=== PATIENT | male | born 1945 | race Caucasian/White ===

== ENCOUNTER 2016-11-29 13:32 | Inpatient (IN) | payer MEDICARE, MEDICAID ==
--- NOTE | 2016-11-29 14:10 | ED Physician Chart ---
Chief Complaint/HPI - Patient Information Date Seen:: 11/29/16 Time Seen:: 14:00 Chief Complaint:: increased agitation History of Present Illness:: Patient being sent here for increased agitation at his correction facility. If medically clear he is to be admitted to [facility] Allergies:: Allergies Allergy/AdvReac Type Severity Reaction Status Date / Time No Known Allergies Allergy Verified 06/18/16 16:29 Vitals:: Vital Signs - 8 hr 11/29/16 13:47 Temp 98.1 F HR 62 RR 16 O2 Sat % 99 Historian:: Patient, EMS Review:: Nurse's Note Reviewed Review of Systems - Review of Systems General/Constitutional: No fever, No chills Skin: No skin lesions Head: No headache Eyes: No loss of vision ENT: No earache Neck: No neck pain Cardio Vascular: No chest pain Pulmonary: No SOB GI: No nausea, No vomiting Musculoskeletal: No bone or joint pain Endocrine: No polyuria Psychiatric: Prior psych history Hematopoietic: No bruising Allergic/Immuno: No urticaria Neurological: No syncope Past Medical History - Past Medical History Past Medical History: PUD/GERD, Seizures, Dementia, Other (benign prostatic hypertrophy; schizoaffective disorder; Alzheimer's disease; status post deep vein thrombosis both legs leukocytosis) Family History: Other (unavailable) Social History: Non Smoker, No Alcohol, Care Facility Surgical History: other (unavailable) Psychiatricy History: Dementia Medication: Reviewed Family Medical History - Family Member Mother History Unknown: Yes Ethnicity: Unknown Living Status: Unknown Hx Family Cancer: (unknown) Hx Family Coronary Artery Disease: (unknown) Hx Family Congestive Heart Failure: (unknown) Hx Family Hypertension: (unknown) Hx Family Stroke: (unknown) Hx Family Diabetes: (unknown) Hx Family Seizures: (unknown) Hx Family Dementia: (unknown) Hx Family AIDS: (unknown) Hx Family HIV: No Hx Family COPD: (unknown) Hx Family Hepatitis: (unknown) Hx Family Psychiatric Problems: (unknown) Hx Family Tuberculosis: (unknown) Physical Exam - Physical Examination General/Constitutional: Well-developed, well-nourished, Alert, No distress Head: Atraumatic Eyes: Lids, conjuctiva normal, PERRL Skin: Nl inspection, No rash ENMT: External ears, nose nl, TM canals nl, Nasal exam nl Other ENMT comments:: Gums inflamed Neck: No nuchal rigidity Respiratory: Nl effort/Exclusion, Clear to Auscultation Cardio Vascular: RRR, No murmur, gallop, rubs GI: No tenderness/rebounding/guarding, No organomegaly, No hernia : No CVA tenderness Extremities: No tenderness or effusion, Full ROM Neuro/Psych: No focal deficits Other Neuro/Psych comments:: Patient does not know the correct year Misc: Normal back Labs/Radiology/EKG Results - Lab Results Results: Laboratory Results - last 24 hr 11/29/16 11/29/16 14:25 14:25 WBC 7.7 RBC 5.19 Hgb 15.6 Hct 46.8 MCV 90.3 MCH 30.1 MCHC Differential 33.4 RDW 13.8 Plt Count 267 MPV 6.8 Neutrophils % 66.4 Lymphocytes % 20.7 Monocytes % 10.3 H Eosinophils % 2.4 Basophils % 0.2 Sodium 139 Potassium 3.9 Chloride 105 Carbon Dioxide 27.1 Anion Gap 10.8 BUN 17 Creatinine 1.1 Est GFR ( Amer) TNP Est GFR (Non-Af Amer) TNP BUN/Creatinine Ratio 15.5 Glucose 79 Calcium 9.3 Total Bilirubin 0.3 AST 16 ALT 15 Alkaline Phosphatase 69 Total Protein 7.6 Albumin 4.0 L Globulin 3.6 Albumin/Globulin Ratio 1.1 - EKG Interpretations Rhythm: NSR [place]: normal Rate: 55 ED Septic Shock - . Is Septic Shock (SBP<90, OR Lactate>4 mmol\L) present?: No - <6hrs of presentation: Vital Signs: Vital Signs - 8 hr 11/29/16 13:47 Temp 98.1 F HR 62 RR 16 O2 Sat % 99 Reassessment (Disposition) - Reassessment Reassessment Condition:: Unchanged - Patient Disposition Admitted to:: [facility] Admitting Medical Physician:: Be Ward Admitting Psych Physician:: Jannet Perkins Condition at Disposition:: Stable, Unchanged
[2016-11-29 14:36] LABS: % BASOPHILS 0.2 % (0.0-2.0); % EOSINOPHILS 2.4 % (0.0-5.0); % LYMPHOCYTES 20.7 % (20.0-50.0); % MONOCYTES 10.3 % (2.0-10.0); % NEUTROPHILS 66.4 % (40.0-80.0); HEMATOCRIT 46.8 % (39.0-49.0); HEMOGLOBIN 15.6 gm/dL (12.6-17.4); MEAN CELL VOLUME 90.3 fl (80-99); MEAN CORPUSCULAR HEMOGLOBIN 30.1 pg (27.0-31.0); MEAN CORPUSCULAR HGB CONC 33.4 pg (28.0-36.0); MEAN PLATELET VOLUME 6.8 fl; NEUTROPHILE ABSOLUTE 5.1 Th/cmm (1.8-8.0); PLATELET COUNT 267 Th/cmm (150-400); RED BLOOD COUNT 5.19 Mil/cmm (3.80-5.80); RED CELL DISTRIBUTION WIDTH 13.8 % (11.5-20.0); WHITE BLOOD COUNT 7.7 Th/cmm (4.8-10.8)
[2016-11-29 14:50] LABS: ALB/GLOB RATIO 1.1 (1.0-1.8); ALKALINE PHOSPHATASE 69 U/L (34-104); ANION GAP 10.8 (7.0-16.0); BILIRUBIN,TOTAL 0.3 mg/dL (0.3-1.0); BUN - UREA NITROGEN 17 mg/dL (7-25); BUN/CREATININE RATIO 15.5; CALCIUM SERUM 9.3 mg/dL (8.6-10.3); CARBON DIOXIDE 27.1 mEq/L (21.0-31.0); CHLORIDE 105 mEq/L (98-107); CREATININE - SERUM 1.1 mg/dL (0.7-1.3); GLUCOSE 79 mg/dL (70-105); POTASSIUM SERUM 3.9 mEq/L (3.5-5.1); SGOT 16 U/L (13-39); SGPT/ALT 15 U/L (7-52); SODIUM SERUM 139 mEq/L (136-145)
[2016-11-29] MEDS ORDERED: Magnesium Hydroxide (MOM) 30 mL UDC PO PRN (16:26)
[2016-11-29] MEDS ORDERED: Maalox 30 mL Cup PO PRN (16:26)
[2016-11-29 18:14] VITALS: BP 136/76
[2016-11-29] MEDS ORDERED: QUETIAPINE FUMARATE 150 MG PO SCH (21:00)
[2016-11-29] MEDS ORDERED: Magnesium Hydroxide (MOM) 30 mL UDC PO SCH (23:15)
[2016-11-30] MEDS ORDERED: Multivitamin w/ Minerals Tab PO SCH (09:00)
[2016-11-30] MEDS: Theophylline 100 mg ER Tab PO SCH (09:55)
[2016-11-30] MEDS ORDERED: Magnesium Hydroxide (MOM) 30 mL UDC PO PRN (10:11)
[2016-11-30 11:51] LABS: INR 1.65 (0.5-1.4); PROTHROMBIN TIME (TEST) 17.6 SECONDS (9.5-11.5)
--- NOTE | 2016-11-30 13:03 | Psychosocial Evaluation ---
IDENTIFYING INFORMATION: The patient is a 71-year-old male. CHIEF COMPLAINT: No information. HISTORY OF PRESENT ILLNESS: The patient referred from [facility] because of agitation, psychosis, apparently has been aggressive, combative. The patient himself was a poor historian. I tried to talk to him, he was walking the hallway and I worked with him and asking questions, but he was whistling. He would not respond to any of my question. He has started to answer questions, then he keeps walking and whistled to himself. He seems to be responding to internal stimuli. The patient was restarted on his medications, Seroquel 150 mg twice a day and 150 mg at bedtime. He is also on Namenda 10 mg twice a day, Trileptal 150 mg twice a day and Aricept 10 mg at bedtime. PAST PSYCHIATRIC HISTORY: The patient has multiple prior admissions to this facility for similar reason with a history of aggressive behavior. MEDICAL HISTORY: He has no known drug allergies. Defer to the medical doctor. MEDICATIONS: The patient is on Pepcid, multivitamin, Flomax, theophylline. FAMILY AND SOCIAL HISTORY: The patient has been staying at [facility] for a long period of time. Unable to give any information. MENTAL STATUS EXAMINATION: The patient is appropriately dressed, not very groomed, looks disheveled, disorganized, internally preoccupied, whistling to himself, unable to participate in a meaningful conversation or tell me why he is here or what happened. He was combative, aggressive, responding to internal stimuli, ____ coming here. He was unable to participate in memory testing or IQ testing. He was ____ by suicide, homicide or hallucinations, but obviously he seems to be responding to internal stimuli. His insight and judgment impaired. IMPRESSION: AXIS I: Dementia with delusion and behavior disturbances. MEDICAL DIAGNOSES: Deferred to the medical doctors. His assets he is accepting treatment. Negative poor coping skills. INITIAL TREATMENT PLAN: The patient was started back on medication will adjust medications as needed. We will do group therapy, milieu therapy, individual therapy. ESTIMATED LENGTH OF STAY: 3-7 days. DISCHARGE CRITERIA: Decrease in psychosis, agitation. After discharge, outpatient. [facility]# [id number]
--- NOTE | 2016-11-30 15:26 | Internal Medicine Prog Note ---
Internal Medicine Subjective - Subjective Service Date: 11/30/16 ([id number]) Internal Medicine Objective - Results Result Diagrams: 11/29/16 14:25 11/29/16 14:25 Recent Labs: Laboratory Last Values WBC 7.7 Th/cmm (4.8-10.8) 11/29/16 14:25 RBC 5.19 Mil/cmm (3.80-5.80) 11/29/16 14:25 Hgb 15.6 gm/dL (12.6-17.4) 11/29/16 14:25 Hct 46.8 % (39.0-49.0) 11/29/16 14:25 MCV 90.3 fl (80-99) 11/29/16 14:25 MCH 30.1 pg (27.0-31.0) 11/29/16 14:25 MCHC Differential 33.4 pg (28.0-36.0) 11/29/16 14:25 RDW 13.8 % (11.5-20.0) 11/29/16 14:25 Plt Count 267 Th/cmm (150-400) 11/29/16 14:25 MPV 6.8 fl 11/29/16 14:25 Neutrophils % 66.4 % (40.0-80.0) 11/29/16 14:25 Lymphocytes % 20.7 % (20.0-50.0) 11/29/16 14:25 Monocytes % 10.3 % (2.0-10.0) H 11/29/16 14:25 Eosinophils % 2.4 % (0.0-5.0) 11/29/16 14:25 Basophils % 0.2 % (0.0-2.0) 11/29/16 14:25 PT 17.6 SECONDS (9.5-11.5) H 11/30/16 11:30 INR 1.65 (0.5-1.4) H 11/30/16 11:30 Sodium 139 mEq/L (136-145) 11/29/16 14:25 Potassium 3.9 mEq/L (3.5-5.1) 11/29/16 14:25 Chloride 105 mEq/L (98-107) 11/29/16 14:25 Carbon Dioxide 27.1 mEq/L (21.0-31.0) 11/29/16 14:25 Anion Gap 10.8 (7.0-16.0) 11/29/16 14:25 BUN 17 mg/dL (7-25) 11/29/16 14:25 Creatinine 1.1 mg/dL (0.7-1.3) 11/29/16 14:25 Est GFR ( Amer) TNP 11/29/16 14:25 Est GFR (Non-Af Amer) TNP 11/29/16 14:25 BUN/Creatinine Ratio 15.5 11/29/16 14:25 Glucose 79 mg/dL (70-105) 11/29/16 14:25 Calcium 9.3 mg/dL (8.6-10.3) 11/29/16 14:25 Total Bilirubin 0.3 mg/dL (0.3-1.0) 11/29/16 14:25 AST 16 U/L (13-39) 11/29/16 14:25 ALT 15 U/L (7-52) 11/29/16 14:25 Alkaline Phosphatase 69 U/L (34-104) 11/29/16 14:25 Total Protein 7.6 gm/dL (6.0-8.3) 11/29/16 14:25 Albumin 4.0 gm/dL (4.2-5.5) L 11/29/16 14:25 Globulin 3.6 gm/dL 11/29/16 14:25 Albumin/Globulin Ratio 1.1 (1.0-1.8) 11/29/16 14:25 TSH 1.04 uIU/ml (0.34-5.60) 11/29/16 14:25 RPR NONREACTIVE (NONREACTIVE) 11/29/16 14:25 - Physical Exam Vitals and I&O: Vital Signs Temp 97.4 F 11/30/16 06:23 Pulse 76 11/30/16 06:23 Resp 20 11/30/16 06:23 BP 143/66 11/30/16 06:23 Pulse Ox 98 11/30/16 06:23 Intake & Output 11/29/16 11/30/16 11/30/16 18:59 06:59 18:59 Intake Total 1400 120 Balance 1400 120 Intake: Oral 1400 120 Other: # Voids 1 2 # Bowel Movements 0 Active Medications: Current Medications Acetaminophen (Tylenol) 650 mg PO Q4HR PRN PRN Reason: Pain (Mild) Stop: 01/28/17 16:25 Al Hydrox/Mg Hydrox/Simethicone (Maalox) 30 ml PO Q4HR PRN PRN Reason: GI DISTRESS Stop: 01/28/17 16:25 Docusate Sodium (Colace) 100 mg PO BID ANA Stop: 01/29/17 08:59 Donepezil HCl (Aricept) 10 mg PO HS ANA Stop: 01/29/17 20:59 Famotidine (Pepcid) 20 mg PO DAILY ANA Stop: 01/29/17 08:59 Last Admin: 11/30/16 09:55 Dose: 20 mg Lorazepam (Ativan) 0.5 mg PO Q4HR PRN; Protocol PRN Reason: Anxiety Stop: 12/29/16 16:25 Magnesium Hydroxide (Milk Of Magnesia) 30 ml PO DAILY PRN PRN Reason: CONSTIPATION Stop: 01/28/17 23:14 Memantine (Namenda) 10 mg PO BID ANA Stop: 01/29/17 08:59 Last Admin: 11/30/16 09:55 Dose: 10 mg Multivitamins/Vitamin C (Theragran) 1 tab PO DAILY ANA Stop: 01/29/17 08:59 Oxcarbazepine (Trileptal) 150 mg PO BID ANA PRN Reason: Protocol Stop: 01/29/17 08:59 Quetiapine Fumarate (Seroquel) 150 mg PO BID ANA PRN Reason: Protocol Stop: 01/29/17 08:59 Quetiapine Fumarate (Seroquel) 150 mg PO HS ANA PRN Reason: Protocol Stop: 01/29/17 20:59 Tamsulosin HCl (Flomax) 0.8 mg PO HS [facility] Stop: 01/29/17 20:59 Theophylline (Fabien-Dur) 300 mg PO DAILY ANA Stop: 01/29/17 08:59 Last Admin: 11/30/16 09:55 Dose: 300 mg Warfarin Sodium (Coumadin) 6 mg PO C [facility] Stop: 01/29/17 13:59 Zolpidem Tartrate (Ambien) 5 mg PO HS PRN PRN Reason: Insomnia Stop: 01/28/17 16:25 - Procedures Procedures: Procedures Procedure Code Date EMERGENCY DEPT VISIT 93372 12/28/11 EMERGENCY DEPT VISIT 14629 12/12/11 GROUP PSYCHOTHERAPY 02773 02/14/16 GROUP PSYCHOTHERAPY GZHZZZZ 02/14/16 GROUP PSYCHOTHERAPY 14961 10/06/15 GROUP PSYCHOTHERAPY GZHZZZZ 10/06/15 GROUP PSYCHOTHERAPY 38118 06/21/15 GROUP PSYCHOTHERAPY GZHZZZZ 06/21/15 OTHER GROUP THERAPY 94.44 02/26/15 RECREATIONAL THERAPY 93.81 06/30/12 Internal Medicine Assmt/Plan - Assessment Assessment: pud/gerd alzheimer/dementia leukocytosis chronic dvt on anticoagulant
[2016-11-30] MEDS: Multivitamin Tab PO SCH (17:00)
--- NOTE | 2016-11-30 17:13 | History & Physical ---
CHIEF COMPLAINT: Agitation. HISTORY OF PRESENT ILLNESS: This is a 71-year-old male who is a resident of [facility] who is brought here to [facility] for increase of agitation. PAST MEDICAL HISTORY: CVA, GERD, Alzheimer dementia, DVT, ____, chronic, anticoagulation, BPH. PAST SURGICAL HISTORY: Unknown. SOCIAL HISTORY: The patient is a care home resident, requiring 24-hour nursing care. FAMILY HISTORY: Noncontributory. REVIEW OF SYSTEMS: Unable to obtain, the patient is very agitated. PHYSICAL EXAMINATION: GENERAL: The patient is awake, alert, in no acute distress. VITAL SIGNS: Temperature 97.4, heart rate 76, blood pressure 143/66, O2 98%. HEENT: Head normocephalic, atraumatic. NECK: Supple. No mass. LUNGS: Clear. CARDIOVASCULAR: Regular rhythm. ABDOMEN: Soft, nontender. LABORATORY DATA: WBC 7.7, H and H 15.2 and 46.8. Sodium 139, potassium 3.9, BUN ____ and creatinine 1.1. ASSESSMENT: 1. Agitation. 2. Gastroesophageal reflux disease . 3. Alzheimer dementia. 4. Benign prostatic hypertrophy. 5. Schizoaffective disorder. 6. Chronic obstructive pulmonary disease. PLAN: Psychiatrist to manage the patient's psychiatric issues. We will monitor the patient's PT and INR. Fall precautions. We will continue to monitor. JOB# [id number]
[2016-12-01 08:24] LABS: INR 1.29 (0.5-1.4); PROTHROMBIN TIME (TEST) 13.6 SECONDS (9.5-11.5)
[2016-12-01] MEDS: Theophylline 100 mg ER Tab PO SCH (09:16)
[2016-12-01] MEDS: Multivitamin Tab PO SCH (09:16)
--- NOTE | 2016-12-01 16:35 | Internal Medicine Prog Note ---
Internal Medicine Subjective - Subjective Patient seen and examined:: with staff, chart reviewed Patient is:: awake, verbal, interactive Per staff patient is:: no adverse event, confused Internal Medicine Objective - Results Result Diagrams: 11/29/16 14:25 11/29/16 14:25 Recent Labs: Laboratory Last Values WBC 7.7 Th/cmm (4.8-10.8) 11/29/16 14:25 RBC 5.19 Mil/cmm (3.80-5.80) 11/29/16 14:25 Hgb 15.6 gm/dL (12.6-17.4) 11/29/16 14:25 Hct 46.8 % (39.0-49.0) 11/29/16 14:25 MCV 90.3 fl (80-99) 11/29/16 14:25 MCH 30.1 pg (27.0-31.0) 11/29/16 14:25 MCHC Differential 33.4 pg (28.0-36.0) 11/29/16 14:25 RDW 13.8 % (11.5-20.0) 11/29/16 14:25 Plt Count 267 Th/cmm (150-400) 11/29/16 14:25 MPV 6.8 fl 11/29/16 14:25 Neutrophils % 66.4 % (40.0-80.0) 11/29/16 14:25 Lymphocytes % 20.7 % (20.0-50.0) 11/29/16 14:25 Monocytes % 10.3 % (2.0-10.0) H 11/29/16 14:25 Eosinophils % 2.4 % (0.0-5.0) 11/29/16 14:25 Basophils % 0.2 % (0.0-2.0) 11/29/16 14:25 PT 13.6 SECONDS (9.5-11.5) H 12/01/16 07:51 INR 1.29 (0.5-1.4) 12/01/16 07:51 PTT (Actin FS) 29.6 SECONDS (26.0-38.0) 12/01/16 07:51 Sodium 139 mEq/L (136-145) 11/29/16 14:25 Potassium 3.9 mEq/L (3.5-5.1) 11/29/16 14:25 Chloride 105 mEq/L (98-107) 11/29/16 14:25 Carbon Dioxide 27.1 mEq/L (21.0-31.0) 11/29/16 14:25 Anion Gap 10.8 (7.0-16.0) 11/29/16 14:25 BUN 17 mg/dL (7-25) 11/29/16 14:25 Creatinine 1.1 mg/dL (0.7-1.3) 11/29/16 14:25 Est GFR ( Amer) TNP 11/29/16 14:25 Est GFR (Non-Af Amer) TNP 11/29/16 14:25 BUN/Creatinine Ratio 15.5 11/29/16 14:25 Glucose 79 mg/dL (70-105) 11/29/16 14:25 Calcium 9.3 mg/dL (8.6-10.3) 11/29/16 14:25 Total Bilirubin 0.3 mg/dL (0.3-1.0) 11/29/16 14:25 AST 16 U/L (13-39) 11/29/16 14:25 ALT 15 U/L (7-52) 11/29/16 14:25 Alkaline Phosphatase 69 U/L (34-104) 11/29/16 14:25 Total Protein 7.6 gm/dL (6.0-8.3) 11/29/16 14:25 Albumin 4.0 gm/dL (4.2-5.5) L 11/29/16 14:25 Globulin 3.6 gm/dL 11/29/16 14:25 Albumin/Globulin Ratio 1.1 (1.0-1.8) 11/29/16 14:25 TSH 1.04 uIU/ml (0.34-5.60) 11/29/16 14:25 RPR NONREACTIVE (NONREACTIVE) 11/29/16 14:25 - Physical Exam Vitals and I&O: Vital Signs Temp 97.6 F 12/01/16 15:49 Pulse 60 12/01/16 15:49 Resp 22 12/01/16 15:49 BP 138/77 12/01/16 15:49 Pulse Ox 97 12/01/16 15:49 Intake & Output 11/30/16 12/01/16 12/01/16 18:59 06:59 18:59 Intake Total 850 Balance 850 Intake: Oral 850 Other: # Voids 3 2 # Bowel Movements 1 Active Medications: Current Medications Acetaminophen (Tylenol) 650 mg PO Q4HR PRN PRN Reason: Pain (Mild) Stop: 01/28/17 16:25 Al Hydrox/Mg Hydrox/Simethicone (Maalox) 30 ml PO Q4HR PRN PRN Reason: GI DISTRESS Stop: 01/28/17 16:25 Docusate Sodium (Colace) 100 mg PO BID [facility] Stop: 01/29/17 08:59 Last Admin: 12/01/16 16:19 Dose: 100 mg Donepezil HCl (Aricept) 10 mg PO HS [facility] Stop: 01/29/17 20:59 Last Admin: 11/30/16 20:49 Dose: 10 mg Famotidine (Pepcid) 20 mg PO DAILY [facility] Stop: 01/29/17 08:59 Last Admin: 12/01/16 09:16 Dose: 20 mg Lorazepam (Ativan) 0.5 mg PO Q4HR PRN; Protocol PRN Reason: Anxiety Stop: 12/29/16 16:25 Magnesium Hydroxide (Milk Of Magnesia) 30 ml PO DAILY PRN PRN Reason: CONSTIPATION Stop: 01/28/17 23:14 Memantine (Namenda) 10 mg PO BID [facility] Stop: 01/29/17 08:59 Last Admin: 12/01/16 16:19 Dose: 10 mg Multivitamins/Vitamin C (Theragran) 1 tab PO DAILY [facility] Stop: 01/29/17 08:59 Last Admin: 12/01/16 09:16 Dose: 1 tab Oxcarbazepine (Trileptal) 150 mg PO BID ANA PRN Reason: Protocol Stop: 01/29/17 08:59 Last Admin: 12/01/16 16:19 Dose: 150 mg Quetiapine Fumarate (Seroquel) 150 mg PO BID [facility] PRN Reason: Protocol Stop: 01/29/17 08:59 Last Admin: 12/01/16 16:19 Dose: 150 mg Quetiapine Fumarate (Seroquel) 150 mg PO HS [facility] PRN Reason: Protocol Stop: 01/29/17 20:59 Last Admin: 11/30/16 20:48 Dose: 150 mg Tamsulosin HCl (Flomax) 0.8 mg PO HS [facility] Stop: 01/29/17 20:59 Last Admin: 11/30/16 20:49 Dose: 0.8 mg Theophylline (Fabien-Dur) 300 mg PO DAILY ANA Stop: 01/29/17 08:59 Last Admin: 12/01/16 09:16 Dose: 300 mg Warfarin Sodium (Coumadin) 6 mg PO C [facility] Stop: 01/29/17 13:59 Last Admin: 12/01/16 13:23 Dose: 6 mg Zolpidem Tartrate (Ambien) 5 mg PO HS PRN PRN Reason: Insomnia Stop: 01/28/17 16:25 General: demented HEENT: NC/AT, PERRLA Neck: Supple, No JVD Lungs: CTAB Cardiovascular: RRR, Normal S1, Normal S2 Abdomen: soft non-tender, globular, positive bowel sound Extremities: clear, excoriation Neurological: no change - Procedures Procedures: Procedures Procedure Code Date EMERGENCY DEPT VISIT 21296 12/28/11 EMERGENCY DEPT VISIT 20488 12/12/11 GROUP PSYCHOTHERAPY 66613 02/14/16 GROUP PSYCHOTHERAPY GZHZZZZ 02/14/16 GROUP PSYCHOTHERAPY 35291 10/06/15 GROUP PSYCHOTHERAPY GZHZZZZ 10/06/15 GROUP PSYCHOTHERAPY 75074 06/21/15 GROUP PSYCHOTHERAPY GZHZZZZ 06/21/15 OTHER GROUP THERAPY 94.44 02/26/15 RECREATIONAL THERAPY 93.81 06/30/12 Internal Medicine Assmt/Plan - Assessment Assessment: pud/gerd alzheimer/dementia leukocytosis chronic dvt on anticoagulant - Plan Plan: cont on ppi cont on couumadin check inr richard jacobsen
--- NOTE | 2016-12-01 20:16 | Progress Notes ---
SUBJECTIVE: The patient seen, chart reviewed, discussed with staff. The patient is currently in the hospital, referred from [place], aggressive, combative, poor historian, nonsensical, for example, when I ask him questions, he responds "you are crushing my body" and then refusing any further interviews. The patient with history of advanced dementia, nonsensical, aggression. ASSESSMENT: The patient remains disorganized, internally preoccupied, making nonsensical statements, still resistant to care, poor impulse control, potential for dangerousness. PLAN: Continue to monitor, work on his coping and orientation, continue to make medication adjustments. JOB# [id number]
[2016-12-02] MEDS: Multivitamin Tab PO SCH (09:27)
[2016-12-02] MEDS: Theophylline 100 mg ER Tab PO SCH (09:28)
--- NOTE | 2016-12-02 15:32 | Internal Medicine Prog Note ---
Internal Medicine Subjective - Subjective Patient seen and examined:: with staff, chart reviewed Patient is:: awake, verbal Per staff patient is:: confused Internal Medicine Objective - Results Result Diagrams: 11/29/16 14:25 11/29/16 14:25 Recent Labs: Laboratory Last Values WBC 7.7 Th/cmm (4.8-10.8) 11/29/16 14:25 RBC 5.19 Mil/cmm (3.80-5.80) 11/29/16 14:25 Hgb 15.6 gm/dL (12.6-17.4) 11/29/16 14:25 Hct 46.8 % (39.0-49.0) 11/29/16 14:25 MCV 90.3 fl (80-99) 11/29/16 14:25 MCH 30.1 pg (27.0-31.0) 11/29/16 14:25 MCHC Differential 33.4 pg (28.0-36.0) 11/29/16 14:25 RDW 13.8 % (11.5-20.0) 11/29/16 14:25 Plt Count 267 Th/cmm (150-400) 11/29/16 14:25 MPV 6.8 fl 11/29/16 14:25 Neutrophils % 66.4 % (40.0-80.0) 11/29/16 14:25 Lymphocytes % 20.7 % (20.0-50.0) 11/29/16 14:25 Monocytes % 10.3 % (2.0-10.0) H 11/29/16 14:25 Eosinophils % 2.4 % (0.0-5.0) 11/29/16 14:25 Basophils % 0.2 % (0.0-2.0) 11/29/16 14:25 PT 13.6 SECONDS (9.5-11.5) H 12/01/16 07:51 INR 1.29 (0.5-1.4) 12/01/16 07:51 PTT (Actin FS) 29.6 SECONDS (26.0-38.0) 12/01/16 07:51 Sodium 139 mEq/L (136-145) 11/29/16 14:25 Potassium 3.9 mEq/L (3.5-5.1) 11/29/16 14:25 Chloride 105 mEq/L (98-107) 11/29/16 14:25 Carbon Dioxide 27.1 mEq/L (21.0-31.0) 11/29/16 14:25 Anion Gap 10.8 (7.0-16.0) 11/29/16 14:25 BUN 17 mg/dL (7-25) 11/29/16 14:25 Creatinine 1.1 mg/dL (0.7-1.3) 11/29/16 14:25 Est GFR ( Amer) TNP 11/29/16 14:25 Est GFR (Non-Af Amer) TNP 11/29/16 14:25 BUN/Creatinine Ratio 15.5 11/29/16 14:25 Glucose 79 mg/dL (70-105) 11/29/16 14:25 Calcium 9.3 mg/dL (8.6-10.3) 11/29/16 14:25 Total Bilirubin 0.3 mg/dL (0.3-1.0) 11/29/16 14:25 AST 16 U/L (13-39) 11/29/16 14:25 ALT 15 U/L (7-52) 11/29/16 14:25 Alkaline Phosphatase 69 U/L (34-104) 11/29/16 14:25 Total Protein 7.6 gm/dL (6.0-8.3) 11/29/16 14:25 Albumin 4.0 gm/dL (4.2-5.5) L 11/29/16 14:25 Globulin 3.6 gm/dL 11/29/16 14:25 Albumin/Globulin Ratio 1.1 (1.0-1.8) 11/29/16 14:25 TSH 1.04 uIU/ml (0.34-5.60) 11/29/16 14:25 RPR NONREACTIVE (NONREACTIVE) 11/29/16 14:25 - Physical Exam Vitals and I&O: Vital Signs Temp 97.8 F 12/01/16 19:58 Pulse 56 12/01/16 19:58 Resp 20 12/02/16 10:35 BP 106/62 12/01/16 19:58 Pulse Ox 97 12/01/16 19:58 Intake & Output 12/01/16 12/02/16 12/02/16 18:59 06:59 18:59 Intake Total 240 Balance 240 Intake: Oral 240 Other: # Voids 2 1 Active Medications: Current Medications Acetaminophen (Tylenol) 650 mg PO Q4HR PRN PRN Reason: Pain (Mild) Stop: 01/28/17 16:25 Al Hydrox/Mg Hydrox/Simethicone (Maalox) 30 ml PO Q4HR PRN PRN Reason: GI DISTRESS Stop: 01/28/17 16:25 Docusate Sodium (Colace) 100 mg PO BID [facility] Stop: 01/29/17 08:59 Last Admin: 12/02/16 09:29 Dose: 100 mg Donepezil HCl (Aricept) 10 mg PO HS [facility] Stop: 01/29/17 20:59 Last Admin: 12/01/16 20:51 Dose: 10 mg Famotidine (Pepcid) 20 mg PO DAILY [facility] Stop: 01/29/17 08:59 Last Admin: 12/02/16 09:27 Dose: 20 mg Lorazepam (Ativan) 0.5 mg PO Q4HR PRN; Protocol PRN Reason: Anxiety Stop: 12/29/16 16:25 Last Admin: 12/02/16 13:01 Dose: 0.5 mg Magnesium Hydroxide (Milk Of Magnesia) 30 ml PO DAILY PRN PRN Reason: CONSTIPATION Stop: 01/28/17 23:14 Memantine (Namenda) 10 mg PO BID [facility] Stop: 01/29/17 08:59 Last Admin: 12/02/16 09:24 Dose: 10 mg Multivitamins/Vitamin C (Theragran) 1 tab PO DAILY [facility] Stop: 01/29/17 08:59 Last Admin: 12/02/16 09:27 Dose: 1 tab Oxcarbazepine (Trileptal) 150 mg PO BID ANA PRN Reason: Protocol Stop: 01/29/17 08:59 Last Admin: 12/02/16 09:28 Dose: 150 mg Quetiapine Fumarate (Seroquel) 150 mg PO BID ANA PRN Reason: Protocol Stop: 01/29/17 08:59 Last Admin: 12/02/16 09:24 Dose: 150 mg Quetiapine Fumarate (Seroquel) 150 mg PO HS ANA PRN Reason: Protocol Stop: 01/29/17 20:59 Last Admin: 12/01/16 20:51 Dose: 150 mg Tamsulosin HCl (Flomax) 0.8 mg PO HS [facility] Stop: 01/29/17 20:59 Last Admin: 12/01/16 20:51 Dose: 0.8 mg Theophylline (Fabien-Dur) 300 mg PO DAILY ANA Stop: 01/29/17 08:59 Last Admin: 12/02/16 09:28 Dose: 300 mg Warfarin Sodium (Coumadin) 6 mg PO C [facility] Stop: 01/29/17 13:59 Last Admin: 12/02/16 13:01 Dose: 6 mg Zolpidem Tartrate (Ambien) 5 mg PO HS PRN PRN Reason: Insomnia Stop: 01/28/17 16:25 General: bilateral temporal wasting HEENT: NC/AT, PERRLA Neck: Supple, No JVD Lungs: CTAB Cardiovascular: RRR, Normal S1, Normal S2 Abdomen: soft non-tender, globular, positive bowel sound Extremities: excoriation Neurological: no change, disorganized - Procedures Procedures: Procedures Procedure Code Date EMERGENCY DEPT VISIT 56599 12/28/11 EMERGENCY DEPT VISIT 79334 12/12/11 GROUP PSYCHOTHERAPY 21539 02/14/16 GROUP PSYCHOTHERAPY GZHZZZZ 02/14/16 GROUP PSYCHOTHERAPY 30833 10/06/15 GROUP PSYCHOTHERAPY GZHZZZZ 10/06/15 GROUP PSYCHOTHERAPY 85665 06/21/15 GROUP PSYCHOTHERAPY GZHZZZZ 06/21/15 OTHER GROUP THERAPY 94.44 02/26/15 RECREATIONAL THERAPY 93.81 06/30/12 Internal Medicine Assmt/Plan - Assessment Assessment: pud/gerd alzheimer/dementia leukocytosis chronic dvt on anticoagulant - Plan Plan: cont on ppi cont on couumadin check inr richard jacobsen
--- NOTE | 2016-12-02 19:04 | Progress Notes ---
SUBJECTIVE: The patient seen, chart reviewed and discussed with staff. The patient wondering complaining that he is ____ aggressive, still combative, nonsensical, alert and oriented to name and has no idea where he is. He has no idea what is going on, nonsensical with advanced dementia, still with lashing up behaviors. ASSESSMENT: The patient is internally preoccupied, mumbling, wandering, poor impulse control, talking nonsense and disorganized. PLAN: Continue to monitor. The patient not safe for discharge. Still symptomatic. We will make medication adjustments appropriate to targeting his current symptoms. JOB# [id number]
[2016-12-03] MEDS: Theophylline 100 mg ER Tab PO SCH (08:18)
[2016-12-03] MEDS: Multivitamin Tab PO SCH (08:19)
--- NOTE | 2016-12-04 00:57 | Progress Notes ---
Case was discussed with staff of the patient, reviewed records. The patient continues to be agitated, continues to be confused, continues to be unable to make safe plan for self-care, continues to be unpredictable, impulsive, needing redirection, responding poorly to redirections. He is compliant with the medication with no side effects, no sedation, no nausea, no extrapyramidal symptoms ____. I will be increasing his Seroquel at bedtime ____ decrease his agitated behavior and so far, no side effects, no sedation, no nausea, no extrapyramidal symptoms. His lab work showed his chemistry panel within normal range. Sodium level within normal range. Low albumin level. His CBC showed high monocytes, the rest within normal range. We will continue to work with the patient in group therapy, milieu therapy, adjust the medication as needed. JOB# [id number]
[2016-12-04] MEDS: Theophylline 100 mg ER Tab PO SCH (09:28)
[2016-12-04] MEDS: Multivitamin Tab PO SCH (09:28)
--- NOTE | 2016-12-04 12:22 | Internal Medicine Prog Note ---
Internal Medicine Subjective - Subjective Service Date: 12/04/16 Patient seen and examined:: with staff Patient is:: awake Per staff patient is:: no adverse event Internal Medicine Objective - Results Result Diagrams: 11/29/16 14:25 11/29/16 14:25 Recent Labs: Laboratory Last Values WBC 7.7 Th/cmm (4.8-10.8) 11/29/16 14:25 RBC 5.19 Mil/cmm (3.80-5.80) 11/29/16 14:25 Hgb 15.6 gm/dL (12.6-17.4) 11/29/16 14:25 Hct 46.8 % (39.0-49.0) 11/29/16 14:25 MCV 90.3 fl (80-99) 11/29/16 14:25 MCH 30.1 pg (27.0-31.0) 11/29/16 14:25 MCHC Differential 33.4 pg (28.0-36.0) 11/29/16 14:25 RDW 13.8 % (11.5-20.0) 11/29/16 14:25 Plt Count 267 Th/cmm (150-400) 11/29/16 14:25 MPV 6.8 fl 11/29/16 14:25 Neutrophils % 66.4 % (40.0-80.0) 11/29/16 14:25 Lymphocytes % 20.7 % (20.0-50.0) 11/29/16 14:25 Monocytes % 10.3 % (2.0-10.0) H 11/29/16 14:25 Eosinophils % 2.4 % (0.0-5.0) 11/29/16 14:25 Basophils % 0.2 % (0.0-2.0) 11/29/16 14:25 PT 13.6 SECONDS (9.5-11.5) H 12/01/16 07:51 INR 1.29 (0.5-1.4) 12/01/16 07:51 PTT (Actin FS) 29.6 SECONDS (26.0-38.0) 12/01/16 07:51 Sodium 139 mEq/L (136-145) 11/29/16 14:25 Potassium 3.9 mEq/L (3.5-5.1) 11/29/16 14:25 Chloride 105 mEq/L (98-107) 11/29/16 14:25 Carbon Dioxide 27.1 mEq/L (21.0-31.0) 11/29/16 14:25 Anion Gap 10.8 (7.0-16.0) 11/29/16 14:25 BUN 17 mg/dL (7-25) 11/29/16 14:25 Creatinine 1.1 mg/dL (0.7-1.3) 11/29/16 14:25 Est GFR ( Amer) TNP 11/29/16 14:25 Est GFR (Non-Af Amer) TNP 11/29/16 14:25 BUN/Creatinine Ratio 15.5 11/29/16 14:25 Glucose 79 mg/dL (70-105) 11/29/16 14:25 Calcium 9.3 mg/dL (8.6-10.3) 11/29/16 14:25 Total Bilirubin 0.3 mg/dL (0.3-1.0) 11/29/16 14:25 AST 16 U/L (13-39) 11/29/16 14:25 ALT 15 U/L (7-52) 11/29/16 14:25 Alkaline Phosphatase 69 U/L (34-104) 11/29/16 14:25 Total Protein 7.6 gm/dL (6.0-8.3) 11/29/16 14:25 Albumin 4.0 gm/dL (4.2-5.5) L 11/29/16 14:25 Globulin 3.6 gm/dL 11/29/16 14:25 Albumin/Globulin Ratio 1.1 (1.0-1.8) 11/29/16 14:25 TSH 1.04 uIU/ml (0.34-5.60) 11/29/16 14:25 RPR NONREACTIVE (NONREACTIVE) 11/29/16 14:25 - Physical Exam Vitals and I&O: Vital Signs Temp 97.8 F 12/04/16 06:27 Pulse 61 12/04/16 06:27 Resp 20 12/04/16 06:27 BP 117/72 12/04/16 06:27 Pulse Ox 99 12/04/16 06:27 Intake & Output 12/03/16 12/04/16 12/04/16 18:59 06:59 18:59 Intake Total 2400 120 Balance 2400 120 Intake: Oral 2400 120 Other: # Voids 4 3 # Bowel Movements 0 Stool Characteristics Soft Soft Active Medications: Current Medications Acetaminophen (Tylenol) 650 mg PO Q4HR PRN PRN Reason: Pain (Mild) Stop: 01/28/17 16:25 Al Hydrox/Mg Hydrox/Simethicone (Maalox) 30 ml PO Q4HR PRN PRN Reason: GI DISTRESS Stop: 01/28/17 16:25 Docusate Sodium (Colace) 100 mg PO BID [facility] Stop: 01/29/17 08:59 Last Admin: 12/04/16 09:28 Dose: 100 mg Donepezil HCl (Aricept) 10 mg PO [facility] Stop: 01/29/17 20:59 Last Admin: 12/03/16 20:10 Dose: 10 mg Famotidine (Pepcid) 20 mg PO DAILY [facility] Stop: 01/29/17 08:59 Last Admin: 12/04/16 09:29 Dose: 20 mg Lorazepam (Ativan) 0.5 mg PO Q4HR PRN; Protocol PRN Reason: Anxiety Stop: 12/29/16 16:25 Last Admin: 12/02/16 13:01 Dose: 0.5 mg Magnesium Hydroxide (Milk Of Magnesia) 30 ml PO DAILY PRN PRN Reason: CONSTIPATION Stop: 01/28/17 23:14 Memantine (Namenda) 10 mg PO BID [facility] Stop: 01/29/17 08:59 Last Admin: 12/04/16 09:28 Dose: 10 mg Multivitamins/Vitamin C (Theragran) 1 tab PO DAILY [facility] Stop: 01/29/17 08:59 Last Admin: 12/04/16 09:28 Dose: 1 tab Oxcarbazepine (Trileptal) 150 mg PO BID [facility] PRN Reason: Protocol Stop: 01/29/17 08:59 Last Admin: 12/04/16 09:28 Dose: 150 mg Quetiapine Fumarate (Seroquel) 150 mg PO BID [facility] PRN Reason: Protocol Stop: 01/29/17 08:59 Last Admin: 12/04/16 09:29 Dose: 150 mg Quetiapine Fumarate 100 mg/Quetiapine Fumarate 50 mg/Quetiapine Fumarate 25 mg 175 mg PO [facility] Stop: 02/01/17 20:59 Last Admin: 12/03/16 20:09 Dose: 175 mg Tamsulosin HCl (Flomax) 0.8 mg PO HS [facility] Stop: 01/29/17 20:59 Last Admin: 12/03/16 20:09 Dose: 0.8 mg Theophylline (Fabien-Dur) 300 mg PO DAILY [facility] Stop: 01/29/17 08:59 Last Admin: 12/04/16 09:28 Dose: 300 mg Warfarin Sodium (Coumadin) 6 mg PO C [facility] Stop: 01/29/17 13:59 Last Admin: 12/03/16 16:14 Dose: 6 mg Zolpidem Tartrate (Ambien) 5 mg PO HS PRN PRN Reason: Insomnia Stop: 01/28/17 16:25 General: alert HEENT: NC/AT, PERRLA Neck: Supple Lungs: CTAB Cardiovascular: RRR, Normal S1, Normal S2, without murmur Abdomen: soft non-tender, non-distended Extremities: clear - Procedures Procedures: Procedures Procedure Code Date EMERGENCY DEPT VISIT 82186 12/28/11 EMERGENCY DEPT VISIT 73209 12/12/11 GROUP PSYCHOTHERAPY 15581 02/14/16 GROUP PSYCHOTHERAPY GZHZZZZ 02/14/16 GROUP PSYCHOTHERAPY 76700 10/06/15 GROUP PSYCHOTHERAPY GZHZZZZ 10/06/15 GROUP PSYCHOTHERAPY 88614 06/21/15 GROUP PSYCHOTHERAPY GZHZZZZ 06/21/15 OTHER GROUP THERAPY 94.44 02/26/15 RECREATIONAL THERAPY 93.81 06/30/12 Internal Medicine Assmt/Plan - Assessment Assessment: pud/gerd alzheimer/dementia leukocytosis chronic dvt on anticoagulant - Plan Plan: monitor pt/inr fall precautions cpm
--- NOTE | 2016-12-04 23:38 | Progress Notes ---
Case was discussed with staff of the patient, reviewed records. The patient continues to be delusional, irritable, having anger outbursts, continues to be unpredictable, impulsive, needing redirection. He is sleeping better, eating better. He is tolerating increase in Seroquel. No side effects, no extrapyramidal symptoms, no sedation. He is still not steady to be discharged, not safe, still unpredictable, impulsive, having anger outbursts, agitation, irritability, confusion. We will continue the patient in group therapy, milieu therapy, and adjust medications. JOB# [id number]
[2016-12-05] MEDS: Theophylline 100 mg ER Tab PO SCH (09:05)
[2016-12-05] MEDS: Multivitamin Tab PO SCH (09:06)
[2016-12-05 09:12] LABS: INR 1.75 (0.5-1.4); PROTHROMBIN TIME (TEST) 18.7 SECONDS (9.5-11.5)
--- NOTE | 2016-12-05 10:46 | Internal Medicine Prog Note ---
Internal Medicine Subjective - Subjective Service Date: 12/05/16 Patient seen and examined:: with staff Patient is:: awake Per staff patient is:: no adverse event Internal Medicine Objective - Results Result Diagrams: 11/29/16 14:25 11/29/16 14:25 Recent Labs: Laboratory Last Values WBC 7.7 Th/cmm (4.8-10.8) 11/29/16 14:25 RBC 5.19 Mil/cmm (3.80-5.80) 11/29/16 14:25 Hgb 15.6 gm/dL (12.6-17.4) 11/29/16 14:25 Hct 46.8 % (39.0-49.0) 11/29/16 14:25 MCV 90.3 fl (80-99) 11/29/16 14:25 MCH 30.1 pg (27.0-31.0) 11/29/16 14:25 MCHC Differential 33.4 pg (28.0-36.0) 11/29/16 14:25 RDW 13.8 % (11.5-20.0) 11/29/16 14:25 Plt Count 267 Th/cmm (150-400) 11/29/16 14:25 MPV 6.8 fl 11/29/16 14:25 Neutrophils % 66.4 % (40.0-80.0) 11/29/16 14:25 Lymphocytes % 20.7 % (20.0-50.0) 11/29/16 14:25 Monocytes % 10.3 % (2.0-10.0) H 11/29/16 14:25 Eosinophils % 2.4 % (0.0-5.0) 11/29/16 14:25 Basophils % 0.2 % (0.0-2.0) 11/29/16 14:25 PT 18.7 SECONDS (9.5-11.5) H 12/05/16 07:45 INR 1.75 (0.5-1.4) H 12/05/16 07:45 PTT (Actin FS) 33.0 SECONDS (26.0-38.0) 12/05/16 07:45 Sodium 139 mEq/L (136-145) 11/29/16 14:25 Potassium 3.9 mEq/L (3.5-5.1) 11/29/16 14:25 Chloride 105 mEq/L (98-107) 11/29/16 14:25 Carbon Dioxide 27.1 mEq/L (21.0-31.0) 11/29/16 14:25 Anion Gap 10.8 (7.0-16.0) 11/29/16 14:25 BUN 17 mg/dL (7-25) 11/29/16 14:25 Creatinine 1.1 mg/dL (0.7-1.3) 11/29/16 14:25 Est GFR ( Amer) TNP 11/29/16 14:25 Est GFR (Non-Af Amer) TNP 11/29/16 14:25 BUN/Creatinine Ratio 15.5 11/29/16 14:25 Glucose 79 mg/dL (70-105) 11/29/16 14:25 Calcium 9.3 mg/dL (8.6-10.3) 11/29/16 14:25 Total Bilirubin 0.3 mg/dL (0.3-1.0) 11/29/16 14:25 AST 16 U/L (13-39) 11/29/16 14:25 ALT 15 U/L (7-52) 11/29/16 14:25 Alkaline Phosphatase 69 U/L (34-104) 11/29/16 14:25 Total Protein 7.6 gm/dL (6.0-8.3) 11/29/16 14:25 Albumin 4.0 gm/dL (4.2-5.5) L 11/29/16 14:25 Globulin 3.6 gm/dL 11/29/16 14:25 Albumin/Globulin Ratio 1.1 (1.0-1.8) 11/29/16 14:25 TSH 1.04 uIU/ml (0.34-5.60) 11/29/16 14:25 RPR NONREACTIVE (NONREACTIVE) 11/29/16 14:25 - Physical Exam Vitals and I&O: Vital Signs Temp 98.3 F 12/05/16 06:22 Pulse 75 12/05/16 06:22 Resp 20 12/05/16 06:22 BP 150/96 12/05/16 06:22 Pulse Ox 97 12/05/16 06:22 Intake & Output 12/04/16 12/05/16 12/05/16 18:59 06:59 18:59 Intake Total 1400 Balance 1400 Intake: Oral 1400 Other: # Voids 4 1 # Bowel Movements 1 0 Stool Characteristics Soft Soft Active Medications: Current Medications Acetaminophen (Tylenol) 650 mg PO Q4HR PRN PRN Reason: Pain (Mild) Stop: 01/28/17 16:25 Al Hydrox/Mg Hydrox/Simethicone (Maalox) 30 ml PO Q4HR PRN PRN Reason: GI DISTRESS Stop: 01/28/17 16:25 Docusate Sodium (Colace) 100 mg PO BID [facility] Stop: 01/29/17 08:59 Last Admin: 12/05/16 09:06 Dose: 100 mg Donepezil HCl (Aricept) 10 mg PO HS [facility] Stop: 01/29/17 20:59 Last Admin: 12/04/16 20:35 Dose: 10 mg Famotidine (Pepcid) 20 mg PO DAILY [facility] Stop: 01/29/17 08:59 Last Admin: 12/05/16 09:06 Dose: 20 mg Lorazepam (Ativan) 0.5 mg PO Q4HR PRN; Protocol PRN Reason: Anxiety Stop: 12/29/16 16:25 Last Admin: 12/02/16 13:01 Dose: 0.5 mg Magnesium Hydroxide (Milk Of Magnesia) 30 ml PO DAILY PRN PRN Reason: CONSTIPATION Stop: 01/28/17 23:14 Memantine (Namenda) 10 mg PO BID [facility] Stop: 01/29/17 08:59 Last Admin: 12/05/16 09:10 Dose: 10 mg Multivitamins/Vitamin C (Theragran) 1 tab PO DAILY [facility] Stop: 01/29/17 08:59 Last Admin: 12/05/16 09:06 Dose: 1 tab Oxcarbazepine (Trileptal) 150 mg PO BID [facility] PRN Reason: Protocol Stop: 01/29/17 08:59 Last Admin: 12/05/16 09:05 Dose: 150 mg Quetiapine Fumarate (Seroquel) 150 mg PO BID [facility] PRN Reason: Protocol Stop: 01/29/17 08:59 Last Admin: 12/05/16 09:05 Dose: 150 mg Quetiapine Fumarate (Seroquel) 200 mg PO HS [facility] Stop: 02/03/17 08:38 Tamsulosin HCl (Flomax) 0.8 mg PO HS [facility] Stop: 01/29/17 20:59 Last Admin: 12/04/16 20:35 Dose: 0.8 mg Theophylline (Fabien-Dur) 300 mg PO DAILY [facility] Stop: 01/29/17 08:59 Last Admin: 12/05/16 09:05 Dose: 300 mg Warfarin Sodium (Coumadin) 6 mg PO C [facility] Stop: 01/29/17 13:59 Last Admin: 12/04/16 18:07 Dose: Not Given Zolpidem Tartrate (Ambien) 5 mg PO HS PRN PRN Reason: Insomnia Stop: 01/28/17 16:25 General: alert HEENT: NC/AT, PERRLA Neck: Supple Lungs: CTAB Cardiovascular: RRR, Normal S1, Normal S2, without murmur Abdomen: soft non-tender, non-distended, positive bowel sound Neurological: no change - Procedures Procedures: Procedures Procedure Code Date EMERGENCY DEPT VISIT 98283 12/28/11 EMERGENCY DEPT VISIT 30932 12/12/11 GROUP PSYCHOTHERAPY 28419 02/14/16 GROUP PSYCHOTHERAPY GZHZZZZ 02/14/16 GROUP PSYCHOTHERAPY 15636 10/06/15 GROUP PSYCHOTHERAPY GZHZZZZ 10/06/15 GROUP PSYCHOTHERAPY 65907 06/21/15 GROUP PSYCHOTHERAPY GZHZZZZ 06/21/15 OTHER GROUP THERAPY 94.44 02/26/15 RECREATIONAL THERAPY 93.81 06/30/12 Internal Medicine Assmt/Plan - Assessment Assessment: pud/gerd alzheimer/dementia leukocytosis chronic dvt on anticoagulant - Plan Plan: monitor pt/inr fall precautions cpm
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
[2016-12-06] MEDS: Theophylline 100 mg ER Tab PO SCH (09:03)
[2016-12-06] MEDS: Multivitamin Tab PO SCH (09:03)
--- NOTE | 2016-12-06 11:20 | Internal Medicine Prog Note ---
Internal Medicine Subjective - Subjective Service Date: 12/06/16 Patient seen and examined:: with staff Patient is:: awake Per staff patient is:: no adverse event Internal Medicine Objective - Results Result Diagrams: 11/29/16 14:25 11/29/16 14:25 Recent Labs: Laboratory Last Values WBC 7.7 Th/cmm (4.8-10.8) 11/29/16 14:25 RBC 5.19 Mil/cmm (3.80-5.80) 11/29/16 14:25 Hgb 15.6 gm/dL (12.6-17.4) 11/29/16 14:25 Hct 46.8 % (39.0-49.0) 11/29/16 14:25 MCV 90.3 fl (80-99) 11/29/16 14:25 MCH 30.1 pg (27.0-31.0) 11/29/16 14:25 MCHC Differential 33.4 pg (28.0-36.0) 11/29/16 14:25 RDW 13.8 % (11.5-20.0) 11/29/16 14:25 Plt Count 267 Th/cmm (150-400) 11/29/16 14:25 MPV 6.8 fl 11/29/16 14:25 Neutrophils % 66.4 % (40.0-80.0) 11/29/16 14:25 Lymphocytes % 20.7 % (20.0-50.0) 11/29/16 14:25 Monocytes % 10.3 % (2.0-10.0) H 11/29/16 14:25 Eosinophils % 2.4 % (0.0-5.0) 11/29/16 14:25 Basophils % 0.2 % (0.0-2.0) 11/29/16 14:25 PT 18.7 SECONDS (9.5-11.5) H 12/05/16 07:45 INR 1.75 (0.5-1.4) H 12/05/16 07:45 PTT (Actin FS) 33.0 SECONDS (26.0-38.0) 12/05/16 07:45 Sodium 139 mEq/L (136-145) 11/29/16 14:25 Potassium 3.9 mEq/L (3.5-5.1) 11/29/16 14:25 Chloride 105 mEq/L (98-107) 11/29/16 14:25 Carbon Dioxide 27.1 mEq/L (21.0-31.0) 11/29/16 14:25 Anion Gap 10.8 (7.0-16.0) 11/29/16 14:25 BUN 17 mg/dL (7-25) 11/29/16 14:25 Creatinine 1.1 mg/dL (0.7-1.3) 11/29/16 14:25 Est GFR ( Amer) TNP 11/29/16 14:25 Est GFR (Non-Af Amer) TNP 11/29/16 14:25 BUN/Creatinine Ratio 15.5 11/29/16 14:25 Glucose 79 mg/dL (70-105) 11/29/16 14:25 Calcium 9.3 mg/dL (8.6-10.3) 11/29/16 14:25 Total Bilirubin 0.3 mg/dL (0.3-1.0) 11/29/16 14:25 AST 16 U/L (13-39) 11/29/16 14:25 ALT 15 U/L (7-52) 11/29/16 14:25 Alkaline Phosphatase 69 U/L (34-104) 11/29/16 14:25 Total Protein 7.6 gm/dL (6.0-8.3) 11/29/16 14:25 Albumin 4.0 gm/dL (4.2-5.5) L 11/29/16 14:25 Globulin 3.6 gm/dL 11/29/16 14:25 Albumin/Globulin Ratio 1.1 (1.0-1.8) 11/29/16 14:25 TSH 1.04 uIU/ml (0.34-5.60) 11/29/16 14:25 RPR NONREACTIVE (NONREACTIVE) 11/29/16 14:25 - Physical Exam Vitals and I&O: Vital Signs Temp 98.6 F 12/05/16 14:00 Pulse 75 12/05/16 14:00 Resp 20 12/05/16 14:00 BP 113/66 12/05/16 14:00 Pulse Ox 97 12/05/16 14:00 Intake & Output 12/05/16 12/06/16 12/06/16 18:59 06:59 18:59 Intake Total 960 Balance 960 Intake: Oral 960 Other: # Voids 3 # Bowel Movements 0 Active Medications: Current Medications Acetaminophen (Tylenol) 650 mg PO Q4HR PRN PRN Reason: Pain (Mild) Stop: 01/28/17 16:25 Al Hydrox/Mg Hydrox/Simethicone (Maalox) 30 ml PO Q4HR PRN PRN Reason: GI DISTRESS Stop: 01/28/17 16:25 Docusate Sodium (Colace) 100 mg PO BID [facility] Stop: 01/29/17 08:59 Last Admin: 12/06/16 09:03 Dose: 100 mg Donepezil HCl (Aricept) 10 mg PO HS [facility] Stop: 01/29/17 20:59 Last Admin: 12/05/16 20:22 Dose: 10 mg Famotidine (Pepcid) 20 mg PO DAILY [facility] Stop: 01/29/17 08:59 Last Admin: 12/06/16 09:03 Dose: 20 mg Lorazepam (Ativan) 0.5 mg PO Q4HR PRN; Protocol PRN Reason: Anxiety Stop: 12/29/16 16:25 Last Admin: 12/06/16 00:08 Dose: 0.5 mg Magnesium Hydroxide (Milk Of Magnesia) 30 ml PO DAILY PRN PRN Reason: CONSTIPATION Stop: 01/28/17 23:14 Memantine (Namenda) 10 mg PO BID [facility] Stop: 01/29/17 08:59 Last Admin: 12/06/16 09:03 Dose: 10 mg Multivitamins/Vitamin C (Theragran) 1 tab PO DAILY [facility] Stop: 01/29/17 08:59 Last Admin: 12/06/16 09:03 Dose: 1 tab Oxcarbazepine (Trileptal) 150 mg PO BID [facility] PRN Reason: Protocol Stop: 01/29/17 08:59 Last Admin: 12/06/16 09:03 Dose: 150 mg Quetiapine Fumarate (Seroquel) 150 mg PO BID [facility] PRN Reason: Protocol Stop: 01/29/17 08:59 Last Admin: 12/06/16 09:03 Dose: 150 mg Quetiapine Fumarate (Seroquel) 200 mg PO HS [facility] Stop: 02/03/17 08:38 Last Admin: 12/05/16 20:22 Dose: 200 mg Tamsulosin HCl (Flomax) 0.8 mg PO HS [facility] Stop: 01/29/17 20:59 Last Admin: 12/05/16 20:22 Dose: 0.8 mg Theophylline (Fabien-Dur) 300 mg PO DAILY [facility] Stop: 01/29/17 08:59 Last Admin: 12/06/16 09:03 Dose: 300 mg Warfarin Sodium (Coumadin) 6 mg PO C [facility] Stop: 01/29/17 13:59 Last Admin: 12/05/16 12:33 Dose: 6 mg Zolpidem Tartrate (Ambien) 5 mg PO HS PRN PRN Reason: Insomnia Stop: 01/28/17 16:25 Last Admin: 12/06/16 00:08 Dose: 5 mg General: alert HEENT: NC/AT, PERRLA Neck: Supple Lungs: CTAB Cardiovascular: RRR, Normal S1, Normal S2, without murmur Abdomen: soft non-tender, non-distended, positive bowel sound - Procedures Procedures: Procedures Procedure Code Date EMERGENCY DEPT VISIT 27230 12/28/11 EMERGENCY DEPT VISIT 05533 12/12/11 GROUP PSYCHOTHERAPY 76524 02/14/16 GROUP PSYCHOTHERAPY GZHZZZZ 02/14/16 GROUP PSYCHOTHERAPY 95037 10/06/15 GROUP PSYCHOTHERAPY GZHZZZZ 10/06/15 GROUP PSYCHOTHERAPY 46544 06/21/15 GROUP PSYCHOTHERAPY GZHZZZZ 06/21/15 OTHER GROUP THERAPY 94.44 02/26/15 RECREATIONAL THERAPY 93.81 06/30/12 Internal Medicine Assmt/Plan - Assessment Assessment: pud/gerd alzheimer/dementia leukocytosis chronic dvt on anticoagulant - Plan Plan: coumadin per pharmacy to dose monitor pt/inr fall precautions cpm
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
[2016-12-07] MEDS: Theophylline 100 mg ER Tab PO SCH (08:09)
[2016-12-07] MEDS: Multivitamin Tab PO SCH (08:09)
--- NOTE | 2016-12-07 12:48 | Internal Medicine Prog Note ---
Internal Medicine Subjective - Subjective Patient seen and examined:: with staff, chart reviewed Patient is:: verbal, interactive Patient Complaints of:: congestion Per staff patient is:: eating well, confused Internal Medicine Objective - Results Result Diagrams: 11/29/16 14:25 11/29/16 14:25 Recent Labs: Laboratory Last Values WBC 7.7 Th/cmm (4.8-10.8) 11/29/16 14:25 RBC 5.19 Mil/cmm (3.80-5.80) 11/29/16 14:25 Hgb 15.6 gm/dL (12.6-17.4) 11/29/16 14:25 Hct 46.8 % (39.0-49.0) 11/29/16 14:25 MCV 90.3 fl (80-99) 11/29/16 14:25 MCH 30.1 pg (27.0-31.0) 11/29/16 14: MCHC Differential 33.4 pg (28.0-36.0) 11/29/16 14:25 RDW 13.8 % (11.5-20.0) 11/29/16 14:25 Plt Count 267 Th/cmm (150-400) 11/29/16 14:25 MPV 6.8 fl 11/29/16 14:25 Neutrophils % 66.4 % (40.0-80.0) 11/29/16 14:25 Lymphocytes % 20.7 % (20.0-50.0) 11/29/16 14:25 Monocytes % 10.3 % (2.0-10.0) H 11/29/16 14:25 Eosinophils % 2.4 % (0.0-5.0) 11/29/16 14:25 Basophils % 0.2 % (0.0-2.0) 11/29/16 14:25 PT 18.7 SECONDS (9.5-11.5) H 12/05/16 07:45 INR 1.75 (0.5-1.4) H 12/05/16 07:45 PTT (Actin FS) 33.0 SECONDS (26.0-38.0) 12/05/16 07:45 Sodium 139 mEq/L (136-145) 11/29/16 14:25 Potassium 3.9 mEq/L (3.5-5.1) 11/29/16 14:25 Chloride 105 mEq/L (98-107) 11/29/16 14:25 Carbon Dioxide 27.1 mEq/L (21.0-31.0) 11/29/16 14:25 Anion Gap 10.8 (7.0-16.0) 11/29/16 14:25 BUN 17 mg/dL (7-25) 11/29/16 14:25 Creatinine 1.1 mg/dL (0.7-1.3) 11/29/16 14:25 Est GFR ( Amer) TNP 11/29/16 14:25 Est GFR (Non-Af Amer) TNP 11/29/16 14:25 BUN/Creatinine Ratio 15.5 11/29/16 14:25 Glucose 79 mg/dL (70-105) 11/29/16 14:25 Calcium 9.3 mg/dL (8.6-10.3) 11/29/16 14:25 Total Bilirubin 0.3 mg/dL (0.3-1.0) 11/29/16 14:25 AST 16 U/L (13-39) 11/29/16 14:25 ALT 15 U/L (7-52) 11/29/16 14:25 Alkaline Phosphatase 69 U/L (34-104) 11/29/16 14:25 Total Protein 7.6 gm/dL (6.0-8.3) 11/29/16 14:25 Albumin 4.0 gm/dL (4.2-5.5) L 11/29/16 14:25 Globulin 3.6 gm/dL 11/29/16 14:25 Albumin/Globulin Ratio 1.1 (1.0-1.8) 11/29/16 14:25 TSH 1.04 uIU/ml (0.34-5.60) 11/29/16 14:25 RPR NONREACTIVE (NONREACTIVE) 11/29/16 14:25 - Physical Exam Vitals and I&O: Vital Signs Temp 98.1 F 12/07/16 06:34 Pulse 56 12/07/16 06:34 Resp 18 12/07/16 06:34 BP 132/76 12/07/16 06:34 Pulse Ox 97 12/07/16 06:34 Intake & Output 03/06/1612/07/16 12/07/16 18:59 06:59 18:59 Intake Total 1000 Balance 1000 Weight (lbs) 74.344 kg Intake: Oral 1000 Other: # Voids 3 2 # Bowel Movements 1 Active Medications: Current Medications Acetaminophen (Tylenol) 650 mg PO Q4HR PRN PRN Reason: Pain (Mild) Stop: 01/28/17 16:25 Al Hydrox/Mg Hydrox/Simethicone (Maalox) 30 ml PO Q4HR PRN PRN Reason: GI DISTRESS Stop: 01/28/17 16:25 Docusate Sodium (Colace) 100 mg PO BID [facility] Stop: 01/29/17 08:59 Last Admin: 12/07/16 08:09 Dose: 100 mg Donepezil HCl (Aricept) 10 mg PO HS [facility], [facility]1983 Stop: 01/29/17 20:59 Last Admin: 12/06/16 20:24 Dose: 10 mg Famotidine (Pepcid) 20 mg PO DAILY ANA Stop: 01/29/17 08:59 Last Admin: 12/07/16 08:09 Dose: 20 mg Lorazepam (Ativan) 0.5 mg PO Q4HR PRN; Protocol PRN Reason: Anxiety Stop: 12/29/16 16:25 Last Admin: 12/06/16 20:24 Dose: 0.5 mg Magnesium Hydroxide (Milk Of Magnesia) 30 ml PO DAILY PRN PRN Reason: CONSTIPATION Stop: 01/28/17 23:14 Memantine (Namenda) 10 mg PO BID [facility]LY [facility], [facility]1983 Stop: 01/29/17 08:59 Last Admin: 12/07/16 08:09 Dose: 10 mg Multivitamins/Vitamin C (Theragran) 1 tab PO DAILY [facility] Stop: 01/29/17 08:59 Last Admin: 12/07/16 08:09 Dose: 1 tab Oxcarbazepine (Trileptal) 300 mg PO BID ANA PRN Reason: Protocol Stop: 02/04/17 11:41 Last Admin: 12/07/16 08:08 Dose: 300 mg Quetiapine Fumarate (Seroquel) 150 mg PO BID ANA PRN Reason: Protocol Stop: 01/29/17 08:59 Last Admin: 12/07/16 08:08 Dose: 150 mg Quetiapine Fumarate (Seroquel) 200 mg PO HS [facility] Stop: 02/03/17 08:38 Last Admin: 12/06/16 20:24 Dose: 200 mg Tamsulosin HCl (Flomax) 0.8 mg PO HS [facility] Stop: 01/29/17 20:59 Last Admin: 12/06/16 20:24 Dose: 0.8 mg Theophylline (Fabien-Dur) 300 mg PO DAILY ANA Stop: 01/29/17 08:59 Last Admin: 12/07/16 08:09 Dose: 300 mg Warfarin Sodium (Coumadin) 6 mg PO C [facility]1983 Stop: 01/29/17 13:59 Last Admin: 12/07/16 12:38 Dose: 6 mg Zolpidem Tartrate (Ambien) 5 mg PO HS PRN PRN Reason: Insomnia Stop: 01/28/17 16:25 Last Admin: 12/06/16 22:15 Dose: 5 mg General: demented HEENT: NC/AT, PERRLA Neck: Supple, No JVD Lungs: CTAB Cardiovascular: RRR, Normal S1, Normal S2 Abdomen: soft non-tender, globular, positive bowel sound Extremities: excoriation Neurological: no change, disorganized - Procedures Procedures: Procedures Procedure Code Date EMERGENCY DEPT VISIT 90100 12/28/11 EMERGENCY DEPT VISIT 71115 12/12/11 GROUP PSYCHOTHERAPY 54687 02/14/16 GROUP PSYCHOTHERAPY GZHZZZZ 02/14/16 GROUP PSYCHOTHERAPY 86318 10/06/15 GROUP PSYCHOTHERAPY GZHZZZZ 10/06/15 GROUP PSYCHOTHERAPY 13140 06/21/15 GROUP PSYCHOTHERAPY GZHZZZZ 06/21/15 OTHER GROUP THERAPY 94.44 02/26/15 RECREATIONAL THERAPY 93.81 06/30/12 Internal Medicine Assmt/Plan - Assessment Assessment: pud/gerd alzheimer/dementia leukocytosis chronic dvt on anticoagulant - Plan Plan: cont on ppi cont on couumadin check inr dw rn Nutritional Asmnt/Malnutr-PDOC - Dietary Evaluation Malnutrition Findings (Please click <Entered> for more info): Nutritional Asmnt/Malnutrition Start: 12/06/16 16: 13 Text: Status: Complete Freq: Document 12/06/16 16:13 GSUN (Rec: 12/06/16 16:22 GSUN [email or web address]) Nutritional Asmnt/Malnutrition Patient General Information Nutritional Screening Diagnosis Diagnosis Agitation Pertinent Medical Hx/Surgical Hx CVA, GERD, Alzheimer dementia, DVT Subjective Information 71 year old male from SNF. Pt was resting, sat up in bed upon RD's call. Pt was pleasant, poor historian, was only able to answer the food is good. Per staff, no nutritional concerns. Avg PO intake 89% of meals x past 9 meals, meeting nutritional needs. Current Diet Order/ Nutrition Support Regular Pertinent Medications Maalox, Colace, MOM, Pepcid, Theragran, Seroquel, Coumadin Pertinent Labs /: Reviewed. Nutritional Hx/Data Height 1.7 m Height (Calculated Centimeters) 170.2 Current Weight (lbs) 74.344 kg Weight (Calculated Kilograms) 74.3 Weight (Calculated Grams) 04393.8 [place] Body Weight 148lb Weight Status Approriate GI Symptoms Food Allergies No Cultural/Ethnic/Hindu Belief Unknown. Usual diet at home Unknown. Skin Integrity/Comment: Vlad Deleon. Skin intact. Current %PO Good (75-100%) Estimated Nutritional Goals BEE in Kcals: Using Current wt Calories/Kcals/Kg 25-30kcal/kg Kcals Calculated 1858-2229kcal Protein: Using Current wt Protein g/kg/kg Protein Calculated 74g Fluid: ml 1858-2229ml (1ml/kcal) Nutritional Problem 1. Problem Problem No nutritional problems at this time. Intervention/Recommendation Comments 1. Continue with regular diet. Avg PO itnake is adequate. Expected Outcomes/Goals Expected Outcomes/Goals 1. PO intake continue to meet at least 75% of estimated nutritional needs.
--- NOTE | 2016-12-07 23:27 | Progress Notes ---
Case was discussed with staff of the patient, reviewed records. The patient continues to have episodes of agitation, irritability, continues to be unpredictable, impulsive, fighting with the staff. He still has poor insight, though he is a little bit better in the past day since increasing his medication. I did increase Trileptal yesterday to 300 mg twice a day. He is on Seroquel 200 mg at bedtime and 150 mg twice a day with no side effects, no sedation, no nausea. I expect more progress ____ he is on the medication. We will continue to work with the patient in group therapy, milieu therapy, adjust medication as needed. JOB# [id number]
[2016-12-08] MEDS: Theophylline 100 mg ER Tab PO SCH (08:36)
[2016-12-08] MEDS: Multivitamin Tab PO SCH (08:37)
--- NOTE | 2016-12-08 12:50 | Internal Medicine Prog Note ---
Internal Medicine Subjective - Subjective Service Date: 12/08/16 Patient seen and examined:: with staff Patient is:: awake Per staff patient is:: no adverse event Internal Medicine Objective - Results Result Diagrams: 11/29/16 14:25 11/29/16 14:25 Recent Labs: Laboratory Last Values WBC 7.7 Th/cmm (4.8-10.8) 11/29/16 14:25 RBC 5.19 Mil/cmm (3.80-5.80) 11/29/16 14:25 Hgb 15.6 gm/dL (12.6-17.4) 11/29/16 14:25 Hct 46.8 % (39.0-49.0) 11/29/16 14:25 MCV 90.3 fl (80-99) 11/29/16 14:25 MCH 30.1 pg (27.0-31.0) 11/29/16 14:25 MCHC Differential 33.4 pg (28.0-36.0) 11/29/16 14:25 RDW 13.8 % (11.5-20.0) 11/29/16 14:25 Plt Count 267 Th/cmm (150-400) 11/29/16 14:25 MPV 6.8 fl 11/29/16 14:25 Neutrophils % 66.4 % (40.0-80.0) 11/29/16 14:25 Lymphocytes % 20.7 % (20.0-50.0) 11/29/16 14:25 Monocytes % 10.3 % (2.0-10.0) H 11/29/16 14:25 Eosinophils % 2.4 % (0.0-5.0) 11/29/16 14:25 Basophils % 0.2 % (0.0-2.0) 11/29/16 14:25 PT 18.7 SECONDS (9.5-11.5) H 12/05/16 07:45 INR 1.75 (0.5-1.4) H 12/05/16 07:45 PTT (Actin FS) 33.0 SECONDS (26.0-38.0) 12/05/16 07:45 Sodium 139 mEq/L (136-145) 11/29/16 14:25 Potassium 3.9 mEq/L (3.5-5.1) 11/29/16 14:25 Chloride 105 mEq/L (98-107) 11/29/16 14:25 Carbon Dioxide 27.1 mEq/L (21.0-31.0) 11/29/16 14:25 Anion Gap 10.8 (7.0-16.0) 11/29/16 14:25 BUN 17 mg/dL (7-25) 11/29/16 14:25 Creatinine 1.1 mg/dL (0.7-1.3) 11/29/16 14:25 Est GFR ( Amer) TNP 11/29/16 14:25 Est GFR (Non-Af Amer) TNP 11/29/16 14:25 BUN/Creatinine Ratio 15.5 11/29/16 14:25 Glucose 79 mg/dL (70-105) 11/29/16 14:25 Calcium 9.3 mg/dL (8.6-10.3) 11/29/16 14:25 Total Bilirubin 0.3 mg/dL (0.3-1.0) 11/29/16 14:25 AST 16 U/L (13-39) 11/29/16 14:25 ALT 15 U/L (7-52) 11/29/16 14:25 Alkaline Phosphatase 69 U/L (34-104) 11/29/16 14:25 Total Protein 7.6 gm/dL (6.0-8.3) 11/29/16 14:25 Albumin 4.0 gm/dL (4.2-5.5) L 11/29/16 14:25 Globulin 3.6 gm/dL 11/29/16 14:25 Albumin/Globulin Ratio 1.1 (1.0-1.8) 11/29/16 14:25 TSH 1.04 uIU/ml (0.34-5.60) 11/29/16 14:25 RPR NONREACTIVE (NONREACTIVE) 11/29/16 14:25 - Physical Exam Vitals and I&O: Vital Signs Temp 97 F 12/08/16 08:00 Pulse 103 12/08/16 08:00 Resp 19 12/08/16 08:00 BP 147/89 12/08/16 08:00 Pulse Ox 98 12/08/16 08:00 Intake & Output 12/07/16 12/08/16 12/08/16 18:59 06:59 18:59 Intake Total 480 Output Total 1 Balance 479 Intake: Oral 480 Output: Stool 1 Other: # Voids 2 Active Medications: Current Medications Acetaminophen (Tylenol) 650 mg PO Q4HR PRN PRN Reason: Pain (Mild) Stop: 01/28/17 16:25 Al Hydrox/Mg Hydrox/Simethicone (Maalox) 30 ml PO Q4HR PRN PRN Reason: GI DISTRESS Stop: 01/28/17 16:25 Docusate Sodium (Colace) 100 mg PO BID [facility] Stop: 01/29/17 08:59 Last Admin: 12/08/16 08:36 Dose: 100 mg Donepezil HCl (Aricept) 10 mg PO HS [facility] Stop: 01/29/17 20:59 Last Admin: 12/07/16 20:59 Dose: 10 mg Famotidine (Pepcid) 20 mg PO DAILY [facility] Stop: 01/29/17 08:59 Last Admin: 12/08/16 08:37 Dose: 20 mg Lorazepam (Ativan) 0.5 mg PO Q4HR PRN; Protocol PRN Reason: Anxiety Stop: 12/29/16 16:25 Last Admin: 12/06/16 20:24 Dose: 0.5 mg Magnesium Hydroxide (Milk Of Magnesia) 30 ml PO DAILY PRN PRN Reason: CONSTIPATION Stop: 01/28/17 23:14 Memantine (Namenda) 10 mg PO BID [facility] Stop: 01/29/17 08:59 Last Admin: 12/08/16 08:36 Dose: 10 mg Multivitamins/Vitamin C (Theragran) 1 tab PO DAILY [facility] Stop: 01/29/17 08:59 Last Admin: 12/08/16 08:37 Dose: 1 tab Oxcarbazepine (Trileptal) 300 mg PO BID ANA PRN Reason: Protocol Stop: 02/04/17 11:41 Last Admin: 12/08/16 08:37 Dose: 300 mg Quetiapine Fumarate (Seroquel) 150 mg PO BID ANA PRN Reason: Protocol Stop: 01/29/17 08:59 Last Admin: 12/08/16 08:36 Dose: 150 mg Quetiapine Fumarate (Seroquel) 200 mg PO HS [facility] Stop: 02/03/17 08:38 Last Admin: 12/07/16 20:59 Dose: 200 mg Tamsulosin HCl (Flomax) 0.8 mg PO HS ANA Stop: 01/29/17 20:59 Last Admin: 12/07/16 20:59 Dose: 0.8 mg Theophylline (Fabien-Dur) 300 mg PO DAILY ANA Stop: 01/29/17 08:59 Last Admin: 12/08/16 08:36 Dose: 300 mg Warfarin Sodium (Coumadin) 6 mg PO C ANA Stop: 01/29/17 13:59 Last Admin: 12/07/16 12:38 Dose: 6 mg Zolpidem Tartrate (Ambien) 5 mg PO HS PRN PRN Reason: Insomnia Stop: 01/28/17 16:25 Last Admin: 12/07/16 20:59 Dose: 5 mg General: alert HEENT: NC/AT, PERRLA Neck: Supple Lungs: CTAB Cardiovascular: RRR, Normal S1, Normal S2, without murmur Abdomen: soft non-tender, non-distended Extremities: clear - Procedures Procedures: Procedures Procedure Code Date EMERGENCY DEPT VISIT 00485 12/28/11 EMERGENCY DEPT VISIT 87793 12/12/11 GROUP PSYCHOTHERAPY 03932 02/14/16 GROUP PSYCHOTHERAPY GZHZZZZ 02/14/16 GROUP PSYCHOTHERAPY 19408 10/06/15 GROUP PSYCHOTHERAPY GZHZZZZ 10/06/15 GROUP PSYCHOTHERAPY 27011 06/21/15 GROUP PSYCHOTHERAPY GZHZZZZ 06/21/15 OTHER GROUP THERAPY 94.44 02/26/15 RECREATIONAL THERAPY 93.81 06/30/12 Internal Medicine Assmt/Plan - Assessment Assessment: pud/gerd alzheimer/dementia leukocytosis chronic dvt on anticoagulant - Plan Plan: coumadin per pharmacy to dose monitor pt/inr fall precautions cpm Nutritional Asmnt/Malnutr-PDOC - Dietary Evaluation Malnutrition Findings (Please click <Entered> for more info): Nutritional Asmnt/Malnutrition Start: 12/06/16 16: 13 Text: Status: Complete Freq: Document 12/06/16 16:13 GSUN (Rec: 12/06/16 16:22 GSUN [email or web address]) Nutritional Asmnt/Malnutrition Patient General Information Nutritional Screening Diagnosis Diagnosis Agitation Pertinent Medical Hx/Surgical Hx CVA, GERD, Alzheimer dementia, DVT Subjective Information 71 year old male from SNF. Pt was resting, sat up in bed upon RD's call. Pt was pleasant, poor historian, was only able to answer the food is good. Per staff, no nutritional concerns. Avg PO intake 89% of meals x past 9 meals, meeting nutritional needs. Current Diet Order/ Nutrition Support Regular Pertinent Medications Maalox, Colace, MOM, Pepcid, Theragran, Seroquel, Coumadin Pertinent Labs /: Reviewed. Nutritional Hx/Data Height 5 ft 7 in Height (Calculated Centimeters) 170.2 Current Weight (lbs) 163 lb 14.4 oz Weight (Calculated Kilograms) 74.3 Weight (Calculated Grams) 74943.8 [place] Body Weight 148lb Weight Status Approriate GI Symptoms Food Allergies No Cultural/Ethnic/Yarsani Belief Unknown. Usual diet at home Unknown. Skin Integrity/Comment: Vlad Deleon. Skin intact. Current %PO Good (75-100%) Estimated Nutritional Goals BEE in Kcals: Using Current wt Calories/Kcals/Kg 25-30kcal/kg Kcals Calculated 1858-2229kcal Protein: Using Current wt Protein g/kg/kg Protein Calculated 74g Fluid: ml 1858-2229ml (1ml/kcal) Nutritional Problem 1. Problem Problem No nutritional problems at this time. Intervention/Recommendation Comments 1. Continue with regular diet. Avg PO itnake is adequate. Expected Outcomes/Goals Expected Outcomes/Goals 1. PO intake continue to meet at least 75% of estimated nutritional needs.
--- NOTE | 2016-12-09 00:41 | Progress Notes ---
SUBJECTIVE: Chart reviewed and the patient interviewed. Also discussed the patient's condition with the staff and reviewed records and labs. The patient still has episodes of agitation and still has periods of anger and impulsivity. The patient also still has unpredictable behavior and he is still easily agitated. The patient also is argumentative and fighting with the staff and with peers. The patient also still needs lots of redirections. Otherwise, the patient continued to comply with taking his medications with no side effects of medications. ASSESSMENT: The patient is still psychotic and still has poor impulse control. TREATMENT PLAN: We will continue monitoring his behavior and his condition closely. Also, Dr. Perkins increase his Trileptal and also continue to work on adjusting Seroquel dose. We will continue same dose and behavior and we will continue to monitor his condition closely. JOB# [id number]
[2016-12-09] MEDS: Multivitamin Tab PO SCH (09:08)
[2016-12-09] MEDS: Theophylline 100 mg ER Tab PO SCH (09:08)
--- NOTE | 2016-12-09 16:04 | Internal Medicine Prog Note ---
Internal Medicine Subjective - Subjective Service Date: 12/09/16 Patient seen and examined:: with staff Patient is:: awake Per staff patient is:: no adverse event Internal Medicine Objective - Results Result Diagrams: 11/29/16 14:25 11/29/16 14:25 Recent Labs: Laboratory Last Values WBC 7.7 Th/cmm (4.8-10.8) 11/29/16 14:25 RBC 5.19 Mil/cmm (3.80-5.80) 11/29/16 14:25 Hgb 15.6 gm/dL (12.6-17.4) 11/29/16 14:25 Hct 46.8 % (39.0-49.0) 11/29/16 14:25 MCV 90.3 fl (80-99) 11/29/16 14:25 MCH 30.1 pg (27.0-31.0) 11/29/16 14:25 MCHC Differential 33.4 pg (28.0-36.0) 11/29/16 14:25 RDW 13.8 % (11.5-20.0) 11/29/16 14:25 Plt Count 267 Th/cmm (150-400) 11/29/16 14:25 MPV 6.8 fl 11/29/16 14:25 Neutrophils % 66.4 % (40.0-80.0) 11/29/16 14:25 Lymphocytes % 20.7 % (20.0-50.0) 11/29/16 14:25 Monocytes % 10.3 % (2.0-10.0) H 11/29/16 14:25 Eosinophils % 2.4 % (0.0-5.0) 11/29/16 14:25 Basophils % 0.2 % (0.0-2.0) 11/29/16 14:25 PT 18.7 SECONDS (9.5-11.5) H 12/05/16 07:45 INR 1.75 (0.5-1.4) H 12/05/16 07:45 PTT (Actin FS) 33.0 SECONDS (26.0-38.0) 12/05/16 07:45 Sodium 139 mEq/L (136-145) 11/29/16 14:25 Potassium 3.9 mEq/L (3.5-5.1) 11/29/16 14:25 Chloride 105 mEq/L (98-107) 11/29/16 14:25 Carbon Dioxide 27.1 mEq/L (21.0-31.0) 11/29/16 14:25 Anion Gap 10.8 (7.0-16.0) 11/29/16 14:25 BUN 17 mg/dL (7-25) 11/29/16 14:25 Creatinine 1.1 mg/dL (0.7-1.3) 11/29/16 14:25 Est GFR ( Amer) TNP 11/29/16 14:25 Est GFR (Non-Af Amer) TNP 11/29/16 14:25 BUN/Creatinine Ratio 15.5 11/29/16 14:25 Glucose 79 mg/dL (70-105) 11/29/16 14:25 Calcium 9.3 mg/dL (8.6-10.3) 11/29/16 14:25 Total Bilirubin 0.3 mg/dL (0.3-1.0) 11/29/16 14:25 AST 16 U/L (13-39) 11/29/16 14:25 ALT 15 U/L (7-52) 11/29/16 14:25 Alkaline Phosphatase 69 U/L (34-104) 11/29/16 14:25 Total Protein 7.6 gm/dL (6.0-8.3) 11/29/16 14:25 Albumin 4.0 gm/dL (4.2-5.5) L 11/29/16 14:25 Globulin 3.6 gm/dL 11/29/16 14:25 Albumin/Globulin Ratio 1.1 (1.0-1.8) 11/29/16 14:25 TSH 1.04 uIU/ml (0.34-5.60) 11/29/16 14:25 RPR NONREACTIVE (NONREACTIVE) 11/29/16 14:25 - Physical Exam Vitals and I&O: Vital Signs Temp 97.9 F 12/09/16 15:34 Pulse 70 12/09/16 15:34 Resp 20 12/09/16 15:34 BP 137/84 12/09/16 15:34 Pulse Ox 95 12/09/16 15:34 Intake & Output 12/08/16 12/09/16 12/09/16 17:59 06:59 18:59 Intake Total Balance Intake: Oral Other: # Voids # Bowel Movements Stool Characteristics Soft Active Medications: Current Medications Acetaminophen (Tylenol) 650 mg PO Q4HR PRN PRN Reason: Pain (Mild) Stop: 01/28/17 16:25 Al Hydrox/Mg Hydrox/Simethicone (Maalox) 30 ml PO Q4HR PRN PRN Reason: GI DISTRESS Stop: 01/28/17 16:25 Docusate Sodium (Colace) 100 mg PO BID COUNT [facility]CLUD[facility] Stop: 01/29/17 08:59 Last Admin: 12/09/16 09:08 Dose: 100 mg Donepezil HCl (Aricept) 10 mg PO HS COUNT [facility]CLUDES [facility] Stop: 01/29/17 20:59 Last Admin: 12/08/16 20:40 Dose: 10 mg Famotidine (Pepcid) 20 mg PO DAILY COUNT [facility]CLUDES THE [facility] Stop: 01/29/17 08:59 Last Admin: 12/09/16 09:08 Dose: 20 mg Lorazepam (Ativan) 0.5 mg PO Q4HR PRN; Protocol PRN Reason: Anxiety Stop: 12/29/16 16:25 Last Admin: 12/06/16 20:24 Dose: 0.5 mg Magnesium Hydroxide (Milk Of Magnesia) 30 ml PO DAILY PRN PRN Reason: CONSTIPATION Stop: 01/28/17 23:14 Memantine (Namenda) 10 mg PO BID COUNT [facility]CLUDES [facility] Stop: 01/29/17 08:59 Last Admin: 12/09/16 09:08 Dose: 10 mg Multivitamins/Vitamin C (Theragran) 1 tab PO DAILY COUNT [facility]CLUDES [facility] Stop: 01/29/17 08:59 Last Admin: 12/09/16 09:08 Dose: 1 tab Oxcarbazepine (Trileptal) 300 mg PO BID ANA PRN Reason: Protocol Stop: 02/04/17 11:41 Last Admin: 12/09/16 09:08 Dose: 300 mg Quetiapine Fumarate (Seroquel) 150 mg PO BID ANA PRN Reason: Protocol Stop: 01/29/17 08:59 Last Admin: 12/09/16 09:08 Dose: 150 mg Quetiapine Fumarate (Seroquel) 200 mg PO HS COUNT [facility]CLUDES [facility] Stop: 02/03/17 08:38 Last Admin: 12/08/16 20:41 Dose: 200 mg Tamsulosin HCl (Flomax) 0.8 mg PO HS ANA Stop: 01/29/17 20:59 Last Admin: 12/08/16 20:40 Dose: 0.8 mg Theophylline (Fabien-Dur) 300 mg PO DAILY ANA Stop: 01/29/17 08:59 Last Admin: 12/09/16 09:08 Dose: 300 mg Warfarin Sodium (Coumadin) 6 mg PO C ANA Stop: 01/29/17 13:59 Last Admin: 12/09/16 13:38 Dose: 6 mg Zolpidem Tartrate (Ambien) 5 mg PO HS PRN PRN Reason: Insomnia Stop: 01/28/17 16:25 Last Admin: 12/08/16 22:57 Dose: 5 mg General: alert HEENT: NC/AT, PERRLA Neck: Supple Lungs: CTAB Cardiovascular: RRR, Normal S1, Normal S2, without murmur Abdomen: soft non-tender, non-distended Neurological: no change - Procedures Procedures: Procedures Procedure Code Date EMERGENCY DEPT VISIT 41579 12/28/11 EMERGENCY DEPT VISIT 66759 12/12/11 GROUP PSYCHOTHERAPY 43546 02/14/16 GROUP PSYCHOTHERAPY GZHZZZZ 02/14/16 GROUP PSYCHOTHERAPY 74350 10/06/15 GROUP PSYCHOTHERAPY GZHZZZZ 10/06/15 GROUP PSYCHOTHERAPY 21827 06/21/15 GROUP PSYCHOTHERAPY GZHZZZZ 06/21/15 OTHER GROUP THERAPY 94.44 02/26/15 RECREATIONAL THERAPY 93.81 06/30/12 Internal Medicine Assmt/Plan - Assessment Assessment: pud/gerd alzheimer/dementia leukocytosis chronic dvt on anticoagulant - Plan Plan: coumadin per pharmacy to dose monitor pt/inr fall precautions cpm Nutritional Asmnt/Malnutr-PDOC - Dietary Evaluation Malnutrition Findings (Please click <Entered> for more info): Nutritional Asmnt/Malnutrition Start: 12/06/16 16: 13 Text: Status: Complete Freq: Document 12/06/16 16:13 GSUN (Rec: 12/06/16 16:22 GSUN [email or web address]) Nutritional Asmnt/Malnutrition Patient General Information Nutritional Screening Diagnosis Diagnosis Agitation Pertinent Medical Hx/Surgical Hx CVA, GERD, Alzheimer dementia, DVT Subjective Information 71 year old male from SNF. Pt was resting, sat up in bed upon RD's call. Pt was pleasant, poor historian, was only able to answer the food is good. Per staff, no nutritional concerns. Avg PO intake 89% of meals x past 9 meals, meeting nutritional needs. Current Diet Order/ Nutrition Support Regular Pertinent Medications Maalox, Colace, MOM, Pepcid, Theragran, Seroquel, Coumadin Pertinent Labs 3/2: Reviewed. Nutritional Hx/Data Height 5 ft 7 in Height (Calculated Centimeters) 170.2 Current Weight (lbs) 163 lb 14.4 oz Weight (Calculated Kilograms) 74.3 Weight (Calculated Grams) 48483.8 [place] Body Weight 148lb Weight Status Approriate GI Symptoms Food Allergies No Cultural/Ethnic/[employer] Belief Unknown. Usual diet at home Unknown. Skin Integrity/Comment: Vlad Deleon. Skin intact. Current %PO Good (75-100%) Estimated Nutritional Goals BEE in Kcals: Using Current wt Calories/Kcals/Kg 25-30kcal/kg Kcals Calculated 1858-2229kcal Protein: Using Current wt Protein g/kg/kg Protein Calculated 74g Fluid: ml 1858-2229ml (1ml/kcal) Nutritional Problem 1. Problem Problem No nutritional problems at this time. Intervention/Recommendation Comments 1. Continue with regular diet. Avg PO itnake is adequate. Expected Outcomes/Goals Expected Outcomes/Goals 1. PO intake continue to meet at least 75% of estimated nutritional needs.
--- NOTE | 2016-12-09 20:30 | Progress Notes ---
SUBJECTIVE: Chart reviewed and the patient interviewed. Also discussed the patient's condition with the staff and reviewed records and labs. The patient still has episodes of aggressive behavior and still has episodes of anger. The patient also is still having episodes of trying to strike out at staff, but it seems to be slightly less than before. The patient also is still easily agitated and easily irritable, but easier to redirect him. Slight decrease in his mood swings. No side effects of medications. ASSESSMENT: The patient is still psychotic and aggressive and can be dangerous to others, but less than before. TREATMENT PLAN: We will continue to monitor his behavior and his condition closely. Also, continue to adjust psychotropic medications and working on his poor impulse control. [facility]# [id number]
[2016-12-10] MEDS: Theophylline 100 mg ER Tab PO SCH (08:31)
[2016-12-10] MEDS: Multivitamin Tab PO SCH (08:32)
--- NOTE | 2016-12-10 12:16 | Internal Medicine Prog Note ---
Internal Medicine Subjective - Subjective Service Date: 12/10/16 Patient seen and examined:: with staff Patient is:: awake Per staff patient is:: no adverse event Internal Medicine Objective - Results Result Diagrams: 11/29/16 14:25 11/29/16 14:25 Recent Labs: Laboratory Last Values WBC 7.7 Th/cmm (4.8-10.8) 11/29/16 14:25 RBC 5.19 Mil/cmm (3.80-5.80) 11/29/16 14:25 Hgb 15.6 gm/dL (12.6-17.4) 11/29/16 14:25 Hct 46.8 % (39.0-49.0) 11/29/16 14:25 MCV 90.3 fl (80-99) 11/29/16 14:25 MCH 30.1 pg (27.0-31.0) 11/29/16 14:25 MCHC Differential 33.4 pg (28.0-36.0) 11/29/16 14:25 RDW 13.8 % (11.5-20.0) 11/29/16 14:25 Plt Count 267 Th/cmm (150-400) 11/29/16 14:25 MPV 6.8 fl 11/29/16 14:25 Neutrophils % 66.4 % (40.0-80.0) 11/29/16 14:25 Lymphocytes % 20.7 % (20.0-50.0) 11/29/16 14:25 Monocytes % 10.3 % (2.0-10.0) H 11/29/16 14:25 Eosinophils % 2.4 % (0.0-5.0) 11/29/16 14:25 Basophils % 0.2 % (0.0-2.0) 11/29/16 14:25 PT 18.7 SECONDS (9.5-11.5) H 12/05/16 07:45 INR 1.75 (0.5-1.4) H 12/05/16 07:45 PTT (Actin FS) 33.0 SECONDS (26.0-38.0) 12/05/16 07:45 Sodium 139 mEq/L (136-145) 11/29/16 14:25 Potassium 3.9 mEq/L (3.5-5.1) 11/29/16 14:25 Chloride 105 mEq/L (98-107) 11/29/16 14:25 Carbon Dioxide 27.1 mEq/L (21.0-31.0) 11/29/16 14:25 Anion Gap 10.8 (7.0-16.0) 11/29/16 14:25 BUN 17 mg/dL (7-25) 11/29/16 14:25 Creatinine 1.1 mg/dL (0.7-1.3) 11/29/16 14:25 Est GFR ( Amer) TNP 11/29/16 14:25 Est GFR (Non-Af Amer) TNP 11/29/16 14:25 BUN/Creatinine Ratio 15.5 11/29/16 14:25 Glucose 79 mg/dL (70-105) 11/29/16 14:25 Calcium 9.3 mg/dL (8.6-10.3) 11/29/16 14:25 Total Bilirubin 0.3 mg/dL (0.3-1.0) 11/29/16 14:25 AST 16 U/L (13-39) 11/29/16 14:25 ALT 15 U/L (7-52) 11/29/16 14:25 Alkaline Phosphatase 69 U/L (34-104) 11/29/16 14:25 Total Protein 7.6 gm/dL (6.0-8.3) 11/29/16 14:25 Albumin 4.0 gm/dL (4.2-5.5) L 11/29/16 14:25 Globulin 3.6 gm/dL 11/29/16 14:25 Albumin/Globulin Ratio 1.1 (1.0-1.8) 11/29/16 14:25 TSH 1.04 uIU/ml (0.34-5.60) 11/29/16 14:25 RPR NONREACTIVE (NONREACTIVE) 11/29/16 14:25 - Physical Exam Vitals and I&O: Vital Signs Temp 97.8 F 12/10/16 05:53 Pulse 46 12/10/16 05:53 Resp 19 12/10/16 05:53 BP 110/65 12/10/16 05:53 Pulse Ox 95 12/10/16 05:53 Intake & Output 12/09/16 12/10/16 12/10/16 18:59 06:59 18:59 Intake Total 1800 0 Balance 1800 0 Intake: Oral 1800 0 Other: # Voids 4 3 # Bowel Movements 1 0 Stool Characteristics Soft Soft Active Medications: Current Medications Acetaminophen (Tylenol) 650 mg PO Q4HR PRN PRN Reason: Pain (Mild) Stop: 01/28/17 16:25 Al Hydrox/Mg Hydrox/Simethicone (Maalox) 30 ml PO Q4HR PRN PRN Reason: GI DISTRESS Stop: 01/28/17 16:25 Docusate Sodium (Colace) 100 mg PO BID [facility] Stop: 01/29/17 08:59 Last Admin: 12/10/16 08:31 Dose: 100 mg Donepezil HCl (Aricept) 10 mg PO HS [facility] Stop: 01/29/17 20:59 Last Admin: 12/09/16 20:52 Dose: 10 mg Famotidine (Pepcid) 20 mg PO DAILY [facility] Stop: 01/29/17 08:59 Last Admin: 12/10/16 08:31 Dose: 20 mg Lorazepam (Ativan) 0.5 mg PO Q4HR PRN; Protocol PRN Reason: Anxiety Stop: 12/29/16 16:25 Last Admin: 12/09/16 17:37 Dose: 0.5 mg Magnesium Hydroxide (Milk Of Magnesia) 30 ml PO DAILY PRN PRN Reason: CONSTIPATION Stop: 01/28/17 23:14 Memantine (Namenda) 10 mg PO BID [facility] Stop: 01/29/17 08:59 Last Admin: 12/10/16 08:31 Dose: 10 mg Multivitamins/Vitamin C (Theragran) 1 tab PO DAILY [facility] Stop: 01/29/17 08:59 Last Admin: 12/10/16 08:32 Dose: 1 tab Oxcarbazepine (Trileptal) 300 mg PO BID ANA PRN Reason: Protocol Stop: 02/04/17 11:41 Last Admin: 12/10/16 08:31 Dose: 300 mg Quetiapine Fumarate (Seroquel) 150 mg PO BID ANA PRN Reason: Protocol Stop: 01/29/17 08:59 Last Admin: 12/10/16 08:31 Dose: 150 mg Quetiapine Fumarate (Seroquel) 200 mg PO HS [facility] Stop: 02/03/17 08:38 Last Admin: 12/09/16 20:52 Dose: 200 mg Tamsulosin HCl (Flomax) 0.8 mg PO HS ANA Stop: 01/29/17 20:59 Last Admin: 12/09/16 20:52 Dose: 0.8 mg Theophylline (Fabien-Dur) 300 mg PO DAILY ANA Stop: 01/29/17 08:59 Last Admin: 12/10/16 08:31 Dose: 300 mg Warfarin Sodium (Coumadin) 6 mg PO C ANA Stop: 01/29/17 13:59 Last Admin: 12/09/16 13:38 Dose: 6 mg Zolpidem Tartrate (Ambien) 5 mg PO HS PRN PRN Reason: Insomnia Stop: 01/28/17 16:25 Last Admin: 12/09/16 23:55 Dose: 5 mg General: alert HEENT: NC/AT, PERRLA Neck: Supple Lungs: CTAB Cardiovascular: RRR, Normal S1, Normal S2, without murmur Abdomen: soft non-tender, non-distended Extremities: clear - Procedures Procedures: Procedures Procedure Code Date EMERGENCY DEPT VISIT 56338 12/28/11 EMERGENCY DEPT VISIT 97482 12/12/11 GROUP PSYCHOTHERAPY 03093 02/14/16 GROUP PSYCHOTHERAPY GZHZZZZ 02/14/16 GROUP PSYCHOTHERAPY 75551 10/06/15 GROUP PSYCHOTHERAPY GZHZZZZ 10/06/15 GROUP PSYCHOTHERAPY 86789 06/21/15 GROUP PSYCHOTHERAPY GZHZZZZ 06/21/15 OTHER GROUP THERAPY 94.44 02/26/15 RECREATIONAL THERAPY 93.81 06/30/12 Internal Medicine Assmt/Plan - Assessment Assessment: pud/gerd alzheimer/dementia leukocytosis chronic dvt on anticoagulant - Plan Plan: coumadin per pharmacy to dose monitor pt/inr fall precautions cpm Nutritional Asmnt/Malnutr-PDOC - Dietary Evaluation Malnutrition Findings (Please click <Entered> for more info): Nutritional Asmnt/Malnutrition Start: 12/06/16 16: 13 Text: Status: Complete Freq: Document 12/06/16 16:13 GSUN (Rec: 12/06/16 16:22 GSUN [email or web address]) Nutritional Asmnt/Malnutrition Patient General Information Nutritional Screening Diagnosis Diagnosis Agitation Pertinent Medical Hx/Surgical Hx CVA, GERD, Alzheimer dementia, DVT Subjective Information 71 year old male from SNF. Pt was resting, sat up in bed upon RD's call. Pt was pleasant, poor historian, was only able to answer the food is good. Per staff, no nutritional concerns. Avg PO intake 89% of meals x past 9 meals, meeting nutritional needs. Current Diet Order/ Nutrition Support Regular Pertinent Medications Maalox, Colace, MOM, Pepcid, Theragran, Seroquel, Coumadin Pertinent Labs /: Reviewed. Nutritional Hx/Data Height 5 ft 7 in Height (Calculated Centimeters) 170.2 Current Weight (lbs) 163 lb 14.4 oz Weight (Calculated Kilograms) 74.3 Weight (Calculated Grams) 54979.8 [place] Body Weight 148lb Weight Status Approriate GI Symptoms Food Allergies No Cultural/Ethnic/Yazidism Belief Unknown. Usual diet at home Unknown. Skin Integrity/Comment: Vlad Deleon. Skin intact. Current %PO Good (75-100%) Estimated Nutritional Goals BEE in Kcals: Using Current wt Calories/Kcals/Kg 25-30kcal/kg Kcals Calculated 1858-2229kcal Protein: Using Current wt Protein g/kg/kg Protein Calculated 74g Fluid: ml 1858-2229ml (1ml/kcal) Nutritional Problem 1. Problem Problem No nutritional problems at this time. Intervention/Recommendation Comments 1. Continue with regular diet. Avg PO itnake is adequate. Expected Outcomes/Goals Expected Outcomes/Goals 1. PO intake continue to meet at least 75% of estimated nutritional needs.
--- NOTE | 2016-12-11 00:22 | Progress Notes ---
Case was discussed with staff of the patient, reviewed records. The patient continues to have episodes of agitation, irritability, confused, tends to be aggressive. He is sleeping better, eating better, has been compliant with the medication with no side effects, no sedation, no nausea, no extrapyramidal symptoms, and he is showing slight improvement, and we will continue to work with the patient in group therapy, milieu therapy, and adjust medications as needed. [facility]# [id number]
[2016-12-11] MEDS: Theophylline 100 mg ER Tab PO SCH (08:50)
[2016-12-11] MEDS: Multivitamin Tab PO SCH (08:50)
--- NOTE | 2016-12-11 12:50 | Internal Medicine Prog Note ---
Internal Medicine Subjective - Subjective Service Date: 12/11/16 Patient seen and examined:: with staff Patient is:: awake Per staff patient is:: no adverse event Internal Medicine Objective - Results Result Diagrams: 11/29/16 14:25 11/29/16 14:25 Recent Labs: Laboratory Last Values WBC 7.7 Th/cmm (4.8-10.8) 11/29/16 14:25 RBC 5.19 Mil/cmm (3.80-5.80) 11/29/16 14:25 Hgb 15.6 gm/dL (12.6-17.4) 11/29/16 14:25 Hct 46.8 % (39.0-49.0) 11/29/16 14:25 MCV 90.3 fl (80-99) 11/29/16 14:25 MCH 30.1 pg (27.0-31.0) 11/29/16 14:25 MCHC Differential 33.4 pg (28.0-36.0) 11/29/16 14:25 RDW 13.8 % (11.5-20.0) 11/29/16 14:25 Plt Count 267 Th/cmm (150-400) 11/29/16 14:25 MPV 6.8 fl 11/29/16 14:25 Neutrophils % 66.4 % (40.0-80.0) 11/29/16 14:25 Lymphocytes % 20.7 % (20.0-50.0) 11/29/16 14:25 Monocytes % 10.3 % (2.0-10.0) H 11/29/16 14:25 Eosinophils % 2.4 % (0.0-5.0) 11/29/16 14:25 Basophils % 0.2 % (0.0-2.0) 11/29/16 14:25 PT 18.7 SECONDS (9.5-11.5) H 12/05/16 07:45 INR 1.75 (0.5-1.4) H 12/05/16 07:45 PTT (Actin FS) 33.0 SECONDS (26.0-38.0) 12/05/16 07:45 Sodium 139 mEq/L (136-145) 11/29/16 14:25 Potassium 3.9 mEq/L (3.5-5.1) 11/29/16 14:25 Chloride 105 mEq/L (98-107) 11/29/16 14:25 Carbon Dioxide 27.1 mEq/L (21.0-31.0) 11/29/16 14:25 Anion Gap 10.8 (7.0-16.0) 11/29/16 14:25 BUN 17 mg/dL (7-25) 11/29/16 14:25 Creatinine 1.1 mg/dL (0.7-1.3) 11/29/16 14:25 Est GFR ( Amer) TNP 11/29/16 14:25 Est GFR (Non-Af Amer) TNP 11/29/16 14:25 BUN/Creatinine Ratio 15.5 11/29/16 14:25 Glucose 79 mg/dL (70-105) 11/29/16 14:25 Calcium 9.3 mg/dL (8.6-10.3) 11/29/16 14:25 Total Bilirubin 0.3 mg/dL (0.3-1.0) 11/29/16 14:25 AST 16 U/L (13-39) 11/29/16 14:25 ALT 15 U/L (7-52) 11/29/16 14:25 Alkaline Phosphatase 69 U/L (34-104) 11/29/16 14:25 Total Protein 7.6 gm/dL (6.0-8.3) 11/29/16 14:25 Albumin 4.0 gm/dL (4.2-5.5) L 11/29/16 14:25 Globulin 3.6 gm/dL 11/29/16 14:25 Albumin/Globulin Ratio 1.1 (1.0-1.8) 11/29/16 14:25 TSH 1.04 uIU/ml (0.34-5.60) 11/29/16 14:25 RPR NONREACTIVE (NONREACTIVE) 11/29/16 14:25 - Physical Exam Vitals and I&O: Vital Signs Temp 98.1 F 12/11/16 06:21 Pulse 59 12/11/16 06:21 Resp 20 12/11/16 06:21 BP 117/79 12/11/16 06:21 Pulse Ox 94 12/11/16 06:21 Intake & Output 12/10/16 12/11/16 12/11/16 18:59 06:59 18:59 Intake Total 900 480 Balance 900 480 Intake: Oral 900 480 Other: # Voids 4 1 # Bowel Movements 1 0 Stool Characteristics Soft Soft Active Medications: Current Medications Acetaminophen (Tylenol) 650 mg PO Q4HR PRN PRN Reason: Pain (Mild) Stop: 01/28/17 16:25 Al Hydrox/Mg Hydrox/Simethicone (Maalox) 30 ml PO Q4HR PRN PRN Reason: GI DISTRESS Stop: 01/28/17 16:25 Docusate Sodium (Colace) 100 mg PO BID [facility] Stop: 01/29/17 08:59 Last Admin: 12/11/16 08:50 Dose: 100 mg Donepezil HCl (Aricept) 10 mg PO HS [facility] Stop: 01/29/17 20:59 Last Admin: 12/10/16 20:53 Dose: 10 mg Famotidine (Pepcid) 20 mg PO DAILY [facility] Stop: 01/29/17 08:59 Last Admin: 12/11/16 08:50 Dose: 20 mg Lorazepam (Ativan) 0.5 mg PO Q4HR PRN; Protocol PRN Reason: Anxiety Stop: 12/29/16 16:25 Last Admin: 12/10/16 21:47 Dose: 0.5 mg Magnesium Hydroxide (Milk Of Magnesia) 30 ml PO DAILY PRN PRN Reason: CONSTIPATION Stop: 01/28/17 23:14 Memantine (Namenda) 10 mg PO BID [facility] Stop: 01/29/17 08:59 Last Admin: 12/11/16 08:50 Dose: 10 mg Multivitamins/Vitamin C (Theragran) 1 tab PO DAILY [facility] Stop: 01/29/17 08:59 Last Admin: 12/11/16 08:50 Dose: 1 tab Oxcarbazepine (Trileptal) 300 mg PO BID ANA PRN Reason: Protocol Stop: 02/04/17 11:41 Last Admin: 12/11/16 08:50 Dose: 300 mg Quetiapine Fumarate (Seroquel) 150 mg PO BID ANA PRN Reason: Protocol Stop: 01/29/17 08:59 Last Admin: 12/11/16 08:51 Dose: 150 mg Quetiapine Fumarate (Seroquel) 200 mg PO HS [facility] Stop: 02/03/17 08:38 Last Admin: 12/10/16 20:53 Dose: 200 mg Tamsulosin HCl (Flomax) 0.8 mg PO HS ANA Stop: 01/29/17 20:59 Last Admin: 12/10/16 20:53 Dose: 0.8 mg Theophylline (Fabien-Dur) 300 mg PO DAILY [facility] Stop: 01/29/17 08:59 Last Admin: 12/11/16 08:50 Dose: 300 mg Warfarin Sodium (Coumadin) 6 mg PO C ANA Stop: 01/29/17 13:59 Last Admin: 12/10/16 13:01 Dose: 6 mg Zolpidem Tartrate (Ambien) 5 mg PO HS PRN PRN Reason: Insomnia Stop: 01/28/17 16:25 Last Admin: 12/10/16 20:53 Dose: 5 mg General: alert HEENT: NC/AT, PERRLA Neck: Supple Lungs: CTAB Cardiovascular: RRR, Normal S1, Normal S2, without murmur Abdomen: soft non-tender, non-distended Extremities: clear Neurological: no change - Procedures Procedures: Procedures Procedure Code Date EMERGENCY DEPT VISIT 66195 12/28/11 EMERGENCY DEPT VISIT 63953 12/12/11 GROUP PSYCHOTHERAPY 92571 02/14/16 GROUP PSYCHOTHERAPY GZHZZZZ 02/14/16 GROUP PSYCHOTHERAPY 91001 10/06/15 GROUP PSYCHOTHERAPY GZHZZZZ 10/06/15 GROUP PSYCHOTHERAPY 27896 06/21/15 GROUP PSYCHOTHERAPY GZHZZZZ 06/21/15 OTHER GROUP THERAPY 94.44 02/26/15 RECREATIONAL THERAPY 93.81 06/30/12 Internal Medicine Assmt/Plan - Assessment Assessment: pud/gerd alzheimer/dementia leukocytosis chronic dvt on anticoagulant - Plan Plan: coumadin per pharmacy to dose monitor pt/inr fall precautions cpm Nutritional Asmnt/Malnutr-PDOC - Dietary Evaluation Malnutrition Findings (Please click <Entered> for more info): Nutritional Asmnt/Malnutrition Start: 12/06/16 16: 13 Text: Status: Complete Freq: Document 12/06/16 16:13 GSUN (Rec: 12/06/16 16:22 GSUN [email or web address]) Nutritional Asmnt/Malnutrition Patient General Information Nutritional Screening Diagnosis Diagnosis Agitation Pertinent Medical Hx/Surgical Hx CVA, GERD, Alzheimer dementia, DVT Subjective Information 71 year old male from SNF. Pt was resting, sat up in bed upon RD's call. Pt was pleasant, poor historian, was only able to answer the food is good. Per staff, no nutritional concerns. Avg PO intake 89% of meals x past 9 meals, meeting nutritional needs. Current Diet Order/ Nutrition Support Regular Pertinent Medications Maalox, Colace, MOM, Pepcid, Theragran, Seroquel, Coumadin Pertinent Labs 3/2: Reviewed. Nutritional Hx/Data Height 5 ft 7 in Height (Calculated Centimeters) 170.2 Current Weight (lbs) 163 lb 14.4 oz Weight (Calculated Kilograms) 74.3 Weight (Calculated Grams) 77534.8 [place] Body Weight 148lb Weight Status Approriate GI Symptoms Food Allergies No Cultural/Ethnic/Lutheran Belief Unknown. Usual diet at home Unknown. Skin Integrity/Comment: Vlad Deleon. Skin intact. Current %PO Good (75-100%) Estimated Nutritional Goals BEE in Kcals: Using Current wt Calories/Kcals/Kg 25-30kcal/kg Kcals Calculated 1858-2229kcal Protein: Using Current wt Protein g/kg/kg Protein Calculated 74g Fluid: ml 1858-2229ml (1ml/kcal) Nutritional Problem 1. Problem Problem No nutritional problems at this time. Intervention/Recommendation Comments 1. Continue with regular diet. Avg PO itnake is adequate. Expected Outcomes/Goals Expected Outcomes/Goals 1. PO intake continue to meet at least 75% of estimated nutritional needs.
--- NOTE | 2016-12-11 19:23 | Progress Notes ---
Case was discussed with staff of the patient, reviewed records. The patient continues to have episodes of irritability, continues to have poor insight, continues to be unpredictable, impulsive, needing redirections. He is demented, confused. He is compliant for the medication with no side effects, no sedation, no nausea and we will continue to work with the patient in group therapy, milieu therapy, adjust the medication as needed. JOB# [id number]
[2016-12-12] MEDS: Theophylline 100 mg ER Tab PO SCH (09:51)
[2016-12-12] MEDS: Multivitamin Tab PO SCH (09:51)
--- NOTE | 2016-12-12 16:11 | Internal Medicine Prog Note ---
Internal Medicine Subjective - Subjective Service Date: 12/12/16 Patient seen and examined:: with staff Patient is:: awake Per staff patient is:: no adverse event Internal Medicine Objective - Results Result Diagrams: 11/29/16 14:25 11/29/16 14:25 Recent Labs: Laboratory Last Values WBC 7.7 Th/cmm (4.8-10.8) 11/29/16 14:25 RBC 5.19 Mil/cmm (3.80-5.80) 11/29/16 14:25 Hgb 15.6 gm/dL (12.6-17.4) 11/29/16 14:25 Hct 46.8 % (39.0-49.0) 11/29/16 14:25 MCV 90.3 fl (80-99) 11/29/16 14:25 MCH 30.1 pg (27.0-31.0) 11/29/16 14:25 MCHC Differential 33.4 pg (28.0-36.0) 11/29/16 14:25 RDW 13.8 % (11.5-20.0) 11/29/16 14:25 Plt Count 267 Th/cmm (150-400) 11/29/16 14:25 MPV 6.8 fl 11/29/16 14:25 Neutrophils % 66.4 % (40.0-80.0) 11/29/16 14:25 Lymphocytes % 20.7 % (20.0-50.0) 11/29/16 14:25 Monocytes % 10.3 % (2.0-10.0) H 11/29/16 14:25 Eosinophils % 2.4 % (0.0-5.0) 11/29/16 14:25 Basophils % 0.2 % (0.0-2.0) 11/29/16 14:25 PT 18.7 SECONDS (9.5-11.5) H 12/05/16 07:45 INR 1.75 (0.5-1.4) H 12/05/16 07:45 PTT (Actin FS) 33.0 SECONDS (26.0-38.0) 12/05/16 07:45 Sodium 139 mEq/L (136-145) 11/29/16 14:25 Potassium 3.9 mEq/L (3.5-5.1) 11/29/16 14:25 Chloride 105 mEq/L (98-107) 11/29/16 14:25 Carbon Dioxide 27.1 mEq/L (21.0-31.0) 11/29/16 14:25 Anion Gap 10.8 (7.0-16.0) 11/29/16 14:25 BUN 17 mg/dL (7-25) 11/29/16 14:25 Creatinine 1.1 mg/dL (0.7-1.3) 11/29/16 14:25 Est GFR ( Amer) TNP 11/29/16 14:25 Est GFR (Non-Af Amer) TNP 11/29/16 14:25 BUN/Creatinine Ratio 15.5 11/29/16 14:25 Glucose 79 mg/dL (70-105) 11/29/16 14:25 Calcium 9.3 mg/dL (8.6-10.3) 11/29/16 14:25 Total Bilirubin 0.3 mg/dL (0.3-1.0) 11/29/16 14:25 AST 16 U/L (13-39) 11/29/16 14:25 ALT 15 U/L (7-52) 11/29/16 14:25 Alkaline Phosphatase 69 U/L (34-104) 11/29/16 14:25 Total Protein 7.6 gm/dL (6.0-8.3) 11/29/16 14:25 Albumin 4.0 gm/dL (4.2-5.5) L 11/29/16 14:25 Globulin 3.6 gm/dL 11/29/16 14:25 Albumin/Globulin Ratio 1.1 (1.0-1.8) 11/29/16 14:25 TSH 1.04 uIU/ml (0.34-5.60) 11/29/16 14:25 RPR NONREACTIVE (NONREACTIVE) 11/29/16 14:25 - Physical Exam Vitals and I&O: Vital Signs Temp 97.6 F 12/12/16 06:07 Pulse 64 12/12/16 06:07 Resp 20 12/12/16 06:07 BP 125/75 12/12/16 06:07 Pulse Ox 97 12/12/16 06:07 Intake & Output 12/11/16 12/12/16 12/12/16 18:59 06:59 18:59 Intake Total 800 240 Balance 800 240 Intake: Oral 800 240 Other: # Voids 4 3 # Bowel Movements 1 0 Stool Characteristics Soft Active Medications: Current Medications Acetaminophen (Tylenol) 650 mg PO Q4HR PRN PRN Reason: Pain (Mild) Stop: 01/28/17 16:25 Al Hydrox/Mg Hydrox/Simethicone (Maalox) 30 ml PO Q4HR PRN PRN Reason: GI DISTRESS Stop: 01/28/17 16:25 Docusate Sodium (Colace) 100 mg PO BID [facility] Stop: 01/29/17 08:59 Last Admin: 12/12/16 09:51 Dose: Not Given Donepezil HCl (Aricept) 10 mg PO HS [facility] Stop: 01/29/17 20:59 Last Admin: 12/11/16 21:00 Dose: 10 mg Famotidine (Pepcid) 20 mg PO DAILY [facility] Stop: 01/29/17 08:59 Last Admin: 12/12/16 09:50 Dose: 20 mg Lorazepam (Ativan) 0.5 mg PO Q4HR PRN; Protocol PRN Reason: Anxiety Stop: 12/29/16 16:25 Last Admin: 12/11/16 21:00 Dose: 0.5 mg Magnesium Hydroxide (Milk Of Magnesia) 30 ml PO DAILY PRN PRN Reason: CONSTIPATION Stop: 01/28/17 23:14 Memantine (Namenda) 10 mg PO BID [facility] Stop: 01/29/17 08:59 Last Admin: 12/12/16 09:51 Dose: 10 mg Multivitamins/Vitamin C (Theragran) 1 tab PO DAILY [facility] Stop: 01/29/17 08:59 Last Admin: 12/12/16 09:51 Dose: 1 tab Oxcarbazepine (Trileptal) 300 mg PO BID ANA PRN Reason: Protocol Stop: 02/04/17 11:41 Last Admin: 12/12/16 09:51 Dose: 300 mg Quetiapine Fumarate (Seroquel) 150 mg PO BID ANA PRN Reason: Protocol Stop: 01/29/17 08:59 Last Admin: 12/12/16 09:50 Dose: 150 mg Quetiapine Fumarate (Seroquel) 200 mg PO HS [facility] Stop: 02/03/17 08:38 Last Admin: 12/11/16 21:00 Dose: 200 mg Tamsulosin HCl (Flomax) 0.8 mg PO HS [facility] Stop: 01/29/17 20:59 Last Admin: 12/11/16 21:00 Dose: 0.8 mg Theophylline (Fabien-Dur) 300 mg PO DAILY [facility] Stop: 01/29/17 08:59 Last Admin: 12/12/16 09:51 Dose: 300 mg Warfarin Sodium (Coumadin) 6 mg PO C [facility] Stop: 01/29/17 13:59 Last Admin: 12/11/16 15:44 Dose: 6 mg Zolpidem Tartrate (Ambien) 5 mg PO HS PRN PRN Reason: Insomnia Stop: 01/28/17 16:25 Last Admin: 12/11/16 23:10 Dose: 5 mg General: alert HEENT: NC/AT, PERRLA Neck: Supple Lungs: CTAB Cardiovascular: RRR, Normal S1, Normal S2, without murmur Abdomen: soft non-tender, non-distended Neurological: no change - Procedures Procedures: Procedures Procedure Code Date EMERGENCY DEPT VISIT 08380 12/28/11 EMERGENCY DEPT VISIT 53772 12/12/11 GROUP PSYCHOTHERAPY 56826 02/14/16 GROUP PSYCHOTHERAPY GZHZZZZ 02/14/16 GROUP PSYCHOTHERAPY 38199 10/06/15 GROUP PSYCHOTHERAPY GZHZZZZ 10/06/15 GROUP PSYCHOTHERAPY 58705 06/21/15 GROUP PSYCHOTHERAPY GZHZZZZ 06/21/15 OTHER GROUP THERAPY 94.44 02/26/15 RECREATIONAL THERAPY 93.81 06/30/12 Internal Medicine Assmt/Plan - Assessment Assessment: pud/gerd alzheimer/dementia leukocytosis chronic dvt on anticoagulant - Plan Plan: coumadin per pharmacy to dose monitor pt/inr fall precautions cpm Nutritional Asmnt/Malnutr-PDOC - Dietary Evaluation Malnutrition Findings (Please click <Entered> for more info): Nutritional Asmnt/Malnutrition Start: 12/06/16 16: 13 Text: Status: Complete Freq: Document 12/06/16 16:13 GSUN (Rec: 12/06/16 16:22 GSUN [email or web address]) Nutritional Asmnt/Malnutrition Patient General Information Nutritional Screening Diagnosis Diagnosis Agitation Pertinent Medical Hx/Surgical Hx CVA, GERD, Alzheimer dementia, DVT Subjective Information 71 year old male from SNF. Pt was resting, sat up in bed upon RD's call. Pt was pleasant, poor historian, was only able to answer the food is good. Per staff, no nutritional concerns. Avg PO intake 89% of meals x past 9 meals, meeting nutritional needs. Current Diet Order/ Nutrition Support Regular Pertinent Medications Maalox, Colace, MOM, Pepcid, Theragran, Seroquel, Coumadin Pertinent Labs /: Reviewed. Nutritional Hx/Data Height 5 ft 7 in Height (Calculated Centimeters) 170.2 Current Weight (lbs) 163 lb 14.4 oz Weight (Calculated Kilograms) 74.3 Weight (Calculated Grams) 44640.8 [place] Body Weight 148lb Weight Status Approriate GI Symptoms Food Allergies No Cultural/Ethnic/Latter-Day Belief Unknown. Usual diet at home Unknown. Skin Integrity/Comment: Vlad Deleon. Skin intact. Current %PO Good (75-100%) Estimated Nutritional Goals BEE in Kcals: Using Current wt Calories/Kcals/Kg 25-30kcal/kg Kcals Calculated 1858-2229kcal Protein: Using Current wt Protein g/kg/kg Protein Calculated 74g Fluid: ml 1858-2229ml (1ml/kcal) Nutritional Problem 1. Problem Problem No nutritional problems at this time. Intervention/Recommendation Comments 1. Continue with regular diet. Avg PO itnake is adequate. Expected Outcomes/Goals Expected Outcomes/Goals 1. PO intake continue to meet at least 75% of estimated nutritional needs.
[2016-12-12 21:57] LABS: % BASOPHILS 0.7 % (0.0-2.0); % EOSINOPHILS 2.4 % (0.0-5.0); % LYMPHOCYTES 24.7 % (20.0-50.0); % MONOCYTES 8.8 % (2.0-10.0); % NEUTROPHILS 63.4 % (40.0-80.0); HEMATOCRIT 43.4 % (39.0-49.0); HEMOGLOBIN 14.6 gm/dL (12.6-17.4); MEAN CELL VOLUME 90.2 fl (80-99); MEAN CORPUSCULAR HEMOGLOBIN 30.4 pg (27.0-31.0); MEAN CORPUSCULAR HGB CONC 33.7 pg (28.0-36.0); MEAN PLATELET VOLUME 6.8 fl; NEUTROPHILE ABSOLUTE 3.9 Th/cmm (1.8-8.0); PLATELET COUNT 255 Th/cmm (150-400); RED BLOOD COUNT 4.81 Mil/cmm (3.80-5.80); RED CELL DISTRIBUTION WIDTH 13.9 % (11.5-20.0); WHITE BLOOD COUNT 6.3 Th/cmm (4.8-10.8)
[2016-12-12 22:04] LABS: INR 1.48 (0.5-1.4); PROTHROMBIN TIME (TEST) 15.7 SECONDS (9.5-11.5)
--- NOTE | 2016-12-13 03:16 | Progress Notes ---
Case discussed with staff of the patient, reviewed records. The patient continues to be wandering in the unit; however, his aggressive behavior is not as prominent, he is sleeping better. He is easier to redirect; however, is still unpredictable and impulsive. He has not been hitting anyone lately. No side effects with the medication. No sedation. No nausea. No extrapyramidal symptoms. He tolerated the increase in Trileptal with no side effects. I will continue to work with the patient in group therapy, milieu therapy, adjust the medication as needed. JOB# [id number]
[2016-12-13] MEDS: Multivitamin Tab PO SCH (09:16)
[2016-12-13] MEDS: Theophylline 100 mg ER Tab PO SCH (09:17)
--- NOTE | 2016-12-13 21:00 | Internal Medicine Prog Note ---
Internal Medicine Subjective - Subjective Patient seen and examined:: with staff, chart reviewed Patient is:: awake, verbal, interactive Per staff patient is:: no adverse event, no episodes of fall Internal Medicine Objective - Results Result Diagrams: 12/12/16 21:50 11/29/16 14:25 Recent Labs: Laboratory Last Values WBC 6.3 Th/cmm (4.8-10.8) 12/12/16 21:50 RBC 4.81 Mil/cmm (3.80-5.80) 12/12/16 21:50 Hgb 14.6 gm/dL (12.6-17.4) 12/12/16 21:50 Hct 43.4 % (39.0-49.0) 12/12/16 21:50 MCV 90.2 fl (80-99) 12/12/16 21:50 MCH 30.4 pg (27.0-31.0) 12/12/16 21:50 MCHC Differential 33.7 pg (28.0-36.0) 12/12/16 21:50 RDW 13.9 % (11.5-20.0) 12/12/16 21:50 Plt Count 255 Th/cmm (150-400) 12/12/16 21:50 MPV 6.8 fl 12/12/16 21:50 Neutrophils % 63.4 % (40.0-80.0) 12/12/16 21:50 Lymphocytes % 24.7 % (20.0-50.0) 12/12/16 21:50 Monocytes % 8.8 % (2.0-10.0) 12/12/16 21:50 Eosinophils % 2.4 % (0.0-5.0) 12/12/16 21:50 Basophils % 0.7 % (0.0-2.0) 12/12/16 21:50 PT 15.7 SECONDS (9.5-11.5) H 12/12/16 21:50 INR 1.48 (0.5-1.4) H 12/12/16 21:50 PTT (Actin FS) 33.0 SECONDS (26.0-38.0) 12/05/16 07:45 Sodium 139 mEq/L (136-145) 11/29/16 14:25 Potassium 3.9 mEq/L (3.5-5.1) 11/29/16 14:25 Chloride 105 mEq/L (98-107) 11/29/16 14:25 Carbon Dioxide 27.1 mEq/L (21.0-31.0) 11/29/16 14:25 Anion Gap 10.8 (7.0-16.0) 11/29/16 14:25 BUN 17 mg/dL (7-25) 11/29/16 14:25 Creatinine 1.1 mg/dL (0.7-1.3) 11/29/16 14:25 Est GFR ( Amer) TNP 11/29/16 14:25 Est GFR (Non-Af Amer) TNP 11/29/16 14:25 BUN/Creatinine Ratio 15.5 11/29/16 14:25 Glucose 79 mg/dL (70-105) 11/29/16 14:25 Calcium 9.3 mg/dL (8.6-10.3) 11/29/16 14:25 Total Bilirubin 0.3 mg/dL (0.3-1.0) 11/29/16 14:25 AST 16 U/L (13-39) 11/29/16 14:25 ALT 15 U/L (7-52) 11/29/16 14:25 Alkaline Phosphatase 69 U/L (34-104) 11/29/16 14:25 Total Protein 7.6 gm/dL (6.0-8.3) 11/29/16 14:25 Albumin 4.0 gm/dL (4.2-5.5) L 11/29/16 14:25 Globulin 3.6 gm/dL 11/29/16 14:25 Albumin/Globulin Ratio 1.1 (1.0-1.8) 11/29/16 14:25 TSH 1.04 uIU/ml (0.34-5.60) 11/29/16 14:25 RPR NONREACTIVE (NONREACTIVE) 11/29/16 14:25 - Physical Exam Vitals and I&O: Vital Signs Temp 97 F 12/13/16 15:07 Pulse 56 12/13/16 15:07 Resp 18 12/13/16 15:07 BP 131/70 12/13/16 15:07 Pulse Ox 99 12/13/16 15:07 Intake & Output 12/13/16 12/13/16 12/14/16 06:59 18:59 06:59 Intake Total 2019 Balance 2019 Intake: Oral 2020 Other: # Voids 8 # Bowel Movements 1 Active Medications: Current Medications Acetaminophen (Tylenol) 650 mg PO Q4HR PRN PRN Reason: Pain (Mild) Stop: 01/28/17 16:25 Al Hydrox/Mg Hydrox/Simethicone (Maalox) 30 ml PO Q4HR PRN PRN Reason: GI DISTRESS Stop: 01/28/17 16:25 Docusate Sodium (Colace) 100 mg PO BID [facility] Stop: 01/29/17 08:59 Last Admin: 12/13/16 18:58 Dose: Not Given Donepezil HCl (Aricept) 10 mg PO HS [facility] Stop: 01/29/17 20:59 Last Admin: 12/12/16 21:49 Dose: 10 mg Famotidine (Pepcid) 20 mg PO DAILY [facility] Stop: 01/29/17 08:59 Last Admin: 12/13/16 09:16 Dose: 20 mg Lorazepam (Ativan) 0.5 mg PO Q4HR PRN; Protocol PRN Reason: Anxiety Stop: 12/29/16 16:25 Last Admin: 12/11/16 21:00 Dose: 0.5 mg Magnesium Hydroxide (Milk Of Magnesia) 30 ml PO DAILY PRN PRN Reason: CONSTIPATION Stop: 01/28/17 23:14 Memantine (Namenda) 10 mg PO BID [facility] Stop: 01/29/17 08:59 Last Admin: 12/13/16 18:58 Dose: Not Given Multivitamins/Vitamin C (Theragran) 1 tab PO DAILY [facility] Stop: 01/29/17 08:59 Last Admin: 12/13/16 09:16 Dose: 1 tab Oxcarbazepine (Trileptal) 300 mg PO BID ANA PRN Reason: Protocol Stop: 02/04/17 11:41 Last Admin: 12/13/16 18:58 Dose: Not Given Quetiapine Fumarate (Seroquel) 150 mg PO BID [facility] PRN Reason: Protocol Stop: 01/29/17 08:59 Last Admin: 12/13/16 18:58 Dose: Not Given Quetiapine Fumarate 200 mg/ (Quetiapine Fumarate 25 mg) 225 mg PO HS [facility] Stop: 02/11/17 20:59 Tamsulosin HCl (Flomax) 0.8 mg PO HS ANA Stop: 01/29/17 20:59 Last Admin: 12/12/16 21:49 Dose: 0.8 mg Theophylline (Fabien-Dur) 300 mg PO DAILY ANA Stop: 01/29/17 08:59 Last Admin: 12/13/16 09:17 Dose: 300 mg Warfarin Sodium (Coumadin) 6 mg PO C ANA Stop: 01/29/17 13:59 Last Admin: 12/13/16 13:54 Dose: 6 mg Zolpidem Tartrate (Ambien) 5 mg PO HS PRN PRN Reason: Insomnia Stop: 01/28/17 16:25 Last Admin: 12/12/16 23:47 Dose: 5 mg General: demented HEENT: NC/AT, PERRLA Neck: Supple, No JVD Lungs: CTAB Cardiovascular: RRR, Normal S1, Normal S2 Abdomen: soft non-tender, globular, positive bowel sound Extremities: excoriation Neurological: no change - Procedures Procedures: Procedures Procedure Code Date EMERGENCY DEPT VISIT 26216 12/28/11 EMERGENCY DEPT VISIT 18972 12/12/11 GROUP PSYCHOTHERAPY 17286 02/14/16 GROUP PSYCHOTHERAPY GZHZZZZ 02/14/16 GROUP PSYCHOTHERAPY 64816 10/06/15 GROUP PSYCHOTHERAPY GZHZZZZ 10/06/15 GROUP PSYCHOTHERAPY 86642 06/21/15 GROUP PSYCHOTHERAPY GZHZZZZ 06/21/15 OTHER GROUP THERAPY 94.44 02/26/15 RECREATIONAL THERAPY 93.81 06/30/12 Internal Medicine Assmt/Plan - Assessment Assessment: pud/gerd alzheimer/dementia leukocytosis chronic dvt on anticoagulant - Plan Plan: cont on ppi cont on couumadin check inr dw rn Nutritional Asmnt/Malnutr-PDOC - Dietary Evaluation Malnutrition Findings (Please click <Entered> for more info): Nutritional Asmnt/Malnutrition Start: 12/06/16 16: 13 Text: Status: Complete Freq: Document 12/06/16 16:13 GSUN (Rec: 12/06/16 16:22 GSUN [email or web address]) Nutritional Asmnt/Malnutrition Patient General Information Nutritional Screening Diagnosis Diagnosis Agitation Pertinent Medical Hx/Surgical Hx CVA, GERD, Alzheimer dementia, DVT Subjective Information 71 year old male from SNF. Pt was resting, sat up in bed upon RD's call. Pt was pleasant, poor historian, was only able to answer the food is good. Per staff, no nutritional concerns. Avg PO intake 89% of meals x past 9 meals, meeting nutritional needs. Current Diet Order/ Nutrition Support Regular Pertinent Medications Maalox, Colace, MOM, Pepcid, Theragran, Seroquel, Coumadin Pertinent Labs 3/2: Reviewed. Nutritional Hx/Data Height 1.7 m Height (Calculated Centimeters) 170.2 Current Weight (lbs) 74.344 kg Weight (Calculated Kilograms) 74.3 Weight (Calculated Grams) 11401.8 [place] Body Weight 148lb Weight Status Approriate GI Symptoms Food Allergies No Cultural/Ethnic/[employer]eterian Belief Unknown. Usual diet at home Unknown. Skin Integrity/Comment: Vlad Deleon. Skin intact. Current %PO Good (75-100%) Estimated Nutritional Goals BEE in Kcals: Using Current wt Calories/Kcals/Kg 25-30kcal/kg Kcals Calculated 1858-2229kcal Protein: Using Current wt Protein g/kg/kg Protein Calculated 74g Fluid: ml 1858-2229ml (1ml/kcal) Nutritional Problem 1. Problem Problem No nutritional problems at this time. Intervention/Recommendation Comments 1. Continue with regular diet. Avg PO itnake is adequate. Expected Outcomes/Goals Expected Outcomes/Goals 1. PO intake continue to meet at least 75% of estimated nutritional needs.
--- NOTE | 2016-12-14 01:39 | Progress Notes ---
Case was discussed with staff of the patient, reviewed records. The patient continues to be reported to get agitated especially in the evening, continues to be unpredictable, impulsive, needing redirection. His Trileptal dose was increased to 300 mg twice a day few days ago. He is already on Aricept, Namenda full dose, and he is on Seroquel 150 mg twice a day and 200 mg at bedtime. I will be increasing his Seroquel at bedtime to 225, and we will continue to work with the patient in group therapy, milieu therapy, adjust medication as needed. JOB# [id number]
[2016-12-14] MEDS: Theophylline 100 mg ER Tab PO SCH (09:08)
[2016-12-14] MEDS: Multivitamin Tab PO SCH (09:09)
--- NOTE | 2016-12-14 14:21 | Internal Medicine Prog Note ---
Internal Medicine Subjective - Subjective Service Date: 12/14/16 Patient seen and examined:: with staff Patient is:: awake Per staff patient is:: no adverse event Internal Medicine Objective - Results Result Diagrams: 12/12/16 21:50 11/29/16 14:25 Recent Labs: Laboratory Last Values WBC 6.3 Th/cmm (4.8-10.8) 12/12/16 21:50 RBC 4.81 Mil/cmm (3.80-5.80) 12/12/16 21:50 Hgb 14.6 gm/dL (12.6-17.4) 12/12/16 21:50 Hct 43.4 % (39.0-49.0) 12/12/16 21:50 MCV 90.2 fl (80-99) 12/12/16 21:50 MCH 30.4 pg (27.0-31.0) 12/12/16 21:50 MCHC Differential 33.7 pg (28.0-36.0) 12/12/16 21:50 RDW 13.9 % (11.5-20.0) 12/12/16 21:50 Plt Count 255 Th/cmm (150-400) 12/12/16 21:50 MPV 6.8 fl 12/12/16 21:50 Neutrophils % 63.4 % (40.0-80.0) 12/12/16 21:50 Lymphocytes % 24.7 % (20.0-50.0) 12/12/16 21:50 Monocytes % 8.8 % (2.0-10.0) 12/12/16 21:50 Eosinophils % 2.4 % (0.0-5.0) 12/12/16 21:50 Basophils % 0.7 % (0.0-2.0) 12/12/16 21:50 PT 15.7 SECONDS (9.5-11.5) H 12/12/16 21:50 INR 1.48 (0.5-1.4) H 12/12/16 21:50 PTT (Actin FS) 33.0 SECONDS (26.0-38.0) 12/05/16 07:45 Sodium 139 mEq/L (136-145) 11/29/16 14:25 Potassium 3.9 mEq/L (3.5-5.1) 11/29/16 14:25 Chloride 105 mEq/L (98-107) 11/29/16 14:25 Carbon Dioxide 27.1 mEq/L (21.0-31.0) 11/29/16 14:25 Anion Gap 10.8 (7.0-16.0) 11/29/16 14:25 BUN 17 mg/dL (7-25) 11/29/16 14:25 Creatinine 1.1 mg/dL (0.7-1.3) 11/29/16 14:25 Est GFR ( Amer) TNP 11/29/16 14:25 Est GFR (Non-Af Amer) TNP 11/29/16 14:25 BUN/Creatinine Ratio 15.5 11/29/16 14:25 Glucose 79 mg/dL (70-105) 11/29/16 14:25 Calcium 9.3 mg/dL (8.6-10.3) 11/29/16 14:25 Total Bilirubin 0.3 mg/dL (0.3-1.0) 11/29/16 14:25 AST 16 U/L (13-39) 11/29/16 14:25 ALT 15 U/L (7-52) 11/29/16 14:25 Alkaline Phosphatase 69 U/L (34-104) 11/29/16 14:25 Total Protein 7.6 gm/dL (6.0-8.3) 11/29/16 14:25 Albumin 4.0 gm/dL (4.2-5.5) L 11/29/16 14:25 Globulin 3.6 gm/dL 11/29/16 14:25 Albumin/Globulin Ratio 1.1 (1.0-1.8) 11/29/16 14:25 TSH 1.04 uIU/ml (0.34-5.60) 11/29/16 14:25 RPR NONREACTIVE (NONREACTIVE) 11/29/16 14:25 - Physical Exam Vitals and I&O: Vital Signs Temp 97.3 F 12/14/16 06:44 Pulse 78 12/14/16 06:44 Resp 20 12/14/16 06:44 BP 110/65 12/14/16 06:44 Pulse Ox 98 12/14/16 06:44 Intake & Output 12/13/16 12/14/16 12/14/16 18:59 06:59 18:59 Intake Total 2019 120 Balance 2019 120 Intake: Oral 2019 120 Other: # Voids 8 3 # Bowel Movements 1 Active Medications: Current Medications Acetaminophen (Tylenol) 650 mg PO Q4HR PRN PRN Reason: Pain (Mild) Stop: 01/28/17 16:25 Al Hydrox/Mg Hydrox/Simethicone (Maalox) 30 ml PO Q4HR PRN PRN Reason: GI DISTRESS Stop: 01/28/17 16:25 Docusate Sodium (Colace) 100 mg PO BID [facility] Stop: 01/29/17 08:59 Last Admin: 12/14/16 09:09 Dose: 100 mg Donepezil HCl (Aricept) 10 mg PO HS [facility] Stop: 01/29/17 20:59 Last Admin: 12/13/16 21:04 Dose: 10 mg Famotidine (Pepcid) 20 mg PO DAILY [facility] Stop: 01/29/17 08:59 Last Admin: 12/14/16 09:09 Dose: 20 mg Lorazepam (Ativan) 0.5 mg PO Q4HR PRN; Protocol PRN Reason: Anxiety Stop: 12/29/16 16:25 Last Admin: 12/11/16 21:00 Dose: 0.5 mg Magnesium Hydroxide (Milk Of Magnesia) 30 ml PO DAILY PRN PRN Reason: CONSTIPATION Stop: 01/28/17 23:14 Memantine (Namenda) 10 mg PO BID [facility] Stop: 01/29/17 08:59 Last Admin: 12/14/16 09:09 Dose: 10 mg Multivitamins/Vitamin C (Theragran) 1 tab PO DAILY [facility] Stop: 01/29/17 08:59 Last Admin: 12/14/16 09:09 Dose: 1 tab Oxcarbazepine (Trileptal) 300 mg PO BID ANA PRN Reason: Protocol Stop: 02/04/17 11:41 Last Admin: 12/14/16 09:09 Dose: 300 mg Quetiapine Fumarate (Seroquel) 150 mg PO BID ANA PRN Reason: Protocol Stop: 01/29/17 08:59 Last Admin: 12/14/16 09:09 Dose: 150 mg Quetiapine Fumarate 200 mg/ (Quetiapine Fumarate 25 mg) 225 mg PO HS [facility] Stop: 02/11/17 20:59 Last Admin: 12/13/16 21:04 Dose: 225 mg Tamsulosin HCl (Flomax) 0.8 mg PO HS ANA Stop: 01/29/17 20:59 Last Admin: 12/13/16 21:03 Dose: 0.8 mg Theophylline (Fabien-Dur) 300 mg PO DAILY [facility] Stop: 01/29/17 08:59 Last Admin: 12/14/16 09:08 Dose: 300 mg Warfarin Sodium (Coumadin) 6 mg PO C ANA Stop: 01/29/17 13:59 Last Admin: 12/13/16 13:54 Dose: 6 mg Zolpidem Tartrate (Ambien) 5 mg PO HS PRN PRN Reason: Insomnia Stop: 01/28/17 16:25 Last Admin: 12/13/16 21:04 Dose: 5 mg General: alert HEENT: NC/AT, PERRLA Neck: Supple Lungs: CTAB Cardiovascular: RRR, Normal S1, Normal S2, without murmur Abdomen: soft non-tender Neurological: no change - Procedures Procedures: Procedures Procedure Code Date EMERGENCY DEPT VISIT 12548 12/28/11 EMERGENCY DEPT VISIT 17416 12/12/11 GROUP PSYCHOTHERAPY 43145 02/14/16 GROUP PSYCHOTHERAPY GZHZZZZ 02/14/16 GROUP PSYCHOTHERAPY 75550 10/06/15 GROUP PSYCHOTHERAPY GZHZZZZ 10/06/15 GROUP PSYCHOTHERAPY 57828 06/21/15 GROUP PSYCHOTHERAPY GZHZZZZ 06/21/15 OTHER GROUP THERAPY 94.44 02/26/15 RECREATIONAL THERAPY 93.81 06/30/12 Internal Medicine Assmt/Plan - Assessment Assessment: pud/gerd alzheimer/dementia leukocytosis chronic dvt on anticoagulant - Plan Plan: coumadin per pharmacy to dose monitor pt/inr fall precautions cpm Nutritional Asmnt/Malnutr-PDOC - Dietary Evaluation Malnutrition Findings (Please click <Entered> for more info): Nutritional Asmnt/Malnutrition Start: 12/06/16 16: 13 Text: Status: Complete Freq: Document 12/06/16 16:13 GSUN (Rec: 12/06/16 16:22 GSUN [email or web address]) Nutritional Asmnt/Malnutrition Patient General Information Nutritional Screening Diagnosis Diagnosis Agitation Pertinent Medical Hx/Surgical Hx CVA, GERD, Alzheimer dementia, DVT Subjective Information 71 year old male from SNF. Pt was resting, sat up in bed upon RD's call. Pt was pleasant, poor historian, was only able to answer the food is good. Per staff, no nutritional concerns. Avg PO intake 89% of meals x past 9 meals, meeting nutritional needs. Current Diet Order/ Nutrition Support Regular Pertinent Medications Maalox, Colace, MOM, Pepcid, Theragran, Seroquel, Coumadin Pertinent Labs 3/2: Reviewed. Nutritional Hx/Data Height 5 ft 7 in Height (Calculated Centimeters) 170.2 Current Weight (lbs) 163 lb 14.4 oz Weight (Calculated Kilograms) 74.3 Weight (Calculated Grams) 47669.8 [place] Body Weight 148lb Weight Status Approriate GI Symptoms Food Allergies No Cultural/Ethnic/Orthodoxy Belief Unknown. Usual diet at home Unknown. Skin Integrity/Comment: Vlad Deleon. Skin intact. Current %PO Good (75-100%) Estimated Nutritional Goals BEE in Kcals: Using Current wt Calories/Kcals/Kg 25-30kcal/kg Kcals Calculated 1858-2229kcal Protein: Using Current wt Protein g/kg/kg Protein Calculated 74g Fluid: ml 1858-2229ml (1ml/kcal) Nutritional Problem 1. Problem Problem No nutritional problems at this time. Intervention/Recommendation Comments 1. Continue with regular diet. Avg PO itnake is adequate. Expected Outcomes/Goals Expected Outcomes/Goals 1. PO intake continue to meet at least 75% of estimated nutritional needs.
--- NOTE | 2016-12-14 19:08 | Progress Notes ---
Case was discussed with staff of the patient, reviewed records. The patient is reported by the staff to be showing progress. However, they do not think he is ready to go because he just started showing progress and wants to have more medication on him since I have increased his Seroquel dose yesterday, and he is on a high dose of Trileptal with no side effects, no sedation, no nausea, and no extrapyramidal symptoms. He continues to have poor insight, , confused, unable to make safe plan for self-care, will continue to work with the patient in group therapy, milieu therapy, and adjust medication as needed. JOB# [id number]
[2016-12-15] MEDS: Multivitamin Tab PO SCH (08:24)
[2016-12-15] MEDS: Theophylline 100 mg ER Tab PO SCH (08:25)
--- NOTE | 2016-12-15 12:34 | Internal Medicine Prog Note ---
Internal Medicine Subjective - Subjective Patient seen and examined:: with staff, chart reviewed Patient is:: awake, verbal, interactive Per staff patient is:: no adverse event, confused Internal Medicine Objective - Results Result Diagrams: 12/12/16 21:50 11/29/16 14:25 Recent Labs: Laboratory Last Values WBC 6.3 Th/cmm (4.8-10.8) 12/12/16 21:50 RBC 4.81 Mil/cmm (3.80-5.80) 12/12/16 21:50 Hgb 14.6 gm/dL (12.6-17.4) 12/12/16 21:50 Hct 43.4 % (39.0-49.0) 12/12/16 21:50 MCV 90.2 fl (80-99) 12/12/16 21:50 MCH 30.4 pg (27.0-31.0) 12/12/16 21:50 MCHC Differential 33.7 pg (28.0-36.0) 12/12/16 21:50 RDW 13.9 % (11.5-20.0) 12/12/16 21:50 Plt Count 255 Th/cmm (150-400) 12/12/16 21:50 MPV 6.8 fl 12/12/16 21:50 Neutrophils % 63.4 % (40.0-80.0) 12/12/16 21:50 Lymphocytes % 24.7 % (20.0-50.0) 12/12/16 21:50 Monocytes % 8.8 % (2.0-10.0) 12/12/16 21:50 Eosinophils % 2.4 % (0.0-5.0) 12/12/16 21:50 Basophils % 0.7 % (0.0-2.0) 12/12/16 21:50 PT 15.7 SECONDS (9.5-11.5) H 12/12/16 21:50 INR 1.48 (0.5-1.4) H 12/12/16 21:50 PTT (Actin FS) 33.0 SECONDS (26.0-38.0) 12/05/16 07:45 Sodium 139 mEq/L (136-145) 11/29/16 14:25 Potassium 3.9 mEq/L (3.5-5.1) 11/29/16 14:25 Chloride 105 mEq/L (98-107) 11/29/16 14:25 Carbon Dioxide 27.1 mEq/L (21.0-31.0) 11/29/16 14:25 Anion Gap 10.8 (7.0-16.0) 11/29/16 14:25 BUN 17 mg/dL (7-25) 11/29/16 14:25 Creatinine 1.1 mg/dL (0.7-1.3) 11/29/16 14:25 Est GFR ( Amer) TNP 11/29/16 14:25 Est GFR (Non-Af Amer) TNP 11/29/16 14:25 BUN/Creatinine Ratio 15.5 11/29/16 14:25 Glucose 79 mg/dL (70-105) 11/29/16 14:25 Calcium 9.3 mg/dL (8.6-10.3) 11/29/16 14:25 Total Bilirubin 0.3 mg/dL (0.3-1.0) 11/29/16 14:25 AST 16 U/L (13-39) 11/29/16 14:25 ALT 15 U/L (7-52) 11/29/16 14:25 Alkaline Phosphatase 69 U/L (34-104) 11/29/16 14:25 Total Protein 7.6 gm/dL (6.0-8.3) 11/29/16 14:25 Albumin 4.0 gm/dL (4.2-5.5) L 11/29/16 14:25 Globulin 3.6 gm/dL 11/29/16 14:25 Albumin/Globulin Ratio 1.1 (1.0-1.8) 11/29/16 14:25 TSH 1.04 uIU/ml (0.34-5.60) 11/29/16 14:25 RPR NONREACTIVE (NONREACTIVE) 11/29/16 14:25 - Physical Exam Vitals and I&O: Vital Signs Temp 97.6 F 12/14/16 14:39 Pulse 76 12/14/16 14:39 Resp 71 12/15/16 10:34 BP 124/68 12/14/16 14:39 Pulse Ox 97 12/14/16 14:39 Intake & Output 12/14/16 12/15/16 12/15/16 18:59 06:59 18:59 Intake Total 1200 Balance 1200 Intake: Oral 1200 Other: # Bowel Movements 1 Active Medications: Current Medications Acetaminophen (Tylenol) 650 mg PO Q4HR PRN PRN Reason: Pain (Mild) Stop: 01/28/17 16:25 Al Hydrox/Mg Hydrox/Simethicone (Maalox) 30 ml PO Q4HR PRN PRN Reason: GI DISTRESS Stop: 01/28/17 16:25 Docusate Sodium (Colace) 100 mg PO BID [facility] Stop: 01/29/17 08:59 Last Admin: 12/15/16 08:23 Dose: 100 mg Donepezil HCl (Aricept) 10 mg PO HS [facility] Stop: 01/29/17 20:59 Last Admin: 12/14/16 20:47 Dose: 10 mg Famotidine (Pepcid) 20 mg PO DAILY [facility] Stop: 01/29/17 08:59 Last Admin: 12/15/16 08:24 Dose: 20 mg Lorazepam (Ativan) 0.5 mg PO Q4HR PRN; Protocol PRN Reason: Anxiety Stop: 12/29/16 16:25 Last Admin: 12/11/16 21:00 Dose: 0.5 mg Magnesium Hydroxide (Milk Of Magnesia) 30 ml PO DAILY PRN PRN Reason: CONSTIPATION Stop: 01/28/17 23:14 Memantine (Namenda) 10 mg PO BID [facility] Stop: 01/29/17 08:59 Last Admin: 12/15/16 08:24 Dose: 10 mg Multivitamins/Vitamin C (Theragran) 1 tab PO DAILY [facility] Stop: 01/29/17 08:59 Last Admin: 12/15/16 08:24 Dose: 1 tab Oxcarbazepine (Trileptal) 300 mg PO BID [facility] PRN Reason: Protocol Stop: 02/04/17 11:41 Last Admin: 12/15/16 08:25 Dose: 300 mg Quetiapine Fumarate (Seroquel) 150 mg PO BID ANA PRN Reason: Protocol Stop: 01/29/17 08:59 Last Admin: 12/15/16 08:24 Dose: 150 mg Quetiapine Fumarate 200 mg/ (Quetiapine Fumarate 25 mg) 225 mg PO HS [facility] Stop: 02/11/17 20:59 Last Admin: 12/14/16 20:46 Dose: 225 mg Tamsulosin HCl (Flomax) 0.8 mg PO HS [facility]NA Stop: 01/29/17 20:59 Last Admin: 12/14/16 20:47 Dose: 0.8 mg Theophylline (Fabien-Dur) 300 mg PO DAILY [facility] Stop: 01/29/17 08:59 Last Admin: 12/15/16 08:25 Dose: 300 mg Warfarin Sodium (Coumadin) 6 mg PO C ANA Stop: 01/29/17 13:59 Last Admin: 12/14/16 14:41 Dose: 6 mg Zolpidem Tartrate (Ambien) 5 mg PO HS PRN PRN Reason: Insomnia Stop: 01/28/17 16:25 Last Admin: 12/13/16 21:04 Dose: 5 mg General: demented HEENT: NC/AT, PERRLA Neck: Supple, No JVD Lungs: CTAB Cardiovascular: RRR, Normal S1, Normal S2 Abdomen: soft non-tender, non-distended, positive bowel sound Extremities: excoriation - Procedures Procedures: Procedures Procedure Code Date EMERGENCY DEPT VISIT 70457 12/28/11 EMERGENCY DEPT VISIT 69535 12/12/11 GROUP PSYCHOTHERAPY 91217 02/14/16 GROUP PSYCHOTHERAPY GZHZZZZ 02/14/16 GROUP PSYCHOTHERAPY 84773 10/06/15 GROUP PSYCHOTHERAPY GZHZZZZ 10/06/15 GROUP PSYCHOTHERAPY 34409 06/21/15 GROUP PSYCHOTHERAPY GZHZZZZ 06/21/15 OTHER GROUP THERAPY 94.44 02/26/15 RECREATIONAL THERAPY 93.81 06/30/12 Internal Medicine Assmt/Plan - Assessment Assessment: pud/gerd alzheimer/dementia leukocytosis chronic dvt on anticoagulant - Plan Plan: cont on ppi cont on couumadin check inr dw rn Nutritional Asmnt/Malnutr-PDOC - Dietary Evaluation Malnutrition Findings (Please click <Entered> for more info): Nutritional Asmnt/Malnutrition Start: 12/06/16 16: 13 Text: Status: Complete Freq: Document 12/06/16 16:13 GSUN (Rec: 12/06/16 16:22 GSUN [email or web address]) Nutritional Asmnt/Malnutrition Patient General Information Nutritional Screening Diagnosis Diagnosis Agitation Pertinent Medical Hx/Surgical Hx CVA, GERD, Alzheimer dementia, DVT Subjective Information 71 year old male from SNF. Pt was resting, sat up in bed upon RD's call. Pt was pleasant, poor historian, was only able to answer the food is good. Per staff, no nutritional concerns. Avg PO intake 89% of meals x past 9 meals, meeting nutritional needs. Current Diet Order/ Nutrition Support Regular Pertinent Medications Maalox, Colace, MOM, Pepcid, Theragran, Seroquel, Coumadin Pertinent Labs 3/2: Reviewed. Nutritional Hx/Data Height 1.7 m Height (Calculated Centimeters) 170.2 Current Weight (lbs) 74.344 kg Weight (Calculated Kilograms) 74.3 Weight (Calculated Grams) 08979.8 [place] Body Weight 148lb Weight Status Approriate GI Symptoms Food Allergies No Cultural/Ethnic/Quaker Belief Unknown. Usual diet at home Unknown. Skin Integrity/Comment: Vlad Deleon. Skin intact. Current %PO Good (75-100%) Estimated Nutritional Goals BEE in Kcals: Using Current wt Calories/Kcals/Kg 25-30kcal/kg Kcals Calculated 1858-2229kcal Protein: Using Current wt Protein g/kg/kg Protein Calculated 74g Fluid: ml 1858-2229ml (1ml/kcal) Nutritional Problem 1. Problem Problem No nutritional problems at this time. Intervention/Recommendation Comments 1. Continue with regular diet. Avg PO itnake is adequate. Expected Outcomes/Goals Expected Outcomes/Goals 1. PO intake continue to meet at least 75% of estimated nutritional needs.
--- NOTE | 2016-12-15 23:11 | Progress Notes ---
SUBJECTIVE: The patient seen, chart reviewed, discussed with staff. The patient is under the care of Dr. Perkins. She is noting that he has been improving albeit slowly and she had continued concerns about ability to be cared for at a lower level of care. The patient is currently in the hospital, aggressive, combative, from [place], poor historian, not really answering any questions. Medications were reviewed. No overt side effects noted. Per staff, still with some behavioral disturbances, still impulsive, unpredictable. ASSESSMENT: The patient remains symptomatic, not safe for a lower level of care. Concerns for safety of others. Concerns for lashing out behaviors. Medications were reviewed. No EPS. No over sedation. PLAN: We will continue to monitor and titrate medications as tolerated. [facility]# [id number]
[2016-12-16] MEDS: Multivitamin Tab PO SCH (08:07)
[2016-12-16] MEDS: Theophylline 100 mg ER Tab PO SCH (08:07)
--- NOTE | 2016-12-16 20:16 | Internal Medicine Prog Note ---
Internal Medicine Subjective - Subjective Patient seen and examined:: with staff, chart reviewed Patient is:: awake, verbal, interactive Per staff patient is:: no adverse event, noncompliant Internal Medicine Objective - Results Result Diagrams: 12/12/16 21:50 11/29/16 14:25 Recent Labs: Laboratory Last Values WBC 6.3 Th/cmm (4.8-10.8) 12/12/16 21:50 RBC 4.81 Mil/cmm (3.80-5.80) 12/12/16 21:50 Hgb 14.6 gm/dL (12.6-17.4) 12/12/16 21:50 Hct 43.4 % (39.0-49.0) 12/12/16 21:50 MCV 90.2 fl (80-99) 12/12/16 21:50 MCH 30.4 pg (27.0-31.0) 12/12/16 21:50 MCHC Differential 33.7 pg (28.0-36.0) 12/12/16 21:50 RDW 13.9 % (11.5-20.0) 12/12/16 21:50 Plt Count 255 Th/cmm (150-400) 12/12/16 21:50 MPV 6.8 fl 12/12/16 21:50 Neutrophils % 63.4 % (40.0-80.0) 12/12/16 21:50 Lymphocytes % 24.7 % (20.0-50.0) 12/12/16 21:50 Monocytes % 8.8 % (2.0-10.0) 12/12/16 21:50 Eosinophils % 2.4 % (0.0-5.0) 12/12/16 21:50 Basophils % 0.7 % (0.0-2.0) 12/12/16 21:50 PT 15.7 SECONDS (9.5-11.5) H 12/12/16 21:50 INR 1.48 (0.5-1.4) H 12/12/16 21:50 PTT (Actin FS) 33.0 SECONDS (26.0-38.0) 12/05/16 07:45 Sodium 139 mEq/L (136-145) 11/29/16 14:25 Potassium 3.9 mEq/L (3.5-5.1) 11/29/16 14:25 Chloride 105 mEq/L (98-107) 11/29/16 14:25 Carbon Dioxide 27.1 mEq/L (21.0-31.0) 11/29/16 14:25 Anion Gap 10.8 (7.0-16.0) 11/29/16 14:25 BUN 17 mg/dL (7-25) 11/29/16 14:25 Creatinine 1.1 mg/dL (0.7-1.3) 11/29/16 14:25 Est GFR ( Amer) TNP 11/29/16 14:25 Est GFR (Non-Af Amer) TNP 11/29/16 14:25 BUN/Creatinine Ratio 15.5 11/29/16 14:25 Glucose 79 mg/dL (70-105) 11/29/16 14:25 Calcium 9.3 mg/dL (8.6-10.3) 11/29/16 14:25 Total Bilirubin 0.3 mg/dL (0.3-1.0) 11/29/16 14:25 AST 16 U/L (13-39) 11/29/16 14:25 ALT 15 U/L (7-52) 11/29/16 14:25 Alkaline Phosphatase 69 U/L (34-104) 11/29/16 14:25 Total Protein 7.6 gm/dL (6.0-8.3) 11/29/16 14:25 Albumin 4.0 gm/dL (4.2-5.5) L 11/29/16 14:25 Globulin 3.6 gm/dL 11/29/16 14:25 Albumin/Globulin Ratio 1.1 (1.0-1.8) 11/29/16 14:25 TSH 1.04 uIU/ml (0.34-5.60) 11/29/16 14:25 RPR NONREACTIVE (NONREACTIVE) 11/29/16 14:25 - Physical Exam Vitals and I&O: Vital Signs Temp 97.7 F 12/16/16 19:52 Pulse 76 12/16/16 19:52 Resp 20 12/16/16 19:52 BP 129/81 12/16/16 19:52 Pulse Ox 98 12/16/16 19:52 Intake & Output 12/16/16 12/16/1617 06:59 18:59 06:59 Intake Total 800 240 Balance 800 240 Intake: Oral 800 240 Other: # Voids 4 2 # Bowel Movements 1 Active Medications: Current Medications Acetaminophen (Tylenol) 650 mg PO Q4HR PRN PRN Reason: Pain (Mild) Stop: 01/28/17 16:25 Al Hydrox/Mg Hydrox/Simethicone (Maalox) 30 ml PO Q4HR PRN PRN Reason: GI DISTRESS Stop: 01/28/17 16:25 Docusate Sodium (Colace) 100 mg PO BID ANA Stop: 01/29/17 08:59 Last Admin: 12/16/16 16:11 Dose: 100 mg Donepezil HCl (Aricept) 10 mg PO HS [facility] Stop: 01/29/17 20:59 Last Admin: 12/15/16 20:25 Dose: 10 mg Famotidine (Pepcid) 20 mg PO DAILY ANA Stop: 01/29/17 08:59 Last Admin: 12/16/16 08:07 Dose: 20 mg Lorazepam (Ativan) 0.5 mg PO Q4HR PRN; Protocol PRN Reason: Anxiety Stop: 12/29/16 16:25 Last Admin: 12/16/16 13:02 Dose: 0.5 mg Magnesium Hydroxide (Milk Of Magnesia) 30 ml PO DAILY PRN PRN Reason: CONSTIPATION Stop: 01/28/17 23:14 Memantine (Namenda) 10 mg PO BID [facility] Stop: 01/29/17 08:59 Last Admin: 12/16/16 16:11 Dose: 10 mg Multivitamins/Vitamin C (Theragran) 1 tab PO DAILY [facility] Stop: 01/29/17 08:59 Last Admin: 12/16/16 08:07 Dose: 1 tab Oxcarbazepine (Trileptal) 300 mg PO BID ANA PRN Reason: Protocol Stop: 02/04/17 11:41 Last Admin: 12/16/16 16:11 Dose: 300 mg Quetiapine Fumarate (Seroquel) 150 mg PO BID ANA PRN Reason: Protocol Stop: 01/29/17 08:59 Last Admin: 12/16/16 16:11 Dose: 150 mg Quetiapine Fumarate 200 mg/ (Quetiapine Fumarate 25 mg) 225 mg PO HS ANA Stop: 02/11/17 20:59 Last Admin: 12/15/16 20:25 Dose: 225 mg Tamsulosin HCl (Flomax) 0.8 mg PO HS ANA Stop: 01/29/17 20:59 Last Admin: 12/15/16 20:26 Dose: 0.8 mg Theophylline (Fabien-Dur) 300 mg PO DAILY ANA Stop: 01/29/17 08:59 Last Admin: 12/16/16 08:07 Dose: 300 mg Warfarin Sodium (Coumadin) 6 mg PO C ANA Stop: 01/29/17 13:59 Last Admin: 12/16/16 13:14 Dose: 6 mg Zolpidem Tartrate (Ambien) 5 mg PO HS PRN PRN Reason: Insomnia Stop: 01/28/17 16:25 Last Admin: 12/13/16 21:04 Dose: 5 mg General: demented HEENT: NC/AT, PERRLA, EOMI Neck: Supple, No JVD, No thyromegaly Lungs: CTAB Cardiovascular: RRR, Normal S1, Normal S2 Abdomen: soft non-tender, globular, non-distended, positive bowel sound Extremities: excoriation Neurological: no change - Procedures Procedures: Procedures Procedure Code Date EMERGENCY DEPT VISIT 90639 12/28/11 EMERGENCY DEPT VISIT 01176 12/12/11 GROUP PSYCHOTHERAPY 22137 02/14/16 GROUP PSYCHOTHERAPY GZHZZZZ 02/14/16 GROUP PSYCHOTHERAPY 38832 10/06/15 GROUP PSYCHOTHERAPY GZHZZZZ 10/06/15 GROUP PSYCHOTHERAPY 98789 06/21/15 GROUP PSYCHOTHERAPY GZHZZZZ 06/21/15 OTHER GROUP THERAPY 94.44 02/26/15 RECREATIONAL THERAPY 93.81 06/30/12 Internal Medicine Assmt/Plan - Assessment Assessment: pud/gerd alzheimer/dementia leukocytosis chronic dvt on anticoagulant - Plan Plan: cont on ppi cont on couumadin check inr dw rn Nutritional Asmnt/Malnutr-PDOC - Dietary Evaluation Malnutrition Findings (Please click <Entered> for more info): Nutritional Asmnt/Malnutrition Start: 12/06/16 16: 13 Text: Status: Complete Freq: Document 12/06/16 16:13 GSUN (Rec: 12/06/16 16:22 GSUN [email or web address]) Nutritional Asmnt/Malnutrition Patient General Information Nutritional Screening Diagnosis Diagnosis Agitation Pertinent Medical Hx/Surgical Hx CVA, GERD, Alzheimer dementia, DVT Subjective Information 71 year old male from SNF. Pt was resting, sat up in bed upon RD's call. Pt was pleasant, poor historian, was only able to answer the food is good. Per staff, no nutritional concerns. Avg PO intake 89% of meals x past 9 meals, meeting nutritional needs. Current Diet Order/ Nutrition Support Regular Pertinent Medications Maalox, Colace, MOM, Pepcid, Theragran, Seroquel, Coumadin Pertinent Labs /: Reviewed. Nutritional Hx/Data Height 1.7 m Height (Calculated Centimeters) 170.2 Current Weight (lbs) 74.344 kg Weight (Calculated Kilograms) 74.3 Weight (Calculated Grams) 72231.8 [place] Body Weight 148lb Weight Status Approriate GI Symptoms Food Allergies No Cultural/Ethnic/Adventism Belief Unknown. Usual diet at home Unknown. Skin Integrity/Comment: Vlad 19. Skin intact. Current %PO Good (75-100%) Estimated Nutritional Goals BEE in Kcals: Using Current wt Calories/Kcals/Kg 25-30kcal/kg Kcals Calculated 1858-2229kcal Protein: Using Current wt Protein g/kg/kg Protein Calculated 74g Fluid: ml 1858-2229ml (1ml/kcal) Nutritional Problem 1. Problem Problem No nutritional problems at this time. Intervention/Recommendation Comments 1. Continue with regular diet. Avg PO itnake is adequate. Expected Outcomes/Goals Expected Outcomes/Goals 1. PO intake continue to meet at least 75% of estimated nutritional needs.
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
[2016-12-17] MEDS: Multivitamin Tab PO SCH (08:59)
[2016-12-17] MEDS: Theophylline 100 mg ER Tab PO SCH (09:00)
--- NOTE | 2016-12-17 13:14 | Internal Medicine Prog Note ---
Internal Medicine Subjective - Subjective Service Date: 12/17/16 Patient seen and examined:: with staff Patient is:: awake Per staff patient is:: no adverse event Internal Medicine Objective - Results Result Diagrams: 12/12/16 21:50 11/29/16 14:25 Recent Labs: Laboratory Last Values WBC 6.3 Th/cmm (4.8-10.8) 12/12/16 21:50 RBC 4.81 Mil/cmm (3.80-5.80) 12/12/16 21:50 Hgb 14.6 gm/dL (12.6-17.4) 12/12/16 21:50 Hct 43.4 % (39.0-49.0) 12/12/16 21:50 MCV 90.2 fl (80-99) 12/12/16 21:50 MCH 30.4 pg (27.0-31.0) 12/12/16 21:50 MCHC Differential 33.7 pg (28.0-36.0) 12/12/16 21:50 RDW 13.9 % (11.5-20.0) 12/12/16 21:50 Plt Count 255 Th/cmm (150-400) 12/12/16 21:50 MPV 6.8 fl 12/12/16 21:50 Neutrophils % 63.4 % (40.0-80.0) 12/12/16 21:50 Lymphocytes % 24.7 % (20.0-50.0) 12/12/16 21:50 Monocytes % 8.8 % (2.0-10.0) 12/12/16 21:50 Eosinophils % 2.4 % (0.0-5.0) 12/12/16 21:50 Basophils % 0.7 % (0.0-2.0) 12/12/16 21:50 PT 15.7 SECONDS (9.5-11.5) H 12/12/16 21:50 INR 1.48 (0.5-1.4) H 12/12/16 21:50 PTT (Actin FS) 33.0 SECONDS (26.0-38.0) 12/05/16 07:45 Sodium 139 mEq/L (136-145) 11/29/16 14:25 Potassium 3.9 mEq/L (3.5-5.1) 11/29/16 14:25 Chloride 105 mEq/L (98-107) 11/29/16 14:25 Carbon Dioxide 27.1 mEq/L (21.0-31.0) 11/29/16 14:25 Anion Gap 10.8 (7.0-16.0) 11/29/16 14:25 BUN 17 mg/dL (7-25) 11/29/16 14:25 Creatinine 1.1 mg/dL (0.7-1.3) 11/29/16 14:25 Est GFR ( Amer) TNP 11/29/16 14:25 Est GFR (Non-Af Amer) TNP 11/29/16 14:25 BUN/Creatinine Ratio 15.5 11/29/16 14:25 Glucose 79 mg/dL (70-105) 11/29/16 14:25 Calcium 9.3 mg/dL (8.6-10.3) 11/29/16 14:25 Total Bilirubin 0.3 mg/dL (0.3-1.0) 11/29/16 14:25 AST 16 U/L (13-39) 11/29/16 14:25 ALT 15 U/L (7-52) 11/29/16 14:25 Alkaline Phosphatase 69 U/L (34-104) 11/29/16 14:25 Total Protein 7.6 gm/dL (6.0-8.3) 11/29/16 14:25 Albumin 4.0 gm/dL (4.2-5.5) L 11/29/16 14:25 Globulin 3.6 gm/dL 11/29/16 14:25 Albumin/Globulin Ratio 1.1 (1.0-1.8) 11/29/16 14:25 TSH 1.04 uIU/ml (0.34-5.60) 11/29/16 14:25 RPR NONREACTIVE (NONREACTIVE) 11/29/16 14:25 - Physical Exam Vitals and I&O: Vital Signs Temp 0 F 12/17/16 05:28 Pulse 76 12/16/16 19:52 Resp 20 12/16/16 19:52 BP 129/81 12/16/16 19:52 Pulse Ox 98 12/16/16 19:52 Intake & Output 12/16/16 12/17/16 12/17/16 18:59 06:59 18:59 Intake Total 800 240 Balance 800 240 Intake: Oral 800 240 Other: # Voids 4 3 # Bowel Movements 1 0 Active Medications: Current Medications Acetaminophen (Tylenol) 650 mg PO Q4HR PRN PRN Reason: Pain (Mild) Stop: 01/28/17 16:25 Al Hydrox/Mg Hydrox/Simethicone (Maalox) 30 ml PO Q4HR PRN PRN Reason: GI DISTRESS Stop: 01/28/17 16:25 Docusate Sodium (Colace) 100 mg PO BID [facility] Stop: 01/29/17 08:59 Last Admin: 12/17/16 08:58 Dose: 100 mg Donepezil HCl (Aricept) 10 mg PO HS [facility] Stop: 01/29/17 20:59 Last Admin: 12/16/16 20:18 Dose: 10 mg Famotidine (Pepcid) 20 mg PO DAILY [facility] Stop: 01/29/17 08:59 Last Admin: 12/17/16 08:58 Dose: 20 mg Lorazepam (Ativan) 0.5 mg PO Q4HR PRN; Protocol PRN Reason: Anxiety Stop: 12/29/16 16:25 Last Admin: 12/16/16 20:58 Dose: 0.5 mg Magnesium Hydroxide (Milk Of Magnesia) 30 ml PO DAILY PRN PRN Reason: CONSTIPATION Stop: 01/28/17 23:14 Memantine (Namenda) 10 mg PO BID [facility] Stop: 01/29/17 08:59 Last Admin: 12/17/16 08:58 Dose: 10 mg Multivitamins/Vitamin C (Theragran) 1 tab PO DAILY [facility] Stop: 01/29/17 08:59 Last Admin: 12/17/16 08:59 Dose: 1 tab Oxcarbazepine (Trileptal) 300 mg PO BID ANA PRN Reason: Protocol Stop: 02/04/17 11:41 Last Admin: 12/17/16 08:59 Dose: 300 mg Quetiapine Fumarate (Seroquel) 150 mg PO BID ANA PRN Reason: Protocol Stop: 01/29/17 08:59 Last Admin: 12/17/16 08:59 Dose: 150 mg Quetiapine Fumarate 200 mg/ (Quetiapine Fumarate 25 mg) 225 mg PO HS [facility] Stop: 02/11/17 20:59 Last Admin: 12/16/16 20:18 Dose: 225 mg Tamsulosin HCl (Flomax) 0.8 mg PO HS [facility] Stop: 01/29/17 20:59 Last Admin: 12/16/16 20:18 Dose: 0.8 mg Theophylline (Fabien-Dur) 300 mg PO DAILY ANA Stop: 01/29/17 08:59 Last Admin: 12/17/16 09:00 Dose: 300 mg Warfarin Sodium (Coumadin) 6 mg PO C ANA Stop: 01/29/17 13:59 Last Admin: 12/16/16 13:14 Dose: 6 mg Zolpidem Tartrate (Ambien) 5 mg PO HS PRN PRN Reason: Insomnia Stop: 01/28/17 16:25 Last Admin: 12/13/16 21:04 Dose: 5 mg General: alert HEENT: NC/AT, PERRLA Neck: Supple Lungs: CTAB Cardiovascular: RRR Abdomen: soft non-tender, non-distended Extremities: clear - Procedures Procedures: Procedures Procedure Code Date EMERGENCY DEPT VISIT 05701 12/28/11 EMERGENCY DEPT VISIT 55215 12/12/11 GROUP PSYCHOTHERAPY 06301 02/14/16 GROUP PSYCHOTHERAPY GZHZZZZ 02/14/16 GROUP PSYCHOTHERAPY 42230 10/06/15 GROUP PSYCHOTHERAPY GZHZZZZ 10/06/15 GROUP PSYCHOTHERAPY 71527 06/21/15 GROUP PSYCHOTHERAPY GZHZZZZ 06/21/15 OTHER GROUP THERAPY 94.44 02/26/15 RECREATIONAL THERAPY 93.81 06/30/12 Internal Medicine Assmt/Plan - Assessment Assessment: pud/gerd alzheimer/dementia leukocytosis chronic dvt on anticoagulant - Plan Plan: coumadin per pharmacy to dose monitor pt/inr fall precautions cpm Nutritional Asmnt/Malnutr-PDOC - Dietary Evaluation Malnutrition Findings (Please click <Entered> for more info): Nutritional Asmnt/Malnutrition Start: 12/06/16 16: 13 Text: Status: Complete Freq: Document 12/06/16 16:13 GSUN (Rec: 12/06/16 16:22 GSUN [email or web address]) Nutritional Asmnt/Malnutrition Patient General Information Nutritional Screening Diagnosis Diagnosis Agitation Pertinent Medical Hx/Surgical Hx CVA, GERD, Alzheimer dementia, DVT Subjective Information 71 year old male from SNF. Pt was resting, sat up in bed upon RD's call. Pt was pleasant, poor historian, was only able to answer the food is good. Per staff, no nutritional concerns. Avg PO intake 89% of meals x past 9 meals, meeting nutritional needs. Current Diet Order/ Nutrition Support Regular Pertinent Medications Maalox, Colace, MOM, Pepcid, Theragran, Seroquel, Coumadin Pertinent Labs 3/2: Reviewed. Nutritional Hx/Data Height 5 ft 7 in Height (Calculated Centimeters) 170.2 Current Weight (lbs) 163 lb 14.4 oz Weight (Calculated Kilograms) 74.3 Weight (Calculated Grams) 56621.8 [place] Body Weight 148lb Weight Status Approriate GI Symptoms Food Allergies No Cultural/Ethnic/Lutheran Belief Unknown. Usual diet at home Unknown. Skin Integrity/Comment: Vlad [place]. Skin intact. Current %PO Good (75-100%) Estimated Nutritional Goals BEE in Kcals: Using Current wt Calories/Kcals/Kg 25-30kcal/kg Kcals Calculated 1858-2229kcal Protein: Using Current wt Protein g/kg/kg Protein Calculated 74g Fluid: ml 1858-2229ml (1ml/kcal) Nutritional Problem 1. Problem Problem No nutritional problems at this time. Intervention/Recommendation Comments 1. Continue with regular diet. Avg PO itnake is adequate. Expected Outcomes/Goals Expected Outcomes/Goals 1. PO intake continue to meet at least 75% of estimated nutritional needs.
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
== END 2016-12-17 17:35 | DRG 57 ==
LOC: ER 13:32 → GERO 15:20
PROVIDERS: ADMIT Psychiatry & Neurology Psychiatry; ATTEND Psychiatry & Neurology Psychiatry
DX: G30.9 Alzheimer's disease, unspecified (principal); F02.81 Dementia in other diseases classified elsewhere, unspecified severity, with behavioral disturbance; I82.509 Chronic embolism and thrombosis of unspecified deep veins of unspecified lower extremity; F31.60 Bipolar disorder, current episode mixed, unspecified; K21.9 Gastro-esophageal reflux disease without esophagitis; N40.0 Benign prostatic hyperplasia without lower urinary tract symptoms; F25.9 Schizoaffective disorder, unspecified; J44.9 Chronic obstructive pulmonary disease, unspecified; R56.9 Unspecified convulsions; Z79.01 Long term (current) use of anticoagulants; Z86.73 Personal history of transient ischemic attack (TIA), and cerebral infarction without residual deficits; Z91.14 Patient's other noncompliance with medication regimen
CPT/HCPCS: 36415-UA; 80053-TC; 84443-TC; 85025-TC; 85610-TC; 86592-TC; 90899; 93005; Z7610

== ENCOUNTER 2017-05-17 16:38 | Inpatient (IN) | payer MEDICARE, MEDICAID ==
[2017-05-17 17:06] LABS: % BASOPHILS 0.8 % (0.0-2.0); % EOSINOPHILS 4.3 % (0.0-5.0); % LYMPHOCYTES 26.1 % (20.0-50.0); % MONOCYTES 10.1 % (2.0-10.0); % NEUTROPHILS 58.7 % (40.0-80.0); HEMATOCRIT 43.1 % (39.0-49.0); HEMOGLOBIN 14.4 gm/dL (12.6-17.4); MEAN CELL VOLUME 92.5 fl (80-99); MEAN CORPUSCULAR HEMOGLOBIN 30.8 pg (27.0-31.0); MEAN CORPUSCULAR HGB CONC 33.3 pg (28.0-36.0); MEAN PLATELET VOLUME 6.7 fl; NEUTROPHILE ABSOLUTE 4.8 Th/cmm (1.8-8.0); PLATELET COUNT 281 Th/cmm (150-400); RED BLOOD COUNT 4.66 Mil/cmm (3.80-5.80); RED CELL DISTRIBUTION WIDTH 13.8 % (11.5-20.0)
[2017-05-17 17:08] LABS: WHITE BLOOD COUNT 8.1 Th/cmm (4.8-10.8)
[2017-05-17 17:15] LABS: INR 2.02 (0.5-1.4); PROTHROMBIN TIME (TEST) 21.8 SECONDS (9.5-11.5)
[2017-05-17 17:18] LABS: ALB/GLOB RATIO 1.2 (1.0-1.8); ALKALINE PHOSPHATASE 58 U/L (34-104); ANION GAP 12.4 (7.0-16.0); BILIRUBIN,TOTAL 0.3 mg/dL (0.3-1.0); BUN - UREA NITROGEN 19 mg/dL (7-25); BUN/CREATININE RATIO 17.3; CALCIUM SERUM 9.5 mg/dL (8.6-10.3); CARBON DIOXIDE 21.4 mEq/L (21.0-31.0); CHLORIDE 106 mEq/L (98-107); CHOLESTEROL 198 mg/dL (<200); CREATININE - SERUM 1.1 mg/dL (0.7-1.3); GLUCOSE 117 mg/dL (70-105); POTASSIUM SERUM 3.8 mEq/L (3.5-5.1); SGOT 13 U/L (13-39); SGPT/ALT 9 U/L (7-52); SODIUM SERUM 136 mEq/L (136-145); TRIGLYCERIDES 212 mg/dL (<150)
--- NOTE | 2017-05-17 17:31 | ED Physician Chart ---
Chief Complaint/HPI - Patient Information Date Seen:: 05/17/17 Time Seen:: 16:50 Chief Complaint:: psychosis History of Present Illness:: THIS IS A 72 YO [facility] PATIENT WHO WAS SENT HERE FOR EVALUATION AND TREATMENT FOR HIS OUTBURST AND PSYCHOTIC BEHAVIOR. HE HAS AN EXTENSIVE PSYCH AND MEDICAL HISTORY OF COPD, GERD, ALZHEIMER'S AND THROMBOSIS. Allergies:: Allergies Allergy/AdvReac Type Severity Reaction Status Date / Time No Known Allergies Allergy Verified 06/18/16 16:29 Vitals:: Vital Signs - 8 hr 05/17/17 16:47 Temp 98.3 F HR 58 RR 23 BP 123/63 O2 Sat % 94 Historian:: Medical Records Review:: Nurse's Note Reviewed, Old Chart Reviewed, Transfer documents Reviewed Review of Systems - Review of Systems General/Constitutional: No fever, No chills, No weight loss, No weakness, No diaphoresis, No edema, No loss of appetite, Other (THIS PATIENT IS UNABLE TO GIVE A REVIEW OF SYSTEMS.) Skin: No skin lesions, No rash, No bruising Head: No headache, No light-headedness Eyes: No loss of vision, No pain, No diplopia ENT: No earache, No nasal drainage, No sore throat, No tinnitus Neck: No neck pain, No swelling, No thyromegaly, No stiffness, No mass noted Cardio Vascular: No chest pain, No palpitations, No PND, No orthopnea, No edema Pulmonary: No SOB, No cough, No sputum, No wheezing GI: No nausea, No vomiting, No diarrhea, No pain, No melena, No hematochezia, No constipation, No hematemesis G/U: No dysuria, No frequency, No hematuria Musculoskeletal: No bone or joint pain, No back pain, No muscle pain Endocrine: No polyuria, No polydipsia Psychiatric: No prior psych history, No depression, No anxiety, No suicidal ideation Hematopoietic: No bruising, No lymphadenopathy Allergic/Immuno: No urticaria, No angioedema Neurological: No syncope, No focal symptoms, No weakness, No paresthesia, No headache, No seizure, No dizziness, No confusion, No vertigo Past Medical History - Past Medical History Obtainable: Yes Past Medical History: HTN, CAD, DVT/PE, PUD/GERD, Seizures, Dementia Family History: None Social History: Non Smoker, No Alcohol, No Drug Use, Care Facility Surgical History: None Psychiatricy History: Schizophrenia, Bipolar Medication: Reviewed Family Medical History - Family Member Mother History Unknown: Yes Ethnicity: Unknown Living Status: Unknown Hx Family Cancer: (unknown) Hx Family Coronary Artery Disease: (unknown) Hx Family Congestive Heart Failure: (unknown) Hx Family Hypertension: (unknown) Hx Family Stroke: (unknown) Hx Family Diabetes: (unknown) Hx Family Seizures: (unknown) Hx Family Dementia: (unknown) Hx Family AIDS: (unknown) Hx Family HIV: No Hx Family COPD: (unknown) Hx Family Hepatitis: (unknown) Hx Family Psychiatric Problems: (unknown) Hx Family Tuberculosis: (unknown) Physical Exam - Physical Examination General/Constitutional: Awake, Well-developed, well-nourished, Alert, No distress, GCS 15, Non-toxic appearing, Ambulatory Other Gen/Cons comments:: DISORGANIZE BEHAVIOR AND RESTLESS Head: Atraumatic Eyes: Lids, conjuctiva normal, PERRL, EOMI Skin: Nl inspection, No rash, No skin lesions, No ecchymosis, Well hydrated, No lymphadenopathy ENMT: External ears, nose nl, Nasal exam nl, Lips, teeth, gums nl Neck: Nontender, Full ROM w/o pain, No JVD, No nuchal rigidity, No bruit, No mass, No stridor Respiratory: Nl effort/Exclusion, Clear to Auscultation, No Wheeze/Rhonchi/Rales Cardio Vascular: RRR, No murmur, gallop, rubs, NL S1 S2 GI: No tenderness/rebounding/guarding, No organomegaly, No hernia, Normal BS's, Nondistended, No mass/bruits, No McBurney tenderness : No CVA tenderness Extremities: No tenderness or effusion, Full ROM, normal strength in all extremities, No edema, Normal digits & nails Neuro/Psych: Alert/oriented, DTR's symmetric, Normal sensory exam, Normal motor strength, Judgement/insight normal, Mood normal, Normal gait, No focal deficits Misc: normal gait, Normal back, No paraspinal tenderness Labs/Radiology/EKG Results - Lab Results Results: Laboratory Tests 05/17/17 05/17/17 05/17/17 16:52 16:52 16:52 WBC 8.1 D RBC 4.66 Hgb 14.4 Hct 43.1 MCV 92.5 MCH 30.8 MCHC Differential 33.3 RDW 13.8 Plt Count 281 MPV 6.7 Neutrophils % 58.7 Lymphocytes % 26.1 Monocytes % 10.1 H Eosinophils % 4.3 Basophils % 0.8 PT 21.8 H INR 2.02 H PTT (Actin FS) 31.0 Sodium Potassium Chloride Carbon Dioxide Anion Gap BUN Creatinine Est GFR ( Amer) Est GFR (Non-Af Amer) BUN/Creatinine Ratio Glucose Calcium Total Bilirubin AST ALT Alkaline Phosphatase Troponin I Total Protein Albumin Globulin Albumin/Globulin Ratio Triglycerides 212 H Cholesterol 198 LDL Cholesterol Direct 123 HDL Cholesterol 46 05/17/17 05/17/17 16:52 16:52 WBC RBC Hgb Hct MCV MCH MCHC Differential RDW Plt Count MPV Neutrophils % Lymphocytes % Monocytes % Eosinophils % Basophils % PT INR PTT (Actin FS) Sodium 136 Potassium 3.8 Chloride 106 Carbon Dioxide 21.4 Anion Gap 12.4 BUN 19 Creatinine 1.1 Est GFR ( Amer) TNP Est GFR (Non-Af Amer) TNP BUN/Creatinine Ratio 17.3 Glucose 117 H Calcium 9.5 Total Bilirubin 0.3 AST 13 ALT 9 Alkaline Phosphatase 58 Troponin I < 0.01 L Total Protein 7.2 Albumin 3.9 L Globulin 3.3 Albumin/Globulin Ratio 1.2 Triglycerides Cholesterol LDL Cholesterol Direct HDL Cholesterol - Radiology Results Results: CHEST X-RAY= NAD - EKG Interpretations EKG Time:: 16:44 Rate & Rhythm: RATE = 58, SINUS [place]: RIGHT AXIS Assessment - Assessment General Assessment: PSYCHOSIS HE IS CLEARED FOR [facility] PSYCH ED Septic Shock - . Is Septic Shock (SBP<90, OR Lactate>4 mmol\L) present?: No - <6hrs of presentation: Vital Signs: Vital Signs - 8 hr 05/17/17 16:47 Temp 98.3 F HR 58 RR 23 BP 123/63 O2 Sat % 94 Reassessment (Disposition) - Reassessment Reassessment Condition:: Unchanged - Diagnosis Diagnosis:: PSYCHOSIS - Patient Disposition Discharge/Transfer:: Acute Care w/in this hosp Admitting Medical Physician:: Be Ward Admitting Psych Physician:: Jannet Perkins Condition at Disposition:: Unchanged ED Discharge Plan - Patient Disposition Admit/Discharge/Transfer: Acute Care w/in this hosp Condition at Disposition: Unchanged Instructions: Psychosis
[2017-05-17 17:47] LABS: URINE BILIRUBIN NEGATIVE (NEGATIVE); URINE BLOOD SMALL (NEGATIVE); URINE GLUCOSE (UA) NEGATIVE (NEGATIVE); URINE KETONE NEGATIVE (NEGATIVE); URINE PH 6.5 (4.6 - 8.0); URINE PROTEIN TRACE mg/dL (NEGATIVE); URINE UROBILINOGEN 0.2 E.U./dL (0.2 - 1.0)
[2017-05-17 17:51] LABS: URINE BACTERIA FEW /hpf (NONE SEEN); URINE COLOR YELLOW; URINE EPITHELIAL CELLS OCCASIONAL /lpf (FEW)
[2017-05-17] MEDS ORDERED: Maalox 30 mL Cup PO PRN (22:32)
[2017-05-17] MEDS ORDERED: Magnesium Hydroxide (MOM) 30 mL UDC PO PRN (22:32)
[2017-05-18 00:06] VITALS: BP 140/64
[2017-05-18] MEDS: Multivitamin Tab PO SCH (08:54)
--- NOTE | 2017-05-18 08:54 | Diagnostic Imaging Report ---
Portable chest x-ray Time: 1648 History: Shortness of breath Allowing for portable technique the heart size is normal. No focal pulmonary parenchymal processes. No hilar or mediastinal abnormalities. Impression: No acute abnormalities.
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
[2017-05-18] MEDS ORDERED: Magnesium Hydroxide (MOM) 30 mL UDC PO PRN (14:43)
--- NOTE | 2017-05-18 16:15 | History & Physical ---
ADMIT DATE: 05/17/2017 CHIEF COMPLAINT: Medical evaluation and clearance on inpatient unit. HISTORY OF PRESENT ILLNESS: This is a 72-year-old male with history of stroke, Alzheimer dementia, curtis DVT left lower extremity, BPH, COPD, was admitted from nursing facility secondary to agitation. The patient has a left black eye. The patient denies change ____. The patient has been agitated. PAST MEDICAL HISTORY: As mentioned in history present illness. PAST SURGICAL HISTORY: Unable to obtain from the patient. ALLERGIES: No known drug allergies. MEDICATIONS: Tylenol, Aricept, Pepcid, Coumadin, Trileptal, Seroquel, theophylline, Ambien. FAMILY HISTORY: Noncontributory. SOCIAL HISTORY: The patient is a fdc patient requiring 24-hour total care. REVIEW OF SYSTEMS: This is limited secondary to the patient's current mental state. We will try to obtain more detailed review of systems at a later date by talking to family members, none listed on pay sheet. We will get information from nursing staff at [facility] [phone]. PHYSICAL EXAMINATION: VITAL SIGNS: Blood pressure 101/49, respirations 18, pulse 61, temperature is ____. GENERAL: Elderly male, appears stated age. HEENT: Positive ecchymosis on the left eye. NECK: Supple. No mass. LUNGS: Equal breath sounds without any rales or rhonchi. HEART: Regular rate and rhythm without appreciable murmurs. ABDOMEN: Soft, nontender, positive bowel sounds and generalized ____ diffuse. EXTREMITIES: No clubbing, cyanosis. LABORATORY DATA: WBC 8, hemoglobin 14, platelets 281. INR 2.02. Sodium 136, potassium 3.8, BUN 19, creatinine 1.1, blood sugar 117. Troponin negative. Triglyceride 212. UA: Six wbc's. ____ RPR nonreactive. ASSESSMENT AND PLAN: Stroke; gastroesophageal reflux disease; Alzheimer dementia; chronic DVT, left lower extremity; benign prostatic hyperplasia, chronic obstructive pulmonary disease, left eye ecchymosis. We will continue the patient on ____. We will monitor hemoglobin and hematocrit as well as INR. We will place the patient on fall precaution. We will review the patient's medications. We may consider switching the patient ____ begin anticoagulation at a later date. JOB# [id number]
[2017-05-18] MEDS ORDERED: WARFARIN SODIUM 6 MG PO SCH (21:00)
--- NOTE | 2017-05-18 22:28 | Admit Criteria Form ---
Admit Criteria Forms - Admit Criteria Procedure: PSYCHIATRIC DISORDERS (Place 'X' for any and all applicable criteria): Ongoing inpatient care may be needed for 1 or more of the following(1)(2)(3)(4)( 6)(7)(8): [ ]I. Danger to self or others not manageable at lower level of care. [ ]II. Grave disability (eg, inability to perform self care necessary at lower level of care) [ ]III. Agitation or inappropriate behavior interfering with care for primary condition (eg, attempting to discontinue lines or drains prematurely, unable to cooperate with respiratory care) [X ]IV. Severe disability or disorder indicated by ALL of the following: [ X]a) Severe behavioral health disorder-related symptoms or condition indicated by 1 or more of the following: [ ]i) Severe problem with cognition, memory, judgment, or impulse control [X]ii) Severe clinical manifestations (eg, hallucinations, delusions, other acute psychotic symptoms, tiburcio, extreme agitation or anxiety) [ X]b) Patient management at lower level of care is not feasible until acute intervention or modification is initiated. Extended stay beyond goal length of stay for the primary condition may be needed until ALLof the following are present(1)(2)(3)(4)(7)30)(23): [ ]a) Danger to self or others is absent or manageable at lower level of care [ ]b) Behavior crisis management, including physical or chemical restraints, is required and is not available at a lower level of care. [ ]c) Behavioral symptoms (e.g., agitation, somnolence, inappropriate behavior) are present, and are not manageable at a lower level of care. [ ]d) Patient cannot understand follow-up treatment and crisis plan. [ ]e) Provider and supports are sufficiently available at lower level of care. [ ]f) Patient can participate (e.g., verify absence of plan for harm) and is in needed of monitoring. The original [facility] content created by [facility] has been revised. The portions of the content which have been revised are identified through the use of italic text or in bold, and [facility] has neither reviewed nor approved the modified material. All other unmodified content is copyright [facility]. Please see references footnoted in the original [facility] edition 2017 Admit Criteria Met?: Yes
[2017-05-19] MEDS: Theophylline 100 mg ER Tab PO SCH (09:21)
[2017-05-19] MEDS: Multivitamin w/ Minerals Tab PO SCH (09:22)
[2017-05-19] MEDS: Multivitamin Tab PO SCH (09:22)
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
[2017-05-20] MEDS: Theophylline 100 mg ER Tab PO SCH (09:00)
[2017-05-20] MEDS: Multivitamin w/ Minerals Tab PO SCH (09:00)
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
[2017-05-21] MEDS: Theophylline 100 mg ER Tab PO SCH (09:46)
[2017-05-21] MEDS: Multivitamin w/ Minerals Tab PO SCH (09:46)
--- NOTE | 2017-05-21 11:55 | Internal Medicine Prog Note ---
Internal Medicine Subjective - Subjective Service Date: 05/21/17 Patient is:: awake, verbal, interactive, alexa chair Per staff patient has:: no adverse event, no episodes of fall, poor appetite, agitated, confused, tolerating meds Internal Medicine Objective - Results Result Diagrams: 05/17/17 16:52 05/17/17 16:52 Recent Labs: Laboratory Last Values WBC 8.1 Th/cmm (4.8-10.8) D 05/17/17 16:52 RBC 4.66 Mil/cmm (3.80-5.80) 05/17/17 16:52 Hgb 14.4 gm/dL (12.6-17.4) 05/17/17 16:52 Hct 43.1 % (39.0-49.0) 05/17/17 16:52 MCV 92.5 fl (80-99) 05/17/17 16:52 MCH 30.8 pg (27.0-31.0) 05/17/17 16:52 MCHC Differential 33.3 pg (28.0-36.0) 05/17/17 16:52 RDW 13.8 % (11.5-20.0) 05/17/17 16:52 Plt Count 281 Th/cmm (150-400) 05/17/17 16:52 MPV 6.7 fl 05/17/17 16:52 Neutrophils % 58.7 % (40.0-80.0) 05/17/17 16:52 Lymphocytes % 26.1 % (20.0-50.0) 05/17/17 16:52 Monocytes % 10.1 % (2.0-10.0) H 05/17/17 16:52 Eosinophils % 4.3 % (0.0-5.0) 05/17/17 16:52 Basophils % 0.8 % (0.0-2.0) 05/17/17 16:52 PT 21.8 SECONDS (9.5-11.5) H 05/17/17 16:52 INR 2.02 (0.5-1.4) H 05/17/17 16:52 PTT (Actin FS) 31.0 SECONDS (26.0-38.0) 05/17/17 16:52 Sodium 136 mEq/L (136-145) 05/17/17 16:52 Potassium 3.8 mEq/L (3.5-5.1) 05/17/17 16:52 Chloride 106 mEq/L (98-107) 05/17/17 16:52 Carbon Dioxide 21.4 mEq/L (21.0-31.0) 05/17/17 16:52 Anion Gap 12.4 (7.0-16.0) 05/17/17 16:52 BUN 19 mg/dL (7-25) 05/17/17 16:52 Creatinine 1.1 mg/dL (0.7-1.3) 05/17/17 16:52 Est GFR ( Amer) TNP 05/17/17 16:52 Est GFR (Non-Af Amer) TNP 05/17/17 16:52 BUN/Creatinine Ratio 17.3 05/17/17 16:52 Glucose 117 mg/dL (70-105) H 05/17/17 16:52 Calcium 9.5 mg/dL (8.6-10.3) 05/17/17 16:52 Total Bilirubin 0.3 mg/dL (0.3-1.0) 05/17/17 16:52 AST 13 U/L (13-39) 05/17/17 16:52 ALT 9 U/L (7-52) 05/17/17 16:52 Alkaline Phosphatase 58 U/L (34-104) 05/17/17 16:52 Troponin I < 0.01 ng/mL (0.01-0.05) L 05/17/17 16:52 Total Protein 7.2 gm/dL (6.0-8.3) 05/17/17 16:52 Albumin 3.9 gm/dL (4.2-5.5) L 05/17/17 16:52 Globulin 3.3 gm/dL 05/17/17 16:52 Albumin/Globulin Ratio 1.2 (1.0-1.8) 05/17/17 16:52 Triglycerides 212 mg/dL (<150) H 05/17/17 16:52 Cholesterol 198 mg/dL (<200) 05/17/17 16:52 LDL Cholesterol Direct 123 mg/dL (75-193) 05/17/17 16:52 HDL Cholesterol 46 mg/dL (23-92) 05/17/17 16:52 TSH 0.60 uIU/ml (0.34-5.60) 05/17/17 16:52 Urine Source CLEAN C 05/17/17 17:30 Urine Color YELLOW 05/17/17 17:30 Urine Clarity CLEAR (CLEAR) 05/17/17 17:30 Urine pH 6.5 (4.6 - 8.0) 05/17/17 17:30 Ur Specific [place] 1.025 (1.005-1.030) 05/17/17 17:30 Urine Protein TRACE mg/dL (NEGATIVE) 05/17/17 17:30 Urine Glucose (UA) NEGATIVE mg/dL (NEGATIVE) 05/17/17 17:30 Urine Ketones NEGATIVE mg/dL (NEGATIVE) 05/17/17 17:30 Urine Blood SMALL (NEGATIVE) H 05/17/17 17:30 Urine Nitrate NEGATIVE (NEGATIVE) 05/17/17 17:30 Urine Bilirubin NEGATIVE (NEGATIVE) 05/17/17 17:30 Urine Urobilinogen 0.2 E.U./dL (0.2 - 1.0) 05/17/17 17:30 Ur Leukocyte Esterase TRACE (NEGATIVE) H 05/17/17 17:30 Urine RBC 2-5 /hpf (0-5) H 05/17/17 17:30 Urine WBC 6-10 /hpf (0-5) H 05/17/17 17:30 Ur Epithelial Cells OCCASIONAL /lpf (FEW) 05/17/17 17:30 Urine Bacteria FEW /hpf (NONE SEEN) 05/17/17 17:30 Urine Mucus FEW /lpf (FEW) 05/17/17 17:30 RPR NONREACTIVE (NONREACTIVE) 05/17/17 16:52 - Physical Exam Vitals and I&O: Vital Signs Temp 98.1 F 05/21/17 07:02 Pulse 76 05/21/17 07:02 Resp 20 05/21/17 08:00 BP 148/62 05/21/17 07:02 Pulse Ox 97 05/21/17 07:02 Intake & Output 05/20/17 05/21/17 05/21/17 18:59 06:59 18:59 Intake Total 1800 240 0 Balance 1800 240 0 Weight (lbs) 163 lb Intake: Oral 1800 240 0 Other: # Voids 4 1 3 # Bowel Movements 1 0 Active Medications: Current Medications Acetaminophen (Tylenol) 650 mg PO Q4HR PRN PRN Reason: Mild Pain / Temp above 100 Stop: 07/16/17 22:31 Al Hydrox/Mg Hydrox/Simethicone (Maalox) 30 ml PO Q4HR PRN PRN Reason: GI DISTRESS Stop: 07/16/17 22:31 Docusate Sodium (Colace) 100 mg PO DAILY ANA Stop: 07/18/17 08:59 Last Admin: 05/21/17 09:46 Dose: 100 mg Donepezil HCl (Aricept) 10 mg PO HS ANA Stop: 07/17/17 20:59 Last Admin: 05/20/17 20:34 Dose: 10 mg Famotidine (Pepcid) 20 mg PO DAILY ANA Stop: 07/18/17 08:59 Last Admin: 05/21/17 09:46 Dose: 20 mg Lorazepam (Ativan) 0.5 mg PO Q4HR PRN; Protocol PRN Reason: Anxiety Stop: 06/16/17 22:31 Last Admin: 05/20/17 20:36 Dose: 0.5 mg Magnesium Hydroxide (Milk Of Magnesia) 30 ml PO HS PRN PRN Reason: Constipation Memantine (Namenda) 10 mg PO BID [facility] Stop: 07/17/17 16:59 Last Admin: 05/21/17 09:46 Dose: 10 mg Oxcarbazepine (Trileptal) 300 mg PO BID ANA PRN Reason: Protocol Stop: 07/17/17 16:59 Last Admin: 05/21/17 09:46 Dose: 300 mg Quetiapine Fumarate (Seroquel) 150 mg PO BID ANA PRN Reason: Protocol Stop: 07/17/17 16:59 Last Admin: 05/21/17 09:46 Dose: 150 mg Quetiapine Fumarate 200 mg/ (Quetiapine Fumarate 25 mg) 225 mg PO HS ANA Stop: 07/17/17 20:59 Last Admin: 05/20/17 20:35 Dose: 225 mg Tamsulosin HCl (Flomax) 0.8 mg PO HS ANA Stop: 07/17/17 20:59 Last Admin: 05/20/17 20:34 Dose: 0.8 mg Theophylline (Fabien-Dur) 300 mg PO DAILY ANA Stop: 07/18/17 08:59 Last Admin: 05/21/17 09:46 Dose: 300 mg Warfarin Sodium (Coumadin) 6 mg PO C ANA Stop: 07/18/17 12:59 Last Admin: 05/20/17 13:07 Dose: 6 mg Zolpidem Tartrate (Ambien) 5 mg PO HS PRN PRN Reason: Insomnia Stop: 07/16/17 22:31 General: demented, appears older HEENT: NC/AT Neck: Supple, No JVD Lungs: CTAB Cardiovascular: RRR, Normal S1, Normal S2 Abdomen: soft, non-tender, globular Extremities: excoriation Neurological: no change, lethargic, disorganized - Procedures Procedures: Procedures Procedure Code Date EMERGENCY DEPT VISIT 43261 12/28/11 EMERGENCY DEPT VISIT 78513 12/12/11 GROUP PSYCHOTHERAPY 27977 02/14/16 GROUP PSYCHOTHERAPY GZHZZZZ 02/14/16 GROUP PSYCHOTHERAPY 79003 10/06/15 GROUP PSYCHOTHERAPY GZHZZZZ 10/06/15 GROUP PSYCHOTHERAPY 80744 06/21/15 GROUP PSYCHOTHERAPY GZHZZZZ 06/21/15 OTHER GROUP THERAPY 94.44 02/26/15 RECREATIONAL THERAPY 93.81 06/30/12 Internal Medicine Assmt/Plan - Assessment Assessment: hx Stroke gastroesophageal reflux disease Alzheimer dementia chronic DVT left lower extremity benign prostatic hyperplasia chronic obstructive pulmonary disease left eye ecchymosis. - Plan Plan: fall precautions monitor bp monitor pt/ptt continue coumadin
--- NOTE | 2017-05-21 15:00 | Progress Notes ---
DATE: 05/21/2017 Case was discussed with staff of the patient with treatment plans and goals. The patient has been acting out. He made a big poop on the floor. He continues to be very easily agitated and irritable, needing redirection. He continues to have poor insight. Continues to be internally preoccupied. Looking disheveled, disorganized and demented. He is compliant with the medication with no side effects. He is on Aricept 10 mg at bedtime, Namenda 10 mg twice a day, Trileptal 300 mg twice a day and Seroquel that was increased by Dr. Cardoso to 150 twice a day and 225 at bedtime and no side effects with the medication, no sedation, no nausea, no extrapyramidal symptoms. I will continue the patient in group therapy, milieu therapy, adjust medications as needed. JOB# [id number]
[2017-05-21] MEDS: Benztropine 1 MG TAB PO PRN (19:20)
[2017-05-22] MEDS: Multivitamin w/ Minerals Tab PO SCH (08:17)
[2017-05-22] MEDS: Theophylline 100 mg ER Tab PO SCH (08:18)
[2017-05-22 08:22] LABS: INR 1.71 (0.5-1.4); PROTHROMBIN TIME (TEST) 18.3 SECONDS (9.5-11.5)
[2017-05-22 09:22] LABS: HEMATOCRIT 44.7 % (39.0-49.0); HEMOGLOBIN 14.5 gm/dL (12.6-17.4)
--- NOTE | 2017-05-22 10:01 | Progress Notes ---
DATE: 05/22/2017 Case was discussed with staff of the patient, reviewed records. The patient yesterday developed what looked like EPS. I decrease his Seroquel dose, ____ 50 mg twice a day and discontinued the 225 mg of Seroquel at bedtime. I added Cogentin 1 mg twice a day. So symptoms improved. He is still unpredictable, impulsive, needing redirection. He has been compliant with the medication with no side effects. No other side effects since yesterday. No sedation, no nausea and we will continue to work with the patient in group therapy, milieu therapy, and adjust medication as needed. JOB# [id number]
--- NOTE | 2017-05-22 12:55 | Internal Medicine Prog Note ---
Internal Medicine Subjective - Subjective Patient seen and examined:: with staff, chart reviewed Patient is:: awake, verbal, interactive, alexa chair Per staff patient has:: no adverse event, no episodes of fall, poor appetite, agitated, confused, tolerating meds Internal Medicine Objective - Results Result Diagrams: 05/22/17 07:37 05/17/17 16:52 Recent Labs: Laboratory Last Values WBC 8.1 Th/cmm (4.8-10.8) D 05/17/17 16:52 RBC 4.66 Mil/cmm (3.80-5.80) 05/17/17 16:52 Hgb 14.5 gm/dL (12.6-17.4) 05/22/17 07:37 Hct 44.7 % (39.0-49.0) 05/22/17 07:37 MCV 92.5 fl (80-99) 05/17/17 16:52 MCH 30.8 pg (27.0-31.0) 05/17/17 16:52 MCHC Differential 33.3 pg (28.0-36.0) 05/17/17 16:52 RDW 13.8 % (11.5-20.0) 05/17/17 16:52 Plt Count 269 Th/cmm (150-400) 05/22/17 07:37 MPV 6.7 fl 05/17/17 16:52 Neutrophils % 58.7 % (40.0-80.0) 05/17/17 16:52 Lymphocytes % 26.1 % (20.0-50.0) 05/17/17 16:52 Monocytes % 10.1 % (2.0-10.0) H 05/17/17 16:52 Eosinophils % 4.3 % (0.0-5.0) 05/17/17 16:52 Basophils % 0.8 % (0.0-2.0) 05/17/17 16:52 PT 18.3 SECONDS (9.5-11.5) H 05/22/17 07:37 INR 1.71 (0.5-1.4) H 05/22/17 07:37 PTT (Actin FS) 31.2 SECONDS (26.0-38.0) 05/22/17 07:37 Sodium 136 mEq/L (136-145) 05/17/17 16:52 Potassium 3.8 mEq/L (3.5-5.1) 05/17/17 16:52 Chloride 106 mEq/L (98-107) 05/17/17 16:52 Carbon Dioxide 21.4 mEq/L (21.0-31.0) 05/17/17 16:52 Anion Gap 12.4 (7.0-16.0) 05/17/17 16:52 BUN 19 mg/dL (7-25) 05/17/17 16:52 Creatinine 1.1 mg/dL (0.7-1.3) 05/17/17 16:52 Est GFR ( Amer) TNP 05/17/17 16:52 Est GFR (Non-Af Amer) TNP 05/17/17 16:52 BUN/Creatinine Ratio 17.3 05/17/17 16:52 Glucose 117 mg/dL (70-105) H 05/17/17 16:52 Calcium 9.5 mg/dL (8.6-10.3) 05/17/17 16:52 Total Bilirubin 0.3 mg/dL (0.3-1.0) 05/17/17 16:52 AST 13 U/L (13-39) 05/17/17 16:52 ALT 9 U/L (7-52) 05/17/17 16:52 Alkaline Phosphatase 58 U/L (34-104) 05/17/17 16:52 Troponin I < 0.01 ng/mL (0.01-0.05) L 05/17/17 16:52 Total Protein 7.2 gm/dL (6.0-8.3) 05/17/17 16:52 Albumin 3.9 gm/dL (4.2-5.5) L 05/17/17 16:52 Globulin 3.3 gm/dL 05/17/17 16:52 Albumin/Globulin Ratio 1.2 (1.0-1.8) 05/17/17 16:52 Triglycerides 212 mg/dL (<150) H 05/17/17 16:52 Cholesterol 198 mg/dL (<200) 05/17/17 16:52 LDL Cholesterol Direct 123 mg/dL (75-193) 05/17/17 16:52 HDL Cholesterol 46 mg/dL (23-92) 05/17/17 16:52 TSH 0.60 uIU/ml (0.34-5.60) 05/17/17 16:52 Urine Source CLEAN C 05/17/17 17:30 Urine Color YELLOW 05/17/17 17:30 Urine Clarity CLEAR (CLEAR) 05/17/17 17:30 Urine pH 6.5 (4.6 - 8.0) 05/17/17 17:30 Ur Specific [place] 1.025 (1.005-1.030) 05/17/17 17:30 Urine Protein TRACE mg/dL (NEGATIVE) 05/17/17 17:30 Urine Glucose (UA) NEGATIVE mg/dL (NEGATIVE) 05/17/17 17:30 Urine Ketones NEGATIVE mg/dL (NEGATIVE) 05/17/17 17:30 Urine Blood SMALL (NEGATIVE) H 05/17/17 17:30 Urine Nitrate NEGATIVE (NEGATIVE) 05/17/17 17:30 Urine Bilirubin NEGATIVE (NEGATIVE) 05/17/17 17:30 Urine Urobilinogen 0.2 E.U./dL (0.2 - 1.0) 05/17/17 17:30 Ur Leukocyte Esterase TRACE (NEGATIVE) H 05/17/17 17:30 Urine RBC 2-5 /hpf (0-5) H 05/17/17 17:30 Urine WBC 6-10 /hpf (0-5) H 05/17/17 17:30 Ur Epithelial Cells OCCASIONAL /lpf (FEW) 05/17/17 17:30 Urine Bacteria FEW /hpf (NONE SEEN) 05/17/17 17:30 Urine Mucus FEW /lpf (FEW) 05/17/17 17:30 RPR NONREACTIVE (NONREACTIVE) 05/17/17 16:52 - Physical Exam Vitals and I&O: Vital Signs Temp 98.2 F 05/22/17 05:17 Pulse 52 05/22/17 05:17 Resp 20 05/22/17 05:17 BP 107/62 05/22/17 05:17 Pulse Ox 96 05/22/17 05:17 Intake & Output 05/21/17 05/22/17 05/22/17 18:59 06:59 18:59 Intake Total 1800 240 Balance 1800 240 Weight (lbs) 73.936 kg 73.936 kg 69.899 kg Intake: Oral 1800 240 Other: # Voids 4 1 # Bowel Movements 1 1 Active Medications: Current Medications Acetaminophen (Tylenol) 650 mg PO Q4HR PRN PRN Reason: Mild Pain / Temp above 100 Stop: 07/16/17 22:31 Al Hydrox/Mg Hydrox/Simethicone (Maalox) 30 ml PO Q4HR PRN PRN Reason: GI DISTRESS Stop: 07/16/17 22:31 Benztropine Mesylate (Cogentin) 1 mg PO BID PRN PRN Reason: EPS Stop: 07/21/17 19:12 Last Admin: 05/21/17 19:20 Dose: 1 mg Docusate Sodium (Colace) 100 mg PO DAILY ANA Stop: 07/18/17 08:59 Last Admin: 05/22/17 08:17 Dose: 100 mg Donepezil HCl (Aricept) 10 mg PO HS ANA Stop: 07/17/17 20:59 Last Admin: 05/21/17 21:05 Dose: 10 mg Famotidine (Pepcid) 20 mg PO DAILY ANA Stop: 07/18/17 08:59 Last Admin: 05/22/17 08:18 Dose: 20 mg Lorazepam (Ativan) 0.5 mg PO Q4HR PRN; Protocol PRN Reason: Anxiety Stop: 06/16/17 22:31 Last Admin: 05/22/17 08:19 Dose: 0.5 mg Magnesium Hydroxide (Milk Of Magnesia) 30 ml PO HS PRN PRN Reason: Constipation Memantine (Namenda) 10 mg PO BID ANA Stop: 07/17/17 16:59 Last Admin: 05/22/17 08:19 Dose: 10 mg Oxcarbazepine (Trileptal) 300 mg PO BID ANA PRN Reason: Protocol Stop: 07/17/17 16:59 Last Admin: 05/22/17 08:18 Dose: 300 mg Quetiapine Fumarate (Seroquel) 150 mg PO BID ANA PRN Reason: Protocol Stop: 07/17/17 16:59 Last Admin: 05/22/17 08:17 Dose: 150 mg Tamsulosin HCl (Flomax) 0.8 mg PO HS ANA Stop: 07/17/17 20:59 Last Admin: 05/21/17 21:05 Dose: 0.8 mg Theophylline (Fabien-Dur) 300 mg PO DAILY ANA Stop: 07/18/17 08:59 Last Admin: 05/22/17 08:18 Dose: 300 mg Warfarin Sodium (Coumadin) 6 mg PO C ANA Stop: 07/18/17 12:59 Last Admin: 05/22/17 12:12 Dose: 6 mg Zolpidem Tartrate (Ambien) 5 mg PO HS PRN PRN Reason: Insomnia Stop: 07/16/17 22:31 General: demented, appears older HEENT: NC/AT Neck: Supple, No JVD Lungs: CTAB Cardiovascular: RRR, Normal S1, Normal S2 Abdomen: soft, non-tender, globular Extremities: excoriation Neurological: no change, lethargic, disorganized - Procedures Procedures: Procedures Procedure Code Date EMERGENCY DEPT VISIT 66850 12/28/11 EMERGENCY DEPT VISIT 02871 12/12/11 GROUP PSYCHOTHERAPY 60138 02/14/16 GROUP PSYCHOTHERAPY GZHZZZZ 02/14/16 GROUP PSYCHOTHERAPY 78223 10/06/15 GROUP PSYCHOTHERAPY GZHZZZZ 10/06/15 GROUP PSYCHOTHERAPY 89807 06/21/15 GROUP PSYCHOTHERAPY GZHZZZZ 06/21/15 OTHER GROUP THERAPY 94.44 02/26/15 RECREATIONAL THERAPY 93.81 06/30/12 Internal Medicine Assmt/Plan - Assessment Assessment: ASSESSMENT AND PLAN: Stroke; gastroesophageal reflux disease; Alzheimer dementia; chronic DVT, left lower extremity; benign prostatic hyperplasia, chronic obstructive pulmonary disease, left eye ecchymosis. - Plan Plan: cont on bp meds monitor pt and inr monitor for bleeding fall precaution see orders Nutritional Asmnt/Malnutr-PDOC - Dietary Evaluation Malnutrition Findings (Please click <Entered> for more info): Nutritional Asmnt/Malnutrition Start: 05/22/17 12: 05 Text: Status: Complete Freq: Document 05/22/17 12:05 GSUN (Rec: 05/22/17 12:27 GSUN [email or web address]) Nutritional Asmnt/Malnutrition Patient General Information Nutritional Screening Diagnosis Diagnosis Unspecified psychosis Pertinent Medical Hx/Surgical Hx Stroke, Alzheimer dementia, DVT left lower extremity, BPH, COPD, GERD, benign prostatic hyperplasia, left eye ecchymosis Subjective Information 72 year old male from SNF. Pt was soundly asleep during visit, unable to be woken up. Per RN notes, pt is confused. Spoek to SYSTEM ARCHITECT at bedside, SYSTEM ARCHITECT stated pt with good appetite, usualyl eats 100% of meals, no nutritional concerns at this time. Avg PO intake 79% of meals since adm, meeting nutritional needs. Limited physical assessment, no severe muscle fat wasting to temporals and shoudlers noted. CBW 154.1lb via bedscale, 163 .9lb during 12/06/16 adm at [facility]. Current Diet Order/ Nutrition Support Regular Pertinent Medications Colace, Pepcid, MOM, Seroquel, Coumadin Pertinent Labs 05/17: reviewed. Nutritional Hx/Data Height 1.7 m Height (Calculated Centimeters) 170.2 Current Weight (lbs) 69.899 kg Weight (Calculated Kilograms) 69.9 Weight (Calculated Grams) 64671.6 Circle Body Weight 148 Recent Weight Change Yes Weight Status Approriate GI Symptoms Usual diet at home [facility]: regular, 4oz HPN Skin Integrity/Comment: Vlad 21. LEft eye discoloration. Current %PO Good (75-100%) Estimated Nutritional Goals BEE in Kcals: Using Current wt Calories/Kcals/Kg CBW 154.1lb/70kg Kcals Calculated 1750-2100kcal (25-30kcal/kg) Protein: Using Current wt Protein Calculated 70g (1g/kg) Fluid: ml 1750-2100ml (1ml/kcal) Nutritional Problem 1. Problem Problem (possible) involuntary weight loss related to Etiology unknown aeb Signs/Symptoms: CBW 154.1lb via bedscale 05/22, 163.9lb during 12/06/16 [facility] adm, 6% weight loss in 6 months (non-significant) Intervention/Recommendation Comments 1. Conitnue with current diet order. Avg PO intake is adequate. 2. Monitor weight closely, obtain weight with bedscale properly calibrated if able. CBW 154.1lb on 05/22, 163.9lb on 12/06/16 at [facility], non- significant. Promote weight mainteanance. Expected Outcomes/Goals Expected Outcomes/Goals 1. PO intake continue to meet at least 75% of estimated nutritional needs.
[2017-05-22] MEDS: Benztropine 1 MG TAB PO PRN (13:25)
[2017-05-23] MEDS: Theophylline 100 mg ER Tab PO SCH (08:22)
[2017-05-23] MEDS: Multivitamin w/ Minerals Tab PO SCH (08:22)
--- NOTE | 2017-05-23 12:10 | Internal Medicine Prog Note ---
Internal Medicine Subjective - Subjective Patient seen and examined:: with staff, chart reviewed Patient is:: awake, verbal, interactive, alexa chair Per staff patient has:: no adverse event, no episodes of fall, poor appetite, agitated, confused, tolerating meds Internal Medicine Objective - Results Result Diagrams: 05/22/17 07:37 05/17/17 16:52 Recent Labs: Laboratory Last Values WBC 8.1 Th/cmm (4.8-10.8) D 05/17/17 16:52 RBC 4.66 Mil/cmm (3.80-5.80) 05/17/17 16:52 Hgb 14.5 gm/dL (12.6-17.4) 05/22/17 07:37 Hct 44.7 % (39.0-49.0) 05/22/17 07:37 MCV 92.5 fl (80-99) 05/17/17 16:52 MCH 30.8 pg (27.0-31.0) 05/17/17 16:52 MCHC Differential 33.3 pg (28.0-36.0) 05/17/17 16:52 RDW 13.8 % (11.5-20.0) 05/17/17 16:52 Plt Count 269 Th/cmm (150-400) 05/22/17 07:37 MPV 6.7 fl 05/17/17 16:52 Neutrophils % 58.7 % (40.0-80.0) 05/17/17 16:52 Lymphocytes % 26.1 % (20.0-50.0) 05/17/17 16:52 Monocytes % 10.1 % (2.0-10.0) H 05/17/17 16:52 Eosinophils % 4.3 % (0.0-5.0) 05/17/17 16:52 Basophils % 0.8 % (0.0-2.0) 05/17/17 16:52 PT 18.3 SECONDS (9.5-11.5) H 05/22/17 07:37 INR 1.71 (0.5-1.4) H 05/22/17 07:37 PTT (Actin FS) 31.2 SECONDS (26.0-38.0) 05/22/17 07:37 Sodium 136 mEq/L (136-145) 05/17/17 16:52 Potassium 3.8 mEq/L (3.5-5.1) 05/17/17 16:52 Chloride 106 mEq/L (98-107) 05/17/17 16:52 Carbon Dioxide 21.4 mEq/L (21.0-31.0) 05/17/17 16:52 Anion Gap 12.4 (7.0-16.0) 05/17/17 16:52 BUN 19 mg/dL (7-25) 05/17/17 16:52 Creatinine 1.1 mg/dL (0.7-1.3) 05/17/17 16:52 Est GFR ( Amer) TNP 05/17/17 16:52 Est GFR (Non-Af Amer) TNP 05/17/17 16:52 BUN/Creatinine Ratio 17.3 05/17/17 16:52 Glucose 117 mg/dL (70-105) H 05/17/17 16:52 Calcium 9.5 mg/dL (8.6-10.3) 05/17/17 16:52 Total Bilirubin 0.3 mg/dL (0.3-1.0) 05/17/17 16:52 AST 13 U/L (13-39) 05/17/17 16:52 ALT 9 U/L (7-52) 05/17/17 16:52 Alkaline Phosphatase 58 U/L (34-104) 05/17/17 16:52 Troponin I < 0.01 ng/mL (0.01-0.05) L 05/17/17 16:52 Total Protein 7.2 gm/dL (6.0-8.3) 05/17/17 16:52 Albumin 3.9 gm/dL (4.2-5.5) L 05/17/17 16:52 Globulin 3.3 gm/dL 05/17/17 16:52 Albumin/Globulin Ratio 1.2 (1.0-1.8) 05/17/17 16:52 Triglycerides 212 mg/dL (<150) H 05/17/17 16:52 Cholesterol 198 mg/dL (<200) 05/17/17 16:52 LDL Cholesterol Direct 123 mg/dL (75-193) 05/17/17 16:52 HDL Cholesterol 46 mg/dL (23-92) 05/17/17 16:52 TSH 0.60 uIU/ml (0.34-5.60) 05/17/17 16:52 Urine Source CLEAN C 05/17/17 17:30 Urine Color YELLOW 05/17/17 17:30 Urine Clarity CLEAR (CLEAR) 05/17/17 17:30 Urine pH 6.5 (4.6 - 8.0) 05/17/17 17:30 Ur Specific [place] 1.025 (1.005-1.030) 05/17/17 17:30 Urine Protein TRACE mg/dL (NEGATIVE) 05/17/17 17:30 Urine Glucose (UA) NEGATIVE mg/dL (NEGATIVE) 05/17/17 17:30 Urine Ketones NEGATIVE mg/dL (NEGATIVE) 05/17/17 17:30 Urine Blood SMALL (NEGATIVE) H 05/17/17 17:30 Urine Nitrate NEGATIVE (NEGATIVE) 05/17/17 17:30 Urine Bilirubin NEGATIVE (NEGATIVE) 05/17/17 17:30 Urine Urobilinogen 0.2 E.U./dL (0.2 - 1.0) 05/17/17 17:30 Ur Leukocyte Esterase TRACE (NEGATIVE) H 05/17/17 17:30 Urine RBC 2-5 /hpf (0-5) H 05/17/17 17:30 Urine WBC 6-10 /hpf (0-5) H 05/17/17 17:30 Ur Epithelial Cells OCCASIONAL /lpf (FEW) 05/17/17 17:30 Urine Bacteria FEW /hpf (NONE SEEN) 05/17/17 17:30 Urine Mucus FEW /lpf (FEW) 05/17/17 17:30 RPR NONREACTIVE (NONREACTIVE) 05/17/17 16:52 - Physical Exam Vitals and I&O: Vital Signs Temp 97.1 F 05/23/17 06:59 Pulse 71 05/23/17 06:59 Resp 20 05/23/17 06:59 BP 110/67 05/23/17 06:59 Pulse Ox 98 05/23/17 06:59 Intake & Output 05/22/17 05/23/17 05/23/17 18:59 06:59 18:59 Intake Total 1200 120 Balance 1200 120 Weight (lbs) 69.899 kg Intake: Oral 1200 120 Other: # Voids 3 # Bowel Movements 2 Active Medications: Current Medications Acetaminophen (Tylenol) 650 mg PO Q4HR PRN PRN Reason: Mild Pain / Temp above 100 Stop: 07/16/17 22:31 Al Hydrox/Mg Hydrox/Simethicone (Maalox) 30 ml PO Q4HR PRN PRN Reason: GI DISTRESS Stop: 07/16/17 22:31 Benztropine Mesylate (Cogentin) 1 mg PO BID PRN PRN Reason: EPS Stop: 07/21/17 19:12 Last Admin: 05/22/17 13:25 Dose: 1 mg Docusate Sodium (Colace) 100 mg PO DAILY [facility] Stop: 07/18/17 08:59 Last Admin: 05/23/17 08:22 Dose: 100 mg Donepezil HCl (Aricept) 10 mg PO HS [facility] Stop: 07/17/17 20:59 Last Admin: 05/22/17 20:25 Dose: 10 mg Famotidine (Pepcid) 20 mg PO DAILY [facility] Stop: 07/18/17 08:59 Last Admin: 05/23/17 08:22 Dose: 20 mg Lorazepam (Ativan) 0.5 mg PO Q4HR PRN; Protocol PRN Reason: Anxiety Stop: 06/16/17 22:31 Last Admin: 05/22/17 20:24 Dose: 0.5 mg Magnesium Hydroxide (Milk Of Magnesia) 30 ml PO HS PRN PRN Reason: Constipation Memantine (Namenda) 10 mg PO BID [facility] Stop: 07/17/17 16:59 Last Admin: 05/23/17 08:22 Dose: 10 mg Oxcarbazepine (Trileptal) 300 mg PO BID [facility] PRN Reason: Protocol Stop: 07/17/17 16:59 Last Admin: 05/23/17 08:22 Dose: 300 mg Quetiapine Fumarate (Seroquel) 50 mg PO BID ANA PRN Reason: Protocol Stop: 07/22/17 11:45 Tamsulosin HCl (Flomax) 0.8 mg PO HS [facility] Stop: 07/17/17 20:59 Last Admin: 05/22/17 20:24 Dose: 0.8 mg Theophylline (Fabien-Dur) 300 mg PO DAILY [facility] Stop: 07/18/17 08:59 Last Admin: 05/23/17 08:22 Dose: 300 mg Warfarin Sodium (Coumadin) 6 mg PO C [facility] Stop: 07/18/17 12:59 Last Admin: 05/22/17 12:12 Dose: 6 mg Zolpidem Tartrate (Ambien) 5 mg PO HS PRN PRN Reason: Insomnia Stop: 07/16/17 22:31 General: demented, appears older HEENT: NC/AT Neck: Supple, No JVD Lungs: CTAB Cardiovascular: RRR, Normal S1, Normal S2 Abdomen: soft, non-tender, globular Extremities: excoriation Neurological: no change, lethargic, disorganized - Procedures Procedures: Procedures Procedure Code Date EMERGENCY DEPT VISIT 97590 12/28/11 EMERGENCY DEPT VISIT 34475 12/12/11 GROUP PSYCHOTHERAPY 79702 02/14/16 GROUP PSYCHOTHERAPY GZHZZZZ 02/14/16 GROUP PSYCHOTHERAPY 44536 10/06/15 GROUP PSYCHOTHERAPY GZHZZZZ 10/06/15 GROUP PSYCHOTHERAPY 12978 06/21/15 GROUP PSYCHOTHERAPY GZHZZZZ 06/21/15 OTHER GROUP THERAPY 94.44 02/26/15 RECREATIONAL THERAPY 93.81 06/30/12 Internal Medicine Assmt/Plan - Assessment Assessment: ASSESSMENT AND PLAN: Stroke; gastroesophageal reflux disease; Alzheimer dementia; chronic DVT, left lower extremity; benign prostatic hyperplasia, chronic obstructive pulmonary disease, left eye ecchymosis. - Plan Plan: cont on bp meds monitor pt and inr monitor for bleeding fall precaution see orders Nutritional Asmnt/Malnutr-PDOC - Dietary Evaluation Malnutrition Findings (Please click <Entered> for more info): Nutritional Asmnt/Malnutrition Start: 05/22/17 12: 05 Text: Status: Complete Freq: Document 05/22/17 12:05 ELISABETH (Rec: 05/22/17 12:27 [email or web address]) Nutritional Asmnt/Malnutrition Patient General Information Nutritional Screening Diagnosis Diagnosis Unspecified psychosis Pertinent Medical Hx/Surgical Hx Stroke, Alzheimer dementia, DVT left lower extremity, BPH, COPD, GERD, benign prostatic hyperplasia, left eye ecchymosis Subjective Information 72 year old male from SNF. Pt was soundly asleep during visit, unable to be woken up. Per RN notes, pt is confused. Spoek to RETORT FIREMAN at bedside, RETORT FIREMAN stated pt with good appetite, usualyl eats 100% of meals, no nutritional concerns at this time. Avg PO intake 79% of meals since adm, meeting nutritional needs. Limited physical assessment, no severe muscle fat wasting to temporals and shoudlers noted. CBW 154.1lb via bedscale, 163 .9lb during 12/06/[address] [facility]. Current Diet Order/ Nutrition Support Regular Pertinent Medications Colace, Pepcid, MOM, Seroquel, Coumadin Pertinent Labs 05/17: reviewed. Nutritional Hx/Data Height 1.7 m Height (Calculated Centimeters) 170.2 Current Weight (lbs) 69.899 kg Weight (Calculated Kilograms) 69.9 Weight (Calculated Grams) 23357.6 [place] Body Weight 148 Recent Weight Change Yes Weight Status Approriate GI Symptoms Usual diet at home [place] [facility]: regular, 4oz HPN Skin Integrity/Comment: Vlad Gold. LEft eye discoloration. Current %PO Good (75-100%) Estimated Nutritional Goals BEE in Kcals: Using Current wt Calories/Kcals/Kg CBW 154.1lb/70kg Kcals Calculated 1750-2100kcal (25-30kcal/kg) Protein: Using Current wt Protein Calculated 70g (1g/kg) Fluid: ml 1750-2100ml (1ml/kcal) Nutritional Problem 1. Problem Problem (possible) involuntary weight loss related to Etiology unknown aeb Signs/Symptoms: CBW 154.1lb via bedscale 05/22, 163.9lb during 12/06/16 [facility] adm, 6% weight loss in 6 months (non-significant) Intervention/Recommendation Comments 1. Conitnue with current diet order. Avg PO intake is adequate. 2. Monitor weight closely, obtain weight with bedscale properly calibrated if able. CBW 154.1lb on 05/22, 163.9lb on 12/06/[address] [facility], non- significant. Promote weight mainteanance. Expected Outcomes/Goals Expected Outcomes/Goals 1. PO intake continue to meet at least 75% of estimated nutritional needs.
--- NOTE | 2017-05-24 04:15 | Progress Notes ---
DATE: 05/23/2017 Case discussed with staff of the patient, reviewed records. The patient continues to be somewhat labile, unpredictable, impulsive, continues to have poor insight. Unable to make safe plan for self-care. I did initiate Seroquel on him yesterday; however, has not started yet and no side effects with the medications so far, no sedation, no nausea. He was on Risperdal, discontinued that and we will continue to work with the patient in group therapy, milieu therapy, adjust the medication as needed. JOB# [id number]
--- NOTE | 2017-05-24 04:42 | Progress Notes ---
DATE: 05/23/2017 Case was discussed with staff of the patient, reviewed records. The patient has been sedated, pooping on himself. They have him on a Pamela chair because of his behavior. I did decrease his Seroquel dose and cut down the 225 mg that he was taking at bedtime and actually when looking at his medications, it seemed like they did not discontinue and they kept him on 200, which is not what I have recommended 2 days ago to the chart nurse. I asked her to get rid of the evening dose. Apparently, they went down on the Seroquel during the day 150 mg twice to 100 mg twice a day, so at this point, I will be discontinuing the 200 mg at bedtime and we may have to decrease it even further, but we will see how he reacts to the current dose and I did initiate him on Cogentin because of his EPS symptoms and that was 2 days ago and he is on carbidopa/levodopa, which is Sinemet 4 times a day, which helped with EPS. We will continue to work with the patient in group therapy, milieu therapy, adjust medication as needed. JOB# [id number]
[2017-05-24] MEDS: Theophylline 100 mg ER Tab PO SCH (08:39)
[2017-05-24] MEDS: Multivitamin w/ Minerals Tab PO SCH (08:40)
--- NOTE | 2017-05-24 14:59 | Internal Medicine Prog Note ---
Internal Medicine Subjective - Subjective Patient seen and examined:: with staff, chart reviewed Patient is:: awake, verbal, interactive, alexa chair Per staff patient has:: no adverse event, no episodes of fall, poor appetite, agitated, confused, tolerating meds Internal Medicine Objective - Results Result Diagrams: 05/22/17 07:37 05/17/17 16:52 Recent Labs: Laboratory Last Values WBC 8.1 Th/cmm (4.8-10.8) D 05/17/17 16:52 RBC 4.66 Mil/cmm (3.80-5.80) 05/17/17 16:52 Hgb 14.5 gm/dL (12.6-17.4) 05/22/17 07:37 Hct 44.7 % (39.0-49.0) 05/22/17 07:37 MCV 92.5 fl (80-99) 05/17/17 16:52 MCH 30.8 pg (27.0-31.0) 05/17/17 16:52 MCHC Differential 33.3 pg (28.0-36.0) 05/17/17 16:52 RDW 13.8 % (11.5-20.0) 05/17/17 16:52 Plt Count 269 Th/cmm (150-400) 05/22/17 07:37 MPV 6.7 fl 05/17/17 16:52 Neutrophils % 58.7 % (40.0-80.0) 05/17/17 16:52 Lymphocytes % 26.1 % (20.0-50.0) 05/17/17 16:52 Monocytes % 10.1 % (2.0-10.0) H 05/17/17 16:52 Eosinophils % 4.3 % (0.0-5.0) 05/17/17 16:52 Basophils % 0.8 % (0.0-2.0) 05/17/17 16:52 PT 18.3 SECONDS (9.5-11.5) H 05/22/17 07:37 INR 1.71 (0.5-1.4) H 05/22/17 07:37 PTT (Actin FS) 31.2 SECONDS (26.0-38.0) 05/22/17 07:37 Sodium 136 mEq/L (136-145) 05/17/17 16:52 Potassium 3.8 mEq/L (3.5-5.1) 05/17/17 16:52 Chloride 106 mEq/L (98-107) 05/17/17 16:52 Carbon Dioxide 21.4 mEq/L (21.0-31.0) 05/17/17 16:52 Anion Gap 12.4 (7.0-16.0) 05/17/17 16:52 BUN 19 mg/dL (7-25) 05/17/17 16:52 Creatinine 1.1 mg/dL (0.7-1.3) 05/17/17 16:52 Est GFR ( Amer) TNP 05/17/17 16:52 Est GFR (Non-Af Amer) TNP 05/17/17 16:52 BUN/Creatinine Ratio 17.3 05/17/17 16:52 Glucose 117 mg/dL (70-105) H 05/17/17 16:52 Calcium 9.5 mg/dL (8.6-10.3) 05/17/17 16:52 Total Bilirubin 0.3 mg/dL (0.3-1.0) 05/17/17 16:52 AST 13 U/L (13-39) 05/17/17 16:52 ALT 9 U/L (7-52) 05/17/17 16:52 Alkaline Phosphatase 58 U/L (34-104) 05/17/17 16:52 Troponin I < 0.01 ng/mL (0.01-0.05) L 05/17/17 16:52 Total Protein 7.2 gm/dL (6.0-8.3) 05/17/17 16:52 Albumin 3.9 gm/dL (4.2-5.5) L 05/17/17 16:52 Globulin 3.3 gm/dL 05/17/17 16:52 Albumin/Globulin Ratio 1.2 (1.0-1.8) 05/17/17 16:52 Triglycerides 212 mg/dL (<150) H 05/17/17 16:52 Cholesterol 198 mg/dL (<200) 05/17/17 16:52 LDL Cholesterol Direct 123 mg/dL (75-193) 05/17/17 16:52 HDL Cholesterol 46 mg/dL (23-92) 05/17/17 16:52 TSH 0.60 uIU/ml (0.34-5.60) 05/17/17 16:52 Urine Source CLEAN C 05/17/17 17:30 Urine Color YELLOW 05/17/17 17:30 Urine Clarity CLEAR (CLEAR) 05/17/17 17:30 Urine pH 6.5 (4.6 - 8.0) 05/17/17 17:30 Ur Specific [place] 1.025 (1.005-1.030) 05/17/17 17:30 Urine Protein TRACE mg/dL (NEGATIVE) 05/17/17 17:30 Urine Glucose (UA) NEGATIVE mg/dL (NEGATIVE) 05/17/17 17:30 Urine Ketones NEGATIVE mg/dL (NEGATIVE) 05/17/17 17:30 Urine Blood SMALL (NEGATIVE) H 05/17/17 17:30 Urine Nitrate NEGATIVE (NEGATIVE) 05/17/17 17:30 Urine Bilirubin NEGATIVE (NEGATIVE) 05/17/17 17:30 Urine Urobilinogen 0.2 E.U./dL (0.2 - 1.0) 05/17/17 17:30 Ur Leukocyte Esterase TRACE (NEGATIVE) H 05/17/17 17:30 Urine RBC 2-5 /hpf (0-5) H 05/17/17 17:30 Urine WBC 6-10 /hpf (0-5) H 05/17/17 17:30 Ur Epithelial Cells OCCASIONAL /lpf (FEW) 05/17/17 17:30 Urine Bacteria FEW /hpf (NONE SEEN) 05/17/17 17:30 Urine Mucus FEW /lpf (FEW) 05/17/17 17:30 RPR NONREACTIVE (NONREACTIVE) 05/17/17 16:52 - Physical Exam Vitals and I&O: Vital Signs Temp 97.6 F 05/23/17 18:36 Pulse 82 05/23/17 18:36 Resp 18 05/23/17 18:36 BP 124/95 05/23/17 18:36 Pulse Ox 97 05/23/17 18:36 Intake & Output 05/23/17 05/24/17 05/24/17 18:59 06:59 18:59 Intake Total 800 Balance 800 Intake: Oral 800 Other: # Voids 2 # Bowel Movements 1 Active Medications: Current Medications Acetaminophen (Tylenol) 650 mg PO Q4HR PRN PRN Reason: Mild Pain / Temp above 100 Stop: 07/16/17 22:31 Al Hydrox/Mg Hydrox/Simethicone (Maalox) 30 ml PO Q4HR PRN PRN Reason: GI DISTRESS Stop: 07/16/17 22:31 Benztropine Mesylate (Cogentin) 1 mg PO BID PRN PRN Reason: EPS Stop: 07/21/17 19:12 Last Admin: 05/22/17 13:25 Dose: 1 mg Docusate Sodium (Colace) 100 mg PO DAILY [facility] Stop: 07/18/17 08:59 Last Admin: 05/24/17 08:40 Dose: 100 mg Donepezil HCl (Aricept) 10 mg PO HS [facility] Stop: 07/17/17 20:59 Last Admin: 05/23/17 21:07 Dose: 10 mg Famotidine (Pepcid) 20 mg PO DAILY [facility] Stop: 07/18/17 08:59 Last Admin: 05/24/17 08:40 Dose: 20 mg Lorazepam (Ativan) 0.5 mg PO Q4HR PRN; Protocol PRN Reason: Anxiety Stop: 06/16/17 22:31 Last Admin: 05/22/17 20:24 Dose: 0.5 mg Magnesium Hydroxide (Milk Of Magnesia) 30 ml PO HS PRN PRN Reason: Constipation Memantine (Namenda) 10 mg PO BID [facility] Stop: 07/17/17 16:59 Last Admin: 05/24/17 08:40 Dose: 10 mg Oxcarbazepine (Trileptal) 300 mg PO BID [facility]NA PRN Reason: Protocol Stop: 07/17/17 16:59 Last Admin: 05/24/17 08:40 Dose: 300 mg Quetiapine Fumarate (Seroquel) 50 mg PO BID [facility]NA PRN Reason: Protocol Stop: 07/22/17 11:45 Last Admin: 05/24/17 08:39 Dose: 50 mg Tamsulosin HCl (Flomax) 0.8 mg PO HS [facility] Stop: 07/17/17 20:59 Last Admin: 05/23/17 21:06 Dose: 0.8 mg Theophylline (Fabien-Dur) 300 mg PO DAILY [facility] Stop: 07/18/17 08:59 Last Admin: 05/24/17 08:39 Dose: 300 mg Warfarin Sodium (Coumadin) 6 mg PO C [facility] Stop: 07/18/17 12:59 Last Admin: 05/24/17 14:33 Dose: 6 mg Zolpidem Tartrate (Ambien) 5 mg PO HS PRN PRN Reason: Insomnia Stop: 07/16/17 22:31 Last Admin: 05/23/17 21:07 Dose: 5 mg General: demented, appears older HEENT: NC/AT Neck: Supple, No JVD Lungs: CTAB Cardiovascular: RRR, Normal S1, Normal S2 Abdomen: soft, non-tender, globular Extremities: excoriation Neurological: no change, lethargic, disorganized - Procedures Procedures: Procedures Procedure Code Date EMERGENCY DEPT VISIT 86569 12/28/11 EMERGENCY DEPT VISIT 11252 12/12/11 GROUP PSYCHOTHERAPY 53009 02/14/16 GROUP PSYCHOTHERAPY GZHZZZZ 02/14/16 GROUP PSYCHOTHERAPY 62191 10/06/15 GROUP PSYCHOTHERAPY GZHZZZZ 10/06/15 GROUP PSYCHOTHERAPY 72306 06/21/15 GROUP PSYCHOTHERAPY GZHZZZZ 06/21/15 OTHER GROUP THERAPY 94.44 02/26/15 RECREATIONAL THERAPY 93.81 06/30/12 Internal Medicine Assmt/Plan - Assessment Assessment: ASSESSMENT AND PLAN: Stroke; gastroesophageal reflux disease; Alzheimer dementia; chronic DVT, left lower extremity; benign prostatic hyperplasia, chronic obstructive pulmonary disease, left eye ecchymosis. - Plan Plan: cont on bp meds monitor pt and inr monitor for bleeding fall precaution see orders Nutritional Asmnt/Malnutr-PDOC - Dietary Evaluation Malnutrition Findings (Please click <Entered> for more info): Nutritional Asmnt/Malnutrition Start: 05/22/17 12: 05 Text: Status: Complete Freq: Document 05/22/17 12:05 GSUN (Rec: 05/22/17 12:27 [email or web address] [email or web address]) Nutritional Asmnt/Malnutrition Patient General Information Nutritional Screening Diagnosis Diagnosis Unspecified psychosis Pertinent Medical Hx/Surgical Hx Stroke, Alzheimer dementia, DVT left lower extremity, BPH, COPD, GERD, benign prostatic hyperplasia, left eye ecchymosis Subjective Information 72 year old male from SNF. Pt was soundly asleep during visit, unable to be woken up. Per RN notes, pt is confused. Spoek to MEDICAL RECORDS AUDITOR at bedside, MEDICAL RECORDS AUDITOR stated pt with good appetite, usualyl eats 100% of meals, no nutritional concerns at this time. Avg PO intake 79% of meals since adm, meeting nutritional needs. Limited physical assessment, no severe muscle fat wasting to temporals and shoudlers noted. CBW 154.1lb via bedscale, 163 .9lb during 12/06/16 adm at [facility]. Current Diet Order/ Nutrition Support Regular Pertinent Medications Colace, Pepcid, MOM, Seroquel, Coumadin Pertinent Labs 05/17: reviewed. Nutritional Hx/Data Height 1.7 m Height (Calculated Centimeters) 170.2 Current Weight (lbs) 69.899 kg Weight (Calculated Kilograms) 69.9 Weight (Calculated Grams) 77471.6 [place] Body Weight 148 Recent Weight Change Yes Weight Status Approriate GI Symptoms Usual diet at home [place] [facility]: regular, 4oz HPN Skin Integrity/Comment: Vlad Gold. LEft eye discoloration. Current %PO Good (75-100%) Estimated Nutritional Goals BEE in Kcals: Using Current wt Calories/Kcals/Kg CBW 154.1lb/70kg Kcals Calculated 1750-2100kcal (25-30kcal/kg) Protein: Using Current wt Protein Calculated 70g (1g/kg) Fluid: ml 1750-2100ml (1ml/kcal) Nutritional Problem 1. Problem Problem (possible) involuntary weight loss related to Etiology unknown aeb Signs/Symptoms: CBW 154.1lb via bedscale 05/22, 163.9lb during 12/06/16 [facility] adm, 6% weight loss in 6 months (non-significant) Intervention/Recommendation Comments 1. Conitnue with current diet order. Avg PO intake is adequate. 2. Monitor weight closely, obtain weight with bedscale properly calibrated if able. CBW 154.1lb on 05/22, 163.9lb on 12/06/16 at [facility], non- significant. Promote weight mainteanance. Expected Outcomes/Goals Expected Outcomes/Goals 1. PO intake continue to meet at least 75% of estimated nutritional needs.
--- NOTE | 2017-05-25 05:23 | Progress Notes ---
DATE: 05/24/2017 The patient continues to be sleepy, continues to be unpredictable and impulsive. He is sitting up in his chair, sleepy. He continues to have poor insight. Unable to make safe plan for self-care. Very sedated still, so I will be further decreasing the Seroquel dose. I made it yesterday 50 mg twice a day and we will continue to work with the patient in group therapy, milieu therapy, adjust medications as needed. JOB# [id number]
[2017-05-25] MEDS: Multivitamin w/ Minerals Tab PO SCH (09:21)
[2017-05-25] MEDS: Theophylline 100 mg ER Tab PO SCH (09:21)
--- NOTE | 2017-05-25 14:18 | Internal Medicine Prog Note ---
Internal Medicine Subjective - Subjective Patient seen and examined:: with staff, chart reviewed Patient is:: awake, verbal, interactive, alexa chair Per staff patient has:: no adverse event, no episodes of fall, poor appetite, agitated, confused, tolerating meds Internal Medicine Objective - Results Result Diagrams: 05/22/17 07:37 05/17/17 16:52 Recent Labs: Laboratory Last Values WBC 8.1 Th/cmm (4.8-10.8) D 05/17/17 16:52 RBC 4.66 Mil/cmm (3.80-5.80) 05/17/17 16:52 Hgb 14.5 gm/dL (12.6-17.4) 05/22/17 07:37 Hct 44.7 % (39.0-49.0) 05/22/17 07:37 MCV 92.5 fl (80-99) 05/17/17 16:52 MCH 30.8 pg (27.0-31.0) 05/17/17 16:52 MCHC Differential 33.3 pg (28.0-36.0) 05/17/17 16:52 RDW 13.8 % (11.5-20.0) 05/17/17 16:52 Plt Count 269 Th/cmm (150-400) 05/22/17 07:37 MPV 6.7 fl 05/17/17 16:52 Neutrophils % 58.7 % (40.0-80.0) 05/17/17 16:52 Lymphocytes % 26.1 % (20.0-50.0) 05/17/17 16:52 Monocytes % 10.1 % (2.0-10.0) H 05/17/17 16:52 Eosinophils % 4.3 % (0.0-5.0) 05/17/17 16:52 Basophils % 0.8 % (0.0-2.0) 05/17/17 16:52 PT 18.3 SECONDS (9.5-11.5) H 05/22/17 07:37 INR 1.71 (0.5-1.4) H 05/22/17 07:37 PTT (Actin FS) 31.2 SECONDS (26.0-38.0) 05/22/17 07:37 Sodium 136 mEq/L (136-145) 05/17/17 16:52 Potassium 3.8 mEq/L (3.5-5.1) 05/17/17 16:52 Chloride 106 mEq/L (98-107) 05/17/17 16:52 Carbon Dioxide 21.4 mEq/L (21.0-31.0) 05/17/17 16:52 Anion Gap 12.4 (7.0-16.0) 05/17/17 16:52 BUN 19 mg/dL (7-25) 05/17/17 16:52 Creatinine 1.1 mg/dL (0.7-1.3) 05/17/17 16:52 Est GFR ( Amer) TNP 05/17/17 16:52 Est GFR (Non-Af Amer) TNP 05/17/17 16:52 BUN/Creatinine Ratio 17.3 05/17/17 16:52 Glucose 117 mg/dL (70-105) H 05/17/17 16:52 Calcium 9.5 mg/dL (8.6-10.3) 05/17/17 16:52 Total Bilirubin 0.3 mg/dL (0.3-1.0) 05/17/17 16:52 AST 13 U/L (13-39) 05/17/17 16:52 ALT 9 U/L (7-52) 05/17/17 16:52 Alkaline Phosphatase 58 U/L (34-104) 05/17/17 16:52 Troponin I < 0.01 ng/mL (0.01-0.05) L 05/17/17 16:52 Total Protein 7.2 gm/dL (6.0-8.3) 05/17/17 16:52 Albumin 3.9 gm/dL (4.2-5.5) L 05/17/17 16:52 Globulin 3.3 gm/dL 05/17/17 16:52 Albumin/Globulin Ratio 1.2 (1.0-1.8) 05/17/17 16:52 Triglycerides 212 mg/dL (<150) H 05/17/17 16:52 Cholesterol 198 mg/dL (<200) 05/17/17 16:52 LDL Cholesterol Direct 123 mg/dL (75-193) 05/17/17 16:52 HDL Cholesterol 46 mg/dL (23-92) 05/17/17 16:52 TSH 0.60 uIU/ml (0.34-5.60) 05/17/17 16:52 Urine Source CLEAN C 05/17/17 17:30 Urine Color YELLOW 05/17/17 17:30 Urine Clarity CLEAR (CLEAR) 05/17/17 17:30 Urine pH 6.5 (4.6 - 8.0) 05/17/17 17:30 Ur Specific [place] 1.025 (1.005-1.030) 05/17/17 17:30 Urine Protein TRACE mg/dL (NEGATIVE) 05/17/17 17:30 Urine Glucose (UA) NEGATIVE mg/dL (NEGATIVE) 05/17/17 17:30 Urine Ketones NEGATIVE mg/dL (NEGATIVE) 05/17/17 17:30 Urine Blood SMALL (NEGATIVE) H 05/17/17 17:30 Urine Nitrate NEGATIVE (NEGATIVE) 05/17/17 17:30 Urine Bilirubin NEGATIVE (NEGATIVE) 05/17/17 17:30 Urine Urobilinogen 0.2 E.U./dL (0.2 - 1.0) 05/17/17 17:30 Ur Leukocyte Esterase TRACE (NEGATIVE) H 05/17/17 17:30 Urine RBC 2-5 /hpf (0-5) H 05/17/17 17:30 Urine WBC 6-10 /hpf (0-5) H 05/17/17 17:30 Ur Epithelial Cells OCCASIONAL /lpf (FEW) 05/17/17 17:30 Urine Bacteria FEW /hpf (NONE SEEN) 05/17/17 17:30 Urine Mucus FEW /lpf (FEW) 05/17/17 17:30 RPR NONREACTIVE (NONREACTIVE) 05/17/17 16:52 - Physical Exam Vitals and I&O: Vital Signs Temp 98.3 F 05/24/17 20:45 Pulse 99 05/24/17 20:45 Resp 19 05/24/17 20:45 BP 130/77 05/24/17 20:45 Pulse Ox 97 05/24/17 20:45 Intake & Output 05/24/17 05/25/17 05/25/17 18:59 06:59 18:59 Intake Total 800 240 Balance 800 240 Intake: Oral 800 240 Other: # Voids 4 1 # Bowel Movements 0 Active Medications: Current Medications Acetaminophen (Tylenol) 650 mg PO Q4HR PRN PRN Reason: Mild Pain / Temp above 100 Stop: 07/16/17 22:31 Al Hydrox/Mg Hydrox/Simethicone (Maalox) 30 ml PO Q4HR PRN PRN Reason: GI DISTRESS Stop: 07/16/17 22:31 Benztropine Mesylate (Cogentin) 1 mg PO BID PRN PRN Reason: EPS Stop: 07/21/17 19:12 Last Admin: 05/22/17 13:25 Dose: 1 mg Docusate Sodium (Colace) 100 mg PO DAILY ANA Stop: 07/18/17 08:59 Last Admin: 05/25/17 09:21 Dose: 100 mg Donepezil HCl (Aricept) 10 mg PO HS ANA Stop: 07/17/17 20:59 Last Admin: 05/24/17 20:20 Dose: 10 mg Famotidine (Pepcid) 20 mg PO DAILY ANA Stop: 07/18/17 08:59 Last Admin: 05/25/17 09:21 Dose: 20 mg Lorazepam (Ativan) 0.5 mg PO Q4HR PRN; Protocol PRN Reason: Anxiety Stop: 06/16/17 22:31 Last Admin: 05/22/17 20:24 Dose: 0.5 mg Magnesium Hydroxide (Milk Of Magnesia) 30 ml PO HS PRN PRN Reason: Constipation Memantine (Namenda) 10 mg PO BID [facility] Stop: 07/17/17 16:59 Last Admin: 05/25/17 09:21 Dose: 10 mg Oxcarbazepine (Trileptal) 300 mg PO BID ANA PRN Reason: Protocol Stop: 07/17/17 16:59 Last Admin: 05/25/17 09:21 Dose: 300 mg Quetiapine Fumarate (Seroquel) 25 mg PO BID ANA PRN Reason: Protocol Stop: 07/24/17 16:59 Tamsulosin HCl (Flomax) 0.8 mg PO HS ANA Stop: 07/17/17 20:59 Last Admin: 05/24/17 20:20 Dose: 0.8 mg Theophylline (Fabien-Dur) 300 mg PO DAILY ANA Stop: 07/18/17 08:59 Last Admin: 05/25/17 09:21 Dose: 300 mg Warfarin Sodium (Coumadin) 6 mg PO C ANA Stop: 07/18/17 12:59 Last Admin: 05/25/17 14:01 Dose: 6 mg Zolpidem Tartrate (Ambien) 5 mg PO HS PRN PRN Reason: Insomnia Stop: 07/16/17 22:31 Last Admin: 05/23/17 21:07 Dose: 5 mg General: demented, appears older HEENT: NC/AT Neck: Supple, No JVD Lungs: CTAB Cardiovascular: RRR, Normal S1, Normal S2 Abdomen: soft, non-tender, globular Extremities: excoriation Neurological: no change, lethargic, disorganized - Procedures Procedures: Procedures Procedure Code Date EMERGENCY DEPT VISIT 74646 12/28/11 EMERGENCY DEPT VISIT 24578 12/12/11 GROUP PSYCHOTHERAPY 59372 02/14/16 GROUP PSYCHOTHERAPY GZHZZZZ 02/14/16 GROUP PSYCHOTHERAPY 79656 10/06/15 GROUP PSYCHOTHERAPY GZHZZZZ 10/06/15 GROUP PSYCHOTHERAPY 69570 06/21/15 GROUP PSYCHOTHERAPY GZHZZZZ 06/21/15 OTHER GROUP THERAPY 94.44 02/26/15 RECREATIONAL THERAPY 93.81 06/30/12 Internal Medicine Assmt/Plan - Assessment Assessment: ASSESSMENT AND PLAN: Stroke; gastroesophageal reflux disease; Alzheimer dementia; chronic DVT, left lower extremity; benign prostatic hyperplasia, chronic obstructive pulmonary disease, left eye ecchymosis. - Plan Plan: cont on bp meds monitor pt and inr monitor for bleeding fall precaution see orders Nutritional Asmnt/Malnutr-PDOC - Dietary Evaluation Malnutrition Findings (Please click <Entered> for more info): Nutritional Asmnt/Malnutrition Start: 05/22/17 12: 05 Text: Status: Complete Freq: Document 05/22/17 12:05 GSUN (Rec: 05/22/17 12:27 [email or web address]) Nutritional Asmnt/Malnutrition Patient General Information Nutritional Screening Diagnosis Diagnosis Unspecified psychosis Pertinent Medical Hx/Surgical Hx Stroke, Alzheimer dementia, DVT left lower extremity, BPH, COPD, GERD, benign prostatic hyperplasia, left eye ecchymosis Subjective Information 72 year old male from SNF. Pt was soundly asleep during visit, unable to be woken up. Per RN notes, pt is confused. Spoek to MEDICAL RADIATION TECH at bedside, MEDICAL RADIATION TECH stated pt with good appetite, usualyl eats 100% of meals, no nutritional concerns at this time. Avg PO intake 79% of meals since adm, meeting nutritional needs. Limited physical assessment, no severe muscle fat wasting to temporals and shoudlers noted. CBW 154.1lb via bedscale, 163 .9lb during 12/06/16 adm at [facility]. Current Diet Order/ Nutrition Support Regular Pertinent Medications Colace, Pepcid, MOM, Seroquel, Coumadin Pertinent Labs 05/17: reviewed. Nutritional Hx/Data Height 1.7 m Height (Calculated Centimeters) 170.2 Current Weight (lbs) 69.899 kg Weight (Calculated Kilograms) 69.9 Weight (Calculated Grams) 21386.6 [place] Body Weight 148 Recent Weight Change Yes Weight Status Approriate GI Symptoms Usual diet at home [facility]: regular, 4oz HPN Skin Integrity/Comment: Vlad 21. LEft eye discoloration. Current %PO Good (75-100%) Estimated Nutritional Goals BEE in Kcals: Using Current wt Calories/Kcals/Kg CBW 154.1lb/70kg Kcals Calculated 1750-2100kcal (25-30kcal/kg) Protein: Using Current wt Protein Calculated 70g (1g/kg) Fluid: ml 1750-2100ml (1ml/kcal) Nutritional Problem 1. Problem Problem (possible) involuntary weight loss related to Etiology unknown aeb Signs/Symptoms: CBW 154.1lb via bedscale 05/22, 163.9lb during 12/06/16 [facility] adm, 6% weight loss in 6 months (non-significant) Intervention/Recommendation Comments 1. Conitnue with current diet order. Avg PO intake is adequate. 2. Monitor weight closely, obtain weight with bedscale properly calibrated if able. CBW 154.1lb on 05/22, 163.9lb on 12/06/16 at [facility], non- significant. Promote weight mainteanance. Expected Outcomes/Goals Expected Outcomes/Goals 1. PO intake continue to meet at least 75% of estimated nutritional needs.
--- NOTE | 2017-05-26 02:13 | Progress Notes ---
DATE: 05/25/2017 Case was discussed with staff of the patient, reviewed records. The patient continues to be sleepy. Continues to need redirection. Continues to help with his ADLs. He is unpredictable, impulsive, but he is not acting out the way he was. He is compliant with the medication. I will be decreasing the dose further to 25 mg twice a day to help improve his mental status and will continue to work with the patient in group therapy, milieu therapy, adjust the medication as needed. His lab work showed his PT/PTT is high. His hemoglobin and hematocrit is normal. His chest x-ray showed no acute abnormality. CBC was high. Monocytes that was within normal range. RPR nonreactive. Urinalysis with small blood, trace of few ____ and some red cells. TSH was within normal range. Lipid profile was high. Triglycerides were 112. Chemistry panel with high blood sugar and low albumin. The rest within normal range. I will continue outpatient group therapy, milieu therapy, adjust medications as needed. JOB# [id number]
[2017-05-26] MEDS: Multivitamin w/ Minerals Tab PO SCH (09:08)
[2017-05-26] MEDS: Theophylline 100 mg ER Tab PO SCH (09:09)
--- NOTE | 2017-05-26 12:25 | Internal Medicine Prog Note ---
Internal Medicine Subjective - Subjective Patient seen and examined:: with staff, chart reviewed Patient is:: awake, verbal, interactive, alexa chair Per staff patient has:: no adverse event, no episodes of fall, poor appetite, agitated, confused, tolerating meds Internal Medicine Objective - Results Result Diagrams: 05/22/17 07:37 05/17/17 16:52 Recent Labs: Laboratory Last Values WBC 8.1 Th/cmm (4.8-10.8) D 05/17/17 16:52 RBC 4.66 Mil/cmm (3.80-5.80) 05/17/17 16:52 Hgb 14.5 gm/dL (12.6-17.4) 05/22/17 07:37 Hct 44.7 % (39.0-49.0) 05/22/17 07:37 MCV 92.5 fl (80-99) 05/17/17 16:52 MCH 30.8 pg (27.0-31.0) 05/17/17 16:52 MCHC Differential 33.3 pg (28.0-36.0) 05/17/17 16:52 RDW 13.8 % (11.5-20.0) 05/17/17 16:52 Plt Count 269 Th/cmm (150-400) 05/22/17 07:37 MPV 6.7 fl 05/17/17 16:52 Neutrophils % 58.7 % (40.0-80.0) 05/17/17 16:52 Lymphocytes % 26.1 % (20.0-50.0) 05/17/17 16:52 Monocytes % 10.1 % (2.0-10.0) H 05/17/17 16:52 Eosinophils % 4.3 % (0.0-5.0) 05/17/17 16:52 Basophils % 0.8 % (0.0-2.0) 05/17/17 16:52 PT 18.3 SECONDS (9.5-11.5) H 05/22/17 07:37 INR 1.71 (0.5-1.4) H 05/22/17 07:37 PTT (Actin FS) 31.2 SECONDS (26.0-38.0) 05/22/17 07:37 Sodium 136 mEq/L (136-145) 05/17/17 16:52 Potassium 3.8 mEq/L (3.5-5.1) 05/17/17 16:52 Chloride 106 mEq/L (98-107) 05/17/17 16:52 Carbon Dioxide 21.4 mEq/L (21.0-31.0) 05/17/17 16:52 Anion Gap 12.4 (7.0-16.0) 05/17/17 16:52 BUN 19 mg/dL (7-25) 05/17/17 16:52 Creatinine 1.1 mg/dL (0.7-1.3) 05/17/17 16:52 Est GFR ( Amer) TNP 05/17/17 16:52 Est GFR (Non-Af Amer) TNP 05/17/17 16:52 BUN/Creatinine Ratio 17.3 05/17/17 16:52 Glucose 117 mg/dL (70-105) H 05/17/17 16:52 Calcium 9.5 mg/dL (8.6-10.3) 05/17/17 16:52 Total Bilirubin 0.3 mg/dL (0.3-1.0) 05/17/17 16:52 AST 13 U/L (13-39) 05/17/17 16:52 ALT 9 U/L (7-52) 05/17/17 16:52 Alkaline Phosphatase 58 U/L (34-104) 05/17/17 16:52 Troponin I < 0.01 ng/mL (0.01-0.05) L 05/17/17 16:52 Total Protein 7.2 gm/dL (6.0-8.3) 05/17/17 16:52 Albumin 3.9 gm/dL (4.2-5.5) L 05/17/17 16:52 Globulin 3.3 gm/dL 05/17/17 16:52 Albumin/Globulin Ratio 1.2 (1.0-1.8) 05/17/17 16:52 Triglycerides 212 mg/dL (<150) H 05/17/17 16:52 Cholesterol 198 mg/dL (<200) 05/17/17 16:52 LDL Cholesterol Direct 123 mg/dL (75-193) 05/17/17 16:52 HDL Cholesterol 46 mg/dL (23-92) 05/17/17 16:52 TSH 0.60 uIU/ml (0.34-5.60) 05/17/17 16:52 Urine Source CLEAN C 05/17/17 17:30 Urine Color YELLOW 05/17/17 17:30 Urine Clarity CLEAR (CLEAR) 05/17/17 17:30 Urine pH 6.5 (4.6 - 8.0) 05/17/17 17:30 Ur Specific [place] 1.025 (1.005-1.030) 05/17/17 17:30 Urine Protein TRACE mg/dL (NEGATIVE) 05/17/17 17:30 Urine Glucose (UA) NEGATIVE mg/dL (NEGATIVE) 05/17/17 17:30 Urine Ketones NEGATIVE mg/dL (NEGATIVE) 05/17/17 17:30 Urine Blood SMALL (NEGATIVE) H 05/17/17 17:30 Urine Nitrate NEGATIVE (NEGATIVE) 05/17/17 17:30 Urine Bilirubin NEGATIVE (NEGATIVE) 05/17/17 17:30 Urine Urobilinogen 0.2 E.U./dL (0.2 - 1.0) 05/17/17 17:30 Ur Leukocyte Esterase TRACE (NEGATIVE) H 05/17/17 17:30 Urine RBC 2-5 /hpf (0-5) H 05/17/17 17:30 Urine WBC 6-10 /hpf (0-5) H 05/17/17 17:30 Ur Epithelial Cells OCCASIONAL /lpf (FEW) 05/17/17 17:30 Urine Bacteria FEW /hpf (NONE SEEN) 05/17/17 17:30 Urine Mucus FEW /lpf (FEW) 05/17/17 17:30 RPR NONREACTIVE (NONREACTIVE) 05/17/17 16:52 - Physical Exam Vitals and I&O: Vital Signs Temp 98 F 05/26/17 06:40 Pulse 74 05/26/17 06:40 Resp 20 05/26/17 06:40 BP 112/80 05/26/17 06:40 Pulse Ox 98 05/26/17 06:40 Intake & Output 05/25/17 05/26/17 05/26/17 18:59 06:59 18:59 Intake Total 780 120 Balance 780 120 Intake: Oral 780 120 Other: # Voids 2 3 # Bowel Movements 1 Active Medications: Current Medications Acetaminophen (Tylenol) 650 mg PO Q4HR PRN PRN Reason: Mild Pain / Temp above 100 Stop: 07/16/17 22:31 Al Hydrox/Mg Hydrox/Simethicone (Maalox) 30 ml PO Q4HR PRN PRN Reason: GI DISTRESS Stop: 07/16/17 22:31 Benztropine Mesylate (Cogentin) 1 mg PO BID PRN PRN Reason: EPS Stop: 07/21/17 19:12 Last Admin: 05/22/17 13:25 Dose: 1 mg Docusate Sodium (Colace) 100 mg PO DAILY [facility] Stop: 07/18/17 08:59 Last Admin: 05/26/17 09:08 Dose: 100 mg Donepezil HCl (Aricept) 10 mg PO HS [facility] Stop: 07/17/17 20:59 Last Admin: 05/25/17 20:31 Dose: 10 mg Famotidine (Pepcid) 20 mg PO DAILY [facility] Stop: 07/18/17 08:59 Last Admin: 05/26/17 09:08 Dose: 20 mg Lorazepam (Ativan) 0.5 mg PO Q4HR PRN; Protocol PRN Reason: Anxiety Stop: 06/16/17 22:31 Last Admin: 05/26/17 09:08 Dose: 0.5 mg Magnesium Hydroxide (Milk Of Magnesia) 30 ml PO HS PRN PRN Reason: Constipation Memantine (Namenda) 10 mg PO BID [facility] Stop: 07/17/17 16:59 Last Admin: 05/26/17 09:08 Dose: 10 mg Oxcarbazepine (Trileptal) 300 mg PO BID [facility] PRN Reason: Protocol Stop: 07/17/17 16:59 Last Admin: 05/26/17 09:08 Dose: 300 mg Quetiapine Fumarate (Seroquel) 25 mg PO BID ANA PRN Reason: Protocol Stop: 07/24/17 16:59 Last Admin: 05/26/17 09:08 Dose: 25 mg Tamsulosin HCl (Flomax) 0.8 mg PO HS [facility] Stop: 07/17/17 20:59 Last Admin: 05/25/17 20:31 Dose: 0.8 mg Theophylline (Fabien-Dur) 300 mg PO DAILY [facility] Stop: 07/18/17 08:59 Last Admin: 05/26/17 09:09 Dose: 300 mg Warfarin Sodium (Coumadin) 6 mg PO C [facility] Stop: 07/18/17 12:59 Last Admin: 05/25/17 14:01 Dose: 6 mg Zolpidem Tartrate (Ambien) 5 mg PO HS PRN PRN Reason: Insomnia Stop: 07/16/17 22:31 Last Admin: 05/25/17 20:31 Dose: 5 mg General: demented, appears older HEENT: NC/AT Neck: Supple, No JVD Lungs: CTAB Cardiovascular: RRR, Normal S1, Normal S2 Abdomen: soft, non-tender, globular Extremities: excoriation Neurological: no change, lethargic, disorganized - Procedures Procedures: Procedures Procedure Code Date EMERGENCY DEPT VISIT 83353 12/28/11 EMERGENCY DEPT VISIT 00997 12/12/11 GROUP PSYCHOTHERAPY 08904 02/14/16 GROUP PSYCHOTHERAPY GZHZZZZ 02/14/16 GROUP PSYCHOTHERAPY 74118 10/06/15 GROUP PSYCHOTHERAPY GZHZZZZ 10/06/15 GROUP PSYCHOTHERAPY 94718 06/21/15 GROUP PSYCHOTHERAPY GZHZZZZ 06/21/15 OTHER GROUP THERAPY 94.44 02/26/15 RECREATIONAL THERAPY 93.81 06/30/12 Internal Medicine Assmt/Plan - Assessment Assessment: ASSESSMENT AND PLAN: Stroke; gastroesophageal reflux disease; Alzheimer dementia; chronic DVT, left lower extremity; benign prostatic hyperplasia, chronic obstructive pulmonary disease, left eye ecchymosis. - Plan Plan: cont on bp meds monitor pt and inr monitor for bleeding fall precaution see orders Nutritional Asmnt/Malnutr-PDOC - Dietary Evaluation Malnutrition Findings (Please click <Entered> for more info): Nutritional Asmnt/Malnutrition Start: 05/22/17 12: 05 Text: Status: Complete Freq: Document 05/22/17 12:05 GSUN (Rec: 05/22/17 12:27 [email or web address] [email or web address]) Nutritional Asmnt/Malnutrition Patient General Information Nutritional Screening Diagnosis Diagnosis Unspecified psychosis Pertinent Medical Hx/Surgical Hx Stroke, Alzheimer dementia, DVT left lower extremity, BPH, COPD, GERD, benign prostatic hyperplasia, left eye ecchymosis Subjective Information 72 year old male from SNF. Pt was soundly asleep during visit, unable to be woken up. Per RN notes, pt is confused. Spoek to SNOW PLOW TRACTOR OPERATOR at bedside, SNOW PLOW TRACTOR OPERATOR stated pt with good appetite, usualyl eats 100% of meals, no nutritional concerns at this time. Avg PO intake 79% of meals since adm, meeting nutritional needs. Limited physical assessment, no severe muscle fat wasting to temporals and shoudlers noted. CBW 154.1lb via bedscale, 163 .9lb during 12/06/16 adm at [facility]. Current Diet Order/ Nutrition Support Regular Pertinent Medications Colace, Pepcid, MOM, Seroquel, Coumadin Pertinent Labs 05/17: reviewed. Nutritional Hx/Data Height 1.7 m Height (Calculated Centimeters) 170.2 Current Weight (lbs) 69.899 kg Weight (Calculated Kilograms) 69.9 Weight (Calculated Grams) 27566.6 [place] Body Weight 148 Recent Weight Change Yes Weight Status Approriate GI Symptoms Usual diet at home [place] [facility]: regular, 4oz HPN Skin Integrity/Comment: Vlad Gold. LEft eye discoloration. Current %PO Good (75-100%) Estimated Nutritional Goals BEE in Kcals: Using Current wt Calories/Kcals/Kg CBW 154.1lb/70kg Kcals Calculated 1750-2100kcal (25-30kcal/kg) Protein: Using Current wt Protein Calculated 70g (1g/kg) Fluid: ml 1750-2100ml (1ml/kcal) Nutritional Problem 1. Problem Problem (possible) involuntary weight loss related to Etiology unknown aeb Signs/Symptoms: CBW 154.1lb via bedscale 05/22, 163.9lb during 12/06/16 [facility] adm, 6% weight loss in 6 months (non-significant) Intervention/Recommendation Comments 1. Conitnue with current diet order. Avg PO intake is adequate. 2. Monitor weight closely, obtain weight with bedscale properly calibrated if able. CBW 154.1lb on 05/22, 163.9lb on 12/06/16 at [facility], non- significant. Promote weight mainteanance. Expected Outcomes/Goals Expected Outcomes/Goals 1. PO intake continue to meet at least 75% of estimated nutritional needs.
--- NOTE | 2017-05-26 23:24 | Progress Notes ---
DATE: 05/26/2017 Case was discussed with staff of the patient, reviewed records. The patient today, he is more alert. He is able to carry on conversation. He is not acting out in any way dangerous, but he is still unpredictable, impulsive. Considering his behavior before I will adjust his medication, no side effects with the medication, no sedation now. No nausea, no extrapyramidal symptoms. Continue to watch the patient and adjust medication as needed. We will continue to work with the patient in group therapy, milieu therapy and adjust medication as needed. JOB# [id number]
[2017-05-27] MEDS: Multivitamin w/ Minerals Tab PO SCH (09:43)
[2017-05-27] MEDS: Theophylline 100 mg ER Tab PO SCH (09:43)
--- NOTE | 2017-05-27 13:25 | Internal Medicine Prog Note ---
Internal Medicine Subjective - Subjective Patient seen and examined:: with staff, chart reviewed Patient is:: awake, verbal, interactive, alexa chair Per staff patient has:: no adverse event, no episodes of fall, poor appetite, agitated, confused, tolerating meds Internal Medicine Objective - Results Result Diagrams: 05/22/17 07:37 05/17/17 16:52 Recent Labs: Laboratory Last Values WBC 8.1 Th/cmm (4.8-10.8) D 05/17/17 16:52 RBC 4.66 Mil/cmm (3.80-5.80) 05/17/17 16:52 Hgb 14.5 gm/dL (12.6-17.4) 05/22/17 07:37 Hct 44.7 % (39.0-49.0) 05/22/17 07:37 MCV 92.5 fl (80-99) 05/17/17 16:52 MCH 30.8 pg (27.0-31.0) 05/17/17 16:52 MCHC Differential 33.3 pg (28.0-36.0) 05/17/17 16:52 RDW 13.8 % (11.5-20.0) 05/17/17 16:52 Plt Count 269 Th/cmm (150-400) 05/22/17 07:37 MPV 6.7 fl 05/17/17 16:52 Neutrophils % 58.7 % (40.0-80.0) 05/17/17 16:52 Lymphocytes % 26.1 % (20.0-50.0) 05/17/17 16:52 Monocytes % 10.1 % (2.0-10.0) H 05/17/17 16:52 Eosinophils % 4.3 % (0.0-5.0) 05/17/17 16:52 Basophils % 0.8 % (0.0-2.0) 05/17/17 16:52 PT 18.3 SECONDS (9.5-11.5) H 05/22/17 07:37 INR 1.71 (0.5-1.4) H 05/22/17 07:37 PTT (Actin FS) 31.2 SECONDS (26.0-38.0) 05/22/17 07:37 Sodium 136 mEq/L (136-145) 05/17/17 16:52 Potassium 3.8 mEq/L (3.5-5.1) 05/17/17 16:52 Chloride 106 mEq/L (98-107) 05/17/17 16:52 Carbon Dioxide 21.4 mEq/L (21.0-31.0) 05/17/17 16:52 Anion Gap 12.4 (7.0-16.0) 05/17/17 16:52 BUN 19 mg/dL (7-25) 05/17/17 16:52 Creatinine 1.1 mg/dL (0.7-1.3) 05/17/17 16:52 Est GFR ( Amer) TNP 05/17/17 16:52 Est GFR (Non-Af Amer) TNP 05/17/17 16:52 BUN/Creatinine Ratio 17.3 05/17/17 16:52 Glucose 117 mg/dL (70-105) H 05/17/17 16:52 Calcium 9.5 mg/dL (8.6-10.3) 05/17/17 16:52 Total Bilirubin 0.3 mg/dL (0.3-1.0) 05/17/17 16:52 AST 13 U/L (13-39) 05/17/17 16:52 ALT 9 U/L (7-52) 05/17/17 16:52 Alkaline Phosphatase 58 U/L (34-104) 05/17/17 16:52 Troponin I < 0.01 ng/mL (0.01-0.05) L 05/17/17 16:52 Total Protein 7.2 gm/dL (6.0-8.3) 05/17/17 16:52 Albumin 3.9 gm/dL (4.2-5.5) L 05/17/17 16:52 Globulin 3.3 gm/dL 05/17/17 16:52 Albumin/Globulin Ratio 1.2 (1.0-1.8) 05/17/17 16:52 Triglycerides 212 mg/dL (<150) H 05/17/17 16:52 Cholesterol 198 mg/dL (<200) 05/17/17 16:52 LDL Cholesterol Direct 123 mg/dL (75-193) 05/17/17 16:52 HDL Cholesterol 46 mg/dL (23-92) 05/17/17 16:52 TSH 0.60 uIU/ml (0.34-5.60) 05/17/17 16:52 Urine Source CLEAN C 05/17/17 17:30 Urine Color YELLOW 05/17/17 17:30 Urine Clarity CLEAR (CLEAR) 05/17/17 17:30 Urine pH 6.5 (4.6 - 8.0) 05/17/17 17:30 Ur Specific [place] 1.025 (1.005-1.030) 05/17/17 17:30 Urine Protein TRACE mg/dL (NEGATIVE) 05/17/17 17:30 Urine Glucose (UA) NEGATIVE mg/dL (NEGATIVE) 05/17/17 17:30 Urine Ketones NEGATIVE mg/dL (NEGATIVE) 05/17/17 17:30 Urine Blood SMALL (NEGATIVE) H 05/17/17 17:30 Urine Nitrate NEGATIVE (NEGATIVE) 05/17/17 17:30 Urine Bilirubin NEGATIVE (NEGATIVE) 05/17/17 17:30 Urine Urobilinogen 0.2 E.U./dL (0.2 - 1.0) 05/17/17 17:30 Ur Leukocyte Esterase TRACE (NEGATIVE) H 05/17/17 17:30 Urine RBC 2-5 /hpf (0-5) H 05/17/17 17:30 Urine WBC 6-10 /hpf (0-5) H 05/17/17 17:30 Ur Epithelial Cells OCCASIONAL /lpf (FEW) 05/17/17 17:30 Urine Bacteria FEW /hpf (NONE SEEN) 05/17/17 17:30 Urine Mucus FEW /lpf (FEW) 05/17/17 17:30 RPR NONREACTIVE (NONREACTIVE) 05/17/17 16:52 - Physical Exam Vitals and I&O: Vital Signs Temp 98.2 F 05/27/17 07:02 Pulse 57 05/27/17 07:02 Resp 18 05/27/17 07:02 BP 148/70 05/27/17 07:02 Pulse Ox 98 05/27/17 07:02 Intake & Output 05/26/17 05/27/17 05/27/17 18:59 06:59 18:59 Intake Total 60 Balance 60 Weight (lbs) 725.748 g Intake: Oral 60 Other: # Voids 1 3 # Bowel Movements 0 0 Active Medications: Current Medications Acetaminophen (Tylenol) 650 mg PO Q4HR PRN PRN Reason: Mild Pain / Temp above 100 Stop: 07/16/17 22:31 Al Hydrox/Mg Hydrox/Simethicone (Maalox) 30 ml PO Q4HR PRN PRN Reason: GI DISTRESS Stop: 07/16/17 22:31 Benztropine Mesylate (Cogentin) 1 mg PO BID PRN PRN Reason: EPS Stop: 07/21/17 19:12 Last Admin: 05/22/17 13:25 Dose: 1 mg Docusate Sodium (Colace) 100 mg PO DAILY [facility] Stop: 07/18/17 08:59 Last Admin: 05/27/17 09:42 Dose: 100 mg Donepezil HCl (Aricept) 10 mg PO HS [facility] Stop: 07/17/17 20:59 Last Admin: 05/26/17 20:38 Dose: 10 mg Famotidine (Pepcid) 20 mg PO DAILY [facility] Stop: 07/18/17 08:59 Last Admin: 05/27/17 09:43 Dose: 20 mg Lorazepam (Ativan) 0.5 mg PO Q4HR PRN; Protocol PRN Reason: Anxiety Stop: 06/16/17 22:31 Last Admin: 05/26/17 13:42 Dose: 0.5 mg Magnesium Hydroxide (Milk Of Magnesia) 30 ml PO HS PRN PRN Reason: Constipation Memantine (Namenda) 10 mg PO BID [facility] Stop: 07/17/17 16:59 Last Admin: 05/27/17 09:43 Dose: 10 mg Oxcarbazepine (Trileptal) 300 mg PO BID [facility] PRN Reason: Protocol Stop: 07/17/17 16:59 Last Admin: 05/27/17 09:42 Dose: 300 mg Quetiapine Fumarate (Seroquel) 25 mg PO BID ANA PRN Reason: Protocol Stop: 07/24/17 16:59 Last Admin: 05/27/17 09:43 Dose: 25 mg Tamsulosin HCl (Flomax) 0.8 mg PO HS [facility] Stop: 07/17/17 20:59 Last Admin: 05/26/17 20:38 Dose: 0.8 mg Theophylline (Fabien-Dur) 300 mg PO DAILY [facility] Stop: 07/18/17 08:59 Last Admin: 05/27/17 09:43 Dose: 300 mg Warfarin Sodium (Coumadin) 6 mg PO C ANA Stop: 07/18/17 12:59 Last Admin: 05/26/17 13:41 Dose: 6 mg Zolpidem Tartrate (Ambien) 5 mg PO HS PRN PRN Reason: Insomnia Stop: 07/16/17 22:31 Last Admin: 05/26/17 20:38 Dose: 5 mg General: demented, appears older HEENT: NC/AT Neck: Supple, No JVD Lungs: CTAB Cardiovascular: RRR, Normal S1, Normal S2 Abdomen: soft, non-tender, globular Extremities: excoriation Neurological: no change, lethargic, disorganized - Procedures Procedures: Procedures Procedure Code Date EMERGENCY DEPT VISIT 51507 12/28/11 EMERGENCY DEPT VISIT 56532 12/12/11 GROUP PSYCHOTHERAPY 03028 02/14/16 GROUP PSYCHOTHERAPY GZHZZZZ 02/14/16 GROUP PSYCHOTHERAPY 48612 10/06/15 GROUP PSYCHOTHERAPY GZHZZZZ 10/06/15 GROUP PSYCHOTHERAPY 01502 06/21/15 GROUP PSYCHOTHERAPY GZHZZZZ 06/21/15 OTHER GROUP THERAPY 94.44 02/26/15 RECREATIONAL THERAPY 93.81 06/30/12 Internal Medicine Assmt/Plan - Assessment Assessment: ASSESSMENT AND PLAN: Stroke; gastroesophageal reflux disease; Alzheimer dementia; chronic DVT, left lower extremity; benign prostatic hyperplasia, chronic obstructive pulmonary disease, left eye ecchymosis. - Plan Plan: cont on bp meds monitor pt and inr monitor for bleeding fall precaution see orders Nutritional Asmnt/Malnutr-PDOC - Dietary Evaluation Malnutrition Findings (Please click <Entered> for more info): Nutritional Asmnt/Malnutrition Start: 05/22/17 12: 05 Text: Status: Complete Freq: Document 05/22/17 12:05 GSUN (Rec: 05/22/17 12:27 [email or web address]) Nutritional Asmnt/Malnutrition Patient General Information Nutritional Screening Diagnosis Diagnosis Unspecified psychosis Pertinent Medical Hx/Surgical Hx Stroke, Alzheimer dementia, DVT left lower extremity, BPH, COPD, GERD, benign prostatic hyperplasia, left eye ecchymosis Subjective Information 72 year old male from SNF. Pt was soundly asleep during visit, unable to be woken up. Per RN notes, pt is confused. Spoek to RIP/MOULD OPERATOR at bedside, RIP/MOULD OPERATOR stated pt with good appetite, usualyl eats 100% of meals, no nutritional concerns at this time. Avg PO intake 79% of meals since adm, meeting nutritional needs. Limited physical assessment, no severe muscle fat wasting to temporals and shoudlers noted. CBW 154.1lb via bedscale, 163 .9lb during 12/06/16 adm at [facility]. Current Diet Order/ Nutrition Support Regular Pertinent Medications Colace, Pepcid, MOM, Seroquel, Coumadin Pertinent Labs 05/17: reviewed. Nutritional Hx/Data Height 1.7 m Height (Calculated Centimeters) 170.2 Current Weight (lbs) 69.899 kg Weight (Calculated Kilograms) 69.9 Weight (Calculated Grams) 53889.6 [place] Body Weight 148 Recent Weight Change Yes Weight Status Approriate GI Symptoms Usual diet at home [place] [facility]: regular, 4oz HPN Skin Integrity/Comment: Vlad 21. LEft eye discoloration. Current %PO Good (75-100%) Estimated Nutritional Goals BEE in Kcals: Using Current wt Calories/Kcals/Kg CBW 154.1lb/70kg Kcals Calculated 1750-2100kcal (25-30kcal/kg) Protein: Using Current wt Protein Calculated 70g (1g/kg) Fluid: ml 1750-2100ml (1ml/kcal) Nutritional Problem 1. Problem Problem (possible) involuntary weight loss related to Etiology unknown aeb Signs/Symptoms: CBW 154.1lb via bedscale 05/22, 163.9lb during 12/06/16 [facility] adm, 6% weight loss in 6 months (non-significant) Intervention/Recommendation Comments 1. Conitnue with current diet order. Avg PO intake is adequate. 2. Monitor weight closely, obtain weight with bedscale properly calibrated if able. CBW 154.1lb on 05/22, 163.9lb on 12/06/16 at [facility], non- significant. Promote weight mainteanance. Expected Outcomes/Goals Expected Outcomes/Goals 1. PO intake continue to meet at least 75% of estimated nutritional needs.
--- NOTE | 2017-05-28 02:48 | Progress Notes ---
DATE: 05/27/2017 Case was discussed with staff of the patient, reviewed records. The patient is more alert today. He is able to feed himself, sleeping better, eating better. He is compliant with the medication with no side effects. Still unpredictable and impulsive, needing redirection. I decreased his Seroquel dose to 25 mg twice a day and so far no side effects, no sedation, no nausea, no extrapyramidal symptoms. We will continue to work with the patient in group therapy, milieu therapy, adjust medication as needed. JOB# [id number]
[2017-05-28] MEDS: Theophylline 100 mg ER Tab PO SCH (09:20)
[2017-05-28] MEDS: Multivitamin w/ Minerals Tab PO SCH (09:21)
--- NOTE | 2017-05-28 12:38 | Internal Medicine Prog Note ---
Internal Medicine Subjective - Subjective Patient seen and examined:: with staff, chart reviewed Patient is:: awake, verbal, interactive, alexa chair Per staff patient has:: no adverse event, no episodes of fall, poor appetite, agitated, confused, tolerating meds Internal Medicine Objective - Results Result Diagrams: 05/22/17 07:37 05/17/17 16:52 Recent Labs: Laboratory Last Values WBC 8.1 Th/cmm (4.8-10.8) D 05/17/17 16:52 RBC 4.66 Mil/cmm (3.80-5.80) 05/17/17 16:52 Hgb 14.5 gm/dL (12.6-17.4) 05/22/17 07:37 Hct 44.7 % (39.0-49.0) 05/22/17 07:37 MCV 92.5 fl (80-99) 05/17/17 16:52 MCH 30.8 pg (27.0-31.0) 05/17/17 16:52 MCHC Differential 33.3 pg (28.0-36.0) 05/17/17 16:52 RDW 13.8 % (11.5-20.0) 05/17/17 16:52 Plt Count 269 Th/cmm (150-400) 05/22/17 07:37 MPV 6.7 fl 05/17/17 16:52 Neutrophils % 58.7 % (40.0-80.0) 05/17/17 16:52 Lymphocytes % 26.1 % (20.0-50.0) 05/17/17 16:52 Monocytes % 10.1 % (2.0-10.0) H 05/17/17 16:52 Eosinophils % 4.3 % (0.0-5.0) 05/17/17 16:52 Basophils % 0.8 % (0.0-2.0) 05/17/17 16:52 PT 18.3 SECONDS (9.5-11.5) H 05/22/17 07:37 INR 1.71 (0.5-1.4) H 05/22/17 07:37 PTT (Actin FS) 31.2 SECONDS (26.0-38.0) 05/22/17 07:37 Sodium 136 mEq/L (136-145) 05/17/17 16:52 Potassium 3.8 mEq/L (3.5-5.1) 05/17/17 16:52 Chloride 106 mEq/L (98-107) 05/17/17 16:52 Carbon Dioxide 21.4 mEq/L (21.0-31.0) 05/17/17 16:52 Anion Gap 12.4 (7.0-16.0) 05/17/17 16:52 BUN 19 mg/dL (7-25) 05/17/17 16:52 Creatinine 1.1 mg/dL (0.7-1.3) 05/17/17 16:52 Est GFR ( Amer) TNP 05/17/17 16:52 Est GFR (Non-Af Amer) TNP 05/17/17 16:52 BUN/Creatinine Ratio 17.3 05/17/17 16:52 Glucose 117 mg/dL (70-105) H 05/17/17 16:52 Calcium 9.5 mg/dL (8.6-10.3) 05/17/17 16:52 Total Bilirubin 0.3 mg/dL (0.3-1.0) 05/17/17 16:52 AST 13 U/L (13-39) 05/17/17 16:52 ALT 9 U/L (7-52) 05/17/17 16:52 Alkaline Phosphatase 58 U/L (34-104) 05/17/17 16:52 Troponin I < 0.01 ng/mL (0.01-0.05) L 05/17/17 16:52 Total Protein 7.2 gm/dL (6.0-8.3) 05/17/17 16:52 Albumin 3.9 gm/dL (4.2-5.5) L 05/17/17 16:52 Globulin 3.3 gm/dL 05/17/17 16:52 Albumin/Globulin Ratio 1.2 (1.0-1.8) 05/17/17 16:52 Triglycerides 212 mg/dL (<150) H 05/17/17 16:52 Cholesterol 198 mg/dL (<200) 05/17/17 16:52 LDL Cholesterol Direct 123 mg/dL (75-193) 05/17/17 16:52 HDL Cholesterol 46 mg/dL (23-92) 05/17/17 16:52 TSH 0.60 uIU/ml (0.34-5.60) 05/17/17 16:52 Urine Source CLEAN C 05/17/17 17:30 Urine Color YELLOW 05/17/17 17:30 Urine Clarity CLEAR (CLEAR) 05/17/17 17:30 Urine pH 6.5 (4.6 - 8.0) 05/17/17 17:30 Ur Specific [place] 1.025 (1.005-1.030) 05/17/17 17:30 Urine Protein TRACE mg/dL (NEGATIVE) 05/17/17 17:30 Urine Glucose (UA) NEGATIVE mg/dL (NEGATIVE) 05/17/17 17:30 Urine Ketones NEGATIVE mg/dL (NEGATIVE) 05/17/17 17:30 Urine Blood SMALL (NEGATIVE) H 05/17/17 17:30 Urine Nitrate NEGATIVE (NEGATIVE) 05/17/17 17:30 Urine Bilirubin NEGATIVE (NEGATIVE) 05/17/17 17:30 Urine Urobilinogen 0.2 E.U./dL (0.2 - 1.0) 05/17/17 17:30 Ur Leukocyte Esterase TRACE (NEGATIVE) H 05/17/17 17:30 Urine RBC 2-5 /hpf (0-5) H 05/17/17 17:30 Urine WBC 6-10 /hpf (0-5) H 05/17/17 17:30 Ur Epithelial Cells OCCASIONAL /lpf (FEW) 05/17/17 17:30 Urine Bacteria FEW /hpf (NONE SEEN) 05/17/17 17:30 Urine Mucus FEW /lpf (FEW) 05/17/17 17:30 RPR NONREACTIVE (NONREACTIVE) 05/17/17 16:52 - Physical Exam Vitals and I&O: Vital Signs Temp 97.8 F 05/28/17 06:45 Pulse 75 05/28/17 06:45 Resp 20 05/28/17 06:45 BP 149/72 05/28/17 06:45 Pulse Ox 97 05/28/17 06:45 Intake & Output 05/27/17 05/28/17 05/28/17 18:59 06:59 18:59 Intake Total 900 160 Balance 900 160 Weight (lbs) 725.748 g Intake: Oral 900 160 Other: # Voids 3 1 # Bowel Movements 0 0 Active Medications: Current Medications Acetaminophen (Tylenol) 650 mg PO Q4HR PRN PRN Reason: Mild Pain / Temp above 100 Stop: 07/16/17 22:31 Al Hydrox/Mg Hydrox/Simethicone (Maalox) 30 ml PO Q4HR PRN PRN Reason: GI DISTRESS Stop: 07/16/17 22:31 Benztropine Mesylate (Cogentin) 1 mg PO BID PRN PRN Reason: EPS Stop: 07/21/17 19:12 Last Admin: 05/22/17 13:25 Dose: 1 mg Docusate Sodium (Colace) 100 mg PO DAILY [facility] Stop: 07/18/17 08:59 Last Admin: 05/28/17 09:21 Dose: 100 mg Donepezil HCl (Aricept) 10 mg PO HS [facility] Stop: 07/17/17 20:59 Last Admin: 05/27/17 20:32 Dose: 10 mg Famotidine (Pepcid) 20 mg PO DAILY [facility] Stop: 07/18/17 08:59 Last Admin: 05/28/17 09:20 Dose: 20 mg Lorazepam (Ativan) 0.5 mg PO Q4HR PRN; Protocol PRN Reason: Anxiety Stop: 06/16/17 22:31 Last Admin: 05/26/17 13:42 Dose: 0.5 mg Magnesium Hydroxide (Milk Of Magnesia) 30 ml PO HS PRN PRN Reason: Constipation Memantine (Namenda) 10 mg PO BID [facility] Stop: 07/17/17 16:59 Last Admin: 05/28/17 09:21 Dose: 10 mg Oxcarbazepine (Trileptal) 300 mg PO BID ANA PRN Reason: Protocol Stop: 07/17/17 16:59 Last Admin: 05/28/17 09:21 Dose: 300 mg Quetiapine Fumarate (Seroquel) 25 mg PO BID ANA PRN Reason: Protocol Stop: 07/24/17 16:59 Last Admin: 05/28/17 09:21 Dose: 25 mg Tamsulosin HCl (Flomax) 0.8 mg PO HS [facility] Stop: 07/17/17 20:59 Last Admin: 05/27/17 20:31 Dose: 0.8 mg Theophylline (Fabien-Dur) 300 mg PO DAILY [facility] Stop: 07/18/17 08:59 Last Admin: 05/28/17 09:20 Dose: 100 mg Warfarin Sodium (Coumadin) 6 mg PO C ANA Stop: 07/18/17 12:59 Last Admin: 05/27/17 14:50 Dose: 6 mg Zolpidem Tartrate (Ambien) 5 mg PO HS PRN PRN Reason: Insomnia Stop: 07/16/17 22:31 Last Admin: 05/26/17 20:38 Dose: 5 mg General: demented, appears older HEENT: NC/AT Neck: Supple, No JVD Lungs: CTAB Cardiovascular: RRR, Normal S1, Normal S2 Abdomen: soft, non-tender, globular Extremities: excoriation Neurological: no change, lethargic, disorganized - Procedures Procedures: Procedures Procedure Code Date EMERGENCY DEPT VISIT 13829 12/28/11 EMERGENCY DEPT VISIT 78990 12/12/11 GROUP PSYCHOTHERAPY 29806 02/14/16 GROUP PSYCHOTHERAPY GZHZZZZ 02/14/16 GROUP PSYCHOTHERAPY 23931 10/06/15 GROUP PSYCHOTHERAPY GZHZZZZ 10/06/15 GROUP PSYCHOTHERAPY 76357 06/21/15 GROUP PSYCHOTHERAPY GZHZZZZ 06/21/15 OTHER GROUP THERAPY 94.44 02/26/15 RECREATIONAL THERAPY 93.81 06/30/12 Internal Medicine Assmt/Plan - Assessment Assessment: ASSESSMENT AND PLAN: Stroke; gastroesophageal reflux disease; Alzheimer dementia; chronic DVT, left lower extremity; benign prostatic hyperplasia, chronic obstructive pulmonary disease, left eye ecchymosis. - Plan Plan: cont on bp meds monitor pt and inr monitor for bleeding fall precaution see orders Nutritional Asmnt/Malnutr-PDOC - Dietary Evaluation Malnutrition Findings (Please click <Entered> for more info): Nutritional Asmnt/Malnutrition Start: 05/22/17 12: 05 Text: Status: Complete Freq: Document 05/22/17 12:05 GSUN (Rec: 05/22/17 12:27 GSUN [email or web address]) Nutritional Asmnt/Malnutrition Patient General Information Nutritional Screening Diagnosis Diagnosis Unspecified psychosis Pertinent Medical Hx/Surgical Hx Stroke, Alzheimer dementia, DVT left lower extremity, BPH, COPD, GERD, benign prostatic hyperplasia, left eye ecchymosis Subjective Information 72 year old male from SNF. Pt was soundly asleep during visit, unable to be woken up. Per RN notes, pt is confused. Spoek to AESTHETICS INSTRUCTOR at bedside, AESTHETICS INSTRUCTOR stated pt with good appetite, usualyl eats 100% of meals, no nutritional concerns at this time. Avg PO intake 79% of meals since adm, meeting nutritional needs. Limited physical assessment, no severe muscle fat wasting to temporals and shoudlers noted. CBW 154.1lb via bedscale, 163 .9lb during 12/06/16 adm at [facility]. Current Diet Order/ Nutrition Support Regular Pertinent Medications Colace, Pepcid, MOM, Seroquel, Coumadin Pertinent Labs 05/17: reviewed. Nutritional Hx/Data Height 1.7 m Height (Calculated Centimeters) 170.2 Current Weight (lbs) 69.899 kg Weight (Calculated Kilograms) 69.9 Weight (Calculated Grams) 82468.6 [place] Body Weight 148 Recent Weight Change Yes Weight Status Approriate GI Symptoms Usual diet at home [facility]: regular, 4oz HPN Skin Integrity/Comment: Vlad 21. LEft eye discoloration. Current %PO Good (75-100%) Estimated Nutritional Goals BEE in Kcals: Using Current wt Calories/Kcals/Kg CBW 154.1lb/70kg Kcals Calculated 1750-2100kcal (25-30kcal/kg) Protein: Using Current wt Protein Calculated 70g (1g/kg) Fluid: ml 1750-2100ml (1ml/kcal) Nutritional Problem 1. Problem Problem (possible) involuntary weight loss related to Etiology unknown aeb Signs/Symptoms: CBW 154.1lb via bedscale 05/22, 163.9lb during 12/06/16 [facility] adm, 6% weight loss in 6 months (non-significant) Intervention/Recommendation Comments 1. Conitnue with current diet order. Avg PO intake is adequate. 2. Monitor weight closely, obtain weight with bedscale properly calibrated if able. CBW 154.1lb on 05/22, 163.9lb on 12/06/16 at [facility], non- significant. Promote weight mainteanance. Expected Outcomes/Goals Expected Outcomes/Goals 1. PO intake continue to meet at least 75% of estimated nutritional needs.
--- NOTE | 2017-05-29 00:32 | Progress Notes ---
DATE: 05/28/2017 Case was discussed with staff of the patient, reviewed records. The patient in general is not acting out. He is sleeping better, eating better. He is compliant with the medication with no side effects, no sedation, no nausea, no extrapyramidal symptoms and we may have to decrease the dose further. However, given more time, he used to be on huge dose of Seroquel went down to 25 mg twice a day. I will continue to work with the patient in group therapy, milieu therapy, adjust medication as needed. JOB# [id number]
[2017-05-29] MEDS: Multivitamin w/ Minerals Tab PO SCH (08:03)
[2017-05-29] MEDS: Theophylline 100 mg ER Tab PO SCH (08:03)
--- NOTE | 2017-05-29 13:22 | Internal Medicine Prog Note ---
Internal Medicine Subjective - Subjective Patient seen and examined:: with staff, chart reviewed Patient is:: awake, verbal, interactive, alexa chair Per staff patient has:: no adverse event, no episodes of fall, poor appetite, agitated, confused, tolerating meds Internal Medicine Objective - Results Result Diagrams: 05/22/17 07:37 05/17/17 16:52 Recent Labs: Laboratory Last Values WBC 8.1 Th/cmm (4.8-10.8) D 05/17/17 16:52 RBC 4.66 Mil/cmm (3.80-5.80) 05/17/17 16:52 Hgb 14.5 gm/dL (12.6-17.4) 05/22/17 07:37 Hct 44.7 % (39.0-49.0) 05/22/17 07:37 MCV 92.5 fl (80-99) 05/17/17 16:52 MCH 30.8 pg (27.0-31.0) 05/17/17 16:52 MCHC Differential 33.3 pg (28.0-36.0) 05/17/17 16:52 RDW 13.8 % (11.5-20.0) 05/17/17 16:52 Plt Count 269 Th/cmm (150-400) 05/22/17 07:37 MPV 6.7 fl 05/17/17 16:52 Neutrophils % 58.7 % (40.0-80.0) 05/17/17 16:52 Lymphocytes % 26.1 % (20.0-50.0) 05/17/17 16:52 Monocytes % 10.1 % (2.0-10.0) H 05/17/17 16:52 Eosinophils % 4.3 % (0.0-5.0) 05/17/17 16:52 Basophils % 0.8 % (0.0-2.0) 05/17/17 16:52 PT 18.3 SECONDS (9.5-11.5) H 05/22/17 07:37 INR 1.71 (0.5-1.4) H 05/22/17 07:37 PTT (Actin FS) 31.2 SECONDS (26.0-38.0) 05/22/17 07:37 Sodium 136 mEq/L (136-145) 05/17/17 16:52 Potassium 3.8 mEq/L (3.5-5.1) 05/17/17 16:52 Chloride 106 mEq/L (98-107) 05/17/17 16:52 Carbon Dioxide 21.4 mEq/L (21.0-31.0) 05/17/17 16:52 Anion Gap 12.4 (7.0-16.0) 05/17/17 16:52 BUN 19 mg/dL (7-25) 05/17/17 16:52 Creatinine 1.1 mg/dL (0.7-1.3) 05/17/17 16:52 Est GFR ( Amer) TNP 05/17/17 16:52 Est GFR (Non-Af Amer) TNP 05/17/17 16:52 BUN/Creatinine Ratio 17.3 05/17/17 16:52 Glucose 117 mg/dL (70-105) H 05/17/17 16:52 Calcium 9.5 mg/dL (8.6-10.3) 05/17/17 16:52 Total Bilirubin 0.3 mg/dL (0.3-1.0) 05/17/17 16:52 AST 13 U/L (13-39) 05/17/17 16:52 ALT 9 U/L (7-52) 05/17/17 16:52 Alkaline Phosphatase 58 U/L (34-104) 05/17/17 16:52 Troponin I < 0.01 ng/mL (0.01-0.05) L 05/17/17 16:52 Total Protein 7.2 gm/dL (6.0-8.3) 05/17/17 16:52 Albumin 3.9 gm/dL (4.2-5.5) L 05/17/17 16:52 Globulin 3.3 gm/dL 05/17/17 16:52 Albumin/Globulin Ratio 1.2 (1.0-1.8) 05/17/17 16:52 Triglycerides 212 mg/dL (<150) H 05/17/17 16:52 Cholesterol 198 mg/dL (<200) 05/17/17 16:52 LDL Cholesterol Direct 123 mg/dL (75-193) 05/17/17 16:52 HDL Cholesterol 46 mg/dL (23-92) 05/17/17 16:52 TSH 0.60 uIU/ml (0.34-5.60) 05/17/17 16:52 Urine Source CLEAN C 05/17/17 17:30 Urine Color YELLOW 05/17/17 17:30 Urine Clarity CLEAR (CLEAR) 05/17/17 17:30 Urine pH 6.5 (4.6 - 8.0) 05/17/17 17:30 Ur Specific [place] 1.025 (1.005-1.030) 05/17/17 17:30 Urine Protein TRACE mg/dL (NEGATIVE) 05/17/17 17:30 Urine Glucose (UA) NEGATIVE mg/dL (NEGATIVE) 05/17/17 17:30 Urine Ketones NEGATIVE mg/dL (NEGATIVE) 05/17/17 17:30 Urine Blood SMALL (NEGATIVE) H 05/17/17 17:30 Urine Nitrate NEGATIVE (NEGATIVE) 05/17/17 17:30 Urine Bilirubin NEGATIVE (NEGATIVE) 05/17/17 17:30 Urine Urobilinogen 0.2 E.U./dL (0.2 - 1.0) 05/17/17 17:30 Ur Leukocyte Esterase TRACE (NEGATIVE) H 05/17/17 17:30 Urine RBC 2-5 /hpf (0-5) H 05/17/17 17:30 Urine WBC 6-10 /hpf (0-5) H 05/17/17 17:30 Ur Epithelial Cells OCCASIONAL /lpf (FEW) 05/17/17 17:30 Urine Bacteria FEW /hpf (NONE SEEN) 05/17/17 17:30 Urine Mucus FEW /lpf (FEW) 05/17/17 17:30 RPR NONREACTIVE (NONREACTIVE) 05/17/17 16:52 - Physical Exam Vitals and I&O: Vital Signs Temp 98.1 F 05/28/17 21:20 Pulse 79 05/28/17 21:20 Resp 20 05/28/17 21:20 BP 100/59 05/28/17 21:20 Pulse Ox 96 05/28/17 21:20 Intake & Output 05/28/17 05/29/17 05/29/17 18:59 06:59 18:59 Intake Total 800 240 Balance 800 240 Intake: Oral 800 240 Other: # Voids 4 1 # Bowel Movements 1 Stool Characteristics Formed Formed Active Medications: Current Medications Acetaminophen (Tylenol) 650 mg PO Q4HR PRN PRN Reason: Mild Pain / Temp above 100 Stop: 07/16/17 22:31 Al Hydrox/Mg Hydrox/Simethicone (Maalox) 30 ml PO Q4HR PRN PRN Reason: GI DISTRESS Stop: 07/16/17 22:31 Benztropine Mesylate (Cogentin) 1 mg PO BID PRN PRN Reason: EPS Stop: 07/21/17 19:12 Last Admin: 05/22/17 13:25 Dose: 1 mg Docusate Sodium (Colace) 100 mg PO DAILY ANA Stop: 07/18/17 08:59 Last Admin: 05/29/17 08:03 Dose: 100 mg Donepezil HCl (Aricept) 10 mg PO HS ANA Stop: 07/17/17 20:59 Last Admin: 05/28/17 20:30 Dose: 10 mg Famotidine (Pepcid) 20 mg PO DAILY ANA Stop: 07/18/17 08:59 Last Admin: 05/29/17 08:03 Dose: 20 mg Lorazepam (Ativan) 0.5 mg PO Q4HR PRN; Protocol PRN Reason: Anxiety Stop: 06/16/17 22:31 Last Admin: 05/26/17 13:42 Dose: 0.5 mg Magnesium Hydroxide (Milk Of Magnesia) 30 ml PO HS PRN PRN Reason: Constipation Memantine (Namenda) 10 mg PO BID [facility] Stop: 07/17/17 16:59 Last Admin: 05/29/17 08:03 Dose: 10 mg Oxcarbazepine (Trileptal) 300 mg PO BID ANA PRN Reason: Protocol Stop: 07/17/17 16:59 Last Admin: 05/29/17 08:03 Dose: 300 mg Quetiapine Fumarate (Seroquel) 25 mg PO BID ANA PRN Reason: Protocol Stop: 07/24/17 16:59 Last Admin: 05/29/17 08:03 Dose: 25 mg Tamsulosin HCl (Flomax) 0.8 mg PO HS [facility] Stop: 07/17/17 20:59 Last Admin: 05/28/17 20:30 Dose: 0.8 mg Theophylline (Fabien-Dur) 300 mg PO DAILY ANA Stop: 07/18/17 08:59 Last Admin: 05/29/17 08:03 Dose: 300 mg Warfarin Sodium (Coumadin) 6 mg PO C ANA Stop: 07/18/17 12:59 Last Admin: 05/28/17 13:36 Dose: 6 mg Zolpidem Tartrate (Ambien) 5 mg PO HS PRN PRN Reason: Insomnia Stop: 07/16/17 22:31 Last Admin: 05/26/17 20:38 Dose: 5 mg General: demented, appears older HEENT: NC/AT Neck: Supple, No JVD Lungs: CTAB Cardiovascular: RRR, Normal S1, Normal S2 Abdomen: soft, non-tender, globular Extremities: excoriation Neurological: no change, lethargic, disorganized - Procedures Procedures: Procedures Procedure Code Date EMERGENCY DEPT VISIT 87903 12/28/11 EMERGENCY DEPT VISIT 48692 12/12/11 GROUP PSYCHOTHERAPY 27523 02/14/16 GROUP PSYCHOTHERAPY GZHZZZZ 02/14/16 GROUP PSYCHOTHERAPY 98788 10/06/15 GROUP PSYCHOTHERAPY GZHZZZZ 10/06/15 GROUP PSYCHOTHERAPY 57737 06/21/15 GROUP PSYCHOTHERAPY GZHZZZZ 06/21/15 OTHER GROUP THERAPY 94.44 02/26/15 RECREATIONAL THERAPY 93.81 06/30/12 Internal Medicine Assmt/Plan - Assessment Assessment: ASSESSMENT AND PLAN: Stroke; gastroesophageal reflux disease; Alzheimer dementia; chronic DVT, left lower extremity; benign prostatic hyperplasia, chronic obstructive pulmonary disease, left eye ecchymosis. - Plan Plan: cont on bp meds monitor pt and inr monitor for bleeding fall precaution see orders Nutritional Asmnt/Malnutr-PDOC - Dietary Evaluation Malnutrition Findings (Please click <Entered> for more info): Nutritional Asmnt/Malnutrition Start: 05/22/17 12: 05 Text: Status: Complete Freq: Document 05/22/17 12:05 GSUN (Rec: 05/22/17 12:27 [email or web address]) Nutritional Asmnt/Malnutrition Patient General Information Nutritional Screening Diagnosis Diagnosis Unspecified psychosis Pertinent Medical Hx/Surgical Hx Stroke, Alzheimer dementia, DVT left lower extremity, BPH, COPD, GERD, benign prostatic hyperplasia, left eye ecchymosis Subjective Information 72 year old male from SNF. Pt was soundly asleep during visit, unable to be woken up. Per RN notes, pt is confused. Spoek to CHARGER at bedside, CHARGER stated pt with good appetite, usualyl eats 100% of meals, no nutritional concerns at this time. Avg PO intake 79% of meals since adm, meeting nutritional needs. Limited physical assessment, no severe muscle fat wasting to temporals and shoudlers noted. CBW 154.1lb via bedscale, 163 .9lb during 12/06/16 adm at [facility]. Current Diet Order/ Nutrition Support Regular Pertinent Medications Colace, Pepcid, MOM, Seroquel, Coumadin Pertinent Labs 05/17: reviewed. Nutritional Hx/Data Height 1.7 m Height (Calculated Centimeters) 170.2 Current Weight (lbs) 69.899 kg Weight (Calculated Kilograms) 69.9 Weight (Calculated Grams) 87738.6 [place] Body Weight 148 Recent Weight Change Yes Weight Status Approriate GI Symptoms Usual diet at home [facility]: regular, 4oz HPN Skin Integrity/Comment: Vlad 21. LEft eye discoloration. Current %PO Good (75-100%) Estimated Nutritional Goals BEE in Kcals: Using Current wt Calories/Kcals/Kg CBW 154.1lb/70kg Kcals Calculated 1750-2100kcal (25-30kcal/kg) Protein: Using Current wt Protein Calculated 70g (1g/kg) Fluid: ml 1750-2100ml (1ml/kcal) Nutritional Problem 1. Problem Problem (possible) involuntary weight loss related to Etiology unknown aeb Signs/Symptoms: CBW 154.1lb via bedscale 05/22, 163.9lb during 12/06/16 [facility] adm, 6% weight loss in 6 months (non-significant) Intervention/Recommendation Comments 1. Conitnue with current diet order. Avg PO intake is adequate. 2. Monitor weight closely, obtain weight with bedscale properly calibrated if able. CBW 154.1lb on 05/22, 163.9lb on 12/06/16 at [facility], non- significant. Promote weight mainteanance. Expected Outcomes/Goals Expected Outcomes/Goals 1. PO intake continue to meet at least 75% of estimated nutritional needs.
--- NOTE | 2017-05-29 21:14 | Progress Notes ---
DATE: 05/29/2017 Case was discussed with staff of the patient, reviewed records. The patient continues to have poor insight although he is more alert. He is able to smile. He is in general showing progress. He is sleeping better, eating better. He is gradually getting less sedated and more alert, following the direction easily, though he still gets agitated at times, and so far, no side effects with the medication, no sedation, no nausea, no extrapyramidal symptoms. We will continue to work with the patient in group therapy, milieu therapy, adjust the medication as needed. JOB# [id number]
[2017-05-30] MEDS: Theophylline 100 mg ER Tab PO SCH (09:37)
[2017-05-30] MEDS: Multivitamin w/ Minerals Tab PO SCH (09:37)
--- NOTE | 2017-05-30 12:14 | Internal Medicine Prog Note ---
Internal Medicine Subjective - Subjective Patient seen and examined:: with staff, chart reviewed Patient is:: awake, verbal, interactive, alexa chair Per staff patient has:: no adverse event, no episodes of fall, poor appetite, agitated, confused, tolerating meds Internal Medicine Objective - Results Result Diagrams: 05/22/17 07:37 05/17/17 16:52 Recent Labs: Laboratory Last Values WBC 8.1 Th/cmm (4.8-10.8) D 05/17/17 16:52 RBC 4.66 Mil/cmm (3.80-5.80) 05/17/17 16:52 Hgb 14.5 gm/dL (12.6-17.4) 05/22/17 07:37 Hct 44.7 % (39.0-49.0) 05/22/17 07:37 MCV 92.5 fl (80-99) 05/17/17 16:52 MCH 30.8 pg (27.0-31.0) 05/17/17 16:52 MCHC Differential 33.3 pg (28.0-36.0) 05/17/17 16:52 RDW 13.8 % (11.5-20.0) 05/17/17 16:52 Plt Count 269 Th/cmm (150-400) 05/22/17 07:37 MPV 6.7 fl 05/17/17 16:52 Neutrophils % 58.7 % (40.0-80.0) 05/17/17 16:52 Lymphocytes % 26.1 % (20.0-50.0) 05/17/17 16:52 Monocytes % 10.1 % (2.0-10.0) H 05/17/17 16:52 Eosinophils % 4.3 % (0.0-5.0) 05/17/17 16:52 Basophils % 0.8 % (0.0-2.0) 05/17/17 16:52 PT 18.3 SECONDS (9.5-11.5) H 05/22/17 07:37 INR 1.71 (0.5-1.4) H 05/22/17 07:37 PTT (Actin FS) 31.2 SECONDS (26.0-38.0) 05/22/17 07:37 Sodium 136 mEq/L (136-145) 05/17/17 16:52 Potassium 3.8 mEq/L (3.5-5.1) 05/17/17 16:52 Chloride 106 mEq/L (98-107) 05/17/17 16:52 Carbon Dioxide 21.4 mEq/L (21.0-31.0) 05/17/17 16:52 Anion Gap 12.4 (7.0-16.0) 05/17/17 16:52 BUN 19 mg/dL (7-25) 05/17/17 16:52 Creatinine 1.1 mg/dL (0.7-1.3) 05/17/17 16:52 Est GFR ( Amer) TNP 05/17/17 16:52 Est GFR (Non-Af Amer) TNP 05/17/17 16:52 BUN/Creatinine Ratio 17.3 05/17/17 16:52 Glucose 117 mg/dL (70-105) H 05/17/17 16:52 Calcium 9.5 mg/dL (8.6-10.3) 05/17/17 16:52 Total Bilirubin 0.3 mg/dL (0.3-1.0) 05/17/17 16:52 AST 13 U/L (13-39) 05/17/17 16:52 ALT 9 U/L (7-52) 05/17/17 16:52 Alkaline Phosphatase 58 U/L (34-104) 05/17/17 16:52 Troponin I < 0.01 ng/mL (0.01-0.05) L 05/17/17 16:52 Total Protein 7.2 gm/dL (6.0-8.3) 05/17/17 16:52 Albumin 3.9 gm/dL (4.2-5.5) L 05/17/17 16:52 Globulin 3.3 gm/dL 05/17/17 16:52 Albumin/Globulin Ratio 1.2 (1.0-1.8) 05/17/17 16:52 Triglycerides 212 mg/dL (<150) H 05/17/17 16:52 Cholesterol 198 mg/dL (<200) 05/17/17 16:52 LDL Cholesterol Direct 123 mg/dL (75-193) 05/17/17 16:52 HDL Cholesterol 46 mg/dL (23-92) 05/17/17 16:52 TSH 0.60 uIU/ml (0.34-5.60) 05/17/17 16:52 Urine Source CLEAN C 05/17/17 17:30 Urine Color YELLOW 05/17/17 17:30 Urine Clarity CLEAR (CLEAR) 05/17/17 17:30 Urine pH 6.5 (4.6 - 8.0) 05/17/17 17:30 Ur Specific [place] 1.025 (1.005-1.030) 05/17/17 17:30 Urine Protein TRACE mg/dL (NEGATIVE) 05/17/17 17:30 Urine Glucose (UA) NEGATIVE mg/dL (NEGATIVE) 05/17/17 17:30 Urine Ketones NEGATIVE mg/dL (NEGATIVE) 05/17/17 17:30 Urine Blood SMALL (NEGATIVE) H 05/17/17 17:30 Urine Nitrate NEGATIVE (NEGATIVE) 05/17/17 17:30 Urine Bilirubin NEGATIVE (NEGATIVE) 05/17/17 17:30 Urine Urobilinogen 0.2 E.U./dL (0.2 - 1.0) 05/17/17 17:30 Ur Leukocyte Esterase TRACE (NEGATIVE) H 05/17/17 17:30 Urine RBC 2-5 /hpf (0-5) H 05/17/17 17:30 Urine WBC 6-10 /hpf (0-5) H 05/17/17 17:30 Ur Epithelial Cells OCCASIONAL /lpf (FEW) 05/17/17 17:30 Urine Bacteria FEW /hpf (NONE SEEN) 05/17/17 17:30 Urine Mucus FEW /lpf (FEW) 05/17/17 17:30 RPR NONREACTIVE (NONREACTIVE) 05/17/17 16:52 - Physical Exam Vitals and I&O: Vital Signs Temp 98.1 F 05/30/17 06:36 Pulse 85 05/30/17 06:36 Resp 20 05/30/17 06:36 BP 152/95 05/30/17 06:36 Pulse Ox 98 05/30/17 06:36 Intake & Output 05/29/17 05/30/17 05/30/17 18:59 06:59 18:59 Intake Total 1800 Balance 1800 Weight (lbs) 71.214 kg Intake: Oral 1800 Other: # Voids 4 3 # Bowel Movements 0 0 Active Medications: Current Medications Acetaminophen (Tylenol) 650 mg PO Q4HR PRN PRN Reason: Mild Pain / Temp above 100 Stop: 07/16/17 22:31 Al Hydrox/Mg Hydrox/Simethicone (Maalox) 30 ml PO Q4HR PRN PRN Reason: GI DISTRESS Stop: 07/16/17 22:31 Benztropine Mesylate (Cogentin) 1 mg PO BID PRN PRN Reason: EPS Stop: 07/21/17 19:12 Last Admin: 05/22/17 13:25 Dose: 1 mg Docusate Sodium (Colace) 100 mg PO DAILY [facility] Stop: 07/18/17 08:59 Last Admin: 05/30/17 09:37 Dose: 100 mg Donepezil HCl (Aricept) 10 mg PO HS [facility] Stop: 07/17/17 20:59 Last Admin: 05/29/17 21:12 Dose: 10 mg Famotidine (Pepcid) 20 mg PO DAILY [facility] Stop: 07/18/17 08:59 Last Admin: 05/30/17 09:37 Dose: 20 mg Lorazepam (Ativan) 0.5 mg PO Q4HR PRN; Protocol PRN Reason: Anxiety Stop: 06/16/17 22:31 Last Admin: 05/26/17 13:42 Dose: 0.5 mg Magnesium Hydroxide (Milk Of Magnesia) 30 ml PO HS PRN PRN Reason: Constipation Memantine (Namenda) 10 mg PO BID [facility] Stop: 07/17/17 16:59 Last Admin: 05/30/17 09:37 Dose: 10 mg Oxcarbazepine (Trileptal) 300 mg PO BID [facility] PRN Reason: Protocol Stop: 07/17/17 16:59 Last Admin: 05/30/17 09:37 Dose: 300 mg Quetiapine Fumarate (Seroquel) 25 mg PO BID ANA PRN Reason: Protocol Stop: 07/24/17 16:59 Last Admin: 05/30/17 09:37 Dose: 25 mg Tamsulosin HCl (Flomax) 0.8 mg PO HS [facility] Stop: 07/17/17 20:59 Last Admin: 05/29/17 21:00 Dose: 0.8 mg Theophylline (Fabien-Dur) 300 mg PO DAILY [facility] Stop: 07/18/17 08:59 Last Admin: 05/30/17 09:37 Dose: 300 mg Warfarin Sodium (Coumadin) 6 mg PO C ANA Stop: 07/18/17 12:59 Last Admin: 05/29/17 13:44 Dose: 6 mg Zolpidem Tartrate (Ambien) 5 mg PO HS PRN PRN Reason: Insomnia Stop: 07/16/17 22:31 Last Admin: 05/29/17 21:12 Dose: 5 mg General: demented, appears older HEENT: NC/AT Neck: Supple, No JVD Lungs: CTAB Cardiovascular: RRR, Normal S1, Normal S2 Abdomen: soft, non-tender, globular Extremities: excoriation Neurological: no change, lethargic, disorganized - Procedures Procedures: Procedures Procedure Code Date EMERGENCY DEPT VISIT 99974 12/28/11 EMERGENCY DEPT VISIT 06851 12/12/11 GROUP PSYCHOTHERAPY 46325 02/14/16 GROUP PSYCHOTHERAPY GZHZZZZ 02/14/16 GROUP PSYCHOTHERAPY 11732 10/06/15 GROUP PSYCHOTHERAPY GZHZZZZ 10/06/15 GROUP PSYCHOTHERAPY 87724 06/21/15 GROUP PSYCHOTHERAPY GZHZZZZ 06/21/15 OTHER GROUP THERAPY 94.44 02/26/15 RECREATIONAL THERAPY 93.81 06/30/12 Internal Medicine Assmt/Plan - Assessment Assessment: ASSESSMENT AND PLAN: Stroke; gastroesophageal reflux disease; Alzheimer dementia; chronic DVT, left lower extremity; benign prostatic hyperplasia, chronic obstructive pulmonary disease, left eye ecchymosis. - Plan Plan: cont on bp meds monitor pt and inr monitor for bleeding fall precaution see orders Nutritional Asmnt/Malnutr-PDOC - Dietary Evaluation Malnutrition Findings (Please click <Entered> for more info): Nutritional Asmnt/Malnutrition Start: 05/22/17 12: 05 Text: Status: Complete Freq: Document 05/22/17 12:05 GSUN (Rec: 05/22/17 12:27 [email or web address] [email or web address]) Nutritional Asmnt/Malnutrition Patient General Information Nutritional Screening Diagnosis Diagnosis Unspecified psychosis Pertinent Medical Hx/Surgical Hx Stroke, Alzheimer dementia, DVT left lower extremity, BPH, COPD, GERD, benign prostatic hyperplasia, left eye ecchymosis Subjective Information 72 year old male from SNF. Pt was soundly asleep during visit, unable to be woken up. Per RN notes, pt is confused. Spoek to FIBER TECHNICIAN at bedside, FIBER TECHNICIAN stated pt with good appetite, usualyl eats 100% of meals, no nutritional concerns at this time. Avg PO intake 79% of meals since adm, meeting nutritional needs. Limited physical assessment, no severe muscle fat wasting to temporals and shoudlers noted. CBW 154.1lb via bedscale, 163 .9lb during 12/06/16 adm at [facility]. Current Diet Order/ Nutrition Support Regular Pertinent Medications Colace, Pepcid, MOM, Seroquel, Coumadin Pertinent Labs 05/17: reviewed. Nutritional Hx/Data Height 1.7 m Height (Calculated Centimeters) 170.2 Current Weight (lbs) 69.899 kg Weight (Calculated Kilograms) 69.9 Weight (Calculated Grams) 44678.6 [place] Body Weight 148 Recent Weight Change Yes Weight Status Approriate GI Symptoms Usual diet at home [facility]: regular, 4oz HPN Skin Integrity/Comment: Vlad 21. LEft eye discoloration. Current %PO Good (75-100%) Estimated Nutritional Goals BEE in Kcals: Using Current wt Calories/Kcals/Kg CBW 154.1lb/70kg Kcals Calculated 1750-2100kcal (25-30kcal/kg) Protein: Using Current wt Protein Calculated 70g (1g/kg) Fluid: ml 1750-2100ml (1ml/kcal) Nutritional Problem 1. Problem Problem (possible) involuntary weight loss related to Etiology unknown aeb Signs/Symptoms: CBW 154.1lb via bedscale 05/22, 163.9lb during 12/06/16 [facility] adm, 6% weight loss in 6 months (non-significant) Intervention/Recommendation Comments 1. Conitnue with current diet order. Avg PO intake is adequate. 2. Monitor weight closely, obtain weight with bedscale properly calibrated if able. CBW 154.1lb on 05/22, 163.9lb on 12/06/16 at [facility], non- significant. Promote weight mainteanance. Expected Outcomes/Goals Expected Outcomes/Goals 1. PO intake continue to meet at least 75% of estimated nutritional needs.
--- NOTE | 2017-05-31 02:40 | Progress Notes ---
DATE: 05/30/2017 Case was discussed with staff of the patient, reviewed records. The patient has been not acting out, sleeping better, eating better, compliant with the medication, no side effects, no sedation, no nausea, no extrapyramidal symptoms and at this point, he seems to be approaching his basic level of function. Hopefully, if he continues to do well, I do have plan to discharge him tomorrow. I will continue the patient in group therapy, milieu therapy, and adjust medications as needed. JOB# [id number]
[2017-05-31] MEDS: Theophylline 100 mg ER Tab PO SCH (09:32)
[2017-05-31] MEDS: Multivitamin w/ Minerals Tab PO SCH (09:32)
--- NOTE | 2017-05-31 11:15 | Internal Medicine Prog Note ---
Internal Medicine Subjective - Subjective Patient seen and examined:: with staff, chart reviewed Patient is:: awake, verbal, interactive, alexa chair Per staff patient has:: no adverse event, no episodes of fall, poor appetite, agitated, confused, tolerating meds Internal Medicine Objective - Results Result Diagrams: 05/22/17 07:37 05/17/17 16:52 Recent Labs: Laboratory Last Values WBC 8.1 Th/cmm (4.8-10.8) D 05/17/17 16:52 RBC 4.66 Mil/cmm (3.80-5.80) 05/17/17 16:52 Hgb 14.5 gm/dL (12.6-17.4) 05/22/17 07:37 Hct 44.7 % (39.0-49.0) 05/22/17 07:37 MCV 92.5 fl (80-99) 05/17/17 16:52 MCH 30.8 pg (27.0-31.0) 05/17/17 16:52 MCHC Differential 33.3 pg (28.0-36.0) 05/17/17 16:52 RDW 13.8 % (11.5-20.0) 05/17/17 16:52 Plt Count 269 Th/cmm (150-400) 05/22/17 07:37 MPV 6.7 fl 05/17/17 16:52 Neutrophils % 58.7 % (40.0-80.0) 05/17/17 16:52 Lymphocytes % 26.1 % (20.0-50.0) 05/17/17 16:52 Monocytes % 10.1 % (2.0-10.0) H 05/17/17 16:52 Eosinophils % 4.3 % (0.0-5.0) 05/17/17 16:52 Basophils % 0.8 % (0.0-2.0) 05/17/17 16:52 PT 18.3 SECONDS (9.5-11.5) H 05/22/17 07:37 INR 1.71 (0.5-1.4) H 05/22/17 07:37 PTT (Actin FS) 31.2 SECONDS (26.0-38.0) 05/22/17 07:37 Sodium 136 mEq/L (136-145) 05/17/17 16:52 Potassium 3.8 mEq/L (3.5-5.1) 05/17/17 16:52 Chloride 106 mEq/L (98-107) 05/17/17 16:52 Carbon Dioxide 21.4 mEq/L (21.0-31.0) 05/17/17 16:52 Anion Gap 12.4 (7.0-16.0) 05/17/17 16:52 BUN 19 mg/dL (7-25) 05/17/17 16:52 Creatinine 1.1 mg/dL (0.7-1.3) 05/17/17 16:52 Est GFR ( Amer) TNP 05/17/17 16:52 Est GFR (Non-Af Amer) TNP 05/17/17 16:52 BUN/Creatinine Ratio 17.3 05/17/17 16:52 Glucose 117 mg/dL (70-105) H 05/17/17 16:52 Calcium 9.5 mg/dL (8.6-10.3) 05/17/17 16:52 Total Bilirubin 0.3 mg/dL (0.3-1.0) 05/17/17 16:52 AST 13 U/L (13-39) 05/17/17 16:52 ALT 9 U/L (7-52) 05/17/17 16:52 Alkaline Phosphatase 58 U/L (34-104) 05/17/17 16:52 Troponin I < 0.01 ng/mL (0.01-0.05) L 05/17/17 16:52 Total Protein 7.2 gm/dL (6.0-8.3) 05/17/17 16:52 Albumin 3.9 gm/dL (4.2-5.5) L 05/17/17 16:52 Globulin 3.3 gm/dL 05/17/17 16:52 Albumin/Globulin Ratio 1.2 (1.0-1.8) 05/17/17 16:52 Triglycerides 212 mg/dL (<150) H 05/17/17 16:52 Cholesterol 198 mg/dL (<200) 05/17/17 16:52 LDL Cholesterol Direct 123 mg/dL (75-193) 05/17/17 16:52 HDL Cholesterol 46 mg/dL (23-92) 05/17/17 16:52 TSH 0.60 uIU/ml (0.34-5.60) 05/17/17 16:52 Urine Source CLEAN C 05/17/17 17:30 Urine Color YELLOW 05/17/17 17:30 Urine Clarity CLEAR (CLEAR) 05/17/17 17:30 Urine pH 6.5 (4.6 - 8.0) 05/17/17 17:30 Ur Specific [place] 1.025 (1.005-1.030) 05/17/17 17:30 Urine Protein TRACE mg/dL (NEGATIVE) 05/17/17 17:30 Urine Glucose (UA) NEGATIVE mg/dL (NEGATIVE) 05/17/17 17:30 Urine Ketones NEGATIVE mg/dL (NEGATIVE) 05/17/17 17:30 Urine Blood SMALL (NEGATIVE) H 05/17/17 17:30 Urine Nitrate NEGATIVE (NEGATIVE) 05/17/17 17:30 Urine Bilirubin NEGATIVE (NEGATIVE) 05/17/17 17:30 Urine Urobilinogen 0.2 E.U./dL (0.2 - 1.0) 05/17/17 17:30 Ur Leukocyte Esterase TRACE (NEGATIVE) H 05/17/17 17:30 Urine RBC 2-5 /hpf (0-5) H 05/17/17 17:30 Urine WBC 6-10 /hpf (0-5) H 05/17/17 17:30 Ur Epithelial Cells OCCASIONAL /lpf (FEW) 05/17/17 17:30 Urine Bacteria FEW /hpf (NONE SEEN) 05/17/17 17:30 Urine Mucus FEW /lpf (FEW) 05/17/17 17:30 RPR NONREACTIVE (NONREACTIVE) 05/17/17 16:52 - Physical Exam Vitals and I&O: Vital Signs Temp 98 F 05/31/17 06:35 Pulse 61 05/31/17 08:00 Resp 20 05/31/17 06:35 BP 108/77 05/31/17 06:35 Pulse Ox 99 05/31/17 06:35 Intake & Output 05/30/17 05/31/17 05/31/17 18:59 06:59 18:59 Intake Total 600 120 Balance 600 120 Intake: Oral 600 120 Other: # Voids 2 3 # Bowel Movements 1 Active Medications: Current Medications Acetaminophen (Tylenol) 650 mg PO Q4HR PRN PRN Reason: Mild Pain / Temp above 100 Stop: 07/16/17 22:31 Al Hydrox/Mg Hydrox/Simethicone (Maalox) 30 ml PO Q4HR PRN PRN Reason: GI DISTRESS Stop: 07/16/17 22:31 Benztropine Mesylate (Cogentin) 1 mg PO BID PRN PRN Reason: EPS Stop: 07/21/17 19:12 Last Admin: 05/22/17 13:25 Dose: 1 mg Docusate Sodium (Colace) 100 mg PO DAILY [facility] Stop: 07/18/17 08:59 Last Admin: 05/31/17 09:32 Dose: 100 mg Donepezil HCl (Aricept) 10 mg PO HS [facility] Stop: 07/17/17 20:59 Last Admin: 05/30/17 20:34 Dose: 10 mg Famotidine (Pepcid) 20 mg PO DAILY [facility] Stop: 07/18/17 08:59 Last Admin: 05/31/17 09:32 Dose: 20 mg Lorazepam (Ativan) 0.5 mg PO Q4HR PRN; Protocol PRN Reason: Anxiety Stop: 06/16/17 22:31 Last Admin: 05/26/17 13:42 Dose: 0.5 mg Magnesium Hydroxide (Milk Of Magnesia) 30 ml PO HS PRN PRN Reason: Constipation Memantine (Namenda) 10 mg PO BID [facility] Stop: 07/17/17 16:59 Last Admin: 05/31/17 09:32 Dose: 10 mg Oxcarbazepine (Trileptal) 300 mg PO BID [facility] PRN Reason: Protocol Stop: 07/17/17 16:59 Last Admin: 05/31/17 09:32 Dose: 300 mg Quetiapine Fumarate (Seroquel) 25 mg PO BID ANA PRN Reason: Protocol Stop: 07/24/17 16:59 Last Admin: 05/31/17 09:32 Dose: 25 mg Tamsulosin HCl (Flomax) 0.8 mg PO HS [facility] Stop: 07/17/17 20:59 Last Admin: 05/30/17 20:34 Dose: 0.8 mg Theophylline (Fabien-Dur) 300 mg PO DAILY [facility] Stop: 07/18/17 08:59 Last Admin: 05/31/17 09:32 Dose: 300 mg Warfarin Sodium (Coumadin) 6 mg PO C [facility] Stop: 07/18/17 12:59 Last Admin: 05/30/17 13:55 Dose: 6 mg Zolpidem Tartrate (Ambien) 5 mg PO HS PRN PRN Reason: Insomnia Stop: 07/16/17 22:31 Last Admin: 05/30/17 20:34 Dose: 5 mg General: demented, appears older HEENT: NC/AT Neck: Supple, No JVD Lungs: CTAB Cardiovascular: RRR, Normal S1, Normal S2 Abdomen: soft, non-tender, globular Extremities: excoriation Neurological: no change, lethargic, disorganized - Procedures Procedures: Procedures Procedure Code Date EMERGENCY DEPT VISIT 17810 12/28/11 EMERGENCY DEPT VISIT 56105 12/12/11 GROUP PSYCHOTHERAPY 87736 02/14/16 GROUP PSYCHOTHERAPY GZHZZZZ 02/14/16 GROUP PSYCHOTHERAPY 06561 10/06/15 GROUP PSYCHOTHERAPY GZHZZZZ 10/06/15 GROUP PSYCHOTHERAPY 34155 06/21/15 GROUP PSYCHOTHERAPY GZHZZZZ 06/21/15 OTHER GROUP THERAPY 94.44 02/26/15 RECREATIONAL THERAPY 93.81 06/30/12 Internal Medicine Assmt/Plan - Assessment Assessment: ASSESSMENT AND PLAN: Stroke; gastroesophageal reflux disease; Alzheimer dementia; chronic DVT, left lower extremity; benign prostatic hyperplasia, chronic obstructive pulmonary disease, left eye ecchymosis. - Plan Plan: cont on bp meds monitor pt and inr monitor for bleeding fall precaution see orders Nutritional Asmnt/Malnutr-PDOC - Dietary Evaluation Malnutrition Findings (Please click <Entered> for more info): Nutritional Asmnt/Malnutrition Start: 05/22/17 12: 05 Text: Status: Complete Freq: Document 05/22/17 12:05 GSUN (Rec: 05/22/17 12:27 GSUN [email or web address]) Nutritional Asmnt/Malnutrition Patient General Information Nutritional Screening Diagnosis Diagnosis Unspecified psychosis Pertinent Medical Hx/Surgical Hx Stroke, Alzheimer dementia, DVT left lower extremity, BPH, COPD, GERD, benign prostatic hyperplasia, left eye ecchymosis Subjective Information 72 year old male from SNF. Pt was soundly asleep during visit, unable to be woken up. Per RN notes, pt is confused. Spoek to ANODIC TREATER at bedside, ANODIC TREATER stated pt with good appetite, usualyl eats 100% of meals, no nutritional concerns at this time. Avg PO intake 79% of meals since adm, meeting nutritional needs. Limited physical assessment, no severe muscle fat wasting to temporals and shoudlers noted. CBW 154.1lb via bedscale, 163 .9lb during 12/06/16 adm at [facility]. Current Diet Order/ Nutrition Support Regular Pertinent Medications Colace, Pepcid, MOM, Seroquel, Coumadin Pertinent Labs 05/17: reviewed. Nutritional Hx/Data Height 1.7 m Height (Calculated Centimeters) 170.2 Current Weight (lbs) 69.899 kg Weight (Calculated Kilograms) 69.9 Weight (Calculated Grams) 12948.6 [place] Body Weight 148 Recent Weight Change Yes Weight Status Approriate GI Symptoms Usual diet at home [facility]: regular, 4oz HPN Skin Integrity/Comment: Vlad Gold. LEft eye discoloration. Current %PO Good (75-100%) Estimated Nutritional Goals BEE in Kcals: Using Current wt Calories/Kcals/Kg CBW 154.1lb/70kg Kcals Calculated 1750-2100kcal (25-30kcal/kg) Protein: Using Current wt Protein Calculated 70g (1g/kg) Fluid: ml 1750-2100ml (1ml/kcal) Nutritional Problem 1. Problem Problem (possible) involuntary weight loss related to Etiology unknown aeb Signs/Symptoms: CBW 154.1lb via bedscale 05/22, 163.9lb during 12/06/16 [facility] adm, 6% weight loss in 6 months (non-significant) Intervention/Recommendation Comments 1. Conitnue with current diet order. Avg PO intake is adequate. 2. Monitor weight closely, obtain weight with bedscale properly calibrated if able. CBW 154.1lb on 05/22, 163.9lb on 12/06/16 at [facility], non- significant. Promote weight mainteanance. Expected Outcomes/Goals Expected Outcomes/Goals 1. PO intake continue to meet at least 75% of estimated nutritional needs.
--- NOTE | 2017-05-31 11:48 | Discharge Summary ---
DATE OF DISCHARGE: 05/30/2017 IDENTIFYING INFORMATION: The patient is a 72-year-old male. HISTORY OF PRESENT ILLNESS: The patient was referred from [facility] because of agitated behavior. The patient is a well-known case to me as I have seen him many times with multiple prior admissions to this facility for similar reasons. COURSE IN THE HOSPITAL: The patient at the beginning on a high dose of Seroquel. Dr. Cardoso had him on Haldol 50 mg twice a day and he got too sedated on this, so I went down on the dose to 25 mg twice a day slowly. The patient progressively got better. He was no longer acting in any way dangerous or aggressive, is sleeping well and eating well. He was also on Cogentin 1 mg twice a day as needed, Aricept 10 mg at bedtime, Pepcid, Namenda 10 mg twice a day, multivitamin, Trileptal 300 mg twice a day. He was also on Flomax, theophylline and Warfarin. The patient as he improved, he was no longer not acting out in any way dangerous. He was sleeping well, eating well. We felt he is no longer met criteria and ready to go to a lesser level of care. FINAL DIAGNOSES: Psychosis, not otherwise specified and dementia. MEDICAL DIAGNOSES: As per medical doctor. The patient will be going back to [facility]. He will follow up with the psychiatrist and me there. EXPECTED OUTCOME: Stable if the patient complies with above. [facility]# [id number]
== END 2017-05-31 16:40 | disposition home or self-care (01) | DRG 885 ==
LOC: ER 16:38 → GERO 17:38
PROVIDERS: ADMIT Psychiatry & Neurology Psychiatry; ATTEND Psychiatry & Neurology Psychiatry
DX: F29 Unspecified psychosis not due to a substance or known physiological condition (principal); I82.502 Chronic embolism and thrombosis of unspecified deep veins of left lower extremity; G30.9 Alzheimer's disease, unspecified; F02.80 Dementia in other diseases classified elsewhere, unspecified severity, without behavioral disturbance, psychotic disturbance, mood disturbance, and anxiety; J44.9 Chronic obstructive pulmonary disease, unspecified; K21.9 Gastro-esophageal reflux disease without esophagitis; N40.0 Benign prostatic hyperplasia without lower urinary tract symptoms; S05.12XA Contusion of eyeball and orbital tissues, left eye, initial encounter; I25.10 Atherosclerotic heart disease of native coronary artery without angina pectoris; F20.9 Schizophrenia, unspecified; F31.9 Bipolar disorder, unspecified; Z86.73 Personal history of transient ischemic attack (TIA), and cerebral infarction without residual deficits
CPT/HCPCS: 36415-UA; 71010-TC; 80053-TC; 80061-TC; 81001-TC; 84443-TC; 84484-TC; 85014-TC; 85018-TC; 85025-TC; 85049-TC; 85610-TC; 85730-TC; 86592-TC; 90899; 93005; G0410; Z7610

== ENCOUNTER 2017-06-28 10:46 | Inpatient (IN) | payer MEDICARE, MEDICAID ==
[2017-06-28 11:25] LABS: % BASOPHILS 0.5 % (0.0-2.0); % EOSINOPHILS 1.1 % (0.0-5.0); % LYMPHOCYTES 23.9 % (20.0-50.0); % MONOCYTES 9.7 % (2.0-10.0); % NEUTROPHILS 64.8 % (40.0-80.0); HEMATOCRIT 46.9 % (41.0-60); HEMOGLOBIN 15.6 gm/dL (12-16); MEAN CELL VOLUME 92.8 fl (80-99); MEAN CORPUSCULAR HEMOGLOBIN 30.8 pg (27.0-31.0); MEAN CORPUSCULAR HGB CONC 33.2 pg (28.0-36.0); MEAN PLATELET VOLUME 7.5 fl; NEUTROPHILE ABSOLUTE 7.3 Th/cmm (1.8-8.0); RED BLOOD COUNT 5.06 Mil/cmm (3.80-5.80); RED CELL DISTRIBUTION WIDTH 15.3 % (11.5-20.0)
[2017-06-28 11:27] LABS: PLATELET COUNT 441 Th/cmm (150-400); WHITE BLOOD COUNT 11.3 Th/cmm (4.8-10.8)
[2017-06-28 11:29] LABS: URINE BILIRUBIN SMALL (NEGATIVE); URINE BLOOD LARGE (NEGATIVE); URINE GLUCOSE (UA) NEGATIVE (NEGATIVE); URINE KETONE 15 mg/dL (NEGATIVE); URINE PH 5.5 (4.6 - 8.0); URINE PROTEIN 100 mg/dL (NEGATIVE); URINE UROBILINOGEN 0.2 E.U./dL (0.2 - 1.0)
[2017-06-28] MEDS ORDERED: Sodium Chloride 0.45% 1,000 ML IV ONE ×2 (11:34→12:43)
--- NOTE | 2017-06-28 11:34 | ED Physician Chart ---
ED Chief Complaint/HPI - Patient Information Date Seen:: 06/28/17 Time Seen:: 11:05 Chief Complaint:: weakness History of Present Illness:: THIS IS A 72 YO MALE SENT FROM THE [facility] TO GIVE AN EVALUATION AND TREATMENT FOR INCREASE WEAKNESS, POOR FEEDING AND CAN NO LONGER WALK. HE HAS A LONG HISTORY OF PSYCHOSIS. Allergies:: Allergies Allergy/AdvReac Type Severity Reaction Status Date / Time No Known Allergies Allergy Verified 06/18/16 16:29 Vitals:: Vital Signs - 8 hr 06/28/17 10:56 Temp 97.7 F HR 74 BP 142/104 O2 Sat % 97 Historian:: Medical Records Review:: Nurse's Note Reviewed, Old Chart Reviewed, Transfer documents Reviewed , Patient unable to respond ED Review of Systems - Review of Systems General/Constitutional: Other (THIS PATIENT IS UNABLE TO GIVE A REVIEW OF SYSTEMS.) Skin: No skin lesions, No rash, No bruising Head: No headache, No light-headedness Eyes: No loss of vision, No pain, No diplopia ENT: No earache, No nasal drainage, No sore throat, No tinnitus Neck: No neck pain, No swelling, No thyromegaly, No stiffness, No mass noted Cardio Vascular: No chest pain, No palpitations, No PND, No orthopnea, No edema Pulmonary: No SOB, No cough, No sputum, No wheezing GI: No nausea, No vomiting, No diarrhea, No pain, No melena, No hematochezia, No constipation, No hematemesis G/U: No dysuria, No frequency, No hematuria Musculoskeletal: No bone or joint pain, No back pain, No muscle pain Endocrine: No polyuria, No polydipsia Psychiatric: No prior psych history, No depression, No anxiety, No suicidal ideation Hematopoietic: No bruising, No lymphadenopathy Allergic/Immuno: No urticaria, No angioedema Neurological: No syncope, No focal symptoms, No weakness, No paresthesia, No headache, No seizure, No dizziness, No confusion, No vertigo ED Past Medical History - Past Medical History Obtainable: Yes Past Medical History: HTN, CAD, Asthma/COPD, DVT/PE, Dyslipidemia, PUD/GERD, Dementia Family History: None Social History: Non Smoker, No Alcohol, No Drug Use, Care Facility Surgical History: None Psychiatricy History: Schizophrenia, Bipolar, Dementia Medication: Reviewed Family Medical History - Family Member Mother History Unknown: Yes Ethnicity: Unknown Living Status: Unknown Hx Family Cancer: (unknown) Hx Family Coronary Artery Disease: (unknown) Hx Family Congestive Heart Failure: (unknown) Hx Family Hypertension: (unknown) Hx Family Stroke: (unknown) Hx Family Diabetes: (unknown) Hx Family Seizures: (unknown) Hx Family Dementia: (unknown) Hx Family AIDS: (unknown) Hx Family HIV: No Hx Family COPD: (unknown) Hx Family Hepatitis: (unknown) Hx Family Psychiatric Problems: (unknown) Hx Family Tuberculosis: (unknown) ED Physical Exam - Physical Examination General/Constitutional: Awake, Well-developed, well-nourished, Alert, No distress, GCS 15, Non-toxic appearing, Ambulatory Other Gen/Cons comments:: PATIENT IS UNRESPONSIVE TO VERBAL COMMANDS AND HAS CHOREA WITH CACHEXIA. Head: Atraumatic Eyes: Lids, conjuctiva normal, PERRL, EOMI Skin: Nl inspection, No rash, No skin lesions, No ecchymosis, Well hydrated, No lymphadenopathy ENMT: External ears, nose nl, Nasal exam nl, Lips, teeth, gums nl Neck: Nontender, Full ROM w/o pain, No JVD, No nuchal rigidity, No bruit, No mass, No stridor Respiratory: Nl effort/Exclusion, Clear to Auscultation, No Wheeze/Rhonchi/Rales Cardio Vascular: No murmur, gallop, rubs, NL S1 S2 Other Cardio Vascular comments:: HE HAS TACHYCARDIA GI: No tenderness/rebounding/guarding, No organomegaly, No hernia, Normal BS's, Nondistended, No mass/bruits, No McBurney tenderness : No CVA tenderness Extremities: No tenderness or effusion, Full ROM, normal strength in all extremities, No edema, Normal digits & nails Other Extremities comments:: SEVERE MUSCLE WASTING OF ALL FOUR EXTREMITIES Neuro/Psych: DTR's symmetric, Normal sensory exam, Normal motor strength, Normal gait, No focal deficits Other Neuro/Psych comments:: THE PATIENT IS DISORIENTED TIMES FOUR. Misc: Normal back, No paraspinal tenderness ED Labs/Radiology/EKG Results - Lab Results Results: Abnormal Lab Results 06/28/17 11:00 WBC 11.3 H D RBC 5.06 Hgb 15.6 Hct 46.9 MCV 92.8 MCH 30.8 MCHC Differential 33.2 RDW 15.3 Plt Count 441 H D MPV 7.5 Neutrophils % 64.8 Lymphocytes % 23.9 Monocytes % 9.7 Eosinophils % 1.1 Basophils % 0.5 Abnormal Lab Results 06/28/17 06/28/17 06/28/17 11:00 11:00 11:00 WBC 11.3 H D RBC 5.06 Hgb 15.6 Hct 46.9 MCV 92.8 MCH 30.8 MCHC Differential 33.2 RDW 15.3 Plt Count 441 H D MPV 7.5 Neutrophils % 64.8 Lymphocytes % 23.9 Monocytes % 9.7 Eosinophils % 1.1 Basophils % 0.5 Sodium 149 H Potassium 3.9 Chloride 115 H Carbon Dioxide 23.0 Anion Gap 14.9 BUN 29 H Creatinine 1.0 Est GFR ( Amer) TNP Est GFR (Non-Af Amer) TNP BUN/Creatinine Ratio 29.0 Glucose 116 H Calcium 10.4 H Total Bilirubin 0.5 AST 22 ALT 37 Alkaline Phosphatase 78 Total Protein 8.3 Albumin 3.8 L Globulin 4.5 Albumin/Globulin Ratio 0.8 L Urine Source [place] Urine Color YELLOW Urine Clarity HAZY Urine pH 5.5 Ur Specific [place] >= 1.030 Urine Protein 100 H Urine Glucose (UA) NEGATIVE Urine Ketones 15 H Urine Blood LARGE H Urine Nitrate NEGATIVE Urine Bilirubin SMALL H Urine Urobilinogen 0.2 Ur Leukocyte Esterase MODERATE H Urine RBC 10-25 H Urine WBC >100 H Ur Epithelial Cells FEW Urine Bacteria 2+ H - EKG Interpretations EKG Time:: 11:19 Rate & Rhythm: 105 TACHYCARIA [place]: RIGHT AXIS ED Assessment - Assessment General Assessment: MALNUTRITION URINARY TRACT INFECTION PSYCHOSIS ED Septic Shock - . Is Septic Shock (SBP<90, OR Lactate>4 mmol\L) present?: No - <6hrs of presentation: Vital Signs: Vital Signs - 8 hr 06/28/17 10:56 Temp 97.7 F HR 74 BP 142/104 O2 Sat % 97 ED Reassessment (Disposition) - Reassessment Reassessment Condition:: Unchanged - Diagnosis Diagnosis:: CACHEXIA URINARY TRACT INFECTION PSYCHOSIS - Patient Disposition Discharge/Transfer:: Acute Care w/in this hosp Admitting Medical Physician:: Be Ward Condition at Disposition:: Unchanged ED Discharge Plan - Patient Disposition Admit/Discharge/Transfer: Acute Care w/in this hosp Condition at Disposition: Unchanged
[2017-06-28 11:44] LABS: ALB/GLOB RATIO 0.8 (1.0-1.8); ALKALINE PHOSPHATASE 78 U/L (34-104); ANION GAP 14.9 (7.0-16.0); BILIRUBIN,TOTAL 0.5 mg/dL (0.3-1.0); BUN - UREA NITROGEN 29 mg/dL (7-25); CALCIUM SERUM 10.4 mg/dL (8.6-10.3); CHLORIDE 115 mEq/L (98-107); GLUCOSE 116 mg/dL (70-105); POTASSIUM SERUM 3.9 mEq/L (3.5-5.1); SGOT 22 U/L (13-39); SGPT/ALT 37 U/L (7-52); SODIUM SERUM 149 mEq/L (136-145)
[2017-06-28 12:31] LABS: URINE COLOR YELLOW
[2017-06-28 12:33] LABS: URINE BACTERIA 2+ /hpf (NONE SEEN); URINE EPITHELIAL CELLS FEW /lpf (FEW); URINE WBC >100 /hpf (0-5)
[2017-06-28 13:08] LABS: INR 1.14 (0.5-1.4)
[2017-06-28] MEDS ORDERED: Maalox 30 mL Cup PO PRN (14:49)
[2017-06-28] MEDS ORDERED: guaiFENesin 200 MG/10 ML UDC PO PRN (14:51)
--- NOTE | 2017-06-28 14:55 | Internal Medicine Prog Note ---
Internal Medicine Subjective - Subjective Patient seen and examined:: other (h and p dictated) Internal Medicine Objective - Results Result Diagrams: 06/28/17 11:00 06/28/17 11:00 Recent Labs: Laboratory Last Values WBC 11.3 Th/cmm (4.8-10.8) H D 06/28/17 11:00 RBC 5.06 Mil/cmm (3.80-5.80) 06/28/17 11:00 Hgb 15.6 gm/dL (12-16) 06/28/17 11:00 Hct 46.9 % (41.0-60) 06/28/17 11:00 MCV 92.8 fl (80-99) 06/28/17 11:00 MCH 30.8 pg (27.0-31.0) 06/28/17 11:00 MCHC Differential 33.2 pg (28.0-36.0) 06/28/17 11:00 RDW 15.3 % (11.5-20.0) 06/28/17 11:00 Plt Count 441 Th/cmm (150-400) H D 06/28/17 11:00 MPV 7.5 fl 06/28/17 11:00 Neutrophils % 64.8 % (40.0-80.0) 06/28/17 11:00 Lymphocytes % 23.9 % (20.0-50.0) 06/28/17 11:00 Monocytes % 9.7 % (2.0-10.0) 06/28/17 11:00 Eosinophils % 1.1 % (0.0-5.0) 06/28/17 11:00 Basophils % 0.5 % (0.0-2.0) 06/28/17 11:00 PT 12.0 SECONDS (9.5-11.5) H 06/28/17 11:00 INR 1.14 (0.5-1.4) 06/28/17 11:00 Sodium 149 mEq/L (136-145) H 06/28/17 11:00 Potassium 3.9 mEq/L (3.5-5.1) 06/28/17 11:00 Chloride 115 mEq/L (98-107) H 06/28/17 11:00 Carbon Dioxide 23.0 mEq/L (21.0-31.0) 06/28/17 11:00 Anion Gap 14.9 (7.0-16.0) 06/28/17 11:00 BUN 29 mg/dL (7-25) H 06/28/17 11:00 Creatinine 1.0 mg/dL (0.7-1.3) 06/28/17 11:00 Est GFR ( Amer) TNP 06/28/17 11:00 Est GFR (Non-Af Amer) TNP 06/28/17 11:00 BUN/Creatinine Ratio 29.0 06/28/17 11:00 Glucose 116 mg/dL (70-105) H 06/28/17 11:00 Calcium 10.4 mg/dL (8.6-10.3) H 06/28/17 11:00 Total Bilirubin 0.5 mg/dL (0.3-1.0) 06/28/17 11:00 AST 22 U/L (13-39) 06/28/17 11:00 ALT 37 U/L (7-52) 06/28/17 11:00 Alkaline Phosphatase 78 U/L (34-104) 06/28/17 11:00 Ammonia 32 umol/L (16-53) 06/28/17 13:00 Troponin I 0.02 ng/mL (0.01-0.05) 06/28/17 11:00 Total Protein 8.3 gm/dL (6.0-8.3) 06/28/17 11:00 Albumin 3.8 gm/dL (4.2-5.5) L 06/28/17 11:00 Globulin 4.5 gm/dL 06/28/17 11:00 Albumin/Globulin Ratio 0.8 (1.0-1.8) L 06/28/17 11:00 TSH 0.30 uIU/ml (0.34-5.60) L 06/28/17 11:00 Urine Source [place] 06/28/17 11:00 Urine Color YELLOW 06/28/17 11:00 Urine Clarity HAZY (CLEAR) 06/28/17 11:00 Urine pH 5.5 (4.6 - 8.0) 06/28/17 11:00 Ur Specific [place] >= 1.030 (1.005-1.030) 06/28/17 11:00 Urine Protein 100 mg/dL (NEGATIVE) H 06/28/17 11:00 Urine Glucose (UA) NEGATIVE mg/dL (NEGATIVE) 06/28/17 11:00 Urine Ketones 15 mg/dL (NEGATIVE) H 06/28/17 11:00 Urine Blood LARGE (NEGATIVE) H 06/28/17 11:00 Urine Nitrate NEGATIVE (NEGATIVE) 06/28/17 11:00 Urine Bilirubin SMALL (NEGATIVE) H 06/28/17 11:00 Urine Urobilinogen 0.2 E.U./dL (0.2 - 1.0) 06/28/17 11:00 Ur Leukocyte Esterase MODERATE (NEGATIVE) H 06/28/17 11:00 Urine RBC 10-25 /hpf (0-5) H 06/28/17 11:00 Urine WBC >100 /hpf (0-5) H 06/28/17 11:00 Ur Epithelial Cells FEW /lpf (FEW) 06/28/17 11:00 Urine Bacteria 2+ /hpf (NONE SEEN) H 06/28/17 11:00 - Physical Exam Vitals and I&O: Vital Signs Temp 98 F 06/28/17 12:00 Pulse 100 06/28/17 11:56 Resp 16 06/28/17 12:00 BP 123/98 06/28/17 12:00 Pulse Ox 96 06/28/17 11:56 Active Medications: Current Medications Acetaminophen (Tylenol) 650 mg PO Q4HR PRN PRN Reason: Mild Pain / Temp above 100 Stop: 08/27/17 14:48 Al Hydrox/Mg Hydrox/Simethicone (Maalox) 30 ml PO Q4HR PRN PRN Reason: GI DISTRESS Stop: 08/27/17 14:48 Albuterol Sulfate (Albuterol 2.5mg/3ml Neb Ud) 2.5 mg HHN QIDRT ANA Stop: 08/27/17 14:59 Budesonide (Pulmicort) 0.5 mg HHN BID ANA Stop: 08/27/17 16:59 Ceftriaxone Sodium (Rocephin) 1 gm IM X1 ONE Stop: 06/28/17 12:42 Last Admin: 06/28/17 13:00 Dose: 1 gm Donepezil HCl (Aricept) 10 mg PO HS ANA Stop: 08/27/17 20:59 Famotidine (Pepcid) 20 mg PO DAILY ANA Stop: 08/28/17 08:59 Guaifenesin (Robitussin) 200 mg PO Q4HR PRN PRN Reason: Cough or Congestion Stop: 08/27/17 14:50 Heparin Sodium (Porcine) (Heparin) 5,000 units SUBQ Q12HR ANA Stop: 08/27/17 20:59 Sodium Chloride (Nacl 0.45%) 1,000 mls @ 0 mls/hr IV .Q0M ONE PRN Reason: Wide Open Stop: 06/28/17 11:35 Last Admin: 06/28/17 11:36 Dose: 1,000 mls/hr Sodium Chloride (Nacl 0.45%) 1,000 mls @ 0 mls/hr IV .Q0M ONE PRN Reason: Wide Open Stop: 06/28/17 12:44 Last Admin: 06/28/17 12:59 Dose: 1,000 mls/hr Cefepime HCl 1 gm/ Dextrose 50 mls @ 100 mls/hr IV Q12H ANA Stop: 08/27/17 14:59 Dextrose/Sodium Chloride (D5-0.9%Ns) 1,000 mls @ 100 mls/hr IV .Q10H ANA Stop: 08/27/17 14:59 Ipratropium [place] (Atrovent Neb 0.5mg/2.5ml) 0.5 mg IH QIDRT ANA Stop: 08/27/17 14:59 Levetiracetam (Keppra) 500 mg PO BID ANA Stop: 08/27/17 16:59 Lorazepam (Ativan) 1 mg IV Q4H PRN; Protocol PRN Reason: Seizure Stop: 08/27/17 14:50 Ondansetron HCl (Zofran) 4 mg IV Q8H PRN PRN Reason: Nausea / Vomiting Stop: 08/27/17 14:50 - Procedures Procedures: Procedures Procedure Code Date EMERGENCY DEPT VISIT 10831 12/28/11 EMERGENCY DEPT VISIT 41094 12/12/11 GROUP PSYCHOTHERAPY 63405 02/14/16 GROUP PSYCHOTHERAPY GZHZZZZ 02/14/16 GROUP PSYCHOTHERAPY 55235 10/06/15 GROUP PSYCHOTHERAPY GZHZZZZ 10/06/15 GROUP PSYCHOTHERAPY 71576 06/21/15 GROUP PSYCHOTHERAPY GZHZZZZ 06/21/15 OTHER GROUP THERAPY 94.44 02/26/15 RECREATIONAL THERAPY 93.81 06/30/12
--- NOTE | 2017-06-28 15:33 | Diagnostic Imaging Report ---
Portable chest x-ray History: Shortness of breath Allowing for portable technique the heart size is normal. No focal pulmonary parenchymal processes. No hilar or mediastinal abnormalities. Impression: No acute abnormalities.
[2017-06-28] MEDS: Ipratropium Neb 0.5 mg/2.5 mL UD IH SCH ×2 (15:55→19:31)
[2017-06-28] MEDS: Albuterol Nebulizer 2.5mg/3mL HHN SCH ×2 (15:55→19:31)
--- NOTE | 2017-06-28 15:56 | History & Physical ---
ADMIT DATE: 06/28/2017 CHIEF COMPLAINT: Generalized weakness, failure to thrive, and low blood pressure. HISTORY OF PRESENT ILLNESS: This is a 72-year-old male with history of BPH, COPD, history of DVT, previously was on anticoagulation, was admitted from nursing facility secondary to not eating, not drinking, not taking his medication. Apparently, the patient was just discharged recently from ___ [place]. The patient was seen by palliative. Apparently the patient does not have any family. The patient is still full code. The patient transferred for further management. The patient is severely dehydrated and seemed to have lost quite a bit of weight. The patient is nonverbal, unable to provide any information at this time. PAST MEDICAL HISTORY: As mentioned in history of present illness. PAST SURGICAL HISTORY: Unable to obtain from the patient. ALLERGIES: No known drug allergies. MEDICATIONS: The patient was on Keppra, albuterol, Pepcid, previously was on Coumadin, but this was discontinued recently. FAMILY HISTORY: Noncontributory. SOCIAL HISTORY: The patient is a detention; patient requiring 24-hour total care. REVIEW OF SYSTEMS: This is limited secondary to the patient's current mental state. We will try to obtain more detailed review of system at a later date by talking to family members not listed as the patient will try to get information from nursing staff at [facility] as well as from Dr. Beck who the patient from previous. PHYSICAL EXAMINATION: VITAL SIGNS: Blood pressure 123/98, respirations 16, pulse 100, temperature 98.0. GENERAL: Elderly male, appears chronically ill. Bitemporal wasting. The patient stated may ____. LUNGS: Equal breath sounds, otherwise clear to auscultation. HEART: Regular rate and rhythm without appreciable murmurs. ABDOMEN: Soft, nontender, thin. EXTREMITIES: Positive excoriation and atrophy. NEUROLOGIC: Limited. LABORATORY DATA: WBC 11.3, hemoglobin 15, platelets 441. INR 1.1. Sodium 149, potassium 3.9, BUN 29, creatinine 1.0. Glucose 116, calcium 10.5, albumin is 3.8. TSH 0.3. UA greater than; 100 WBC, 2+ bacteria. ASSESSMENT: Urinary tract infection, sepsis, leukocytosis, ____ dehydration, schizoaffective disorder, ____, acute renal failure, malnutrition, thrombocytosis, BPH, COPD disease. PLAN: We will continue the patient on aggressive IV hydration and IV antibiotic. We will place NG tube for medication as well as from his nutrition. He may consider a G-tube placement. Continue antiepileptic medications. Continue seizure precaution. Continue with current management and we will admit the patient to telemetry. JOB# [id number]
[2017-06-28] MEDS: D5-0.9%NS 1,000 ML IV SCH (16:30)
[2017-06-28] MEDS: Levetiracetam 500 mg/5mL 5mL UDC NG SCH (16:53)
[2017-06-28] MEDS ORDERED: Levetiracetam 500 mg/5mL 5mL UDC PO SCH (17:00)
[2017-06-28] MEDS ORDERED: Pneumococcal Vaccine 0.5 mL Vial IM ONE (18:13)
[2017-06-28] MEDS: Budesonide 0.5 Mg/2 mL Ud HHN SCH (19:31)
[2017-06-29] MEDS: D5-0.9%NS 1,000 ML IV SCH (02:53)
[2017-06-29 06:21] LABS: % BASOPHILS 0.9 % (0.0-2.0); % EOSINOPHILS 4.1 % (0.0-5.0); % LYMPHOCYTES 33.9 % (20.0-50.0); % MONOCYTES 10.4 % (2.0-10.0); % NEUTROPHILS 50.7 % (40.0-80.0); MEAN CORPUSCULAR HEMOGLOBIN 31.3 pg (27.0-31.0); MEAN CORPUSCULAR HGB CONC 33.7 pg (28.0-36.0); MEAN PLATELET VOLUME 6.8 fl; NEUTROPHILE ABSOLUTE 3.1 Th/cmm (1.8-8.0); PLATELET COUNT 362 Th/cmm (150-400); RED BLOOD COUNT 4.24 Mil/cmm (3.80-5.80); RED CELL DISTRIBUTION WIDTH 14.9 % (11.5-20.0)
[2017-06-29 06:37] LABS: WHITE BLOOD COUNT 6.3 Th/cmm (4.8-10.8)
[2017-06-29 06:38] LABS: HEMATOCRIT 39.5 % (41.0-60); HEMOGLOBIN 13.3 gm/dL (12-16)
[2017-06-29 06:44] LABS: ANION GAP 9.8 (7.0-16.0); BUN - UREA NITROGEN 19 mg/dL (7-25); BUN/CREATININE RATIO 21.1; CARBON DIOXIDE 26.9 mEq/L (21.0-31.0); CHLORIDE 120 mEq/L (98-107); CREATININE - SERUM 0.9 mg/dL (0.7-1.3); GLUCOSE 145 mg/dL (70-105); POTASSIUM SERUM 4.7 mEq/L (3.5-5.1); SODIUM SERUM 152 mEq/L (136-145)
[2017-06-29] MEDS: Ipratropium Neb 0.5 mg/2.5 mL UD IH SCH ×4 (07:11→18:36)
[2017-06-29] MEDS: Albuterol Nebulizer 2.5mg/3mL HHN SCH ×4 (07:11→18:36)
[2017-06-29] MEDS: Budesonide 0.5 Mg/2 mL Ud HHN SCH ×2 (07:23→18:36)
[2017-06-29] MEDS: Levetiracetam 500 mg/5mL 5mL UDC NG SCH ×2 (09:27→17:01)
--- NOTE | 2017-06-29 10:15 | Diagnostic Imaging Report ---
Exam: NG tube placement Findings: Frontal examination of chest demonstrates NG tube in the stomach.
--- NOTE | 2017-06-29 10:59 | Internal Medicine Prog Note ---
Internal Medicine Subjective - Subjective Service Date: 06/29/17 (patient now has ngt) Patient seen and examined:: without staff Patient is:: awake, verbal, confused Patient Complaints of:: other Per staff patient has:: poor appetite, poor oral intake Internal Medicine Objective - Results Result Diagrams: 06/29/17 06:14 06/29/17 06:14 Recent Labs: Laboratory Last Values WBC 6.3 Th/cmm (4.8-10.8) D 06/29/17 06:14 RBC 4.24 Mil/cmm (3.80-5.80) 06/29/17 06:14 Hgb 13.3 gm/dL (12-16) D 06/29/17 06:14 Hct 39.5 % (41.0-60) L D 06/29/17 06:14 MCV 93.0 fl (80-99) 06/29/17 06:14 MCH 31.3 pg (27.0-31.0) H 06/29/17 06:14 MCHC Differential 33.7 pg (28.0-36.0) 06/29/17 06:14 RDW 14.9 % (11.5-20.0) 06/29/17 06:14 Plt Count 362 Th/cmm (150-400) 06/29/17 06:14 MPV 6.8 fl 06/29/17 06:14 Neutrophils % 50.7 % (40.0-80.0) 06/29/17 06:14 Lymphocytes % 33.9 % (20.0-50.0) 06/29/17 06:14 Monocytes % 10.4 % (2.0-10.0) H 06/29/17 06:14 Eosinophils % 4.1 % (0.0-5.0) 06/29/17 06:14 Basophils % 0.9 % (0.0-2.0) 06/29/17 06:14 PT 12.0 SECONDS (9.5-11.5) H 06/28/17 11:00 INR 1.14 (0.5-1.4) 06/28/17 11:00 Sodium 152 mEq/L (136-145) H 06/29/17 06:14 Potassium 4.7 mEq/L (3.5-5.1) 06/29/17 06:14 Chloride 120 mEq/L (98-107) H 06/29/17 06:14 Carbon Dioxide 26.9 mEq/L (21.0-31.0) 06/29/17 06:14 Anion Gap 9.8 (7.0-16.0) 06/29/17 06:14 BUN 19 mg/dL (7-25) 06/29/17 06:14 Creatinine 0.9 mg/dL (0.7-1.3) 06/29/17 06:14 Est GFR ( Amer) TNP 06/29/17 06:14 Est GFR (Non-Af Amer) TNP 06/29/17 06:14 BUN/Creatinine Ratio 21.1 06/29/17 06:14 Glucose 145 mg/dL (70-105) H 06/29/17 06:14 Calcium 9.0 mg/dL (8.6-10.3) 06/29/17 06:14 Magnesium 2.0 mg/dL (1.9-2.7) 06/29/17 06:14 Total Bilirubin 0.5 mg/dL (0.3-1.0) 06/28/17 11:00 AST 22 U/L (13-39) 06/28/17 11:00 ALT 37 U/L (7-52) 06/28/17 11:00 Alkaline Phosphatase 78 U/L (34-104) 06/28/17 11:00 Ammonia 34 umol/L (16-53) 06/29/17 06:14 Troponin I 0.02 ng/mL (0.01-0.05) 06/28/17 11:00 B-Natriuretic Peptide 94.7 pg/mL (5.0-100.0) 06/29/17 06:14 Total Protein 8.3 gm/dL (6.0-8.3) 06/28/17 11:00 Albumin 3.8 gm/dL (4.2-5.5) L 06/28/17 11:00 Globulin 4.5 gm/dL 06/28/17 11:00 Albumin/Globulin Ratio 0.8 (1.0-1.8) L 06/28/17 11:00 TSH 0.30 uIU/ml (0.34-5.60) L 06/28/17 11:00 Urine Source [place] 06/28/17 11:00 Urine Color YELLOW 06/28/17 11:00 Urine Clarity HAZY (CLEAR) 06/28/17 11:00 Urine pH 5.5 (4.6 - 8.0) 06/28/17 11:00 Ur Specific [employer] >= 1.030 (1.005-1.030) 06/28/17 11:00 Urine Protein 100 mg/dL (NEGATIVE) H 06/28/17 11:00 Urine Glucose (UA) NEGATIVE mg/dL (NEGATIVE) 06/28/17 11:00 Urine Ketones 15 mg/dL (NEGATIVE) H 06/28/17 11:00 Urine Blood LARGE (NEGATIVE) H 06/28/17 11:00 Urine Nitrate NEGATIVE (NEGATIVE) 06/28/17 11:00 Urine Bilirubin SMALL (NEGATIVE) H 06/28/17 11:00 Urine Urobilinogen 0.2 E.U./dL (0.2 - 1.0) 06/28/17 11:00 Ur Leukocyte Esterase MODERATE (NEGATIVE) H 06/28/17 11:00 Urine RBC 10-25 /hpf (0-5) H 06/28/17 11:00 Urine WBC >100 /hpf (0-5) H 06/28/17 11:00 Ur Epithelial Cells FEW /lpf (FEW) 06/28/17 11:00 Urine Bacteria 2+ /hpf (NONE SEEN) H 06/28/17 11:00 RPR NONREACTIVE (NONREACTIVE) 06/28/17 11:00 - Physical Exam Vitals and I&O: Vital Signs Temp 97.0 F 06/29/17 07:35 Pulse 62 06/29/17 07:35 Resp 18 06/29/17 07:35 BP 130/73 06/29/17 07:35 Pulse Ox 95 06/29/17 07:35 Intake & Output 06/28/17 06/29/17 06/29/17 18:59 06:59 18:59 Intake Total 200 1000 Output Total 10 300 Balance 190 700 Weight (lbs) 123 lb 4 oz 125 lb 8 oz Intake: Intake, IV Amount 1000 D5-0.9%Ns 1,000 ml @ 100 1000 mls/hr IV .Q10H ANA Rx#: [id number] Tube Feeding 200 Output: Urine 10 300 Other: # Bowel Movements 0 0 Active Medications: Current Medications Acetaminophen (Tylenol) 650 mg PO Q4HR PRN PRN Reason: Mild Pain / Temp above 100 Stop: 08/27/17 14:48 Al Hydrox/Mg Hydrox/Simethicone (Maalox) 30 ml PO Q4HR PRN PRN Reason: GI DISTRESS Stop: 08/27/17 14:48 Albuterol Sulfate (Albuterol 2.5mg/3ml Neb Ud) 2.5 mg HHN QIDRT ANA Stop: 08/27/17 14:59 Last Admin: 06/29/17 07:11 Dose: 2.5 mg Budesonide (Pulmicort) 0.5 mg HHN BIDRT ANA Stop: 08/27/17 18:59 Last Admin: 06/29/17 07:23 Dose: 0.5 mg Donepezil HCl (Aricept) 10 mg NG HS [facility] Stop: 08/27/17 20:59 Last Admin: 06/28/17 20:38 Dose: 10 mg Famotidine (Pepcid) 20 mg NG DAILY ANA Stop: 08/28/17 08:59 Last Admin: 06/29/17 09:27 Dose: 20 mg Guaifenesin (Robitussin) 200 mg PO Q4HR PRN PRN Reason: Cough or Congestion Stop: 08/27/17 14:50 Heparin Sodium (Porcine) (Heparin) 5,000 units SUBQ Q12HR ANA Stop: 08/27/17 20:59 Last Admin: 06/29/17 09:27 Dose: 5,000 units Cefepime HCl 1 gm/ Dextrose 50 mls @ 100 mls/hr IV Q24H ANA Stop: 08/27/17 15:59 Last Admin: 06/28/17 16:29 Dose: 100 mls/hr Dextrose/Sodium Chloride (D5-0.9%Ns) 1,000 mls @ 100 mls/hr IV .Q10H ANA Stop: 08/27/17 14:59 Last Admin: 06/29/17 02:53 Dose: 100 mls/hr Ipratropium [place] (Atrovent Neb 0.5mg/2.5ml) 0.5 mg IH QIDRT ANA Stop: 08/27/17 14:59 Last Admin: 06/29/17 07:11 Dose: 0.5 mg Levetiracetam (Keppra) 500 mg NG BID ANA Stop: 08/27/17 16:59 Last Admin: 06/29/17 09:27 Dose: 500 mg Lorazepam (Ativan) 1 mg IV Q4H PRN; Protocol PRN Reason: Seizure Stop: 08/27/17 14:50 Ondansetron HCl (Zofran) 4 mg IV Q8H PRN PRN Reason: Nausea / Vomiting Stop: 08/27/17 14:50 General: weak, alert HEENT: NC/AT, PERRLA Neck: Supple Lungs: CTAB Cardiovascular: RRR, Normal S1, Normal S2, without murmur Abdomen: soft, non-tender, non-distended, positive bowel sound, other (+ngt) Extremities: excoriation Neurological: alert - Procedures Procedures: Procedures Procedure Code Date EMERGENCY DEPT VISIT 94980 12/28/11 EMERGENCY DEPT VISIT 01159 12/12/11 GROUP PSYCHOTHERAPY 72651 02/14/16 GROUP PSYCHOTHERAPY GZHZZZZ 02/14/16 GROUP PSYCHOTHERAPY 42548 10/06/15 GROUP PSYCHOTHERAPY GZHZZZZ 10/06/15 GROUP PSYCHOTHERAPY 99994 06/21/15 GROUP PSYCHOTHERAPY GZHZZZZ 06/21/15 OTHER GROUP THERAPY 94.44 02/26/15 RECREATIONAL THERAPY 93.81 06/30/12 Internal Medicine Assmt/Plan - Assessment Assessment: ACUTE UTI SEPSIS LEUKOCYTOSIS DEHYDRATION SCHIZOAFFECTIVE BPH THROMBOCYTOSIS COPD - Plan Plan: possible peg placement switch ivf to d5 1/2 ns monitor electrolytes am labs continue empiric iv antibiotics continue current plan of care
[2017-06-29] MEDS: D5-0.45NS 1,000 ML IV SCH (11:19)
--- NOTE | 2017-06-29 12:39 | History & Physical ---
ADMIT DATE: 06/29/2017 PHYSICIAN REQUESTING CONSULTATION: Dr. Ward. REASON FOR CONSULTATION: Failure to thrive. CHIEF COMPLAINT: "I do not know." HISTORY OF PRESENT ILLNESS: This patient is a 72-year-old male, resident of [facility]. Information obtained by directly interviewing the patient as well as reviewing the admission papers. The patient is reported to have been having difficult time to cope with the stress and has been refusing to eat and refusing to drink and has not been willing to comply with the medications and hence the patient has been referred over here for stabilization and is admitted on the medical unit. Psychiatric consultation is called to address the issue of the patient's psychosis. Staff were spoken to. The patient is interviewed. At this time, the patient has been isolative, withdrawn, and is not providing much of information. PAST PSYCHIATRIC HISTORY: The patient had been hospitalized on multiple occasions for psychosis and recently was at [facility] on geropsychiatric unit. The patient at this time is not able to provide much of information. The patient's caring staff have been reporting that the possibly the patient is going for a PEG placement for nutrition as well as medication administration. DIAGNOSTIC IMPRESSION: 1A. Psychotic disorder, not otherwise specified. 1B. Dementia and behavioral change, secondary trait. PLAN: To follow the patient with the supportive therapy and once medically stabilized, look for the need for psychiatric intervention. Thank you, Dr. Ward for allowing me to participate in the care of the patient. JOB# [id number]
--- NOTE | 2017-06-29 20:23 | Consultation ---
DATE OF CONSULTATION: 06/29/2017 INPATIENT CONSULTATION NOTE REFERRING PHYSICIAN: Dr. Ward. REASON FOR CONSULTATION: Dysphagia. HISTORY OF PRESENT ILLNESS: This is a 72-year-old male with multiple medical problems, came to the hospital because of failure to thrive. The patient is otherwise a poor historian, unable to give any meaningful history. PAST MEDICAL HISTORY: BPH, COPD, DVT, and long-term anticoagulation. PAST SURGICAL HISTORY: Unknown. FAMILY HISTORY: Noncontributory. SOCIAL HISTORY: Resident of [facility] facility. ALLERGIES: None. CURRENT MEDICATIONS: Tylenol, Maalox, albuterol, Pulmicort, cefepime, Aricept, Pepcid, Robitussin, heparin, Atrovent, Keppra, Ativan, and Zofran. REVIEW OF SYSTEMS: Unobtainable. PHYSICAL EXAMINATION: VITAL SIGNS: Temperature 97, breathing 18, pulse of 62, blood pressure 130/73, and satting 95%. GENERAL: In no apparent distress. EYES: Anicteric. Normal conjunctivae. HEENT: Normocephalic and atraumatic. Moist mucous membranes. NECK: Soft and supple. CHEST: Clear. No effort. CARDIOVASCULAR: Regular rate and rhythm. ABDOMEN: Soft, nontender, and nondistended. SKIN: Warm and dry. EXTREMITIES: Reveal no cyanosis. LABORATORY DATA: Show white count 6.3, hemoglobin 13.3, and platelets of 362,000. INR 1.14. LFTs were within normal limits. IMPRESSION: This is a 72-year-old male with failure to thrive, cause could be from underlying disease from etiology. The patient may also have a component contributed by his urinary tract infection. PLAN: 1. Consider PEG if provides consent. 2. Continue supportive care. 3. Deferred treatments of UTI and other issues to the primary service. 4. Coags were reviewed. 5. Continue antibiotics. Thank you for allowing me to participate. Please call me if any questions. JOB# [id number]
[2017-06-30] MEDS: D5-0.45NS 1,000 ML IV SCH ×3 (01:14→22:12)
[2017-06-30 05:49] VITALS: BP 104/66
[2017-06-30] MEDS: Ipratropium Neb 0.5 mg/2.5 mL UD IH SCH ×4 (06:45→18:50)
[2017-06-30] MEDS: Albuterol Nebulizer 2.5mg/3mL HHN SCH ×4 (06:45→18:50)
[2017-06-30] MEDS: Budesonide 0.5 Mg/2 mL Ud HHN SCH ×2 (06:48→18:51)
[2017-06-30] MEDS: Levetiracetam 500 mg/5mL 5mL UDC NG SCH ×2 (08:20→16:11)
--- NOTE | 2017-06-30 09:20 | GI Progress Note ---
Subjective - Review of Systems Subjective: NO EVENTS Objective - Results Result Diagrams: 06/29/17 06:14 06/29/17 06:14 Recent Labs: Laboratory Last Values WBC 6.3 Th/cmm (4.8-10.8) D 06/29/17 06:14 RBC 4.24 Mil/cmm (3.80-5.80) 06/29/17 06:14 Hgb 13.3 gm/dL (12-16) D 06/29/17 06:14 Hct 39.5 % (41.0-60) L D 06/29/17 06:14 MCV 93.0 fl (80-99) 06/29/17 06:14 MCH 31.3 pg (27.0-31.0) H 06/29/17 06:14 MCHC Differential 33.7 pg (28.0-36.0) 06/29/17 06:14 RDW 14.9 % (11.5-20.0) 06/29/17 06:14 Plt Count 362 Th/cmm (150-400) 06/29/17 06:14 MPV 6.8 fl 06/29/17 06:14 Neutrophils % 50.7 % (40.0-80.0) 06/29/17 06:14 Lymphocytes % 33.9 % (20.0-50.0) 06/29/17 06:14 Monocytes % 10.4 % (2.0-10.0) H 06/29/17 06:14 Eosinophils % 4.1 % (0.0-5.0) 06/29/17 06:14 Basophils % 0.9 % (0.0-2.0) 06/29/17 06:14 PT 12.0 SECONDS (9.5-11.5) H 06/28/17 11:00 INR 1.14 (0.5-1.4) 06/28/17 11:00 Sodium 152 mEq/L (136-145) H 06/29/17 06:14 Potassium 4.7 mEq/L (3.5-5.1) 06/29/17 06:14 Chloride 120 mEq/L (98-107) H 06/29/17 06:14 Carbon Dioxide 26.9 mEq/L (21.0-31.0) 06/29/17 06:14 Anion Gap 9.8 (7.0-16.0) 06/29/17 06:14 BUN 19 mg/dL (7-25) 06/29/17 06:14 Creatinine 0.9 mg/dL (0.7-1.3) 06/29/17 06:14 Est GFR ( Amer) TNP 06/29/17 06:14 Est GFR (Non-Af Amer) TNP 06/29/17 06:14 BUN/Creatinine Ratio 21.1 06/29/17 06:14 Glucose 145 mg/dL (70-105) H 06/29/17 06:14 Calcium 9.0 mg/dL (8.6-10.3) 06/29/17 06:14 Magnesium 2.0 mg/dL (1.9-2.7) 06/29/17 06:14 Total Bilirubin 0.5 mg/dL (0.3-1.0) 06/28/17 11:00 AST 22 U/L (13-39) 06/28/17 11:00 ALT 37 U/L (7-52) 06/28/17 11:00 Alkaline Phosphatase 78 U/L (34-104) 06/28/17 11:00 Ammonia 34 umol/L (16-53) 06/29/17 06:14 Troponin I 0.02 ng/mL (0.01-0.05) 06/28/17 11:00 B-Natriuretic Peptide 94.7 pg/mL (5.0-100.0) 06/29/17 06:14 Total Protein 8.3 gm/dL (6.0-8.3) 06/28/17 11:00 Albumin 3.8 gm/dL (4.2-5.5) L 06/28/17 11:00 Globulin 4.5 gm/dL 06/28/17 11:00 Albumin/Globulin Ratio 0.8 (1.0-1.8) L 06/28/17 11:00 TSH 0.30 uIU/ml (0.34-5.60) L 06/28/17 11:00 Urine Source [place] 06/28/17 11:00 Urine Color YELLOW 06/28/17 11:00 Urine Clarity HAZY (CLEAR) 06/28/17 11:00 Urine pH 5.5 (4.6 - 8.0) 06/28/17 11:00 Ur Specific [place] >= 1.030 (1.005-1.030) 06/28/17 11:00 Urine Protein 100 mg/dL (NEGATIVE) H 06/28/17 11:00 Urine Glucose (UA) NEGATIVE mg/dL (NEGATIVE) 06/28/17 11:00 Urine Ketones 15 mg/dL (NEGATIVE) H 06/28/17 11:00 Urine Blood LARGE (NEGATIVE) H 06/28/17 11:00 Urine Nitrate NEGATIVE (NEGATIVE) 06/28/17 11:00 Urine Bilirubin SMALL (NEGATIVE) H 06/28/17 11:00 Urine Urobilinogen 0.2 E.U./dL (0.2 - 1.0) 06/28/17 11:00 Ur Leukocyte Esterase MODERATE (NEGATIVE) H 06/28/17 11:00 Urine RBC 10-25 /hpf (0-5) H 06/28/17 11:00 Urine WBC >100 /hpf (0-5) H 06/28/17 11:00 Ur Epithelial Cells FEW /lpf (FEW) 06/28/17 11:00 Urine Bacteria 2+ /hpf (NONE SEEN) H 06/28/17 11:00 RPR NONREACTIVE (NONREACTIVE) 06/28/17 11:00 - Physical Exam Vitals and I&O: Vital Signs Temp 97.4 F 06/30/17 07:54 Pulse 56 06/30/17 07:54 Resp 19 06/30/17 07:54 BP 113/57 06/30/17 07:54 Pulse Ox 99 06/30/17 07:54 Intake & Output 06/29/17 06/30/17 06/30/17 18:59 06:59 18:59 Intake Total 981.667 318.333 Output Total 200 350 Balance 781.667 -31.667 Weight (lbs) 56.926 kg 63.078 kg Intake: Intake, IV Amount 731.667 318.333 Cefepime 1 gm In Dextrose 50 5% 50 ml @ 100 mls/hr IV Q24H ANA Rx#:[id number] D5-0.45NS 1,000 ml @ 100 681.667 318.333 mls/hr IV .Q10H ANA Rx#: [id number] Oral 250 Output: Urine 200 350 Other: # Bowel Movements 0 1 Stool Characteristics Liquid Brown Active Medications: Current Medications Acetaminophen (Tylenol) 650 mg PO Q4HR PRN PRN Reason: Mild Pain / Temp above 100 Stop: 08/27/17 14:48 Al Hydrox/Mg Hydrox/Simethicone (Maalox) 30 ml PO Q4HR PRN PRN Reason: GI DISTRESS Stop: 08/27/17 14:48 Albuterol Sulfate (Albuterol 2.5mg/3ml Neb Ud) 2.5 mg HHN QIDRT ANA Stop: 08/27/17 14:59 Last Admin: 06/30/17 06:45 Dose: 2.5 mg Budesonide (Pulmicort) 0.5 mg HHN BIDRT ANA Stop: 08/27/17 18:59 Last Admin: 06/30/17 06:48 Dose: 0.5 mg Donepezil HCl (Aricept) 10 mg NG HS [facility] Stop: 08/27/17 20:59 Last Admin: 06/29/17 20:19 Dose: 10 mg Famotidine (Pepcid) 20 mg NG DAILY ANA Stop: 08/28/17 08:59 Last Admin: 06/30/17 08:20 Dose: 20 mg Guaifenesin (Robitussin) 200 mg PO Q4HR PRN PRN Reason: Cough or Congestion Stop: 08/27/17 14:50 Heparin Sodium (Porcine) (Heparin) 5,000 units SUBQ Q12HR ANA Stop: 08/27/17 20:59 Last Admin: 06/30/17 08:20 Dose: 5,000 units Cefepime HCl 1 gm/ Dextrose 50 mls @ 100 mls/hr IV Q24H ANA Stop: 08/27/17 15:59 Last Infusion: 06/29/17 18:07 Dose: Infused Dextrose/Sodium Chloride (D5-0.45ns) 1,000 mls @ 100 mls/hr IV .Q10H ANA Stop: 08/28/17 10:59 Last Admin: 06/30/17 01:14 Dose: 100 mls/hr Ipratropium [place] (Atrovent Neb 0.5mg/2.5ml) 0.5 mg IH QIDRT ANA Stop: 08/27/17 14:59 Last Admin: 06/30/17 06:45 Dose: 0.5 mg Levetiracetam (Keppra) 500 mg NG BID ANA Stop: 08/27/17 16:59 Last Admin: 06/30/17 08:20 Dose: 500 mg Lorazepam (Ativan) 1 mg IV Q4H PRN; Protocol PRN Reason: Seizure Stop: 08/27/17 14:50 Ondansetron HCl (Zofran) 4 mg IV Q8H PRN PRN Reason: Nausea / Vomiting Stop: 08/27/17 14:50 - Procedures Procedures: Procedures Procedure Code Date EMERGENCY DEPT VISIT 94005 12/28/11 EMERGENCY DEPT VISIT 19231 12/12/11 GROUP PSYCHOTHERAPY 67865 02/14/16 GROUP PSYCHOTHERAPY GZHZZZZ 02/14/16 GROUP PSYCHOTHERAPY 32266 10/06/15 GROUP PSYCHOTHERAPY GZHZZZZ 10/06/15 GROUP PSYCHOTHERAPY 04415 06/21/15 GROUP PSYCHOTHERAPY GZHZZZZ 06/21/15 OTHER GROUP THERAPY 94.44 02/26/15 RECREATIONAL THERAPY 93.81 06/30/12 Assessment/Plan - Problem List Patient Problems: All Active Problems Mental health problem (Active) F48.9 chronic (Active) Aggression (Acute) R45.89 Aggressive behavior (Acute) R45.89 BPH (Acute) COPD (Acute) INCREASED AGITATION AND AGGRESSIVE BEHAV (Acute) - Assessment Assessment: 72 YO MALE WITH ANOREXIA AND DYSPHAGIA STABLE 1.CONT SUPP CARE 2.CONSIDER PEG IF CONSENT
[2017-06-30] MEDS ORDERED: Probiotic Screen MC PRN (13:15)
--- NOTE | 2017-06-30 17:05 | Internal Medicine Prog Note ---
Internal Medicine Subjective - Subjective Service Date: 06/30/17 Patient is:: awake, verbal, confused Patient Complaints of:: other Per staff patient has:: poor appetite, poor oral intake Internal Medicine Objective - Results Result Diagrams: 06/29/17 06:14 06/29/17 06:14 Recent Labs: Laboratory Last Values WBC 6.3 Th/cmm (4.8-10.8) D 06/29/17 06:14 RBC 4.24 Mil/cmm (3.80-5.80) 06/29/17 06:14 Hgb 13.3 gm/dL (12-16) D 06/29/17 06:14 Hct 39.5 % (41.0-60) L D 06/29/17 06:14 MCV 93.0 fl (80-99) 06/29/17 06:14 MCH 31.3 pg (27.0-31.0) H 06/29/17 06:14 MCHC Differential 33.7 pg (28.0-36.0) 06/29/17 06:14 RDW 14.9 % (11.5-20.0) 06/29/17 06:14 Plt Count 362 Th/cmm (150-400) 06/29/17 06:14 MPV 6.8 fl 06/29/17 06:14 Neutrophils % 50.7 % (40.0-80.0) 06/29/17 06:14 Lymphocytes % 33.9 % (20.0-50.0) 06/29/17 06:14 Monocytes % 10.4 % (2.0-10.0) H 06/29/17 06:14 Eosinophils % 4.1 % (0.0-5.0) 06/29/17 06:14 Basophils % 0.9 % (0.0-2.0) 06/29/17 06:14 PT 12.0 SECONDS (9.5-11.5) H 06/28/17 11:00 INR 1.14 (0.5-1.4) 06/28/17 11:00 Sodium 152 mEq/L (136-145) H 06/29/17 06:14 Potassium 4.7 mEq/L (3.5-5.1) 06/29/17 06:14 Chloride 120 mEq/L (98-107) H 06/29/17 06:14 Carbon Dioxide 26.9 mEq/L (21.0-31.0) 06/29/17 06:14 Anion Gap 9.8 (7.0-16.0) 06/29/17 06:14 BUN 19 mg/dL (7-25) 06/29/17 06:14 Creatinine 0.9 mg/dL (0.7-1.3) 06/29/17 06:14 Est GFR ( Amer) TNP 06/29/17 06:14 Est GFR (Non-Af Amer) TNP 06/29/17 06:14 BUN/Creatinine Ratio 21.1 06/29/17 06:14 Glucose 145 mg/dL (70-105) H 06/29/17 06:14 Calcium 9.0 mg/dL (8.6-10.3) 06/29/17 06:14 Magnesium 2.0 mg/dL (1.9-2.7) 06/29/17 06:14 Total Bilirubin 0.5 mg/dL (0.3-1.0) 06/28/17 11:00 AST 22 U/L (13-39) 06/28/17 11:00 ALT 37 U/L (7-52) 06/28/17 11:00 Alkaline Phosphatase 78 U/L (34-104) 06/28/17 11:00 Ammonia 34 umol/L (16-53) 06/29/17 06:14 Troponin I 0.02 ng/mL (0.01-0.05) 06/28/17 11:00 B-Natriuretic Peptide 94.7 pg/mL (5.0-100.0) 06/29/17 06:14 Total Protein 8.3 gm/dL (6.0-8.3) 06/28/17 11:00 Albumin 3.8 gm/dL (4.2-5.5) L 06/28/17 11:00 Globulin 4.5 gm/dL 06/28/17 11:00 Albumin/Globulin Ratio 0.8 (1.0-1.8) L 06/28/17 11:00 TSH 0.30 uIU/ml (0.34-5.60) L 06/28/17 11:00 Urine Source [place] 06/28/17 11:00 Urine Color YELLOW 06/28/17 11:00 Urine Clarity HAZY (CLEAR) 06/28/17 11:00 Urine pH 5.5 (4.6 - 8.0) 06/28/17 11:00 Ur Specific [place] >= 1.030 (1.005-1.030) 06/28/17 11:00 Urine Protein 100 mg/dL (NEGATIVE) H 06/28/17 11:00 Urine Glucose (UA) NEGATIVE mg/dL (NEGATIVE) 06/28/17 11:00 Urine Ketones 15 mg/dL (NEGATIVE) H 06/28/17 11:00 Urine Blood LARGE (NEGATIVE) H 06/28/17 11:00 Urine Nitrate NEGATIVE (NEGATIVE) 06/28/17 11:00 Urine Bilirubin SMALL (NEGATIVE) H 06/28/17 11:00 Urine Urobilinogen 0.2 E.U./dL (0.2 - 1.0) 06/28/17 11:00 Ur Leukocyte Esterase MODERATE (NEGATIVE) H 06/28/17 11:00 Urine RBC 10-25 /hpf (0-5) H 06/28/17 11:00 Urine WBC >100 /hpf (0-5) H 06/28/17 11:00 Ur Epithelial Cells FEW /lpf (FEW) 06/28/17 11:00 Urine Bacteria 2+ /hpf (NONE SEEN) H 06/28/17 11:00 RPR NONREACTIVE (NONREACTIVE) 06/28/17 11:00 - Physical Exam Vitals and I&O: Vital Signs Temp 97.8 F 06/30/17 15:00 Pulse 67 06/30/17 15:00 Resp 18 06/30/17 15:00 BP 102/63 06/30/17 15:00 Pulse Ox 97 06/30/17 15:00 Intake & Output 06/29/17 06/30/17 06/30/17 18:59 06:59 18:59 Intake Total 981.667 142.560 4819 Output Total 200 350 Balance 781.667 -31.667 1000 Weight (lbs) 125 lb 8 oz 139 lb 1 oz Intake: Intake, IV Amount 731.667 181.201 0616 Cefepime 1 gm In Dextrose 50 5% 50 ml @ 100 mls/hr IV Q24H A[facility] Rx#:[id number] D5-0.45NS 1,000 ml @ 100 681.667 429.729 7508 mls/hr IV .Q10H [facility] Rx#: [id number] Oral 250 Output: Urine 200 350 Other: # Bowel Movements 0 1 Stool Characteristics Liquid Brown Active Medications: Current Medications Acetaminophen (Tylenol) 650 mg PO Q4HR PRN PRN Reason: Mild Pain / Temp above 100 Stop: 08/27/17 14:48 Al Hydrox/Mg Hydrox/Simethicone (Maalox) 30 ml PO Q4HR PRN PRN Reason: GI DISTRESS Stop: 08/27/17 14:48 Albuterol Sulfate (Albuterol 2.5mg/3ml Neb Ud) 2.5 mg HHN QIDRT [facility] Stop: 08/27/17 14:59 Last Admin: 06/30/17 14:53 Dose: 2.5 mg Budesonide (Pulmicort) 0.5 mg HHN BIDRT ANA Stop: 08/27/17 18:59 Last Admin: 06/30/17 06:48 Dose: 0.5 mg Donepezil HCl (Aricept) 10 mg NG HS [facility] Stop: 08/27/17 20:59 Last Admin: 06/29/17 20:19 Dose: 10 mg Famotidine (Pepcid) 20 mg NG DAILY [facility] Stop: 08/28/17 08:59 Last Admin: 06/30/17 08:20 Dose: 20 mg Guaifenesin (Robitussin) 200 mg PO Q4HR PRN PRN Reason: Cough or Congestion Stop: 08/27/17 14:50 Heparin Sodium (Porcine) (Heparin) 5,000 units SUBQ Q12HR [facility] Stop: 08/27/17 20:59 Last Admin: 06/30/17 08:20 Dose: 5,000 units Cefepime HCl 1 gm/ Dextrose 50 mls @ 100 mls/hr IV Q24H [facility] Stop: 08/27/17 15:59 Last Admin: 06/30/17 16:10 Dose: 100 mls/hr Dextrose/Sodium Chloride (D5-0.45ns) 1,000 mls @ 100 mls/hr IV .Q10H [facility] Stop: 08/28/17 10:59 Last Admin: 06/30/17 11:25 Dose: 100 mls/hr Ipratropium [place] (Atrovent Neb 0.5mg/2.5ml) 0.5 mg IH QIDRT [facility] Stop: 08/27/17 14:59 Last Admin: 06/30/17 14:53 Dose: 0.5 mg Lactobacillus Rhamnosus (Culturelle) 1 each PO DAILY [facility] Stop: 08/30/17 08:59 Levetiracetam (Keppra) 500 mg NG BID [facility] Stop: 08/27/17 16:59 Last Admin: 06/30/17 16:11 Dose: 500 mg Lorazepam (Ativan) 1 mg IV Q4H PRN; Protocol PRN Reason: Seizure Stop: 08/27/17 14:50 Miscellaneous (Probiotic Screen) 1 ea MC PRN PRN PRN Reason: PROTOCOL Stop: 08/29/17 13:14 Ondansetron HCl (Zofran) 4 mg IV Q8H PRN PRN Reason: Nausea / Vomiting Stop: 08/27/17 14:50 General: weak, alert HEENT: NC/AT, PERRLA Neck: Supple Lungs: CTAB Cardiovascular: RRR, Normal S1, Normal S2, without murmur Abdomen: soft, non-tender, non-distended, positive bowel sound, other (+ngt) Extremities: excoriation Neurological: alert - Procedures Procedures: Procedures Procedure Code Date EMERGENCY DEPT VISIT 57172 12/28/11 EMERGENCY DEPT VISIT 00558 12/12/11 GROUP PSYCHOTHERAPY 60225 02/14/16 GROUP PSYCHOTHERAPY GZHZZZZ 02/14/16 GROUP PSYCHOTHERAPY 49572 10/06/15 GROUP PSYCHOTHERAPY GZHZZZZ 10/06/15 GROUP PSYCHOTHERAPY 99103 06/21/15 GROUP PSYCHOTHERAPY GZHZZZZ 06/21/15 OTHER GROUP THERAPY 94.44 02/26/15 RECREATIONAL THERAPY 93.81 06/30/12 Internal Medicine Assmt/Plan - Assessment Assessment: ACUTE UTI SEPSIS LEUKOCYTOSIS DEHYDRATION SCHIZOAFFECTIVE BPH THROMBOCYTOSIS COPD - Plan Plan: egd with peg tomorrow continue ivf for hydration monitor electrolytes am labs continue empiric iv antibiotics continue current plan of care
[2017-06-30 19:37] LABS: ALLEN TEST yes; HCO3 28.1 mEq/L (20.0-26.0); pH 7.49 (7.35-7.45)
[2017-06-30 19:38] LABS: FIO2 21
[2017-06-30] MEDS ORDERED: Fluconazole 200mg/100mL 200 MG/100 ML BAG IV ONE (23:45)
[2017-07-01 06:35] LABS: % BASOPHILS 0.2 % (0.0-2.0); % EOSINOPHILS 3.3 % (0.0-5.0); % LYMPHOCYTES 25.5 % (20.0-50.0); HEMATOCRIT 40.1 % (41.0-60); HEMOGLOBIN 13.9 gm/dL (12-16); MEAN CELL VOLUME 91.4 fl (80-99); MEAN CORPUSCULAR HEMOGLOBIN 31.6 pg (27.0-31.0); MEAN CORPUSCULAR HGB CONC 34.6 pg (28.0-36.0); MEAN PLATELET VOLUME 7.1 fl; NEUTROPHILE ABSOLUTE 5.2 Th/cmm (1.8-8.0); PLATELET COUNT 328 Th/cmm (150-400); RED BLOOD COUNT 4.39 Mil/cmm (3.80-5.80); RED CELL DISTRIBUTION WIDTH 14.6 % (11.5-20.0)
[2017-07-01 06:39] LABS: WHITE BLOOD COUNT 8.3 Th/cmm (4.8-10.8)
[2017-07-01 06:57] LABS: ANION GAP 8.7 (7.0-16.0); BUN - UREA NITROGEN 4 mg/dL (7-25); BUN/CREATININE RATIO 5.7; CALCIUM SERUM 8.6 mg/dL (8.6-10.3); CARBON DIOXIDE 27.5 mEq/L (21.0-31.0); CHLORIDE 107 mEq/L (98-107); CREATININE - SERUM 0.7 mg/dL (0.7-1.3); GLUCOSE 105 mg/dL (70-105); POTASSIUM SERUM 3.2 mEq/L (3.5-5.1); SODIUM SERUM 140 mEq/L (136-145)
[2017-07-01] MEDS: Budesonide 0.5 Mg/2 mL Ud HHN SCH ×2 (07:26→18:39)
[2017-07-01] MEDS: Ipratropium Neb 0.5 mg/2.5 mL UD IH SCH ×4 (07:26→18:39)
[2017-07-01] MEDS: Albuterol Nebulizer 2.5mg/3mL HHN SCH ×4 (07:26→18:39)
[2017-07-01] MEDS: Lactobacillus Rhamnosus 10 Billion CFU Capsule PO SCH (09:09)
[2017-07-01] MEDS: Levetiracetam 500 mg/5mL 5mL UDC NG SCH ×2 (09:09→16:57)
[2017-07-01] MEDS: D5-0.45NS 1,000 ML IV SCH ×2 (09:23→17:22)
--- NOTE | 2017-07-01 12:56 | Internal Medicine Prog Note ---
Internal Medicine Subjective - Subjective Service Date: 07/01/17 Patient seen and examined:: with staff Patient is:: awake, verbal, confused Patient Complaints of:: other Per staff patient has:: poor appetite, poor oral intake Internal Medicine Objective - Results Result Diagrams: 07/01/17 06:15 07/01/17 06:15 Recent Labs: Laboratory Last Values WBC 8.3 Th/cmm (4.8-10.8) D 07/01/17 06:15 RBC 4.39 Mil/cmm (3.80-5.80) 07/01/17 06:15 Hgb 13.9 gm/dL (12-16) 07/01/17 06:15 Hct 40.1 % (41.0-60) L 07/01/17 06:15 MCV 91.4 fl (80-99) 07/01/17 06:15 MCH 31.6 pg (27.0-31.0) H 07/01/17 06:15 MCHC Differential 34.6 pg (28.0-36.0) 07/01/17 06:15 RDW 14.6 % (11.5-20.0) 07/01/17 06:15 Plt Count 328 Th/cmm (150-400) 07/01/17 06:15 MPV 7.1 fl 07/01/17 06:15 Neutrophils % 62.0 % (40.0-80.0) 07/01/17 06:15 Lymphocytes % 25.5 % (20.0-50.0) 07/01/17 06:15 Monocytes % 9.0 % (2.0-10.0) 07/01/17 06:15 Eosinophils % 3.3 % (0.0-5.0) 07/01/17 06:15 Basophils % 0.2 % (0.0-2.0) 07/01/17 06:15 PT 12.0 SECONDS (9.5-11.5) H 06/28/17 11:00 INR 1.14 (0.5-1.4) 06/28/17 11:00 Specimen Source arterial 06/30/17 19:20 Sample Site Right Radial 06/30/17 19:20 pH 7.49 (7.35-7.45) H 06/30/17 19:20 pCO2 36.0 mmHg (35.0-45.0) 06/30/17 19:20 pO2 89.0 mmHg (80.0-100.0) 06/30/17 19:20 HCO3 28.1 mEq/L (20.0-26.0) H 06/30/17 19:20 Base Excess 4.0 mEq/L (-3.0-3.0) H 06/30/17 19:20 O2 Saturation 98.0 % (92.0-100.0) 06/30/17 19:20 Stefano Test yes 06/30/17 19:20 Vent Rate n/a 06/30/17 19:20 Inspired O2 21 06/30/17 19:20 Tidal Volume n/a 06/30/17 19:20 PEEP n/a 06/30/17 19:20 Pressure (ins/psv/peep) n/a 06/30/17 19:20 Critical Value abroedel mold puller 06/30/17 19:20 Sodium 140 mEq/L (136-145) 07/01/17 06:15 Potassium 3.2 mEq/L (3.5-5.1) L 07/01/17 06:15 Chloride 107 mEq/L (98-107) 07/01/17 06:15 Carbon Dioxide 27.5 mEq/L (21.0-31.0) 07/01/17 06:15 Anion Gap 8.7 (7.0-16.0) 07/01/17 06:15 BUN 4 mg/dL (7-25) L 07/01/17 06:15 Creatinine 0.7 mg/dL (0.7-1.3) 07/01/17 06:15 Est GFR ( Amer) TNP 07/01/17 06:15 Est GFR (Non-Af Amer) TNP 07/01/17 06:15 BUN/Creatinine Ratio 5.7 07/01/17 06:15 Glucose 105 mg/dL (70-105) 07/01/17 06:15 Calcium 8.6 mg/dL (8.6-10.3) 07/01/17 06:15 Magnesium 2.0 mg/dL (1.9-2.7) 06/29/17 06:14 Total Bilirubin 0.5 mg/dL (0.3-1.0) 06/28/17 11:00 AST 22 U/L (13-39) 06/28/17 11:00 ALT 37 U/L (7-52) 06/28/17 11:00 Alkaline Phosphatase 78 U/L (34-104) 06/28/17 11:00 Ammonia 34 umol/L (16-53) 06/29/17 06:14 Troponin I 0.02 ng/mL (0.01-0.05) 06/28/17 11:00 B-Natriuretic Peptide 94.7 pg/mL (5.0-100.0) 06/29/17 06:14 Total Protein 8.3 gm/dL (6.0-8.3) 06/28/17 11:00 Albumin 3.8 gm/dL (4.2-5.5) L 06/28/17 11:00 Globulin 4.5 gm/dL 06/28/17 11:00 Albumin/Globulin Ratio 0.8 (1.0-1.8) L 06/28/17 11:00 TSH 0.30 uIU/ml (0.34-5.60) L 06/28/17 11:00 Urine Source [place] 06/28/17 11:00 Urine Color YELLOW 06/28/17 11:00 Urine Clarity HAZY (CLEAR) 06/28/17 11:00 Urine pH 5.5 (4.6 - 8.0) 06/28/17 11:00 Ur Specific [place] >= 1.030 (1.005-1.030) 06/28/17 11:00 Urine Protein 100 mg/dL (NEGATIVE) H 06/28/17 11:00 Urine Glucose (UA) NEGATIVE mg/dL (NEGATIVE) 06/28/17 11:00 Urine Ketones 15 mg/dL (NEGATIVE) H 06/28/17 11:00 Urine Blood LARGE (NEGATIVE) H 06/28/17 11:00 Urine Nitrate NEGATIVE (NEGATIVE) 06/28/17 11:00 Urine Bilirubin SMALL (NEGATIVE) H 06/28/17 11:00 Urine Urobilinogen 0.2 E.U./dL (0.2 - 1.0) 06/28/17 11:00 Ur Leukocyte Esterase MODERATE (NEGATIVE) H 06/28/17 11:00 Urine RBC 10-25 /hpf (0-5) H 06/28/17 11:00 Urine WBC >100 /hpf (0-5) H 06/28/17 11:00 Ur Epithelial Cells FEW /lpf (FEW) 06/28/17 11:00 Urine Bacteria 2+ /hpf (NONE SEEN) H 06/28/17 11:00 RPR NONREACTIVE (NONREACTIVE) 06/28/17 11:00 - Physical Exam Vitals and I&O: Vital Signs Temp 97.6 F 07/01/17 02:15 Pulse 68 07/01/17 11:34 Resp 18 07/01/17 11:34 BP 118/77 07/01/17 04:00 Pulse Ox 97 07/01/17 11:34 Intake & Output 06/30/17 07/01/17 07/01/17 18:59 06:59 18:59 Intake Total 1000 1250 1000 Output Total 2300 Balance 1000 -1050 1000 Weight (lbs) 136 lb 8 oz Intake: Intake, IV Amount 1000 1100 1000 D5-0.45NS 1,000 ml @ 100 1000 1000 1000 mls/hr IV .Q10H [facility] Rx#: [id number] Tube Feeding 150 Output: Urine 2300 Active Medications: Current Medications Acetaminophen (Tylenol) 650 mg PO Q4HR PRN PRN Reason: Mild Pain / Temp above 100 Stop: 08/27/17 14:48 Al Hydrox/Mg Hydrox/Simethicone (Maalox) 30 ml PO Q4HR PRN PRN Reason: GI DISTRESS Stop: 08/27/17 14:48 Albuterol Sulfate (Albuterol 2.5mg/3ml Neb Ud) 2.5 mg HHN QIDRT ANA Stop: 08/27/17 14:59 Last Admin: 07/01/17 11:30 Dose: 2.5 mg Budesonide (Pulmicort) 0.5 mg HHN BIDRT ANA Stop: 08/27/17 18:59 Last Admin: 07/01/17 07:26 Dose: 0.5 mg Donepezil HCl (Aricept) 10 mg NG HS ANA Stop: 08/27/17 20:59 Last Admin: 06/30/17 21:28 Dose: 10 mg Famotidine (Pepcid) 20 mg NG DAILY [facility] Stop: 08/28/17 08:59 Last Admin: 07/01/17 09:09 Dose: 20 mg Guaifenesin (Robitussin) 200 mg PO Q4HR PRN PRN Reason: Cough or Congestion Stop: 08/27/17 14:50 Heparin Sodium (Porcine) (Heparin) 5,000 units SUBQ Q12HR [facility] Stop: 08/27/17 20:59 Last Admin: 07/01/17 09:09 Dose: 5,000 units Cefepime HCl 1 gm/ Dextrose 50 mls @ 100 mls/hr IV Q24H [facility] Stop: 08/27/17 15:59 Last Admin: 06/30/17 16:10 Dose: 100 mls/hr Dextrose/Sodium Chloride (D5-0.45ns) 1,000 mls @ 100 mls/hr IV .Q10H [facility] Stop: 08/28/17 10:59 Last Admin: 07/01/17 09:23 Dose: 100 mls/hr Fluconazole (Diflucan) 200 mg in 100 mls @ 100 mls/hr IV Q24HR [facility] Stop: 08/30/17 20:59 Ipratropium [place] (Atrovent Neb 0.5mg/2.5ml) 0.5 mg IH QIDRT [facility] Stop: 08/27/17 14:59 Last Admin: 07/01/17 11:30 Dose: 0.5 mg Lactobacillus Rhamnosus (Culturelle) 1 each PO DAILY [facility] Stop: 08/30/17 08:59 Last Admin: 07/01/17 09:09 Dose: 1 each Levetiracetam (Keppra) 500 mg NG BID [facility] Stop: 08/27/17 16:59 Last Admin: 07/01/17 09:09 Dose: 500 mg Lorazepam (Ativan) 1 mg IV Q4H PRN; Protocol PRN Reason: Seizure Stop: 08/27/17 14:50 Miscellaneous (Probiotic Screen) 1 ea MC PRN PRN PRN Reason: PROTOCOL Stop: 08/29/17 13:14 Ondansetron HCl (Zofran) 4 mg IV Q8H PRN PRN Reason: Nausea / Vomiting Stop: 08/27/17 14:50 General: weak, alert HEENT: NC/AT, PERRLA Neck: Supple Lungs: CTAB Cardiovascular: RRR, Normal S1, Normal S2, without murmur Abdomen: soft, non-tender, non-distended, positive bowel sound, other (+ngt) Extremities: excoriation Neurological: alert - Procedures Procedures: Procedures Procedure Code Date EMERGENCY DEPT VISIT 04095 12/28/11 EMERGENCY DEPT VISIT 88265 12/12/11 GROUP PSYCHOTHERAPY 66700 02/14/16 GROUP PSYCHOTHERAPY GZHZZZZ 02/14/16 GROUP PSYCHOTHERAPY 00333 10/06/15 GROUP PSYCHOTHERAPY GZHZZZZ 10/06/15 GROUP PSYCHOTHERAPY 91855 06/21/15 GROUP PSYCHOTHERAPY GZHZZZZ 06/21/15 OTHER GROUP THERAPY 94.44 02/26/15 RECREATIONAL THERAPY 93.81 06/30/12 Internal Medicine Assmt/Plan - Assessment Assessment: ACUTE UTI SEPSIS LEUKOCYTOSIS DEHYDRATION SCHIZOAFFECTIVE BPH THROMBOCYTOSIS COPD - Plan Plan: peg placement, awaiting for 2nd signature from another md continue ivf for hydration monitor electrolytes am labs continue empiric iv antibiotics continue current plan of care Nutritional Asmnt/Malnutr-PDOC - Dietary Evaluation Malnutrition Findings (Please click <Entered> for more info): Nutritional Asmnt/Malnutrition Start: 07/01/17 12: 13 Text: Status: Complete Freq: Document 07/01/17 12:13 GSUN (Rec: 07/01/17 12:29 GSUN [email or web address]) Nutritional Asmnt/Malnutrition Patient General Information Nutritional Screening Consult Diagnosis UTI, sepsis, leukocytosis Pertinent Medical Hx/Surgical Hx BPH, COPD, DVT Subjective Information 72 year old male. Consult for significant weight loss. Spoke to RN Yahaira, possible EGD and PEG placement. Per RN notes, rehab center report recent weight loss and stopped eating 2 days prior to adm. Observed pt with ng tube and mittens, eyes closed, appeared to be responding to internal stimuli, moving extremities. Moderate wasting to chest and temporal, loose skin to arms wiht muscle present. Current Diet Order/ Nutrition Support NPO Pertinent Medications D5-0.45ns, Pepcid, Culturelle, Zofran Pertinent Labs Reviewed. Nutritional Hx/Data Height 5 ft 8 in Height (Calculated Centimeters) 172.7 Current Weight (lbs) 136 lb 8 oz Weight (Calculated Kilograms) 61.9 Weight (Calculated Grams) 96691.4 Stewart Body Weight 154 Recent Weight Change Yes Weight Status Approriate GI Symptoms Food Allergies No Skin Integrity/Comment: Vlad 13. Skin dryness. Estimated Nutritional Goals BEE in Kcals: Using Current wt Calories/Kcals/Kg CBW 136.5lb/62kg Kcals Calculated 1860-2170kcal (30-35kcal/kg) Protein: Using Current wt Protein Calculated 62-74g (1-1.2g/kg) Fluid: ml 1550-1860ml (1ml/kcal) Nutritional Problem 1. Problem Problem Inadequate oral food beverage intake related to Etiology unknown, possibly cognition aeb Signs/Symptoms: per RN report stopped eatign 2 days prior to adm, currently NPO, significant weight loss 2. Problem Problem Increased kcal and prot needs related to Etiology recent significant weight loss , hypermetabolic state aeb Signs/Symptoms: sepsis, moderate wasting to chest and temporals Intervention/Recommendation Comments 1. If enteral feeding suggested, recommend Fibersource at 70ml/hr x 24hrs with consideration of significant weight loss, sepsis, moderate muscle/fat depletion. Initiate at 30ml/hr for first 24 hrs, monitor for refeeding syndrome hx NPO and tolerance, increase 10ml/hr q6hrs until goal 70ml/hr. This to provide 1680ml total volume, 2016kcal, 91g protein. 2. If oral diet suggested, recommend swallow eval. Regular diet with dit texture per ST. Expected Outcomes/Goals Expected Outcomes/Goals 1. Pt to meet at least 100% of estimated nutritinoal needs.
[2017-07-01] MEDS ORDERED: Potassium Chloride 20 mEq ER Tab PO ONE (20:28)
--- NOTE | 2017-07-01 20:35 | Operative Report ---
DATE OF SURGERY: 07/01/2017 PROCEDURE: Percutaneous endoscopic gastrostomy tube placement. INDICATION FOR PROCEDURE: Dysphagia. CONSENT: Informed consent could not be obtained due to consensus among the treating physician, the patient will need the PEG. ANESTHESIA USED: Propofol given by anesthesiologist. PREOPERATIVE DIAGNOSIS: Dysphagia. POSTOPERATIVE DIAGNOSES: Dysphagia, status post G-tube placement. DESCRIPTION OF PROCEDURE: The patient was sedated, then placed on his back. Head was tilted to the side and flexed forward. Upper Olympus endoscope was introduced into the mouth and advanced to the esophagus, which was intubated under direct visualization. Esophageal mucosa was briefly seen, this was normal. Scope was advanced to the stomach where the gastric mucosa was examined and it showed mild gastritis. Scope was advanced through the pylorus to the duodenum where the bulb and second part were examined. They were both normal. Scope was withdrawn to the stomach, retroflexed to examine the cardia and fundus. It showed a small hiatal hernia. Scope was then straightened. An area of transillumination was chosen and the skin overlying that area was sterilized with Betadine, then anesthetized with 1% lidocaine. Anesthesia needle gone to the stomach easily, so skin overlying that was slightly incised with the scalpel and with a long Angiocath with a trocar was introduced into the stomach and surrounded by the snare. Trocar was then withdrawn while then introduced into the stomach and grasped by the snare. Scope was then withdrawn with the snare holding the wire. A size 20 G-tube was connected to the wire, then the point of entry was made larger with the scalpel. G-tube was pulled out of the patient's abdomen using standard pull technique. G-tube was secured in place. The patient tolerated the procedure well. There was no immediate postoperative complication. RECOMMENDATIONS: 1. May use G-tube for medications. 2. After 12 hours flush G-tube with 40 mL of water, then start Fibersource at 40 mL an hour. 3. Increase Fibersource by 10 mL an hour every 12 hours up to 60 mL an hour. 4. Check residuals every 6 hours and hold feeding if residual more than 200 mL. 5. Abdominal binder. 6. NG was removed. Thank you, Dr. Ward for allowing me to participate in the care of the patient. If you have any further questions, please let me know. JOB# [id number]
[2017-07-01] MEDS: Fluconazole 200 mg/100 mL Premix Bag IV SCH (21:33)
--- NOTE | 2017-07-01 23:21 | Consultation ---
DATE OF CONSULTATION: 07/01/2017 PATIENT OF: Dr. Ward. Thank you very much Dr. Ward for this consultation. HISTORY OF PRESENT ILLNESS: This is a 72-year-old male who was admitted with poor intake and severe dehydration. The patient has history of COPD and was concerned about aspiration pneumonia and the patient was started on IV antibiotics, IV hydration, underwent G tube placement, did well. He is unable to give any further history. PAST MEDICAL HISTORY: As above. SOCIAL HISTORY: Not available. REVIEW OF SYSTEMS: Unable to obtain because of the patient's condition. PHYSICAL EXAMINATION: GENERAL: The patient is awake, alert, but nonverbal, not in acute distress. VITAL SIGNS: Temperature is 98.0, pulse 80, respiration is 16, blood pressure 124/71, saturation 100%. CHEST: Good breath sounds, but decreased in bases, no wheezing or crackles. HEART: Regular rate . ABDOMEN: Soft. EXTREMITIES: No edema. LABORATORY DATA: WBC 8.3, hemoglobin 13.9, hematocrit 40.1, platelets 328. ABGs: pH 7.49, pCO2 36, pO2 89, bicarb 28, saturation 98%. Sodium 140, potassium 3.2, BUN is 4, creatinine 0.7. The last chest x-ray showed no acute infiltrate. IMPRESSION: This is a 72-year-old male with: 1. Chronic obstructive pulmonary disease that seems to be stable with breathing treatment. 2. Dysphagia. 3. Urinary tract infection. 4. aspiration pneumonia. PLAN: 1. IV antibiotics. 2. Nebulizer. 3. Pulmonary toilet. 4. G-tube feeding. 5. Follow up chest x-ray. Thank you very much. I will follow the patient with you. JOB# [id number] KASHIF
--- NOTE | 2017-07-02 03:15 | Progress Notes ---
DATE: 06/30/2017 PSYCHIATRIC PROGRESS NOTE SUBJECTIVE: Staff was spoken to. The patient is interviewed. Mood is noted to be irritable. Affect is constricted. Insight and judgment at this time are noted to be very much impaired. Impulse control seems to be limited. PLAN: The patient has been so far compliant with the medications, but the patient gets easily agitated. It is decided to add low dose of the Ativan as needed and then follow the patient with the supportive therapy. JOB# [id number]
[2017-07-02 05:24] LABS: % BASOPHILS 0.3 % (0.0-2.0); % EOSINOPHILS 4.1 % (0.0-5.0); % LYMPHOCYTES 26.7 % (20.0-50.0); % MONOCYTES 9.9 % (2.0-10.0); HEMATOCRIT 40.4 % (41.0-60); HEMOGLOBIN 13.4 gm/dL (12-16); MEAN CELL VOLUME 92.2 fl (80-99); MEAN CORPUSCULAR HEMOGLOBIN 30.6 pg (27.0-31.0); MEAN CORPUSCULAR HGB CONC 33.2 pg (28.0-36.0); MEAN PLATELET VOLUME 7.2 fl; NEUTROPHILE ABSOLUTE 4.8 Th/cmm (1.8-8.0); PLATELET COUNT 294 Th/cmm (150-400); RED BLOOD COUNT 4.38 Mil/cmm (3.80-5.80); RED CELL DISTRIBUTION WIDTH 14.7 % (11.5-20.0); WHITE BLOOD COUNT 8.1 Th/cmm (4.8-10.8)
[2017-07-02 05:54] LABS: ANION GAP 7.7 (7.0-16.0); BUN - UREA NITROGEN 4 mg/dL (7-25); BUN/CREATININE RATIO 6.7; CALCIUM SERUM 8.3 mg/dL (8.6-10.3); CARBON DIOXIDE 25.2 mEq/L (21.0-31.0); CHLORIDE 104 mEq/L (98-107); CREATININE - SERUM 0.6 mg/dL (0.7-1.3); GLUCOSE 118 mg/dL (70-105); SODIUM SERUM 134 mEq/L (136-145)
[2017-07-02 05:57] LABS: POTASSIUM SERUM 2.9 mEq/L (3.5-5.1)
[2017-07-02] MEDS: Ipratropium Neb 0.5 mg/2.5 mL UD IH SCH ×4 (07:01→18:51)
[2017-07-02] MEDS: Albuterol Nebulizer 2.5mg/3mL HHN SCH ×4 (07:01→18:51)
[2017-07-02] MEDS: Budesonide 0.5 Mg/2 mL Ud HHN SCH ×2 (07:24→18:51)
--- NOTE | 2017-07-02 08:37 | Diagnostic Imaging Report ---
CHEST X-RAY: AP view INDICATION: Shortness of breath COMPARISON: 06/28/2017 FINDINGS: Chronic changes are seen with bibasal atelectatic changes. No focal consolidation or effusions. Heart size is normal. IMPRESSION: Chronic lung changes slight right basal atelectasis. No focal consolidation identified.
[2017-07-02] MEDS: Lactobacillus Rhamnosus 10 Billion CFU Capsule PO SCH (08:45)
[2017-07-02] MEDS: Levetiracetam 500 mg/5mL 5mL UDC NG SCH ×2 (08:45→17:38)
[2017-07-02] MEDS ORDERED: Potassium Chloride 40 MEQ, Lidocaine 1% 20mL Vial 25 MG in Sodium Chloride 0.9% 250 ML IV ONE (11:15)
--- NOTE | 2017-07-02 12:58 | Internal Medicine Prog Note ---
Internal Medicine Subjective - Subjective Service Date: 07/02/17 Patient is:: awake, verbal, confused Patient Complaints of:: other Per staff patient has:: poor appetite, poor oral intake Internal Medicine Objective - Results Result Diagrams: 07/02/17 05:13 07/02/17 05:13 Recent Labs: Laboratory Last Values WBC 8.1 Th/cmm (4.8-10.8) 07/02/17 05:13 RBC 4.38 Mil/cmm (3.80-5.80) 07/02/17 05:13 Hgb 13.4 gm/dL (12-16) 07/02/17 05:13 Hct 40.4 % (41.0-60) L 07/02/17 05:13 MCV 92.2 fl (80-99) 07/02/17 05:13 MCH 30.6 pg (27.0-31.0) 07/02/17 05:13 MCHC Differential 33.2 pg (28.0-36.0) 07/02/17 05:13 RDW 14.7 % (11.5-20.0) 07/02/17 05:13 Plt Count 294 Th/cmm (150-400) 07/02/17 05:13 MPV 7.2 fl 07/02/17 05:13 Neutrophils % 59.0 % (40.0-80.0) 07/02/17 05:13 Lymphocytes % 26.7 % (20.0-50.0) 07/02/17 05:13 Monocytes % 9.9 % (2.0-10.0) 07/02/17 05:13 Eosinophils % 4.1 % (0.0-5.0) 07/02/17 05:13 Basophils % 0.3 % (0.0-2.0) 07/02/17 05:13 PT 12.0 SECONDS (9.5-11.5) H 06/28/17 11:00 INR 1.14 (0.5-1.4) 06/28/17 11:00 Specimen Source arterial 06/30/17 19:20 Sample Site Right Radial 06/30/17 19:20 pH 7.49 (7.35-7.45) H 06/30/17 19:20 pCO2 36.0 mmHg (35.0-45.0) 06/30/17 19:20 pO2 89.0 mmHg (80.0-100.0) 06/30/17 19:20 HCO3 28.1 mEq/L (20.0-26.0) H 06/30/17 19:20 Base Excess 4.0 mEq/L (-3.0-3.0) H 06/30/17 19:20 O2 Saturation 98.0 % (92.0-100.0) 06/30/17 19:20 Stefano Test yes 06/30/17 19:20 Vent Rate n/a 06/30/17 19:20 Inspired O2 21 06/30/17 19:20 Tidal Volume n/a 06/30/17 19:20 PEEP n/a 06/30/17 19:20 Pressure (ins/psv/peep) n/a 06/30/17 19:20 Critical Value abroedel body worker 06/30/17 19:20 Sodium 134 mEq/L (136-145) L 07/02/17 05:13 Potassium 2.9 mEq/L (3.5-5.1) L* 07/02/17 05:13 Chloride 104 mEq/L (98-107) 07/02/17 05:13 Carbon Dioxide 25.2 mEq/L (21.0-31.0) 07/02/17 05:13 Anion Gap 7.7 (7.0-16.0) 07/02/17 05:13 BUN 4 mg/dL (7-25) L 07/02/17 05:13 Creatinine 0.6 mg/dL (0.7-1.3) L 07/02/17 05:13 Est GFR ( Amer) TNP 07/02/17 05:13 Est GFR (Non-Af Amer) TNP 07/02/17 05:13 BUN/Creatinine Ratio 6.7 07/02/17 05:13 Glucose 118 mg/dL (70-105) H 07/02/17 05:13 Calcium 8.3 mg/dL (8.6-10.3) L 07/02/17 05:13 Magnesium 2.0 mg/dL (1.9-2.7) 06/29/17 06:14 Total Bilirubin 0.5 mg/dL (0.3-1.0) 06/28/17 11:00 AST 22 U/L (13-39) 06/28/17 11:00 ALT 37 U/L (7-52) 06/28/17 11:00 Alkaline Phosphatase 78 U/L (34-104) 06/28/17 11:00 Ammonia 34 umol/L (16-53) 06/29/17 06:14 Troponin I 0.02 ng/mL (0.01-0.05) 06/28/17 11:00 B-Natriuretic Peptide 94.7 pg/mL (5.0-100.0) 06/29/17 06:14 Total Protein 8.3 gm/dL (6.0-8.3) 06/28/17 11:00 Albumin 3.8 gm/dL (4.2-5.5) L 06/28/17 11:00 Globulin 4.5 gm/dL 06/28/17 11:00 Albumin/Globulin Ratio 0.8 (1.0-1.8) L 06/28/17 11:00 Vitamin B12 923 pg/mL (211-946) 06/29/17 06:17 Folic Acid 13.0 ng/mL (>3.0) 06/29/17 06:17 TSH 0.30 uIU/ml (0.34-5.60) L 06/28/17 11:00 Urine Source [place] 06/28/17 11:00 Urine Color YELLOW 06/28/17 11:00 Urine Clarity HAZY (CLEAR) 06/28/17 11:00 Urine pH 5.5 (4.6 - 8.0) 06/28/17 11:00 Ur Specific [place] >= 1.030 (1.005-1.030) 06/28/17 11:00 Urine Protein 100 mg/dL (NEGATIVE) H 06/28/17 11:00 Urine Glucose (UA) NEGATIVE mg/dL (NEGATIVE) 06/28/17 11:00 Urine Ketones 15 mg/dL (NEGATIVE) H 06/28/17 11:00 Urine Blood LARGE (NEGATIVE) H 06/28/17 11:00 Urine Nitrate NEGATIVE (NEGATIVE) 06/28/17 11:00 Urine Bilirubin SMALL (NEGATIVE) H 06/28/17 11:00 Urine Urobilinogen 0.2 E.U./dL (0.2 - 1.0) 06/28/17 11:00 Ur Leukocyte Esterase MODERATE (NEGATIVE) H 06/28/17 11:00 Urine RBC 10-25 /hpf (0-5) H 06/28/17 11:00 Urine WBC >100 /hpf (0-5) H 06/28/17 11:00 Ur Epithelial Cells FEW /lpf (FEW) 06/28/17 11:00 Urine Bacteria 2+ /hpf (NONE SEEN) H 06/28/17 11:00 Levetiracetam 2.0 ug/mL (10.0-40.0) L 06/28/17 11:40 RPR NONREACTIVE (NONREACTIVE) 06/28/17 11:00 - Physical Exam Vitals and I&O: Vital Signs Temp 98.0 F 07/02/17 08:00 Pulse 65 07/02/17 11:21 Resp 18 07/02/17 11:21 BP 109/65 07/02/17 08:00 Pulse Ox 96 07/02/17 11:21 Intake & Output 07/01/17 07/02/17 07/02/17 18:59 06:59 18:59 Intake Total 1798.333 Output Total 950 Balance 1798.333 -950 Weight (lbs) 136 lb 136 lb Intake: Intake, IV Amount 1798.333 D5-0.45NS 1,000 ml @ 100 1798.333 mls/hr IV .Q10H [facility] Rx#: [id number] Output: Urine 950 Other: # Bowel Movements 0 Stool Characteristics Soft Active Medications: Current Medications Acetaminophen (Tylenol) 650 mg PO Q4HR PRN PRN Reason: Mild Pain / Temp above 100 Stop: 08/27/17 14:48 Al Hydrox/Mg Hydrox/Simethicone (Maalox) 30 ml PO Q4HR PRN PRN Reason: GI DISTRESS Stop: 08/27/17 14:48 Albuterol Sulfate (Albuterol 2.5mg/3ml Neb Ud) 2.5 mg HHN QIDRT [facility] Stop: 08/27/17 14:59 Last Admin: 07/02/17 11:16 Dose: 2.5 mg Budesonide (Pulmicort) 0.5 mg HHN BIDRT [facility] Stop: 08/27/17 18:59 Last Admin: 07/02/17 07:24 Dose: 0.5 mg Donepezil HCl (Aricept) 10 mg NG HS [facility] Stop: 08/27/17 20:59 Last Admin: 07/01/17 21:34 Dose: 10 mg Famotidine (Pepcid) 20 mg NG DAILY [facility]NA Stop: 08/28/17 08:59 Last Admin: 07/02/17 08:45 Dose: 20 mg Guaifenesin (Robitussin) 200 mg PO Q4HR PRN PRN Reason: Cough or Congestion Stop: 08/27/17 14:50 Heparin Sodium (Porcine) (Heparin) 5,000 units SUBQ Q12HR [facility] Stop: 08/27/17 20:59 Last Admin: 07/02/17 08:45 Dose: 5,000 units Cefepime HCl 1 gm/ Dextrose 50 mls @ 100 mls/hr IV Q24H [facility] Stop: 08/27/17 15:59 Last Admin: 07/01/17 16:57 Dose: 100 mls/hr Dextrose/Sodium Chloride (D5-0.45ns) 1,000 mls @ 100 mls/hr IV .Q10H [facility] Stop: 08/28/17 10:59 Last Admin: 07/01/17 17:22 Dose: 100 mls/hr Fluconazole (Diflucan) 200 mg in 100 mls @ 100 mls/hr IV Q24HR [facility] Stop: 08/30/17 20:59 Last Admin: 07/01/17 21:33 Dose: 100 mls/hr Potassium Chloride 40 meq/Lidocaine HCl 25 mg/ Sodium Chloride 272.5 mls @ 68 mls/hr IV X1 ONE Stop: 07/02/17 15:15 Last Admin: 07/02/17 11:52 Dose: 68 mls/hr Ipratropium [place] (Atrovent Neb 0.5mg/2.5ml) 0.5 mg IH QIDRT [facility] Stop: 08/27/17 14:59 Last Admin: 07/02/17 11:16 Dose: 0.5 mg Lactobacillus Rhamnosus (Culturelle) 1 each PO DAILY ANA Stop: 08/30/17 08:59 Last Admin: 07/02/17 08:45 Dose: 1 each Levetiracetam (Keppra) 500 mg NG BID ANA Stop: 08/27/17 16:59 Last Admin: 07/02/17 08:45 Dose: 500 mg Lorazepam (Ativan) 1 mg IV Q4H PRN; Protocol PRN Reason: Seizure Stop: 08/27/17 14:50 Miscellaneous (Probiotic Screen) 1 ea MC PRN PRN PRN Reason: PROTOCOL Stop: 08/29/17 13:14 Ondansetron HCl (Zofran) 4 mg IV Q8H PRN PRN Reason: Nausea / Vomiting Stop: 08/27/17 14:50 General: weak, alert HEENT: NC/AT, PERRLA Neck: Supple Lungs: CTAB Cardiovascular: RRR, Normal S1, Normal S2, without murmur Abdomen: soft, non-tender, non-distended, positive bowel sound, other (+ngt) Extremities: excoriation Neurological: alert - Procedures Procedures: Procedures Procedure Code Date EGD PLACE GASTROSTOMY TUBE 54305 06/28/17 EMERGENCY DEPT VISIT 97743 12/28/11 EMERGENCY DEPT VISIT 50352 12/12/11 GROUP PSYCHOTHERAPY 93876 02/14/16 GROUP PSYCHOTHERAPY GZHZZZZ 02/14/16 GROUP PSYCHOTHERAPY 05483 10/06/15 GROUP PSYCHOTHERAPY GZHZZZZ 10/06/15 GROUP PSYCHOTHERAPY 99828 06/21/15 GROUP PSYCHOTHERAPY GZHZZZZ 06/21/15 INSERTION OF FEEDING DEVICE INTO STOMACH, PERC APPROACH [id number] 06/28/17 OTHER GROUP THERAPY 94.44 02/26/15 RECREATIONAL THERAPY 93.81 06/30/12 Internal Medicine Assmt/Plan - Assessment Assessment: ACUTE UTI SEPSIS LEUKOCYTOSIS DEHYDRATION SCHIZOAFFECTIVE BPH THROMBOCYTOSIS COPD - Plan Plan: LTAC EVAL continue ivf for hydration monitor electrolytes am labs continue empiric iv antibiotics continue current plan of care Nutritional Asmnt/Malnutr-PDOC - Dietary Evaluation Malnutrition Findings (Please click <Entered> for more info): Nutritional Asmnt/Malnutrition Start: 07/01/17 12: 13 Text: Status: Complete Freq: Document 07/01/17 12:13 GSUN (Rec: 07/01/17 12:29 GSTY [id number]) Nutritional Asmnt/Malnutrition Patient General Information Nutritional Screening Consult Diagnosis UTI, sepsis, leukocytosis Pertinent Medical Hx/Surgical Hx BPH, COPD, DVT Subjective Information 72 year old male. Consult for significant weight loss. Spoke to NELLI Syed, possible EGD and PEG placement. Per RN notes, rehab center report recent weight loss and stopped eating 2 days prior to adm. Observed pt with ng tube and mittens, eyes closed, appeared to be responding to internal stimuli, moving extremities. Moderate wasting to chest and temporal, loose skin to arms wiht muscle present. Current Diet Order/ Nutrition Support NPO Pertinent Medications D5-0.45ns, Pepcid, Culturelle, Zofran Pertinent Labs Reviewed. Nutritional Hx/Data Height 5 ft 8 in Height (Calculated Centimeters) 172.7 Current Weight (lbs) 136 lb 8 oz Weight (Calculated Kilograms) 61.9 Weight (Calculated Grams) 65223.4 [place] Body Weight 154 Recent Weight Change Yes Weight Status Approriate GI Symptoms Food Allergies No Skin Integrity/Comment: Vlad 13. Skin dryness. Estimated Nutritional Goals BEE in Kcals: Using Current wt Calories/Kcals/Kg CBW 136.5lb/62kg Kcals Calculated 1860-2170kcal (30-35kcal/kg) Protein: Using Current wt Protein Calculated 62-74g (1-1.2g/kg) Fluid: ml 1550-1860ml (1ml/kcal) Nutritional Problem 1. Problem Problem Inadequate oral food beverage intake related to Etiology unknown, possibly cognition aeb Signs/Symptoms: per RN report stopped eatign 2 days prior to adm, currently NPO, significant weight loss 2. Problem Problem Increased kcal and prot needs related to Etiology recent significant weight loss , hypermetabolic state aeb Signs/Symptoms: sepsis, moderate wasting to chest and temporals Intervention/Recommendation Comments 1. If enteral feeding suggested, recommend Fibersource at 70ml/hr x 24hrs with consideration of significant weight loss, sepsis, moderate muscle/fat depletion. Initiate at 30ml/hr for first 24 hrs, monitor for refeeding syndrome hx NPO and tolerance, increase 10ml/hr q6hrs until goal 70ml/hr. This to provide 1680ml total volume, 2016kcal, 91g protein. 2. If oral diet suggested, recommend swallow eval. Regular diet with dit texture per ST. Expected Outcomes/Goals Expected Outcomes/Goals 1. Pt to meet at least 100% of estimated nutritinoal needs.
[2017-07-02] MEDS: D5-0.45NS 1,000 ML IV SCH (15:32)
[2017-07-02] MEDS: Fluconazole 200 mg/100 mL Premix Bag IV SCH (20:22)
[2017-07-03] MEDS: D5-0.45NS 1,000 ML IV SCH (02:25)
[2017-07-03 05:45] LABS: % BASOPHILS 0.6 % (0.0-2.0); % EOSINOPHILS 5.2 % (0.0-5.0); % LYMPHOCYTES 24.5 % (20.0-50.0); % MONOCYTES 11.8 % (2.0-10.0); % NEUTROPHILS 57.9 % (40.0-80.0); HEMATOCRIT 38.5 % (41.0-60); HEMOGLOBIN 13.1 gm/dL (12-16); MEAN CELL VOLUME 91.9 fl (80-99); MEAN CORPUSCULAR HEMOGLOBIN 31.2 pg (27.0-31.0); MEAN PLATELET VOLUME 7.2 fl; NEUTROPHILE ABSOLUTE 4.7 Th/cmm (1.8-8.0); PLATELET COUNT 281 Th/cmm (150-400); RED BLOOD COUNT 4.19 Mil/cmm (3.80-5.80); WHITE BLOOD COUNT 7.9 Th/cmm (4.8-10.8)
[2017-07-03 06:12] LABS: ANION GAP 6.8 (7.0-16.0); BUN - UREA NITROGEN 6 mg/dL (7-25); BUN/CREATININE RATIO 8.6; CARBON DIOXIDE 28.8 mEq/L (21.0-31.0); CHLORIDE 103 mEq/L (98-107); CREATININE - SERUM 0.7 mg/dL (0.7-1.3); GLUCOSE 124 mg/dL (70-105); POTASSIUM SERUM 3.6 mEq/L (3.5-5.1); SODIUM SERUM 135 mEq/L (136-145)
[2017-07-03] MEDS: Budesonide 0.5 Mg/2 mL Ud HHN SCH (07:06)
[2017-07-03] MEDS: Albuterol Nebulizer 2.5mg/3mL HHN SCH (07:06)
[2017-07-03] MEDS: Ipratropium Neb 0.5 mg/2.5 mL UD IH SCH (07:06)
[2017-07-03] MEDS: Lactobacillus Rhamnosus 10 Billion CFU Capsule PO SCH (09:08)
[2017-07-03] MEDS: Levetiracetam 500 mg/5mL 5mL UDC NG SCH (09:08)
--- NOTE | 2017-07-04 01:18 | Discharge Summary ---
DATE OF DISCHARGE: 07/03/2017 CHIEF COMPLAINT: Generalized weakness, failure to thrive, low blood pressure. FINAL DIAGNOSES: Acute urinary tract infection, sepsis, leukocytosis, acute renal failure/dehydration, schizoaffective disorder, failure to thrive, acute malnutrition, thrombocytosis, BPH, COPD, and status post PEG. HISTORY: This is a 72-year-old male with history of BPH, COPD, history of DVT previously was on anticoagulation, admitted from nursing facility secondary to not eating and not drinking. The patient was evaluated in the ER, was completely debilitated and dehydrated. The patient admitted for further management. PHYSICAL EXAMINATION: VITAL SIGNS: Blood pressure 110/51, respirations 18, pulse 61, and temperature 97.1. GENERAL: Elderly male, appears stated age. NECK: Supple. No mass. LUNGS: Equal breath sounds, few rhonchi. HEART: Regular rate and rhythm with systolic ejection murmur. ABDOMEN: Soft, globular. EXTREMITIES: Positive excoriation, positive G-tube, positive atrophy. NEUROLOGIC: Limited. HOSPITAL COURSE: The patient was admitted to medical floor, continued on aggressive IV hydration and IV antibiotic. The patient was placed on aspiration precautions, swallow evaluation was done. The patient was referred to Dr. Bourgeois for Pulmonary, Dr. Beck for Psychiatry and Dr. Gutiérrez for GI. The patient had a PEG placed. The patient was able to tolerate ____. The patient was transferred to [facility] for further management. CONDITION ON DISCHARGE: Fair. OVERALL PROGNOSIS: Poor. DISCHARGE INSTRUCTIONS: The patient to continue with current management at hospital. [facility]# [id number]
== END 2017-07-03 11:30 | DRG 871 ==
LOC: ER 10:46 → TELE 14:28
PROVIDERS: ADMIT Internal Medicine; ATTEND Internal Medicine
PROC: 0DH63UZ Insertion of Feeding Device into Stomach, Percutaneous Approach (ICD-10-PCS; principal; 2017-07-01)
DX: A41.9 Sepsis, unspecified organism (principal); J69.0 Pneumonitis due to inhalation of food and vomit; N17.9 Acute kidney failure, unspecified; R64 Cachexia; R13.10 Dysphagia, unspecified; F03.91 Unspecified dementia, unspecified severity, with behavioral disturbance; E86.0 Dehydration; F25.9 Schizoaffective disorder, unspecified; J44.9 Chronic obstructive pulmonary disease, unspecified; E46 Unspecified protein-calorie malnutrition; N39.0 Urinary tract infection, site not specified; D47.3 Essential (hemorrhagic) thrombocythemia; N40.0 Benign prostatic hyperplasia without lower urinary tract symptoms; R62.7 Adult failure to thrive; F29 Unspecified psychosis not due to a substance or known physiological condition; I10 Essential (primary) hypertension; I25.10 Atherosclerotic heart disease of native coronary artery without angina pectoris; E78.5 Hyperlipidemia, unspecified; K21.9 Gastro-esophageal reflux disease without esophagitis; K29.70 Gastritis, unspecified, without bleeding; K44.9 Diaphragmatic hernia without obstruction or gangrene; Z86.718 Personal history of other venous thrombosis and embolism; Z68.26 Body mass index [BMI] 26.0-26.9, adult
CPT/HCPCS: 36415-UA; 36600-90; 71010-TC; 80048-TC; 80053-TC; 80299-90; 81001-TC; 82140-TC; 82607-90; 82746-90; 82803-TC; 83735-TC; 83880-TC; 84443-TC; 84484-TC; 85025-TC; 85610-TC; 86592-TC; 87086-90; 90779; 93005; 94640; 94760; J0692; J0696; J1450; J1644; J2001; J2704; J3480; J7030; J7042; J7613; Z7610

== ENCOUNTER 2018-08-27 23:51 | Inpatient (IN) | payer MEDICARE, MEDICAID ==
--- NOTE | 2018-08-28 | ED Physician Chart ---
ED Chief Complaint/HPI - Patient Information Date Seen:: 08/27/18 Time Seen:: 23:50 Chief Complaint:: Fever History of Present Illness:: onset x one day of fever, cough, and congestion; no report of trauma, H/As, S/T , neck pain, C/P, SOB, Abd. pain, A/N/V/D/C, chills, or urinary s/s Allergies:: Allergies Allergy/AdvReac Type Severity Reaction Status Date / Time No Known Allergies Allergy Verified 06/18/16 16:29 Historian:: Patient, EMS Review:: Nurse's Note Reviewed, Old Chart Reviewed, EMS run form Reviewed ED Review of Systems - Review of Systems General/Constitutional: Fever, No chills, No weight loss, No weakness, No diaphoresis, No edema, No loss of appetite Skin: No skin lesions, No rash, No bruising Head: No headache, No light-headedness Eyes: No loss of vision, No pain, No diplopia ENT: No earache, Nasal drainage, No sore throat, No tinnitus Neck: No neck pain, No swelling, No thyromegaly, No stiffness, No mass noted Cardio Vascular: No chest pain, No palpitations, No PND, No orthopnea, No edema Pulmonary: SOB, Cough, No sputum, No wheezing GI: No nausea, No vomiting, No diarrhea, No pain, No melena, No hematochezia, No constipation, No hematemesis G/U: No dysuria, No frequency, No hematuria, No nacturia Musculoskeletal: No bone or joint pain, No back pain, No muscle pain Endocrine: No polyuria, No polydipsia Psychiatric: Prior psych history, Depression, Anxiety, No suicidal ideation, No homicidal ideation, No auditory hallucination, No visual hallucination Hematopoietic: No bruising, No lymphadenopathy Allergic/Immuno: No urticaria, No angioedema Neurological: No syncope, No focal symptoms, No weakness, No paresthesia, No headache, No seizure, No dizziness, Confusion, No vertigo ED Past Medical History - Past Medical History Obtainable: Yes Past Medical History: HTN, Asthma/COPD, Dyslipidemia, PUD/GERD, Arthritis, Dementia Family History: HTN Social History: Non Smoker, No Alcohol, No Drug Use, Single, Care Facility Surgical History: PEG/GTube Psychiatricy History: Depression, Schizophrenia, Bipolar, Dementia Medication: Reviewed Family Medical History - Family Member Mother History Unknown: Yes Ethnicity: Unknown Living Status: Unknown Hx Family Cancer: (unknown) Hx Family Coronary Artery Disease: (unknown) Hx Family Congestive Heart Failure: (unknown) Hx Family Hypertension: (unknown) Hx Family Stroke: (unknown) Hx Family Diabetes: (unknown) Hx Family Seizures: (unknown) Hx Family Dementia: (unknown) Hx Family AIDS: (unknown) Hx Family HIV: No Hx Family COPD: (unknown) Hx Family Hepatitis: (unknown) Hx Family Psychiatric Problems: (unknown) Hx Family Tuberculosis: (unknown) ED Physical Exam - Physical Examination General/Constitutional: Awake, Well-developed, well-nourished, Alert, No distress, GCS 15, Non-toxic appearing, Ambulatory Head: Atraumatic Eyes: Lids, conjuctiva normal, PERRL, EOMI Skin: Nl inspection, No rash, No skin lesions, No ecchymosis, Well hydrated, No lymphadenopathy ENMT: External ears, nose nl, TM canals nl, Nasal exam nl, Lips, teeth, gums nl , Oropharynx nl, Tonsils nl Neck: Nontender, Full ROM w/o pain, No JVD, No nuchal rigidity, No bruit, No mass, No stridor Respiratory: Nl effort/Exclusion Other Respiratory comments:: Lungs: + Rales and Rhonchi Cardio Vascular: RRR, No murmur, gallop, rubs, NL S1 S2, Carotid/Femoral/Distal pulses equal bilaterally GI: No tenderness/rebounding/guarding, No organomegaly, No hernia, Normal BS's, Nondistended, No mass/bruits, No McBurney tenderness Other GI comments:: no pulsatile masses : No CVA tenderness Extremities: No tenderness or effusion, Full ROM, normal strength in all extremities, No edema, Normal digits & nails Neuro/Psych: Alert/oriented, DTR's symmetric, Normal sensory exam, Normal motor strength, Judgement/insight normal, Mood normal, Normal gait, No focal deficits Other Neuro/Psych comments:: no focal signs Misc: Normal back, No paraspinal tenderness ED Labs/Radiology/EKG Results - Lab Results Comments:: Reviewed - Radiology Results Comments:: + Infiltrate - EKG Interpretations EKG Time:: 00:21 Rate & Rhythm: 104; ST Comments:: non-specific st-t changes ED Septic Shock - . Is Septic Shock (SBP<90, OR Lactate>4 mmol\L) present?: No ED Reassessment (Disposition) - Reassessment Reassessment Condition:: Improved - Diagnosis Diagnosis:: Cough; Fever; Congestion; Pneumonia; Sepsis; Tachycardia; Hyperkalemia; Hyponatremia; Dehydration; Lactic Acidosis - Aftercare/Follow up Instructions Aftercare/Follow-Up Instructions:: Counseled pt regarding lab results/diagnosis & need follow up, Counseled pt & family regarding lab results/diagnosis & need follow up - Patient Disposition Discharge/Transfer:: Acute Care w/in this hosp Accepting Physician:: Dr. Ward Time Called:: 0145 Time Responded:: 01:45 Admitted to:: Telemetry Spoke to:: Dr. Ward Admitting Medical Physician:: Dr. Ward Condition at Disposition:: Stable, Improved
[2018-08-28] MEDS ORDERED: Levofloxacin 500mg/100mL 500 MG/100 ML BAG IV ONE ×2 (00:33→01:08)
[2018-08-28 00:44] LABS: INR 1.23 (0.5-1.4); PROTHROMBIN TIME (TEST) 12.7 SECONDS (9.5-11.5)
[2018-08-28 00:51] LABS: ALB/GLOB RATIO 0.7 (1.0-1.8); ALBUMIN 2.2 gm/dL (4.2-5.5); ALKALINE PHOSPHATASE 285 U/L (34-104); ANION GAP 15.7 (7.0-16.0); BILIRUBIN,TOTAL 0.8 mg/dL (0.3-1.0); BUN - UREA NITROGEN 48 mg/dL (7-25); CALCIUM SERUM 7.7 mg/dL (8.6-10.3); CARBON DIOXIDE 24.7 mEq/L (21.0-31.0); CHLORIDE 94 mEq/L (98-107); CREATININE KINASE 626 U/L (30-223); GLUCOSE 172 mg/dL (70-105); POTASSIUM SERUM 5.4 mEq/L (3.5-5.1); SGOT 288 U/L (13-39); SGPT/ALT 536 U/L (7-52); SODIUM SERUM 129 mEq/L (136-145); TOTAL PROTEIN,SERUM 5.3 gm/dL (6.0-8.3); TROP I 0.04 ng/mL (0.01-0.05)
[2018-08-28 00:58] LABS: % BASOPHILS 0.1 % (0.0-2.0); % EOSINOPHILS 0.1 % (0.0-5.0); % LYMPHOCYTES 11.1 % (20.0-50.0); % MONOCYTES 5.5 % (2.0-10.0); % NEUTROPHILS 83.2 % (40.0-80.0); HEMOGLOBIN 16.1 gm/dL (12-16); MEAN CELL VOLUME 94.9 fl (80-99); MEAN CORPUSCULAR HEMOGLOBIN 31.9 pg (27.0-31.0); MEAN CORPUSCULAR HGB CONC 33.6 pg (28.0-36.0); MEAN PLATELET VOLUME 7.7 fl; MONOCYTE ABSOLUTE 0.5 Th/cmm (0.3-1.0); NEUTROPHILE ABSOLUTE 7.8 Th/cmm (1.8-8.0); PLATELET COUNT 315 Th/cmm (150-400); RED BLOOD COUNT 5.06 Mil/cmm (3.80-5.80); RED CELL DISTRIBUTION WIDTH 13.9 % (11.5-20.0); WHITE BLOOD COUNT 9.3 Th/cmm (4.8-10.8)
[2018-08-28] MEDS ORDERED: Sodium Chloride 0.9% 500 ML IV ONE (00:58)
[2018-08-28] MEDS ORDERED: Sodium Chloride 0.9% 1,000 ML IV ONE (00:58)
[2018-08-28] MEDS: D5-0.9%NS 1,000 ML IV SCH ×2 (02:47→15:46)
[2018-08-28] MEDS: Cefepime 1 GM in Sodium Chloride 0.9% 50 ML IV SCH ×3 (03:47→21:18)
[2018-08-28 04:26] VITALS: BP 113/88
--- NOTE | 2018-08-28 07:57 | Diagnostic Imaging Report ---
Portable chest x-ray History: Pain Allowing for portable technique the heart size is normal. No focal pulmonary parenchymal processes. No hilar or mediastinal abnormalities. Impression: No acute abnormalities.
[2018-08-28] MEDS ORDERED: Maalox 30 mL Cup GT PRN (11:18)
[2018-08-28] MEDS ORDERED: Probiotic Screen MC PRN (12:45)
--- NOTE | 2018-08-28 14:22 | Internal Medicine Prog Note ---
Internal Medicine Subjective - Subjective Service Date: 08/28/18 ([id number] hnp dictated) Internal Medicine Objective - Results Result Diagrams: 08/28/18 00:15 08/28/18 00:15 Recent Labs: Laboratory Last Values WBC 9.3 Th/cmm (4.8-10.8) 08/28/18 00:15 RBC 5.06 Mil/cmm (3.80-5.80) 08/28/18 00:15 Hgb 16.1 gm/dL (12-16) 08/28/18 00:15 Hct 48.0 % (41.0-60) 08/28/18 00:15 MCV 94.9 fl (80-99) 08/28/18 00:15 MCH 31.9 pg (27.0-31.0) H 08/28/18 00:15 MCHC Differential 33.6 pg (28.0-36.0) 08/28/18 00:15 RDW 13.9 % (11.5-20.0) 08/28/18 00:15 Plt Count 315 Th/cmm (150-400) 08/28/18 00:15 MPV 7.7 fl 08/28/18 00:15 Neutrophils % 83.2 % (40.0-80.0) H 08/28/18 00:15 Lymphocytes % 11.1 % (20.0-50.0) L 08/28/18 00:15 Monocytes % 5.5 % (2.0-10.0) 08/28/18 00:15 Eosinophils % 0.1 % (0.0-5.0) 08/28/18 00:15 Basophils % 0.1 % (0.0-2.0) 08/28/18 00:15 PT 12.7 SECONDS (9.5-11.5) H 08/28/18 00:15 INR 1.23 (0.5-1.4) 08/28/18 00:15 PTT (Actin FS) 29.9 SECONDS (26.0-38.0) 08/28/18 00:15 Sodium 129 mEq/L (136-145) L 08/28/18 00:15 Potassium 5.4 mEq/L (3.5-5.1) H 08/28/18 00:15 Chloride 94 mEq/L (98-107) L 08/28/18 00:15 Carbon Dioxide 24.7 mEq/L (21.0-31.0) 08/28/18 00:15 Anion Gap 15.7 (7.0-16.0) 08/28/18 00:15 BUN 48 mg/dL (7-25) H 08/28/18 00:15 Creatinine 1.0 mg/dL (0.7-1.3) 08/28/18 00:15 Est GFR ( Amer) TNP 08/28/18 00:15 Est GFR (Non-Af Amer) TNP 08/28/18 00:15 BUN/Creatinine Ratio 48.0 08/28/18 00:15 Glucose 172 mg/dL (70-105) H 08/28/18 00:15 POC Glucose 94 MG/DL (70 - 105) 08/28/18 02:37 Whole Bld Lactic Acid 3.29 mmol/L (0.60-1.99) H* 08/28/18 02:10 Calcium 7.7 mg/dL (8.6-10.3) L 08/28/18 00:15 Total Bilirubin 0.8 mg/dL (0.3-1.0) 08/28/18 00:15 AST 288 U/L (13-39) H 08/28/18 00:15 ALT 536 U/L (7-52) H 08/28/18 00:15 Alkaline Phosphatase 285 U/L (34-104) H 08/28/18 00:15 Creatine Kinase 626 U/L (30-223) H 08/28/18 00:15 CK-MB (CK-2) 4.3 ng/mL (0.6-6.3) 08/28/18 00:15 Troponin I 0.04 ng/mL (0.01-0.05) 08/28/18 00:15 Total Protein 5.3 gm/dL (6.0-8.3) L 08/28/18 00:15 Albumin 2.2 gm/dL (4.2-5.5) L 08/28/18 00:15 Globulin 3.1 gm/dL 08/28/18 00:15 Albumin/Globulin Ratio 0.7 (1.0-1.8) L 08/28/18 00:15 Valproic Acid 34.1 ug/mL (50.0-100.0) L 08/28/18 00:15 - Physical Exam Vitals and I&O: Vital Signs Temp 98.1 F 08/28/18 11:59 Pulse 93 08/28/18 11:59 Resp 20 08/28/18 12:00 BP 111/82 08/28/18 11:59 Pulse Ox 94 08/28/18 11:59 Intake & Output 08/27/18 08/28/18 08/28/18 18:59 06:59 18:59 Intake Total 2131.667 Balance 2131.667 Weight (lbs) 147 lb 2 oz Intake: Intake, IV Amount 1564.667 Cefepime 1 gm In Sodium 50 Chloride 0.9% 50 ml @ 100 mls/hr IV Q12HR [facility] Rx#: [id number] D5-0.9%Ns 1,000 ml @ 80 314.667 mls/hr IV .[id number] [facility] Rx #:[id number] Levofloxacin 500mg/100mL 100 500 mg In 100 ml @ 100 mls/hr IV X1 [facility] Rx#: [id number] Sodium Chloride 0.9% 500 500 ml @ Wide Open IV .Q0M [facility] Rx#:[id number] Tube Feeding 567 Other: # Voids 2 Weight Source Bedscale Active Medications: Current Medications Acetaminophen (Tylenol 650mg/20.3ml Suspension) 640.25 mg GT Q6H PRN PRN Reason: Pain or Fever >101 Stop: 10/27/18 11:17 Al Hydrox/Mg Hydrox/Simethicone (Maalox) 30 ml GT Q4H PRN PRN Reason: GI DISTRESS Stop: 10/27/18 11:17 Calamine/Phenol (Calmoseptine) 1 appl TP QID PRN PRN Reason: Skin Irritation Stop: 10/27/18 14:13 Donepezil HCl (Aricept) 10 mg GT HS [facility] Stop: 10/27/18 20:59 Cefepime HCl 1 gm/ Sodium (Chloride) 50 mls @ 100 mls/hr IV Q12HR ANA Stop: 10/27/18 02:29 Last Admin: 08/28/18 08:43 Dose: 100 mls/hr Dextrose/Sodium Chloride (D5-0.9%Ns) 1,000 mls @ 80 mls/hr IV .[id number] [facility] Stop: 10/27/18 02:00 Last Infusion: 08/28/18 06:43 Dose: 80 mls/hr Lactobacillus Rhamnosus (Culturelle 15b) 1 each PO DAILY [facility] Stop: 10/28/18 08:59 Miscellaneous (Probiotic Screen) 1 ea MC PRN PRN PRN Reason: PROTOCOL Stop: 10/27/18 12:44 Multivitamins/Vitamin C (Theragran) 1 tab PO DAILY ANA Stop: 10/28/18 08:59 Risperidone (Risperdal) 0.5 mg GT DAILY ANA; Protocol Stop: 10/28/18 08:59 Valproate Sodium (Depakene) 10 mg PO BID [facility] Stop: 10/27/18 16:59 - Procedures Procedures: Procedures Procedure Code Date EGD PLACE GASTROSTOMY TUBE 18847 06/28/17 EMERGENCY DEPT VISIT 83494 12/28/11 EMERGENCY DEPT VISIT 94296 12/12/11 GROUP PSYCHOTHERAPY 21580 02/14/16 GROUP PSYCHOTHERAPY GZHZZZZ 02/14/16 GROUP PSYCHOTHERAPY 74435 10/06/15 GROUP PSYCHOTHERAPY GZHZZZZ 10/06/15 GROUP PSYCHOTHERAPY 77309 06/21/15 GROUP PSYCHOTHERAPY GZHZZZZ 06/21/15 INSERTION OF FEEDING DEVICE INTO STOMACH, PERC APPROACH [id number] 06/28/17 OTHER GROUP THERAPY 94.44 02/26/15 RECREATIONAL THERAPY 93.81 06/30/12
--- NOTE | 2018-08-28 15:28 | History & Physical ---
ADMIT DATE: 08/28/2018 CHIEF COMPLAINT: Fever. HISTORY OF PRESENT ILLNESS: This is a 73-year-old male, who is well known to me from [facility], admitted to the telemetry unit due to 1-day history of fever, cough and congestion. PAST MEDICAL HISTORY: Hypertension, asthma, COPD, dyslipidemia, dementia, GERD. FAMILY HISTORY: Noncontributory. SOCIAL HISTORY: The patient is a prison resident requiring 24-hour nursing care. PAST SURGICAL HISTORY: PEG. MEDICATIONS: See medication list. REVIEW OF SYSTEMS: Unable to obtain due to patient's mental status. PHYSICAL EXAMINATION: GENERAL: Elderly male, not know really interactive, no apparent distress. VITAL SIGNS: Temperature 98.1, heart rate 93, blood pressure 111/82, respirations 22, O2 94%. HEENT: Head; normocephalic, atraumatic. NECK: Supple. No mass. LUNGS: Rhonchi bilaterally. ABDOMEN: Soft, nontender, mildly distended. LABORATORY DATA: WBC 9.3, H and H is 16.1 and 48.0, platelet of 315. Sodium 129, potassium 5.4, chloride 94, BUN 48, creatinine 1.0, whole lactic acid 3.29. DIAGNOSTICS: The patient had a chest x-ray done and impression is, no acute abnormalities. ASSESSMENT: Possible pneumonia, lactic acidosis, possible sepsis, acute renal insufficiency secondary to dehydration, hypertension, acute chronic obstructive pulmonary disease exacerbation, asthma, dyslipidemia, GERD, arthritis, dementia. PLAN: The patient will be admitted to the telemetry unit. We will get Psychiatry on the case with the abdominal ultrasound mechanical soft. Followup labs for tomorrow morning. We will await for sputum culture and blood culture as well. Keep patient on IV antibiotics of Maxipime 1 gram IV q. 12, IV fluids for hydration. Wound care. We will continue to monitor this patient. JOB# [id number]
[2018-08-28] MEDS ORDERED: VALPROIC ACID GT SCH (17:00)
[2018-08-29] MEDS: D5-0.9%NS 1,000 ML IV SCH ×2 (05:34→19:01)
[2018-08-29 06:34] LABS: HEMATOCRIT 39.6 % (41.0-60); HEMOGLOBIN 13.6 gm/dL (12-16); MEAN CELL VOLUME 95.3 fl (80-99); MEAN CORPUSCULAR HEMOGLOBIN 32.8 pg (27.0-31.0); MEAN CORPUSCULAR HGB CONC 34.4 pg (28.0-36.0); MEAN PLATELET VOLUME 7.3 fl; PLATELET COUNT 238 Th/cmm (150-400); RED BLOOD COUNT 4.16 Mil/cmm (3.80-5.80); RED CELL DISTRIBUTION WIDTH 14.1 % (11.5-20.0); WHITE BLOOD COUNT 12.3 Th/cmm (4.8-10.8)
[2018-08-29 06:54] LABS: ALB/GLOB RATIO 0.7 (1.0-1.8); ALBUMIN 1.9 gm/dL (4.2-5.5); ALKALINE PHOSPHATASE 181 U/L (34-104); ANION GAP 9.2 (7.0-16.0); BILIRUBIN,TOTAL 0.7 mg/dL (0.3-1.0); BUN - UREA NITROGEN 42 mg/dL (7-25); CALCIUM SERUM 7.7 mg/dL (8.6-10.3); CARBON DIOXIDE 25.4 mEq/L (21.0-31.0); CHLORIDE 105 mEq/L (98-107); CREATININE - SERUM 0.7 mg/dL (0.7-1.3); GLUCOSE 127 mg/dL (70-105); POTASSIUM SERUM 4.6 mEq/L (3.5-5.1); SGOT 153 U/L (13-39); SGPT/ALT 324 U/L (7-52); SODIUM SERUM 135 mEq/L (136-145); TOTAL PROTEIN,SERUM 4.5 gm/dL (6.0-8.3)
[2018-08-29 07:12] LABS: BAND NEUTROPHILE 8 % (0-10); BASOPHIL 0 % (0-3); EOSINOPHIL 0 % (0-5); LYMPHOCYTE 13 % (20-50); MONOCYTE 9 % (2-10); NEUTROPHILS 70 % (40-80)
[2018-08-29] MEDS ORDERED: MINERALS GT SCH (09:00)
[2018-08-29] MEDS ORDERED: FERROUS FUM GT SCH (09:00)
[2018-08-29] MEDS ORDERED: MULTIVIT GT SCH (09:00)
[2018-08-29] MEDS: Cefepime 1 GM in Sodium Chloride 0.9% 50 ML IV SCH ×2 (09:47→20:41)
[2018-08-29] MEDS: Lactobacillus Rhamnosus GG 15 Billion CFU CAP.SPRINK PO SCH (12:28)
[2018-08-29] MEDS: Multivitamin Tab PO SCH (12:29)
--- NOTE | 2018-08-29 12:47 | Diagnostic Imaging Report ---
Abdominal ultrasound HISTORY: Pain Exam is limited due to patient combativeness. The liver exhibits a normal sized a homogeneous parenchyma. No focal lesions. The gallbladder is normal. No calculi are seen. No biliary dilatation. The pancreas is not well seen due to bowel gas. The right kidney is normal in size. An approximate 2.0 cm sonolucent lesion is noted in the mid/upper pole consistent with a cyst. No hydronephrosis. Left kidney appears normal. No other retroperitoneal or intra-abdominal abnormalities. IMPRESSION: 1. Somewhat limited exam due to patient combativeness 2. Findings consistent with a right renal cyst 3. No other significant abnormalities
--- NOTE | 2018-08-29 13:52 | Internal Medicine Prog Note ---
Internal Medicine Subjective - Subjective Service Date: 08/29/18 Patient seen and examined:: with staff Patient is:: asleep, non-interactive Per staff patient has:: tolerating meds Internal Medicine Objective - Results Result Diagrams: 08/29/18 06:15 08/29/18 06:15 Recent Labs: Laboratory Last Values WBC 12.3 Th/cmm (4.8-10.8) H 08/29/18 06:15 RBC 4.16 Mil/cmm (3.80-5.80) 08/29/18 06:15 Hgb 13.6 gm/dL (12-16) 08/29/18 06:15 Hct 39.6 % (41.0-60) L 08/29/18 06:15 MCV 95.3 fl (80-99) 08/29/18 06:15 MCH 32.8 pg (27.0-31.0) H 08/29/18 06:15 MCHC Differential 34.4 pg (28.0-36.0) 08/29/18 06:15 RDW 14.1 % (11.5-20.0) 08/29/18 06:15 Plt Count 238 Th/cmm (150-400) 08/29/18 06:15 MPV 7.3 fl 08/29/18 06:15 Add Manual Diff YES 08/29/18 06:15 Neutrophils % 83.2 % (40.0-80.0) H 08/28/18 00:15 Band Neutrophils % 8 % (0-10) 08/29/18 06:15 Lymphocytes % 11.1 % (20.0-50.0) L 08/28/18 00:15 Monocytes % 5.5 % (2.0-10.0) 08/28/18 00:15 Eosinophils % 0.1 % (0.0-5.0) 08/28/18 00:15 Basophils % 0.1 % (0.0-2.0) 08/28/18 00:15 Neutrophils (Manual) 70 % (40-80) 08/29/18 06:15 Lymphocytes 13 % (20-50) L 08/29/18 06:15 Monocytes 9 % (2-10) 08/29/18 06:15 Eosinophils 0 % (0-5) 08/29/18 06:15 Basophils 0 % (0-3) 08/29/18 06:15 PT 12.7 SECONDS (9.5-11.5) H 08/28/18 00:15 INR 1.23 (0.5-1.4) 08/28/18 00:15 PTT (Actin FS) 29.9 SECONDS (26.0-38.0) 08/28/18 00:15 Sodium 135 mEq/L (136-145) L 08/29/18 06:15 Potassium 4.6 mEq/L (3.5-5.1) 08/29/18 06:15 Chloride 105 mEq/L (98-107) 08/29/18 06:15 Carbon Dioxide 25.4 mEq/L (21.0-31.0) 08/29/18 06:15 Anion Gap 9.2 (7.0-16.0) 08/29/18 06:15 BUN 42 mg/dL (7-25) H 08/29/18 06:15 Creatinine 0.7 mg/dL (0.7-1.3) 08/29/18 06:15 Est GFR ( Amer) TNP 08/29/18 06:15 Est GFR (Non-Af Amer) TNP 08/29/18 06:15 BUN/Creatinine Ratio 60.0 08/29/18 06:15 Glucose 127 mg/dL (70-105) H 08/29/18 06:15 POC Glucose 94 MG/DL (70 - 105) 08/28/18 02:37 Whole Bld Lactic Acid 3.29 mmol/L (0.60-1.99) H* 08/28/18 02:10 Calcium 7.7 mg/dL (8.6-10.3) L 08/29/18 06:15 Total Bilirubin 0.7 mg/dL (0.3-1.0) 08/29/18 06:15 AST 153 U/L (13-39) H 08/29/18 06:15 ALT 324 U/L (7-52) H 08/29/18 06:15 Alkaline Phosphatase 181 U/L (34-104) H 08/29/18 06:15 Creatine Kinase 626 U/L (30-223) H 08/28/18 00:15 CK-MB (CK-2) 4.3 ng/mL (0.6-6.3) 08/28/18 00:15 Troponin I 0.04 ng/mL (0.01-0.05) 08/28/18 00:15 Total Protein 4.5 gm/dL (6.0-8.3) L 08/29/18 06:15 Albumin 1.9 gm/dL (4.2-5.5) L 08/29/18 06:15 Globulin 2.6 gm/dL 08/29/18 06:15 Albumin/Globulin Ratio 0.7 (1.0-1.8) L 08/29/18 06:15 TSH 1.06 uIU/ml (0.34-5.60) 08/29/18 06:15 Valproic Acid 34.1 ug/mL (50.0-100.0) L 08/28/18 00:15 - Physical Exam Vitals and I&O: Vital Signs Temp 98.0 F 08/29/18 11:40 Pulse 74 08/29/18 11:40 Resp 20 08/29/18 11:48 BP 110/66 08/29/18 11:40 Pulse Ox 98 08/29/18 11:40 Intake & Output 08/28/18 08/29/18 08/29/18 18:59 06:59 18:59 Intake Total 132.395 2701 Balance 660.211 1754 Weight (lbs) 156 lb Intake: Intake, IV Amount 410.762 2479 Cefepime 1 gm In Sodium 50 50 Chloride 0.9% 50 ml @ 100 mls/hr IV Q12HR ANA Rx#: [id number] D5-0.9%Ns 1,000 ml @ 80 075.015 9391 mls/hr IV .[id number] [facility] Rx #:[id number] Other: Weight Source Bedscale Active Medications: Current Medications Acetaminophen (Tylenol 650mg/20.3ml Suspension) 640.25 mg GT Q6H PRN PRN Reason: Pain or Fever >101 Stop: 10/27/18 11:17 Last Admin: 08/29/18 09:41 Dose: 640.25 mg Al Hydrox/Mg Hydrox/Simethicone (Maalox) 30 ml GT Q4H PRN PRN Reason: GI DISTRESS Stop: 10/27/18 11:17 Calamine/Phenol (Calmoseptine) 1 appl TP QID PRN PRN Reason: Skin Irritation Stop: 10/27/18 14:13 Donepezil HCl (Aricept) 10 mg GT HS [facility] Stop: 10/27/18 20:59 Last Admin: 08/28/18 20:40 Dose: 10 mg Cefepime HCl 1 gm/ Sodium (Chloride) 50 mls @ 100 mls/hr IV Q12HR ANA Stop: 10/27/18 02:29 Last Admin: 08/29/18 09:47 Dose: 100 mls/hr Dextrose/Sodium Chloride (D5-0.9%Ns) 1,000 mls @ 80 mls/hr IV .[id number] ANA Stop: 10/27/18 02:00 Last Admin: 08/29/18 05:34 Dose: 80 mls/hr Lactobacillus Rhamnosus (Culturelle 15b) 1 each PO DAILY ANA Stop: 10/28/18 08:59 Last Admin: 08/29/18 12:28 Dose: 1 each Miscellaneous (Probiotic Screen) 1 ea MC PRN PRN PRN Reason: PROTOCOL Stop: 10/27/18 12:44 Multivitamins/Vitamin C (Theragran) 1 tab PO DAILY ANA Stop: 10/28/18 08:59 Last Admin: 08/29/18 12:29 Dose: 1 tab Risperidone (Risperdal) 0.5 mg GT DAILY [facility]; Protocol Stop: 10/28/18 08:59 Last Admin: 08/29/18 12:29 Dose: 0.5 mg Valproate Sodium (Depakene) 500 mg PO BID [facility] Stop: 10/27/18 16:59 General: weak, demented HEENT: NC/AT, PERRLA Neck: Supple Lungs: ronchi Cardiovascular: RRR, Normal S1, Normal S2 Abdomen: soft, non-tender, non-distended Neurological: unable to follow command - Procedures Procedures: Procedures Procedure Code Date EGD PLACE GASTROSTOMY TUBE 85678 06/28/17 EMERGENCY DEPT VISIT 40688 12/28/11 EMERGENCY DEPT VISIT 50043 12/12/11 GROUP PSYCHOTHERAPY 47814 02/14/16 GROUP PSYCHOTHERAPY GZHZZZZ 02/14/16 GROUP PSYCHOTHERAPY 18454 10/06/15 GROUP PSYCHOTHERAPY GZHZZZZ 10/06/15 GROUP PSYCHOTHERAPY 35270 06/21/15 GROUP PSYCHOTHERAPY GZHZZZZ 06/21/15 INSERTION OF FEEDING DEVICE INTO STOMACH, PERC APPROACH [id number] 06/28/17 OTHER GROUP THERAPY 94.44 02/26/15 RECREATIONAL THERAPY 93.81 06/30/12 Internal Medicine Assmt/Plan - Assessment Assessment: possible pna lactic acidosis poss sepsis acute renal insufficiency secondary to dehydration htn acute copd exacerbation asthma dyslipidemia gerd arthritis dementia - Plan Plan: continue ivabx suction patient as needed respiratory tx supplemental o2 as needed follow up labs in am continue current plan of care Nutritional Asmnt/Malnutr-PDOC - Dietary Evaluation Malnutrition Findings (Please click <Entered> for more info): Nutritional Asmnt/Malnutrition Start: 08/28/18 16: 56 Text: Status: Complete Freq: Protocol: Document 08/28/18 16:57 LCHENG (Rec: 08/28/18 17:21 LCADRIANG [email or web address]) Nutritional Asmnt/Malnutrition Patient General Information Nutritional Screening High Risk Consult Diagnosis PNA, sepsis Pertinent Medical Hx/Surgical Hx HTN, asthma/COPD, dyslipidemia , PUD/GERD, arthritis, dementia, PEG/Gtube, depression, schizophrenia, bipolar, dementia Subjective Information Consult received for DTI/s, non-intact skin graciela-anal area . Pt seen resting in bed at time of visit, non-verbal noted. Spoke with NELLI Iglesias RN stated pt appeared not tolerated oral diet, coughing and spiting out food. Current Diet Order/ Nutrition Support [facility] soft ground, Two Tom HN 237ml q4hr via Gtube~2844kcal and 118g protein Pertinent Medications D5-0.9%ns, culturelle, theragran, risperdal Pertinent Labs 08/28 Na 129, K 5.4, Cl 94, BUN 48, glucose 172, POC 94, Ca 7.7, Alb 2.2 Nutritional Hx/Data Height 5 ft 8 in Height (Calculated Centimeters) 172.7 Current Weight (lbs) 147 lb Weight (Calculated Kilograms) 66.7 Weight (Calculated Grams) 63767.1 [place] Body Weight 152 Body Mass Index (BMI) 22.3 Weight Status Approriate GI Symptoms GI Symptoms None Last BM not indicated Difficult in: Chewing Swallowing Skin Integrity/Comment: sDTI to R/ lateral malleolus, right lateral foot, mid border , erythema to right lateral fifth toe, heels, graciela-anal area, coccygeal area. Vlad score 10, non-intact skin Estimated Nutritional Goals BEE in Kcals: Using Current wt Calories/Kcals/Kg 30-35 Kcals Calculated Protein: Using Current wt Protein g/k.2-1.4 Protein Calculated 80-94 Fluid: ml 2009-2345ml (1ml/kcal) Nutritional Problem 3. Problem Problem altered nutrition related labs Etiology electrolytes/fluid imbalance, endorine imbalance Signs/Symptoms: Na 129, K 5.4, Cl 94, BUN 48, glucose 172, Ca 7.7 2. Problem Problem excessive intake from enteral feeding Etiology TF providing excessive kcal and protein Signs/Symptoms: meeting 120% of calorie and protein needs 1. Problem Problem increased nutrition needs ( calorie and protein) Etiology increased metabolic demand Signs/Symptoms: dx of sepsis, PNA, non-intact wound Intervention/Recommendation Comments 1. Recomend modify bolus feeding to Two Tom HTN 5 cans daily. It will provide 2370kcal, 99g protein, 829ml free water, meeting 100% of nutritional needs. NELLI Iglesias notified. 2. Consider enteral feeding only d/t pt not tolerating oral diet. 3. Monitor TF rate, oral diet tolerance, wt, skin integrity and labs 4. F/U as high risk in 2-3 days, 08/30-08/31 Expected Outcomes/Goals Expected Outcomes/Goals 1. Pt to meet at least 75% of nutritional needs via nutrition support with tolerance 2. Wt stability, skin integirty to improve, labs to approach WNL.
[2018-08-30 06:58] LABS: % BASOPHILS 0.2 % (0.0-2.0); % EOSINOPHILS 0.5 % (0.0-5.0); % LYMPHOCYTES 11.6 % (20.0-50.0); % MONOCYTES 7.4 % (2.0-10.0); % NEUTROPHILS 80.3 % (40.0-80.0); HEMATOCRIT 37.9 % (41.0-60); HEMOGLOBIN 13.1 gm/dL (12-16); LYMPHOCYTE ABSOLUTE 1.1 Th/cmm (1.5-3.0); MEAN CELL VOLUME 95.6 fl (80-99); MEAN CORPUSCULAR HEMOGLOBIN 32.9 pg (27.0-31.0); MEAN CORPUSCULAR HGB CONC 34.5 pg (28.0-36.0); MEAN PLATELET VOLUME 7.6 fl; MONOCYTE ABSOLUTE 0.7 Th/cmm (0.3-1.0); NEUTROPHILE ABSOLUTE 7.8 Th/cmm (1.8-8.0); PLATELET COUNT 238 Th/cmm (150-400); RED BLOOD COUNT 3.97 Mil/cmm (3.80-5.80); RED CELL DISTRIBUTION WIDTH 14.7 % (11.5-20.0); WHITE BLOOD COUNT 9.6 Th/cmm (4.8-10.8)
[2018-08-30 07:50] LABS: ALB/GLOB RATIO 0.7 (1.0-1.8); ALBUMIN 1.9 gm/dL (4.2-5.5); ALKALINE PHOSPHATASE 244 U/L (34-104); ANION GAP 9.8 (7.0-16.0); BILIRUBIN,TOTAL 0.6 mg/dL (0.3-1.0); BUN - UREA NITROGEN 37 mg/dL (7-25); CALCIUM SERUM 7.5 mg/dL (8.6-10.3); CARBON DIOXIDE 25.7 mEq/L (21.0-31.0); CHLORIDE 107 mEq/L (98-107); CREATININE - SERUM 0.7 mg/dL (0.7-1.3); GLUCOSE 190 mg/dL (70-105); POTASSIUM SERUM 4.5 mEq/L (3.5-5.1); SGOT 368 U/L (13-39); SGPT/ALT 480 U/L (7-52); SODIUM SERUM 138 mEq/L (136-145); TOTAL PROTEIN,SERUM 4.6 gm/dL (6.0-8.3)
[2018-08-30] MEDS: D5-0.9%NS 1,000 ML IV SCH ×2 (08:42→21:37)
[2018-08-30] MEDS: Cefepime 1 GM in Sodium Chloride 0.9% 50 ML IV SCH ×2 (08:42→21:20)
[2018-08-30] MEDS: Multivitamin Tab PO SCH (08:46)
[2018-08-30] MEDS: Lactobacillus Rhamnosus GG 15 Billion CFU CAP.SPRINK PO SCH (08:46)
--- NOTE | 2018-08-30 14:32 | Internal Medicine Prog Note ---
Internal Medicine Subjective - Subjective Service Date: 08/30/18 Patient is:: asleep, non-interactive Per staff patient has:: tolerating meds Internal Medicine Objective - Results Result Diagrams: 08/30/18 05:29 08/30/18 05:29 Recent Labs: Laboratory Last Values WBC 9.6 Th/cmm (4.8-10.8) 08/30/18 05:29 RBC 3.97 Mil/cmm (3.80-5.80) 08/30/18 05:29 Hgb 13.1 gm/dL (12-16) 08/30/18 05:29 Hct 37.9 % (41.0-60) L 08/30/18 05:29 MCV 95.6 fl (80-99) 08/30/18 05:29 MCH 32.9 pg (27.0-31.0) H 08/30/18 05:29 MCHC Differential 34.5 pg (28.0-36.0) 08/30/18 05:29 RDW 14.7 % (11.5-20.0) 08/30/18 05:29 Plt Count 238 Th/cmm (150-400) 08/30/18 05:29 MPV 7.6 fl 08/30/18 05:29 Add Manual Diff YES 08/29/18 06:15 Neutrophils % 80.3 % (40.0-80.0) H 08/30/18 05:29 Band Neutrophils % 8 % (0-10) 08/29/18 06:15 Lymphocytes % 11.6 % (20.0-50.0) L 08/30/18 05:29 Monocytes % 7.4 % (2.0-10.0) 08/30/18 05:29 Eosinophils % 0.5 % (0.0-5.0) 08/30/18 05:29 Basophils % 0.2 % (0.0-2.0) 08/30/18 05:29 Neutrophils (Manual) 70 % (40-80) 08/29/18 06:15 Lymphocytes 13 % (20-50) L 08/29/18 06:15 Monocytes 9 % (2-10) 08/29/18 06:15 Eosinophils 0 % (0-5) 08/29/18 06:15 Basophils 0 % (0-3) 08/29/18 06:15 PT 12.7 SECONDS (9.5-11.5) H 08/28/18 00:15 INR 1.23 (0.5-1.4) 08/28/18 00:15 PTT (Actin FS) 29.9 SECONDS (26.0-38.0) 08/28/18 00:15 Sodium 138 mEq/L (136-145) 08/30/18 05:29 Potassium 4.5 mEq/L (3.5-5.1) 08/30/18 05:29 Chloride 107 mEq/L (98-107) 08/30/18 05:29 Carbon Dioxide 25.7 mEq/L (21.0-31.0) 08/30/18 05:29 Anion Gap 9.8 (7.0-16.0) 08/30/18 05:29 BUN 37 mg/dL (7-25) H 08/30/18 05:29 Creatinine 0.7 mg/dL (0.7-1.3) 08/30/18 05:29 Est GFR ( Amer) TNP 08/30/18 05:29 Est GFR (Non-Af Amer) TNP 08/30/18 05:29 BUN/Creatinine Ratio 52.9 08/30/18 05:29 Glucose 190 mg/dL (70-105) H 08/30/18 05:29 POC Glucose 94 MG/DL (70 - 105) 08/28/18 02:37 Whole Bld Lactic Acid 3.29 mmol/L (0.60-1.99) H* 08/28/18 02:10 Calcium 7.5 mg/dL (8.6-10.3) L 08/30/18 05:29 Total Bilirubin 0.6 mg/dL (0.3-1.0) 08/30/18 05:29 AST 368 U/L (13-39) H 08/30/18 05:29 ALT 480 U/L (7-52) H 08/30/18 05:29 Alkaline Phosphatase 244 U/L (34-104) H 08/30/18 05:29 Creatine Kinase 626 U/L (30-223) H 08/28/18 00:15 CK-MB (CK-2) 4.3 ng/mL (0.6-6.3) 08/28/18 00:15 Troponin I 0.04 ng/mL (0.01-0.05) 08/28/18 00:15 B-Natriuretic Peptide 65.6 pg/mL (5.0-100.0) 08/30/18 05:29 Total Protein 4.6 gm/dL (6.0-8.3) L 08/30/18 05:29 Albumin 1.9 gm/dL (4.2-5.5) L 08/30/18 05:29 Globulin 2.7 gm/dL 08/30/18 05:29 Albumin/Globulin Ratio 0.7 (1.0-1.8) L 08/30/18 05:29 TSH 1.06 uIU/ml (0.34-5.60) 08/29/18 06:15 Valproic Acid 34.1 ug/mL (50.0-100.0) L 08/28/18 00:15 - Physical Exam Vitals and I&O: Vital Signs Temp 96.5 F 08/30/18 11:35 Pulse 71 08/30/18 11:35 Resp 18 08/30/18 12:00 BP 120/71 08/30/18 11:35 Pulse Ox 97 08/30/18 11:35 Intake & Output 08/29/18 08/30/18 08/30/18 18:59 06:59 18:59 Intake Total 6450 075 5243 Balance 2208 094 4825 Weight (lbs) 156 lb 160 lb Intake: Intake, IV Amount 1050 50 1050 Cefepime 1 gm In Sodium 50 50 50 Chloride 0.9% 50 ml @ 100 mls/hr IV Q12HR ANA Rx#: [id number] D5-0.9%Ns 1,000 ml @ 80 1000 1000 mls/hr IV .[id number] ANA Rx #:[id number] Oral 0 Tube Feeding 474 TPN/PPN 0 Other 300 Other: # Voids 4 3 # Bowel Movements 0 1 Weight Source Bedscale Bedscale Active Medications: Current Medications Acetaminophen (Tylenol 650mg/20.3ml Suspension) 640.25 mg GT Q6H PRN PRN Reason: Pain or Fever >101 Stop: 10/27/18 11:17 Last Admin: 08/29/18 17:31 Dose: 640.25 mg Al Hydrox/Mg Hydrox/Simethicone (Maalox) 30 ml GT Q4H PRN PRN Reason: GI DISTRESS Stop: 10/27/18 11:17 Calamine/Phenol (Calmoseptine) 1 appl TP QID PRN PRN Reason: Skin Irritation Stop: 10/27/18 14:13 Donepezil HCl (Aricept) 10 mg GT HS ANA Stop: 10/27/18 20:59 Last Admin: 08/29/18 20:41 Dose: 10 mg Cefepime HCl 1 gm/ Sodium (Chloride) 50 mls @ 100 mls/hr IV Q12HR ANA Stop: 10/27/18 02:29 Last Infusion: 08/30/18 09:12 Dose: Infused Dextrose/Sodium Chloride (D5-0.9%Ns) 1,000 mls @ 80 mls/hr IV .[id number] [facility] Stop: 10/27/18 02:00 Last Admin: 08/30/18 08:42 Dose: 80 mls/hr Lactobacillus Rhamnosus (Culturelle 15b) 1 each PO DAILY ANA Stop: 10/28/18 08:59 Last Admin: 08/30/18 08:46 Dose: 1 each Miscellaneous (Probiotic Screen) 1 ea MC PRN PRN PRN Reason: PROTOCOL Stop: 10/27/18 12:44 Multivitamins/Vitamin C (Theragran) 1 tab PO DAILY [facility] Stop: 10/28/18 08:59 Last Admin: 08/30/18 08:46 Dose: 1 tab Risperidone (Risperdal) 0.5 mg GT DAILY [facility]; Protocol Stop: 10/28/18 08:59 Last Admin: 08/30/18 08:46 Dose: 0.5 mg Valproate Sodium (Depakene) 500 mg PO BID [facility] Stop: 10/27/18 16:59 Last Admin: 08/30/18 08:45 Dose: 500 mg General: weak, demented HEENT: NC/AT, PERRLA Neck: Supple Lungs: ronchi Cardiovascular: RRR, Normal S1, Normal S2 Abdomen: soft, non-tender, non-distended Neurological: unable to follow command - Procedures Procedures: Procedures Procedure Code Date EGD PLACE GASTROSTOMY TUBE 48770 06/28/17 EMERGENCY DEPT VISIT 35421 12/28/11 EMERGENCY DEPT VISIT 29679 12/12/11 GROUP PSYCHOTHERAPY 12675 02/14/16 GROUP PSYCHOTHERAPY GZHZZZZ 02/14/16 GROUP PSYCHOTHERAPY 06755 10/06/15 GROUP PSYCHOTHERAPY GZHZZZZ 10/06/15 GROUP PSYCHOTHERAPY 21221 06/21/15 GROUP PSYCHOTHERAPY GZHZZZZ 06/21/15 INSERTION OF FEEDING DEVICE INTO STOMACH, PERC APPROACH [id number] 06/28/17 OTHER GROUP THERAPY 94.44 02/26/15 RECREATIONAL THERAPY 93.81 06/30/12 Internal Medicine Assmt/Plan - Assessment Assessment: possible pna lactic acidosis poss sepsis acute renal insufficiency secondary to dehydration htn acute copd exacerbation asthma dyslipidemia gerd arthritis dementia - Plan Plan: continue ivabx suction patient as needed respiratory tx supplemental o2 as needed follow up labs in am continue current plan of care Nutritional Asmnt/Malnutr-PDOC - Dietary Evaluation Malnutrition Findings (Please click <Entered> for more info): Nutritional Asmnt/Malnutrition Start: 08/28/18 16: 56 Text: Status: Complete Freq: Protocol: Document 08/28/18 16:57 LCADRIANG (Rec: 08/28/18 17:21 LCHENG [email or web address]) Nutritional Asmnt/Malnutrition Patient General Information Nutritional Screening High Risk Consult Diagnosis PNA, sepsis Pertinent Medical Hx/Surgical Hx HTN, asthma/COPD, dyslipidemia , PUD/GERD, arthritis, dementia, PEG/Gtube, depression, schizophrenia, bipolar, dementia Subjective Information Consult received for DTI/s, non-intact skin graciela-anal area . Pt seen resting in bed at time of visit, non-verbal noted. Spoke with NELLI Iglesias RN stated pt appeared not tolerated oral diet, coughing and spiting out food. Current Diet Order/ Nutrition Support [facility] soft ground, Two Tom HN 237ml q4hr via Gtube~2844kcal and 118g protein Pertinent Medications D5-0.9%ns, culturelle, theragran, risperdal Pertinent Labs 08/28 Na 129, K 5.4, Cl 94, BUN 48, glucose 172, POC 94, Ca 7.7, Alb 2.2 Nutritional Hx/Data Height 5 ft 8 in Height (Calculated Centimeters) 172.7 Current Weight (lbs) 147 lb Weight (Calculated Kilograms) 66.7 Weight (Calculated Grams) 63680.1 [place] Body Weight 152 Body Mass Index (BMI) 22.3 Weight Status Approriate GI Symptoms GI Symptoms None Last BM not indicated Difficult in: Chewing Swallowing Skin Integrity/Comment: sDTI to R/ lateral malleolus, right lateral foot, mid border , erythema to right lateral fifth toe, heels, graciela-anal area, coccygeal area. Vlad score 10, non-intact skin Estimated Nutritional Goals BEE in Kcals: Using Current wt Calories/Kcals/Kg 30-35 Kcals Calculated 0515-2519 Protein: Using Current wt Protein g/k.2-1.4 Protein Calculated 80-94 Fluid: ml 2009-2345ml (1ml/kcal) Nutritional Problem 3. Problem Problem altered nutrition related labs Etiology electrolytes/fluid imbalance, endorine imbalance Signs/Symptoms: Na 129, K 5.4, Cl 94, BUN 48, glucose 172, Ca 7.7 2. Problem Problem excessive intake from enteral feeding Etiology TF providing excessive kcal and protein Signs/Symptoms: meeting 120% of calorie and protein needs 1. Problem Problem increased nutrition needs ( calorie and protein) Etiology increased metabolic demand Signs/Symptoms: dx of sepsis, PNA, non-intact wound Intervention/Recommendation Comments 1. Recomend modify bolus feeding to Two Tom HTN 5 cans daily. It will provide 2370kcal, 99g protein, 829ml free water, meeting 100% of nutritional needs. RN Harris notified. 2. Consider enteral feeding only d/t pt not tolerating oral diet. 3. Monitor TF rate, oral diet tolerance, wt, skin integrity and labs 4. F/U as high risk in 2-3 days, 08/30-08/31 Expected Outcomes/Goals Expected Outcomes/Goals 1. Pt to meet at least 75% of nutritional needs via nutrition support with tolerance 2. Wt stability, skin integirty to improve, labs to approach WNL.
--- NOTE | 2018-08-30 15:57 | Psychiatric Evaluation ---
DATE OF SERVICE: 08/30/2018 REQUESTING PHYSICIAN: Dr. Ward. REASON FOR CONSULTATION: Agitation. HISTORY OF PRESENT ILLNESS: This patient is a resident of the [facility] facility and admitted to the medical unit for fever, cough, and congestion and the patient is noted to be very agitated and the psychiatric consultation is called to address the issue of the agitation. Chart is reviewed. The patient is interviewed. The patient is known to be demented and confused and is not able to provide much of information. Staff was spoken to and they have been mentioning that the patient gets easily upset and needs to be redirected constantly. PAST PSYCHIATRIC HISTORY: The patient had been hospitalized on multiple occasions. MEDICAL HISTORY: The patient has multiple medical problems including possible pneumonia at this time, lactic acidosis, sepsis, renal insufficiency, hypertension, COPD, dyslipidemia, GERD, and the patient has a history of being treated for agitation in the past with Risperdal, the patient is currently on 0.5 mg daily and valproic acid is being given at 500 mg twice a day. The patient at this time is very confused and is not able to provide much of information and hence I am not able to give much of details. PLAN: To closely monitor the patient and follow the patient up with supportive therapy. DIAGNOSTIC IMPRESSION: AXIS I: A. Psychiatric disorder, not otherwise specified. B. Dementia and behavioral change, secondary trait. IMMEDIATE TREATMENT PLAN: The patient is going to be observed on the inpatient unit. The patient is going to be closely monitored while he is here and I will follow through. Thank you, Dr. Ward for allowing me to participate in the care of the patient. JOB# [id number]
[2018-08-31] MEDS: Menthol/Zinc Oxide Oint 113gm Tube TP PRN ×2 (05:29→16:18)
[2018-08-31 06:54] LABS: % BASOPHILS 0.2 % (0.0-2.0); % EOSINOPHILS 1.1 % (0.0-5.0); % LYMPHOCYTES 14.7 % (20.0-50.0); EOSINOPHILE ABSOLUTE 0.1 Th/cmm (0.1-0.4); HEMOGLOBIN 13.1 gm/dL (12-16); LYMPHOCYTE ABSOLUTE 1.2 Th/cmm (1.5-3.0); MEAN CELL VOLUME 95.2 fl (80-99); MEAN CORPUSCULAR HEMOGLOBIN 32.8 pg (27.0-31.0); MEAN CORPUSCULAR HGB CONC 34.4 pg (28.0-36.0); MEAN PLATELET VOLUME 7.5 fl; MONOCYTE ABSOLUTE 0.8 Th/cmm (0.3-1.0); PLATELET COUNT 241 Th/cmm (150-400); RED BLOOD COUNT 3.99 Mil/cmm (3.80-5.80); RED CELL DISTRIBUTION WIDTH 14.2 % (11.5-20.0); WHITE BLOOD COUNT 8.1 Th/cmm (4.8-10.8)
[2018-08-31 08:19] LABS: ANION GAP 8.6 (7.0-16.0); BUN - UREA NITROGEN 28 mg/dL (7-25); CALCIUM SERUM 7.4 mg/dL (8.6-10.3); CARBON DIOXIDE 26.1 mEq/L (21.0-31.0); CHLORIDE 110 mEq/L (98-107); CREATININE - SERUM 0.5 mg/dL (0.7-1.3); GLUCOSE 100 mg/dL (70-105); POTASSIUM SERUM 4.7 mEq/L (3.5-5.1); SODIUM SERUM 140 mEq/L (136-145)
[2018-08-31] MEDS: Cefepime 1 GM in Sodium Chloride 0.9% 50 ML IV SCH ×2 (09:04→22:12)
[2018-08-31] MEDS: Lactobacillus Rhamnosus GG 15 Billion CFU CAP.SPRINK PO SCH (09:05)
[2018-08-31] MEDS: Multivitamin Tab PO SCH (09:05)
[2018-08-31] MEDS: D5-0.9%NS 1,000 ML IV SCH ×2 (11:13→23:24)
--- NOTE | 2018-08-31 11:28 | Internal Medicine Prog Note ---
Internal Medicine Subjective - Subjective Service Date: 08/31/18 Patient is:: awake, non-interactive Per staff patient has:: tolerating meds Internal Medicine Objective - Results Result Diagrams: 08/31/18 05:56 08/31/18 05:56 Recent Labs: Laboratory Last Values WBC 8.1 Th/cmm (4.8-10.8) 08/31/18 05:56 RBC 3.99 Mil/cmm (3.80-5.80) 08/31/18 05:56 Hgb 13.1 gm/dL (12-16) 08/31/18 05:56 Hct 38.0 % (41.0-60) L 08/31/18 05:56 MCV 95.2 fl (80-99) 08/31/18 05:56 MCH 32.8 pg (27.0-31.0) H 08/31/18 05:56 MCHC Differential 34.4 pg (28.0-36.0) 08/31/18 05:56 RDW 14.2 % (11.5-20.0) 08/31/18 05:56 Plt Count 241 Th/cmm (150-400) 08/31/18 05:56 MPV 7.5 fl 08/31/18 05:56 Add Manual Diff YES 08/29/18 06:15 Neutrophils % 74.0 % (40.0-80.0) 08/31/18 05:56 Band Neutrophils % 8 % (0-10) 08/29/18 06:15 Lymphocytes % 14.7 % (20.0-50.0) L 08/31/18 05:56 Monocytes % 10.0 % (2.0-10.0) 08/31/18 05:56 Eosinophils % 1.1 % (0.0-5.0) 08/31/18 05:56 Basophils % 0.2 % (0.0-2.0) 08/31/18 05:56 Neutrophils (Manual) 70 % (40-80) 08/29/18 06:15 Lymphocytes 13 % (20-50) L 08/29/18 06:15 Monocytes 9 % (2-10) 08/29/18 06:15 Eosinophils 0 % (0-5) 08/29/18 06:15 Basophils 0 % (0-3) 08/29/18 06:15 PT 12.7 SECONDS (9.5-11.5) H 08/28/18 00:15 INR 1.23 (0.5-1.4) 08/28/18 00:15 PTT (Actin FS) 29.9 SECONDS (26.0-38.0) 08/28/18 00:15 Sodium 140 mEq/L (136-145) 08/31/18 05:56 Potassium 4.7 mEq/L (3.5-5.1) 08/31/18 05:56 Chloride 110 mEq/L (98-107) H 08/31/18 05:56 Carbon Dioxide 26.1 mEq/L (21.0-31.0) 08/31/18 05:56 Anion Gap 8.6 (7.0-16.0) 08/31/18 05:56 BUN 28 mg/dL (7-25) H 08/31/18 05:56 Creatinine 0.5 mg/dL (0.7-1.3) L 08/31/18 05:56 Est GFR ( Amer) TNP 08/31/18 05:56 Est GFR (Non-Af Amer) TNP 08/31/18 05:56 BUN/Creatinine Ratio 56.0 08/31/18 05:56 Glucose 100 mg/dL (70-105) 08/31/18 05:56 POC Glucose 94 MG/DL (70 - 105) 08/28/18 02:37 Whole Bld Lactic Acid 1.27 mmol/L (0.60-1.99) 08/31/18 05:56 Calcium 7.4 mg/dL (8.6-10.3) L 08/31/18 05:56 Total Bilirubin 0.6 mg/dL (0.3-1.0) 08/30/18 05:29 AST 368 U/L (13-39) H 08/30/18 05:29 ALT 480 U/L (7-52) H 08/30/18 05:29 Alkaline Phosphatase 244 U/L (34-104) H 08/30/18 05:29 Creatine Kinase 626 U/L (30-223) H 08/28/18 00:15 CK-MB (CK-2) 4.3 ng/mL (0.6-6.3) 08/28/18 00:15 Troponin I 0.04 ng/mL (0.01-0.05) 08/28/18 00:15 B-Natriuretic Peptide 65.6 pg/mL (5.0-100.0) 08/30/18 05:29 Total Protein 4.6 gm/dL (6.0-8.3) L 08/30/18 05:29 Albumin 1.9 gm/dL (4.2-5.5) L 08/30/18 05:29 Globulin 2.7 gm/dL 08/30/18 05:29 Albumin/Globulin Ratio 0.7 (1.0-1.8) L 08/30/18 05:29 TSH 1.06 uIU/ml (0.34-5.60) 08/29/18 06:15 Valproic Acid 34.1 ug/mL (50.0-100.0) L 08/28/18 00:15 - Physical Exam Vitals and I&O: Vital Signs Temp 97.6 F 08/31/18 08:00 Pulse 76 08/31/18 08:00 Resp 19 08/31/18 08:00 BP 119/71 08/31/18 08:00 Pulse Ox 97 08/31/18 08:00 Intake & Output 08/30/18 08/31/18 08/31/18 18:59 06:59 18:59 Intake Total 1530 2726 284 Balance 1530 2726 284 Weight (lbs) 160 lb 161 lb 5 oz Intake: Intake, IV Amount 1050 1766 284 Cefepime 1 gm In Sodium 50 50 Chloride 0.9% 50 ml @ 100 mls/hr IV Q12HR ANA Rx#: [id number] D5-0.9%Ns 1,000 ml @ 80 1000 1716 284 mls/hr IV .[id number] ANA Rx #:[id number] Tube Feeding 480 960 Other: # Voids 4 3 # Bowel Movements 1 1 Weight Source Bedscale Bedscale Active Medications: Current Medications Acetaminophen (Tylenol 650mg/20.3ml Suspension) 640.25 mg GT Q6H PRN PRN Reason: Pain or Fever >101 Stop: 10/27/18 11:17 Last Admin: 08/29/18 17:31 Dose: 640.25 mg Al Hydrox/Mg Hydrox/Simethicone (Maalox) 30 ml GT Q4H PRN PRN Reason: GI DISTRESS Stop: 10/27/18 11:17 Calamine/Phenol (Calmoseptine) 1 appl TP QID PRN PRN Reason: Skin Irritation Stop: 10/27/18 14:13 Last Admin: 08/31/18 05:29 Dose: 1 appl Donepezil HCl (Aricept) 10 mg GT HS ANA Stop: 10/27/18 20:59 Last Admin: 08/30/18 21:20 Dose: 10 mg Cefepime HCl 1 gm/ Sodium (Chloride) 50 mls @ 100 mls/hr IV Q12HR ANA Stop: 10/27/18 02:29 Last Admin: 08/31/18 09:04 Dose: 100 mls/hr Dextrose/Sodium Chloride (D5-0.9%Ns) 1,000 mls @ 80 mls/hr IV .[id number] ANA Stop: 10/27/18 02:00 Last Admin: 08/31/18 11:13 Dose: 80 mls/hr Lactobacillus Rhamnosus (Culturelle 15b) 1 each PO DAILY ANA Stop: 10/28/18 08:59 Last Admin: 08/31/18 09:05 Dose: 1 each Miscellaneous (Probiotic Screen) 1 ea MC PRN PRN PRN Reason: PROTOCOL Stop: 10/27/18 12:44 Multivitamins/Vitamin C (Theragran) 1 tab PO DAILY ANA Stop: 10/28/18 08:59 Last Admin: 08/31/18 09:05 Dose: 1 tab Risperidone (Risperdal) 0.5 mg GT DAILY [facility]; Protocol Stop: 10/28/18 08:59 Last Admin: 08/31/18 09:05 Dose: 0.5 mg Valproate Sodium (Depakene) 500 mg PO BID ANA Stop: 10/27/18 16:59 Last Admin: 08/31/18 09:05 Dose: 500 mg General: weak, demented HEENT: NC/AT, PERRLA Neck: Supple Lungs: ronchi Cardiovascular: RRR, Normal S1, Normal S2 Abdomen: soft, non-tender, non-distended Neurological: unable to follow command - Procedures Procedures: Procedures Procedure Code Date EGD PLACE GASTROSTOMY TUBE 09839 06/28/17 EMERGENCY DEPT VISIT 50636 12/28/11 EMERGENCY DEPT VISIT 47727 12/12/11 GROUP PSYCHOTHERAPY 66123 02/14/16 GROUP PSYCHOTHERAPY GZHZZZZ 02/14/16 GROUP PSYCHOTHERAPY 97264 10/06/15 GROUP PSYCHOTHERAPY GZHZZZZ 10/06/15 GROUP PSYCHOTHERAPY 84620 06/21/15 GROUP PSYCHOTHERAPY GZHZZZZ 06/21/15 INSERTION OF FEEDING DEVICE INTO STOMACH, PERC APPROACH [id number] 06/28/17 OTHER GROUP THERAPY 94.44 02/26/15 RECREATIONAL THERAPY 93.81 06/30/12 Internal Medicine Assmt/Plan - Assessment Assessment: possible pna lactic acidosis poss sepsis acute renal insufficiency secondary to dehydration htn acute copd exacerbation asthma dyslipidemia gerd arthritis dementia - Plan Plan: dc planning in am continue ivabx suction patient as needed respiratory tx supplemental o2 as needed follow up labs in am continue current plan of care Nutritional Asmnt/Malnutr-PDOC - Dietary Evaluation Malnutrition Findings (Please click <Entered> for more info): Nutritional Asmnt/Malnutrition Start: 08/28/18 16: 56 Text: Status: Complete Freq: Protocol: Document 08/28/18 16:57 LCHENG (Rec: 08/28/18 17:21 [email or web address] [email or web address]) Nutritional Asmnt/Malnutrition Patient General Information Nutritional Screening High Risk Consult Diagnosis PNA, sepsis Pertinent Medical Hx/Surgical Hx HTN, asthma/COPD, dyslipidemia , PUD/GERD, arthritis, dementia, PEG/Gtube, depression, schizophrenia, bipolar, dementia Subjective Information Consult received for DTI/s, non-intact skin graciela-anal area . Pt seen resting in bed at time of visit, non-verbal noted. Spoke with NELLI Iglesias RN stated pt appeared not tolerated oral diet, coughing and spiting out food. Current Diet Order/ Nutrition Support [facility] soft ground, Two Tom HN 237ml q4hr via Gtube~2844kcal and 118g protein Pertinent Medications D5-0.9%ns, culturelle, theragran, risperdal Pertinent Labs 08/28 Na 129, K 5.4, Cl 94, BUN 48, glucose 172, POC 94, Ca 7.7, Alb 2.2 Nutritional Hx/Data Height 5 ft 8 in Height (Calculated Centimeters) 172.7 Current Weight (lbs) 147 lb Weight (Calculated Kilograms) 66.7 Weight (Calculated Grams) 27301.1 [place] Body Weight 152 Body Mass Index (BMI) 22.3 Weight Status Approriate GI Symptoms GI Symptoms None Last BM not indicated Difficult in: Chewing Swallowing Skin Integrity/Comment: sDTI to R/ lateral malleolus, right lateral foot, mid border , erythema to right lateral fifth toe, heels, graciela-anal area, coccygeal area. Vlad score 10, non-intact skin Estimated Nutritional Goals BEE in Kcals: Using Current wt Calories/Kcals/Kg 30-35 Kcals Calculated Protein: Using Current wt Protein g/k.2-1.4 Protein Calculated 80-94 Fluid: ml 2009-2345ml (1ml/kcal) Nutritional Problem 3. Problem Problem altered nutrition related labs Etiology electrolytes/fluid imbalance, endorine imbalance Signs/Symptoms: Na 129, K 5.4, Cl 94, BUN 48, glucose 172, Ca 7.7 2. Problem Problem excessive intake from enteral feeding Etiology TF providing excessive kcal and protein Signs/Symptoms: meeting 120% of calorie and protein needs 1. Problem Problem increased nutrition needs ( calorie and protein) Etiology increased metabolic demand Signs/Symptoms: dx of sepsis, PNA, non-intact wound Intervention/Recommendation Comments 1. Recomend modify bolus feeding to Two Tom HTN 5 cans daily. It will provide 2370kcal, 99g protein, 829ml free water, meeting 100% of nutritional needs. RN Harris notified. 2. Consider enteral feeding only d/t pt not tolerating oral diet. 3. Monitor TF rate, oral diet tolerance, wt, skin integrity and labs 4. F/U as high risk in 2-3 days, 08/30-08/31 Expected Outcomes/Goals Expected Outcomes/Goals 1. Pt to meet at least 75% of nutritional needs via nutrition support with tolerance 2. Wt stability, skin integirty to improve, labs to approach WNL.
[2018-09-01 04:57] LABS: % BASOPHILS 0.3 % (0.0-2.0); % EOSINOPHILS 1.7 % (0.0-5.0); % LYMPHOCYTES 14.8 % (20.0-50.0); % MONOCYTES 11.4 % (2.0-10.0); % NEUTROPHILS 71.8 % (40.0-80.0); EOSINOPHILE ABSOLUTE 0.2 Th/cmm (0.1-0.4); HEMATOCRIT 37.8 % (41.0-60); HEMOGLOBIN 13.2 gm/dL (12-16); LYMPHOCYTE ABSOLUTE 1.5 Th/cmm (1.5-3.0); MEAN CELL VOLUME 94.9 fl (80-99); MEAN CORPUSCULAR HEMOGLOBIN 33.2 pg (27.0-31.0); MEAN PLATELET VOLUME 7.6 fl; MONOCYTE ABSOLUTE 1.1 Th/cmm (0.3-1.0); NEUTROPHILE ABSOLUTE 7.1 Th/cmm (1.8-8.0); PLATELET COUNT 216 Th/cmm (150-400); RED BLOOD COUNT 3.98 Mil/cmm (3.80-5.80); RED CELL DISTRIBUTION WIDTH 14.4 % (11.5-20.0); WHITE BLOOD COUNT 9.9 Th/cmm (4.8-10.8)
[2018-09-01 05:33] LABS: ANION GAP 9.9 (7.0-16.0); BUN - UREA NITROGEN 25 mg/dL (7-25); CALCIUM SERUM 7.5 mg/dL (8.6-10.3); CARBON DIOXIDE 23.6 mEq/L (21.0-31.0); CHLORIDE 109 mEq/L (98-107); CREATININE - SERUM 0.5 mg/dL (0.7-1.3); GLUCOSE 100 mg/dL (70-105); POTASSIUM SERUM 4.5 mEq/L (3.5-5.1); SODIUM SERUM 138 mEq/L (136-145)
[2018-09-01] MEDS: Lactobacillus Rhamnosus GG 15 Billion CFU CAP.SPRINK PO SCH (09:52)
[2018-09-01] MEDS: Multivitamin Tab PO SCH (09:52)
[2018-09-01] MEDS: Cefepime 1 GM in Sodium Chloride 0.9% 50 ML IV SCH ×2 (09:52→21:14)
--- NOTE | 2018-09-01 12:42 | Internal Medicine Prog Note ---
Internal Medicine Subjective - Subjective Service Date: 09/01/18 Patient is:: awake, non-interactive Per staff patient has:: tolerating meds Internal Medicine Objective - Results Result Diagrams: 09/01/18 04:15 09/01/18 04:15 Recent Labs: Laboratory Last Values WBC 9.9 Th/cmm (4.8-10.8) 09/01/18 04:15 RBC 3.98 Mil/cmm (3.80-5.80) 09/01/18 04:15 Hgb 13.2 gm/dL (12-16) 09/01/18 04:15 Hct 37.8 % (41.0-60) L 09/01/18 04:15 MCV 94.9 fl (80-99) 09/01/18 04:15 MCH 33.2 pg (27.0-31.0) H 09/01/18 04:15 MCHC Differential 35.0 pg (28.0-36.0) 09/01/18 04:15 RDW 14.4 % (11.5-20.0) 09/01/18 04:15 Plt Count 216 Th/cmm (150-400) 09/01/18 04:15 MPV 7.6 fl 09/01/18 04:15 Add Manual Diff YES 08/29/18 06:15 Neutrophils % 71.8 % (40.0-80.0) 09/01/18 04:15 Band Neutrophils % 8 % (0-10) 08/29/18 06:15 Lymphocytes % 14.8 % (20.0-50.0) L 09/01/18 04:15 Monocytes % 11.4 % (2.0-10.0) H 09/01/18 04:15 Eosinophils % 1.7 % (0.0-5.0) 09/01/18 04:15 Basophils % 0.3 % (0.0-2.0) 09/01/18 04:15 Neutrophils (Manual) 70 % (40-80) 08/29/18 06:15 Lymphocytes 13 % (20-50) L 08/29/18 06:15 Monocytes 9 % (2-10) 08/29/18 06:15 Eosinophils 0 % (0-5) 08/29/18 06:15 Basophils 0 % (0-3) 08/29/18 06:15 PT 12.7 SECONDS (9.5-11.5) H 08/28/18 00:15 INR 1.23 (0.5-1.4) 08/28/18 00:15 PTT (Actin FS) 29.9 SECONDS (26.0-38.0) 08/28/18 00:15 Sodium 138 mEq/L (136-145) 09/01/18 04:15 Potassium 4.5 mEq/L (3.5-5.1) 09/01/18 04:15 Chloride 109 mEq/L (98-107) H 09/01/18 04:15 Carbon Dioxide 23.6 mEq/L (21.0-31.0) 09/01/18 04:15 Anion Gap 9.9 (7.0-16.0) 09/01/18 04:15 BUN 25 mg/dL (7-25) 09/01/18 04:15 Creatinine 0.5 mg/dL (0.7-1.3) L 09/01/18 04:15 Est GFR ( Amer) TNP 09/01/18 04:15 Est GFR (Non-Af Amer) TNP 09/01/18 04:15 BUN/Creatinine Ratio 50.0 09/01/18 04:15 Glucose 100 mg/dL (70-105) 09/01/18 04:15 POC Glucose 94 MG/DL (70 - 105) 08/28/18 02:37 Whole Bld Lactic Acid 1.27 mmol/L (0.60-1.99) 08/31/18 05:56 Calcium 7.5 mg/dL (8.6-10.3) L 09/01/18 04:15 Total Bilirubin 0.6 mg/dL (0.3-1.0) 08/30/18 05:29 AST 368 U/L (13-39) H 08/30/18 05:29 ALT 480 U/L (7-52) H 08/30/18 05:29 Alkaline Phosphatase 244 U/L (34-104) H 08/30/18 05:29 Creatine Kinase 626 U/L (30-223) H 08/28/18 00:15 CK-MB (CK-2) 4.3 ng/mL (0.6-6.3) 08/28/18 00:15 Troponin I 0.04 ng/mL (0.01-0.05) 08/28/18 00:15 B-Natriuretic Peptide 65.6 pg/mL (5.0-100.0) 08/30/18 05:29 Total Protein 4.6 gm/dL (6.0-8.3) L 08/30/18 05:29 Albumin 1.9 gm/dL (4.2-5.5) L 08/30/18 05:29 Globulin 2.7 gm/dL 08/30/18 05:29 Albumin/Globulin Ratio 0.7 (1.0-1.8) L 08/30/18 05:29 TSH 1.06 uIU/ml (0.34-5.60) 08/29/18 06:15 Valproic Acid 34.1 ug/mL (50.0-100.0) L 08/28/18 00:15 - Physical Exam Vitals and I&O: Vital Signs Temp 97.8 F 09/01/18 11:55 Pulse 56 09/01/18 11:55 Resp 18 09/01/18 11:55 BP 112/63 09/01/18 11:55 Pulse Ox 96 09/01/18 11:55 Intake & Output 08/31/18 09/01/18 09/01/18 18:59 06:59 18:59 Intake Total 334 1735.667 Balance 334 1735.667 Weight (lbs) 160 lb Intake: Intake, IV Amount 334 1024.667 Cefepime 1 gm In Sodium 50 50 Chloride 0.9% 50 ml @ 100 mls/hr IV Q12HR ANA Rx#: [id number] D5-0.9%Ns 1,000 ml @ 80 284 974.667 mls/hr IV .[id number] ANA Rx #:[id number] Tube Feeding 711 Other: # Voids 5 # Bowel Movements 1 Weight Source Bedscale Active Medications: Current Medications Acetaminophen (Tylenol 650mg/20.3ml Suspension) 650 mg GT Q4H PRN PRN Reason: Pain or Fever > 101F Stop: 10/31/18 12:18 Al Hydrox/Mg Hydrox/Simethicone (Maalox) 30 ml GT Q4H PRN PRN Reason: GI DISTRESS Stop: 10/27/18 11:17 Calamine/Phenol (Calmoseptine) 1 appl TP QID PRN PRN Reason: Skin Irritation Stop: 10/27/18 14:13 Last Admin: 08/31/18 16:18 Dose: 1 appl Donepezil HCl (Aricept) 10 mg GT HS [facility] Stop: 10/27/18 20:59 Last Admin: 08/31/18 22:13 Dose: 10 mg Cefepime HCl 1 gm/ Sodium (Chloride) 50 mls @ 100 mls/hr IV Q12HR ANA Stop: 10/27/18 02:29 Last Admin: 09/01/18 09:52 Dose: 100 mls/hr Dextrose/Sodium Chloride (D5-0.9%Ns) 1,000 mls @ 80 mls/hr IV .[id number] ANA Stop: 10/27/18 02:00 Last Admin: 08/31/18 23:24 Dose: 80 mls/hr Lactobacillus Rhamnosus (Culturelle 15b) 1 each PO DAILY ANA Stop: 10/28/18 08:59 Last Admin: 09/01/18 09:52 Dose: 1 each Miscellaneous (Probiotic Screen) 1 ea MC PRN PRN PRN Reason: PROTOCOL Stop: 10/27/18 12:44 Multivitamins/Vitamin C (Theragran) 1 tab PO DAILY [facility] Stop: 10/28/18 08:59 Last Admin: 09/01/18 09:52 Dose: 1 tab Risperidone (Risperdal) 0.5 mg GT DAILY [facility]; Protocol Stop: 10/28/18 08:59 Last Admin: 09/01/18 09:52 Dose: 0.5 mg Valproate Sodium (Depakene) 500 mg PO BID [facility] Stop: 10/27/18 16:59 Last Admin: 09/01/18 09:52 Dose: 500 mg General: weak, demented HEENT: NC/AT, PERRLA Neck: Supple Lungs: ronchi Cardiovascular: RRR, Normal S1, Normal S2 Abdomen: soft, non-tender, non-distended Neurological: unable to follow command - Procedures Procedures: Procedures Procedure Code Date EGD PLACE GASTROSTOMY TUBE 17807 06/28/17 EMERGENCY DEPT VISIT 46821 12/28/11 EMERGENCY DEPT VISIT 06648 12/12/11 GROUP PSYCHOTHERAPY 15508 02/14/16 GROUP PSYCHOTHERAPY GZHZZZZ 02/14/16 GROUP PSYCHOTHERAPY 90708 10/06/15 GROUP PSYCHOTHERAPY GZHZZZZ 10/06/15 GROUP PSYCHOTHERAPY 91674 06/21/15 GROUP PSYCHOTHERAPY GZHZZZZ 06/21/15 INSERTION OF FEEDING DEVICE INTO STOMACH, PERC APPROACH [id number] 06/28/17 OTHER GROUP THERAPY 94.44 02/26/15 RECREATIONAL THERAPY 93.81 06/30/12 Internal Medicine Assmt/Plan - Assessment Assessment: possible pna lactic acidosis poss sepsis acute renal insufficiency secondary to dehydration htn acute copd exacerbation asthma dyslipidemia gerd arthritis dementia - Plan Plan: LTAC EVAL continue ivabx suction patient as needed respiratory tx supplemental o2 as needed follow up labs in am continue current plan of care Nutritional Asmnt/Malnutr-PDOC - Dietary Evaluation Malnutrition Findings (Please click <Entered> for more info): Nutritional Asmnt/Malnutrition Start: 08/28/18 16: 56 Text: Status: Complete Freq: Protocol: Document 08/28/18 16:57 LCADRIANG (Rec: 08/28/18 17:21 [email or web address]) Nutritional Asmnt/Malnutrition Patient General Information Nutritional Screening High Risk Consult Diagnosis PNA, sepsis Pertinent Medical Hx/Surgical Hx HTN, asthma/COPD, dyslipidemia , PUD/GERD, arthritis, dementia, PEG/Gtube, depression, schizophrenia, bipolar, dementia Subjective Information Consult received for DTI/s, non-intact skin graciela-anal area . Pt seen resting in bed at time of visit, non-verbal noted. Spoke with NELLI Iglesias, RN stated pt appeared not tolerated oral diet, coughing and spiting out food. Current Diet Order/ Nutrition Support [facility] soft ground, Two Tom HN 237ml q4hr via Gtube~2844kcal and 118g protein Pertinent Medications D5-0.9%ns, culturelle, theragran, risperdal Pertinent Labs 08/28 Na 129, K 5.4, Cl 94, BUN 48, glucose 172, POC 94, Ca 7.7, Alb 2.2 Nutritional Hx/Data Height 5 ft 8 in Height (Calculated Centimeters) 172.7 Current Weight (lbs) 147 lb Weight (Calculated Kilograms) 66.7 Weight (Calculated Grams) 08613.1 [place] Body Weight 152 Body Mass Index (BMI) 22.3 Weight Status Approriate GI Symptoms GI Symptoms None Last BM not indicated Difficult in: Chewing Swallowing Skin Integrity/Comment: sDTI to R/ lateral malleolus, right lateral foot, mid border , erythema to right lateral fifth toe, heels, graciela-anal area, coccygeal area. Vlad score 10, non-intact skin Estimated Nutritional Goals BEE in Kcals: Using Current wt Calories/Kcals/Kg 30-35 Kcals Calculated 9603-2633 Protein: Using Current wt Protein g/k.2-1.4 Protein Calculated 80-94 Fluid: ml 2009-2345ml (1ml/kcal) Nutritional Problem 3. Problem Problem altered nutrition related labs Etiology electrolytes/fluid imbalance, endorine imbalance Signs/Symptoms: Na 129, K 5.4, Cl 94, BUN 48, glucose 172, Ca 7.7 2. Problem Problem excessive intake from enteral feeding Etiology TF providing excessive kcal and protein Signs/Symptoms: meeting 120% of calorie and protein needs 1. Problem Problem increased nutrition needs ( calorie and protein) Etiology increased metabolic demand Signs/Symptoms: dx of sepsis, PNA, non-intact wound Intervention/Recommendation Comments 1. Recomend modify bolus feeding to Two Tom HTN 5 cans daily. It will provide 2370kcal, 99g protein, 829ml free water, meeting 100% of nutritional needs. RN Harris notified. 2. Consider enteral feeding only d/t pt not tolerating oral diet. 3. Monitor TF rate, oral diet tolerance, wt, skin integrity and labs 4. F/U as high risk in 2-3 days, 08/30-08/31 Expected Outcomes/Goals Expected Outcomes/Goals 1. Pt to meet at least 75% of nutritional needs via nutrition support with tolerance 2. Wt stability, skin integirty to improve, labs to approach WNL.
[2018-09-01] MEDS: D5-0.9%NS 1,000 ML IV SCH (18:05)
--- NOTE | 2018-09-02 03:25 | Progress Notes ---
DATE: 09/01/2018 SUBJECTIVE: Staff was spoken to. The patient is interviewed. Mood is noted to be less irritable. Affect is constricted. The patient is isolative and withdrawn. Coping skills are noted to be very poor. The patient is reported to have been having good night's sleep and no appetite problems are reported. No side effects to the medications are noted. ASSESSMENT: The patient is still confused and demented. PLAN: To continue the patient with the supportive therapy, closely monitor the patient for his impulse control problems. JOB# [id number]
[2018-09-02 04:48] LABS: % BASOPHILS 0.1 % (0.0-2.0); % EOSINOPHILS 1.3 % (0.0-5.0); % LYMPHOCYTES 15.9 % (20.0-50.0); % NEUTROPHILS 71.7 % (40.0-80.0); EOSINOPHILE ABSOLUTE 0.1 Th/cmm (0.1-0.4); HEMATOCRIT 38.1 % (41.0-60); HEMOGLOBIN 13.2 gm/dL (12-16); LYMPHOCYTE ABSOLUTE 1.6 Th/cmm (1.5-3.0); MEAN CELL VOLUME 95.2 fl (80-99); MEAN CORPUSCULAR HEMOGLOBIN 32.8 pg (27.0-31.0); MEAN CORPUSCULAR HGB CONC 34.5 pg (28.0-36.0); MEAN PLATELET VOLUME 7.5 fl; MONOCYTE ABSOLUTE 1.1 Th/cmm (0.3-1.0); NEUTROPHILE ABSOLUTE 7.2 Th/cmm (1.8-8.0); PLATELET COUNT 230 Th/cmm (150-400); RED BLOOD COUNT 4.01 Mil/cmm (3.80-5.80); RED CELL DISTRIBUTION WIDTH 14.2 % (11.5-20.0)
[2018-09-02 05:51] LABS: ANION GAP 9.8 (7.0-16.0); BUN - UREA NITROGEN 23 mg/dL (7-25); CARBON DIOXIDE 27.4 mEq/L (21.0-31.0); CHLORIDE 109 mEq/L (98-107); CREATININE - SERUM 0.6 mg/dL (0.7-1.3); GLUCOSE 121 mg/dL (70-105); POTASSIUM SERUM 5.2 mEq/L (3.5-5.1); SODIUM SERUM 141 mEq/L (136-145)
[2018-09-02] MEDS: Lactobacillus Rhamnosus GG 15 Billion CFU CAP.SPRINK PO SCH (08:39)
[2018-09-02] MEDS: Multivitamin Tab PO SCH (08:39)
[2018-09-02] MEDS: Cefepime 1 GM in Sodium Chloride 0.9% 50 ML IV SCH (08:45)
--- NOTE | 2018-09-02 14:15 | Internal Medicine Prog Note ---
Internal Medicine Subjective - Subjective Service Date: 09/02/18 Patient is:: awake, non-interactive Per staff patient has:: tolerating meds Internal Medicine Objective - Results Result Diagrams: 09/02/18 04:10 09/02/18 04:10 Recent Labs: Laboratory Last Values WBC 10.0 Th/cmm (4.8-10.8) 09/02/18 04:10 RBC 4.01 Mil/cmm (3.80-5.80) 09/02/18 04:10 Hgb 13.2 gm/dL (12-16) 09/02/18 04:10 Hct 38.1 % (41.0-60) L 09/02/18 04:10 MCV 95.2 fl (80-99) 09/02/18 04:10 MCH 32.8 pg (27.0-31.0) H 09/02/18 04:10 MCHC Differential 34.5 pg (28.0-36.0) 09/02/18 04:10 RDW 14.2 % (11.5-20.0) 09/02/18 04:10 Plt Count 230 Th/cmm (150-400) 09/02/18 04:10 MPV 7.5 fl 09/02/18 04:10 Add Manual Diff YES 08/29/18 06:15 Neutrophils % 71.7 % (40.0-80.0) 09/02/18 04:10 Band Neutrophils % 8 % (0-10) 08/29/18 06:15 Lymphocytes % 15.9 % (20.0-50.0) L 09/02/18 04:10 Monocytes % 11.0 % (2.0-10.0) H 09/02/18 04:10 Eosinophils % 1.3 % (0.0-5.0) 09/02/18 04:10 Basophils % 0.1 % (0.0-2.0) 09/02/18 04:10 Neutrophils (Manual) 70 % (40-80) 08/29/18 06:15 Lymphocytes 13 % (20-50) L 08/29/18 06:15 Monocytes 9 % (2-10) 08/29/18 06:15 Eosinophils 0 % (0-5) 08/29/18 06:15 Basophils 0 % (0-3) 08/29/18 06:15 PT 12.7 SECONDS (9.5-11.5) H 08/28/18 00:15 INR 1.23 (0.5-1.4) 08/28/18 00:15 PTT (Actin FS) 29.9 SECONDS (26.0-38.0) 08/28/18 00:15 Sodium 141 mEq/L (136-145) 09/02/18 04:10 Potassium 5.2 mEq/L (3.5-5.1) H 09/02/18 04:10 Chloride 109 mEq/L (98-107) H 09/02/18 04:10 Carbon Dioxide 27.4 mEq/L (21.0-31.0) 09/02/18 04:10 Anion Gap 9.8 (7.0-16.0) 09/02/18 04:10 BUN 23 mg/dL (7-25) 09/02/18 04:10 Creatinine 0.6 mg/dL (0.7-1.3) L 09/02/18 04:10 Est GFR ( Amer) TNP 09/02/18 04:10 Est GFR (Non-Af Amer) TNP 09/02/18 04:10 BUN/Creatinine Ratio 38.3 09/02/18 04:10 Glucose 121 mg/dL (70-105) H 09/02/18 04:10 POC Glucose 94 MG/DL (70 - 105) 08/28/18 02:37 Whole Bld Lactic Acid 1.27 mmol/L (0.60-1.99) 08/31/18 05:56 Calcium 8.0 mg/dL (8.6-10.3) L 09/02/18 04:10 Total Bilirubin 0.6 mg/dL (0.3-1.0) 08/30/18 05:29 AST 368 U/L (13-39) H 08/30/18 05:29 ALT 480 U/L (7-52) H 08/30/18 05:29 Alkaline Phosphatase 244 U/L (34-104) H 08/30/18 05:29 Creatine Kinase 626 U/L (30-223) H 08/28/18 00:15 CK-MB (CK-2) 4.3 ng/mL (0.6-6.3) 08/28/18 00:15 Troponin I 0.04 ng/mL (0.01-0.05) 08/28/18 00:15 B-Natriuretic Peptide 65.6 pg/mL (5.0-100.0) 08/30/18 05:29 Total Protein 4.6 gm/dL (6.0-8.3) L 08/30/18 05:29 Albumin 1.9 gm/dL (4.2-5.5) L 08/30/18 05:29 Globulin 2.7 gm/dL 08/30/18 05:29 Albumin/Globulin Ratio 0.7 (1.0-1.8) L 08/30/18 05:29 TSH 1.06 uIU/ml (0.34-5.60) 08/29/18 06:15 Valproic Acid 34.1 ug/mL (50.0-100.0) L 08/28/18 00:15 - Physical Exam Vitals and I&O: Vital Signs Temp 96.1 F 09/02/18 11:44 Pulse 72 09/02/18 11:44 Resp 18 09/02/18 12:00 BP 132/62 09/02/18 11:44 Pulse Ox 96 09/02/18 11:44 Intake & Output 09/01/18 09/02/18 09/02/18 18:59 06:59 18:59 Intake Total 1050 996 Balance 1050 996 Weight (lbs) 166 lb Intake: Intake, IV Amount 1050 50 Cefepime 1 gm In Sodium 50 50 Chloride 0.9% 50 ml @ 100 mls/hr IV Q12HR ANA Rx#: [id number] D5-0.9%Ns 1,000 ml @ 80 1000 mls/hr IV .[id number] [facility] Rx #:[id number] Tube Feeding 946 Other: # Voids 2 # Bowel Movements 1 Stool Characteristics Soft Soft Brown Brown Weight Source Bedscale Active Medications: Current Medications Acetaminophen (Tylenol 650mg/20.3ml Suspension) 650 mg GT Q4H PRN PRN Reason: Pain or Fever > 101F Stop: 10/31/18 12:18 Al Hydrox/Mg Hydrox/Simethicone (Maalox) 30 ml GT Q4H PRN PRN Reason: GI DISTRESS Stop: 10/27/18 11:17 Calamine/Phenol (Calmoseptine) 1 appl TP QID PRN PRN Reason: Skin Irritation Stop: 10/27/18 14:13 Last Admin: 08/31/18 16:18 Dose: 1 appl Donepezil HCl (Aricept) 10 mg GT HS ANA Stop: 10/27/18 20:59 Last Admin: 09/01/18 21:16 Dose: 10 mg Cefepime HCl 1 gm/ Sodium (Chloride) 50 mls @ 100 mls/hr IV Q12HR ANA Stop: 10/27/18 02:29 Last Admin: 09/02/18 08:45 Dose: 100 mls/hr Dextrose/Sodium Chloride (D5-0.9%Ns) 1,000 mls @ 80 mls/hr IV .[id number] ANA Stop: 10/27/18 02:00 Last Admin: 09/01/18 18:05 Dose: 80 mls/hr Lactobacillus Rhamnosus (Culturelle 15b) 1 each PO DAILY ANA Stop: 10/28/18 08:59 Last Admin: 09/02/18 08:39 Dose: 1 each Miscellaneous (Probiotic Screen) 1 ea MC PRN PRN PRN Reason: PROTOCOL Stop: 10/27/18 12:44 Multivitamins/Vitamin C (Theragran) 1 tab PO DAILY ANA Stop: 10/28/18 08:59 Last Admin: 09/02/18 08:39 Dose: 1 tab Risperidone (Risperdal) 0.5 mg GT DAILY ANA; Protocol Stop: 10/28/18 08:59 Last Admin: 09/02/18 08:39 Dose: 0.5 mg General: weak, demented HEENT: NC/AT, PERRLA Neck: Supple Lungs: ronchi Cardiovascular: RRR, Normal S1, Normal S2 Abdomen: soft, non-tender, non-distended Neurological: unable to follow command - Procedures Procedures: Procedures Procedure Code Date EGD PLACE GASTROSTOMY TUBE 73756 06/28/17 EMERGENCY DEPT VISIT 44809 12/28/11 EMERGENCY DEPT VISIT 98703 12/12/11 GROUP PSYCHOTHERAPY 38468 02/14/16 GROUP PSYCHOTHERAPY GZHZZZZ 02/14/16 GROUP PSYCHOTHERAPY 56891 10/06/15 GROUP PSYCHOTHERAPY GZHZZZZ 10/06/15 GROUP PSYCHOTHERAPY 19459 06/21/15 GROUP PSYCHOTHERAPY GZHZZZZ 06/21/15 INSERTION OF FEEDING DEVICE INTO STOMACH, PERC APPROACH [id number] 06/28/17 OTHER GROUP THERAPY 94.44 02/26/15 RECREATIONAL THERAPY 93.81 06/30/12 Internal Medicine Assmt/Plan - Assessment Assessment: possible pna lactic acidosis poss sepsis acute renal insufficiency secondary to dehydration htn acute copd exacerbation asthma dyslipidemia gerd arthritis dementia - Plan Plan: LTAC EVAL continue ivabx suction patient as needed respiratory tx supplemental o2 as needed follow up labs in am continue current plan of care Nutritional Asmnt/Malnutr-PDOC - Dietary Evaluation Malnutrition Findings (Please click <Entered> for more info): Nutritional Asmnt/Malnutrition Start: 08/28/18 16: 56 Text: Status: Complete Freq: Protocol: Document 08/28/18 16:57 LCHENG (Rec: 08/28/18 17:21 [email or web address] [email or web address]) Nutritional Asmnt/Malnutrition Patient General Information Nutritional Screening High Risk Consult Diagnosis PNA, sepsis Pertinent Medical Hx/Surgical Hx HTN, asthma/COPD, dyslipidemia , PUD/GERD, arthritis, dementia, PEG/Gtube, depression, schizophrenia, bipolar, dementia Subjective Information Consult received for DTI/s, non-intact skin graciela-anal area . Pt seen resting in bed at time of visit, non-verbal noted. Spoke with NELLI Iglesias RN stated pt appeared not tolerated oral diet, coughing and spiting out food. Current Diet Order/ Nutrition Support [facility] soft ground, Two Tom HN 237ml q4hr via Gtube~2844kcal and 118g protein Pertinent Medications D5-0.9%ns, culturelle, theragran, risperdal Pertinent Labs 08/28 Na 129, K 5.4, Cl 94, BUN 48, glucose 172, POC 94, Ca 7.7, Alb 2.2 Nutritional Hx/Data Height 5 ft 8 in Height (Calculated Centimeters) 172.7 Current Weight (lbs) 147 lb Weight (Calculated Kilograms) 66.7 Weight (Calculated Grams) 45090.1 Jackson Body Weight 152 Body Mass Index (BMI) 22.3 Weight Status Approriate GI Symptoms GI Symptoms None Last BM not indicated Difficult in: Chewing Swallowing Skin Integrity/Comment: sDTI to R/ lateral malleolus, right lateral foot, mid border , erythema to right lateral fifth toe, heels, graciela-anal area, coccygeal area. Vlad score 10, non-intact skin Estimated Nutritional Goals BEE in Kcals: Using Current wt Calories/Kcals/Kg 30-35 Kcals Calculated Protein: Using Current wt Protein g/k.2-1.4 Protein Calculated 80-94 Fluid: ml 2009-2345ml (1ml/kcal) Nutritional Problem 3. Problem Problem altered nutrition related labs Etiology electrolytes/fluid imbalance, endorine imbalance Signs/Symptoms: Na 129, K 5.4, Cl 94, BUN 48, glucose 172, Ca 7.7 2. Problem Problem excessive intake from enteral feeding Etiology TF providing excessive kcal and protein Signs/Symptoms: meeting 120% of calorie and protein needs 1. Problem Problem increased nutrition needs ( calorie and protein) Etiology increased metabolic demand Signs/Symptoms: dx of sepsis, PNA, non-intact wound Intervention/Recommendation Comments 1. Recomend modify bolus feeding to Two Tom HTN 5 cans daily. It will provide 2370kcal, 99g protein, 829ml free water, meeting 100% of nutritional needs. NELLI Iglesias notified. 2. Consider enteral feeding only d/t pt not tolerating oral diet. 3. Monitor TF rate, oral diet tolerance, wt, skin integrity and labs 4. F/U as high risk in 2-3 days, 08/30-08/31 Expected Outcomes/Goals Expected Outcomes/Goals 1. Pt to meet at least 75% of nutritional needs via nutrition support with tolerance 2. Wt stability, skin integirty to improve, labs to approach WNL.
== END 2018-09-02 20:20 | DRG 871 ==
LOC: ER 23:51 → TELE 08-28 01:30
PROVIDERS: ADMIT Internal Medicine; ATTEND Internal Medicine
DX: A41.9 Sepsis, unspecified organism (principal); J18.9 Pneumonia, unspecified organism; J44.1 Chronic obstructive pulmonary disease with (acute) exacerbation; E87.1 Hypo-osmolality and hyponatremia; J44.0 Chronic obstructive pulmonary disease with (acute) lower respiratory infection; F03.91 Unspecified dementia, unspecified severity, with behavioral disturbance; I10 Essential (primary) hypertension; E86.0 Dehydration; K21.9 Gastro-esophageal reflux disease without esophagitis; M19.90 Unspecified osteoarthritis, unspecified site; E78.5 Hyperlipidemia, unspecified; E87.5 Hyperkalemia; N28.9 Disorder of kidney and ureter, unspecified; F29 Unspecified psychosis not due to a substance or known physiological condition; Z82.49 Family history of ischemic heart disease and other diseases of the circulatory system; Z93.1 Gastrostomy status
CPT/HCPCS: 36415-UA; 71045-TC; 76700-TC; 80048-TC; 80053-TC; 80164-TC; 82550-TC; 82553; 82948-90; 83036-90; 83605; 83880-TC; 84443-TC; 84484-TC; 85007-TC; 85025-TC; 85610-TC; 87070; 93005; 94760; J0692; J1956; J7030; J7040; J7042; Z7610